=== PATIENT | female | born 1975 | race Caucasian/White ===

== ENCOUNTER 2018-08-15 10:17 | Emergency (ER) | payer SELFPAY ==
--- NOTE | 2018-08-15 11:32 | ER ---
Nurse's Notes [facility] Name: Meghan Edwards Age: 42 yrs Sex: Female : 1975 Arrival Date: 08/15/2018 Time: 10:20 Bed 25 Private MD: Amanda ANGELA Diagnosis: Cutaneous abscess of perineum-left labia Presentation: 08/15 10:52 Presenting complaint: Patient states: Left Bartholin's cyst DX yesterday at [facility] with attempted I\T\D. Patient reports fluid draining from cyst. Transition of care: patient was not received from another setting of care. Onset of symptoms was August 05, 2018. Risk Assessment: Do you want to hurt yourself or someone else? Patient reports no desire to harm self or others. Initial Sepsis Screen: Does the patient meet any 2 criteria? No. Patient's initial sepsis screen is negative. Does the patient have a suspected source of infection? No. Patient's initial sepsis screen is negative. Care prior to arrival: None. 10:52 Method Of Arrival: Ambulatory 10:52 Acuity: LALI 3 Triage Assessment: 10:55 General: Appears in no apparent distress. uncomfortable, Behavior is calm, cooperative, aj appropriate for age. Pain: Complains of pain in left labia minora. Neuro: Level of Consciousness is awake, alert, obeys commands, Oriented to person, place, time, situation, Appropriate for age. Respiratory: Airway is patent Respiratory effort is even, unlabored, Respiratory pattern is regular, symmetrical. : Reports pain in left in suprapubic area. Derm: Skin is intact, is healthy with good turgor, Skin is pink, warm \T\ dry. normal. 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 - Social history:: Smoking status: Patient/guardian denies using tobacco. - Ebola Screening: : Patient negative for fever greater than or equal to 101.5 degrees Fahrenheit, and additional compatible Ebola Virus Disease symptoms Patient denies exposure to infectious person Patient denies travel to an Ebola-affected area in the 21 days before illness onset No symptoms or risks identified at this time. - Family history:: not pertinent. Screenin:23 Abuse screen: Denies threats or abuse. Denies injuries from another. Nutritional ss screening: No deficits noted. Tuberculosis screening: No symptoms or risk factors identified. Never had TB. Fall Risk None identified. Assessment: 11:23 General: Appears uncomfortable, Behavior is calm, cooperative, Denies fever, feeling ss ill, fatigue, chills. Pain: Complains of pain in left labia minora Pain currently is 8 out of 10 on a pain scale. Quality of pain is described as tender, Is continuous. Neuro: Level of Consciousness is awake, alert, obeys commands, Oriented to person, place, time, situation. Cardiovascular: Capillary refill < 3 seconds is brisk in bilateral fingers. Respiratory: Airway is patent Respiratory effort is even, unlabored, Respiratory pattern is regular, symmetrical. GI: No signs and/or symptoms were reported involving the gastrointestinal system. : No signs and/or symptoms were reported regarding the genitourinary system. EENT: Nares are clear. Derm: Skin is intact, is healthy with good turgor, Skin is dry, Skin is pink, warm \T\ dry. normal. Derm: Reports purulent drainage from abscess. Musculoskeletal: Circulation, motion, and sensation intact. Range of motion: intact in all extremities, Swelling present in left labia minora. Vital Signs: 10:55 BP 129 / 79; Pulse 78; Resp 20; Temp 97.5; Pulse Ox 98% on R/A; Weight 99.79 kg; Height aj 5 ft. 7 in. (170.18 cm); 10:55 Body Mass Index 34.46 (99.79 kg, 170.18 cm) aj ED Course: 10:20 Patient arrived in ED. sb2 10:21 Amanda ANGELA is Private Physician. sb2 10:54 Triage completed. aj 10:55 Arm band placed on left wrist. Patient placed in waiting room. aj 11:14 Howard Modi MD is Attending Physician. imelda 11:23 Lynnette Kennedy, RN is Primary Nurse. ss 11:23 Patient has correct armband on for positive identification. Bed in low position. Call ss light in reach. 11:30 Laci Lynn MD is Referral Physician. imelda 11:42 No provider procedures requiring assistance completed. Patient did not have IV access ss during this emergency room visit. Administered Medications: 11:41 Drug: [place] 10 mg-325 mg 1 tabs Route: PO; ss 11:53 Follow up: Response: No adverse reaction; Medication administered at discharge. ss 11:42 Drug: Doxycycline 200 mg Route: PO; ss 11:53 Follow up: Response: No adverse reaction; Medication administered at discharge. ss 11:42 Drug: Bactrim (160 mg-800 mg (DS) 1 tablet Route: PO; ss 11:53 Follow up: Response: No adverse reaction; Medication administered at discharge. ss Outcome: 11:31 Discharge ordered by MD. [facility] 11:42 Condition: good 11:42 Discharge instructions given to patient, significant other, Instructed on discharge instructions, follow up and referral plans. medication usage, wound care, Demonstrated understanding of instructions, follow-up care, medications, Prescriptions given X 4. 11:53 Discharged to home ambulatory, with significant other. ss 11:53 Patient left the ED. Signatures: Laura Paz, RN RN Howard Camara MD MD cha Smirch, Shelby, RN RN Sue Pierre sb2 Corrections: (The following items were deleted from the chart) 10:57 10:55 Arm band placed on left wrist. Patient placed in an exam room, jeffrey murphy
--- NOTE | 2018-08-15 11:32 | EDPHYS ---
Physician Documentation [facility] Name: Meghan Edwards Age: 42 yrs Sex: Female : 1975 Arrival Date: 08/15/2018 Time: 10:20 Bed 25 Private MD: Amanda ANGELA ED Physician Howard Modi HPI: 08/15 11:26 This 42 yrs old Female presents to ER via Ambulatory with complaints of imelda Abscess. 11:26 The patient presents with an abscess of the left labia majora. Description: localized, imelda draining, erythematous, fluctuant, raised, swollen. Onset: The symptoms/episode began/occurred 1 week(s) ago. Possible cause(s): unknown. Associated signs and symptoms: The patient has no apparent associated signs or symptoms. Modifying factors: the symptoms are alleviated by remaining still, the symptoms are aggravated by squeezing the lesion and expressing the contents. Severity of symptoms: At their worst the symptoms were mild, in the emergency department the symptoms have improved. The patient has experienced similar episodes in the past, several times. 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 - Social history:: Smoking status: Patient/guardian denies using tobacco. - Ebola Screening: : Patient negative for fever greater than or equal to 101.5 degrees Fahrenheit, and additional compatible Ebola Virus Disease symptoms Patient denies exposure to infectious person Patient denies travel to an Ebola-affected area in the 21 days before illness onset No symptoms or risks identified at this time. - Family history:: not pertinent. ROS: 11:26 Constitutional: Negative for fever, chills, and weight loss, Eyes: Negative for injury, imelda pain, redness, and discharge, ENT: Negative for injury, pain, and discharge, Neck: Negative for injury, pain, and swelling, Cardiovascular: Negative for chest pain, palpitations, and edema, Respiratory: Negative for shortness of breath, cough, wheezing, and pleuritic chest pain, Abdomen/GI: Negative for abdominal pain, nausea, vomiting, diarrhea, and constipation, Back: Negative for injury and pain, MS/Extremity: Negative for injury and deformity, Skin: Negative for injury, rash, and discoloration, Neuro: Negative for headache, weakness, numbness, tingling, and seizure, Psych: Negative for depression, anxiety, suicide ideation, homicidal ideation, and hallucinations, Allergy/Immunology: Negative for hives, rash, and allergies, Endocrine: Negative for neck swelling, polydipsia, polyuria, polyphagia, and marked weight changes, Hematologic/Lymphatic: Negative for swollen nodes, abnormal bleeding, and unusual bruising. 11:26 : Positive for of the left labia majora, abscess. Exam: 11:26 Constitutional: This is a well developed, well nourished patient who is awake, alert, imelda and in no acute distress. Head/Face: Normocephalic, atraumatic. Eyes: Pupils equal round and reactive to light, extra-ocular motions intact. Lids and lashes normal. Conjunctiva and sclera are non-icteric and not injected. Cornea within normal limits. Periorbital areas with no swelling, redness, or edema. ENT: Nares patent. No nasal discharge, no septal abnormalities noted. Tympanic membranes are normal and external auditory canals are clear. Oropharynx with no redness, swelling, or masses, exudates, or evidence of obstruction, uvula midline. Mucous membranes moist. Neck: Trachea midline, no thyromegaly or masses palpated, and no cervical lymphadenopathy. Supple, full range of motion without nuchal rigidity, or vertebral point tenderness. No Meningismus. Chest/axilla: Normal chest wall appearance and motion. Nontender with no deformity. No lesions are appreciated. Cardiovascular: Regular rate and rhythm with a normal S1 and S2. No gallops, murmurs, or rubs. Normal PMI, no JVD. No pulse deficits. Respiratory: Lungs have equal breath sounds bilaterally, clear to auscultation and percussion. No rales, rhonchi or wheezes noted. No increased work of breathing, no retractions or nasal flaring. Abdomen/GI: Soft, non-tender, with normal bowel sounds. No distension or tympany. No guarding or rebound. No evidence of tenderness throughout. Back: No spinal tenderness. No costovertebral tenderness. Full range of motion. Female : Normal external genitalia. MS/ Extremity: Pulses equal, no cyanosis. Neurovascular intact. Full, normal range of motion. Neuro: Awake and alert, GCS 15, oriented to person, place, time, and situation. Cranial nerves II-XII grossly intact. Motor strength 5/5 in all extremities. Sensory grossly intact. Cerebellar exam normal. Normal gait. Psych: Awake, alert, with orientation to person, place and time. Behavior, mood, and affect are within normal limits. 11:26 Skin: abscess, that is small, cellulitis, that is mild, confluent, induration, that is mild is noted, that is moderate is noted, injury, is not appreciated. Vital Signs: 10:55 BP 129 / 79; Pulse 78; Resp 20; Temp 97.5; Pulse Ox 98% on R/A; Weight 99.79 kg; Height aj 5 ft. 7 in. (170.18 cm); 10:55 Body Mass Index 34.46 (99.79 kg, 170.18 cm) MDM: 11:14 Patient medically screened. [facility] 11:29 Data reviewed: vital signs, nurses notes. [facility] Administered Medications: 11:41 Drug: [place] 10 mg-325 mg 1 tabs Route: PO; 11:53 Follow up: Response: No adverse reaction; Medication administered at discharge. 11:42 Drug: Doxycycline 200 mg Route: PO; 11:53 Follow up: Response: No adverse reaction; Medication administered at discharge. 11:42 Drug: Bactrim (160 mg-800 mg (DS) 1 tablet Route: PO; 11:53 Follow up: Response: No adverse reaction; Medication administered at discharge. Disposition: 08/15/18 11:31 Discharged to Home. Impression: Cutaneous abscess of perineum - left labia. - Condition is Stable. - Discharge Instructions: Skin Abscess, Skin Abscess, [id number]. - Prescriptions for Tylenol- Codeine #3 300-30 mg Oral Tablet - take 2 tablets by ORAL route every 6 hours As needed; 24 tablet. Zofran 4 mg Oral Tablet - take 1 tablet by ORAL route every 12 hours As needed; 14 tablet. Doxycycline Hyclate 100 mg Oral Tablet - take 1 tablet by ORAL route every 12 hours; 20 tablet. Bactrim DS 800- 160 mg Oral Tablet - take 1 tablet by ORAL route every 12 hours for 10 days; 20 tablet. - Medication Reconciliation Form, Thank You Letter, Antibiotic Education, Prescription Opioid Use form. - Follow up: Private Physician; When: 2 - 3 days; Reason: Recheck today's complaints, Continuance of care, Re-evaluation by your physician. Follow up: Laci Lynn MD; When: 2 - 3 days; Reason: Recheck today's complaints, Continuance of care, Re-evaluation by your physician. - Problem is new. - Symptoms have improved. Signatures: Laura Paz RN RN Howard Camara MD MD cha Smirch, Shelby, RN RN ss Corrections: (The following items were deleted from the chart) 11:53 11:31 08/15/2018 11:31 Discharged to Home. Impression: Cutaneous abscess of perineum - ss left labia. Condition is Stable. Forms are Medication Reconciliation Form, Thank You Letter, Antibiotic Education, Prescription Opioid Use. Follow up: Private Physician; When: 2 - 3 days; Reason: Recheck today's complaints, Continuance of care, Re-evaluation by your physician. Follow up: Laci Lynn; When: 2 - 3 days; Reason: Recheck today's complaints, Continuance of care, Re-evaluation by your physician. Problem is new. Symptoms have improved. imelda
[2018-08-15] MEDS ORDERED: HYDROCODONE/APAP 10/325 TAB ONE (11:46)
[2018-08-15] MEDS ORDERED: SMZ./TMP. 800/160 MG TABLET ONE (11:46)
[2018-08-15] MEDS ORDERED: DOXYCYCLINE 100 MG CAP PO ONE (11:46)
== END 2018-08-15 11:53 | disposition home or self-care (01) ==
LOC: ER 10:17
DX: L02.215 Cutaneous abscess of perineum (principal); E11.9 Type 2 diabetes mellitus without complications; I10 Essential (primary) hypertension; F41.9 Anxiety disorder, unspecified; Z79.4 Long term (current) use of insulin; Z79.899 Other long term (current) drug therapy
CPT/HCPCS: 99283

== ENCOUNTER 2018-10-07 14:11 | Emergency (ER) | payer SELFPAY ==
[2018-10-07] MEDS ORDERED: ONDANSETRON 4 MG/2 ML VIAL ONE (15:39)
[2018-10-07] MEDS ORDERED: NA CHLORIDE 0.9% 1,000 ML ONE (15:39)
[2018-10-07 15:46] LABS: Absolute Lymphocytes (CBC) 2.5 K/uL (0.7-4.9); Absolute Monocytes 0.8 K/uL (0.1-1.3); Absolute Neutrophil 4.7 K/uL (1.8-8.0); Basophils % 1.1 % (0-1.3); Eosinophils % 2.8 % (0-4.4); Hematocrit 41.9 % (36.0-45.0); MPV 8.3 fL (7.6-11.3); Monocytes % 9.3 % (3.3-12.3); RBC Red Blood Cell Count 4.82 M/uL (3.86-4.86)
[2018-10-07 15:58] LABS: ALT/SGPT 25 U/L (12-78); AST/SGOT 10 U/L (15-37); Albumin 3.8 g/dL (3.4-5.0); Alkaline Phosphatase 58 U/L (45-117); BUN Blood Urea Nitrogen 14 mg/dL (7-18); Bicarbonate 27 mmol/L (21-32); Bilirubin Direct < 0.1 mg/dL (0-0.2); Bilirubin Total 0.3 mg/dL (0.2-1.0); Glucose Level 66 mg/dL (74-106); Lipase 121 U/L (73-393); Potassium 3.7 mmol/L (3.5-5.1); Protein, Total 7.6 g/dL (6.4-8.2); Sodium Level 142 mmol/L (136-145)
[2018-10-07 18:43] LABS: Urine Bacteria NONE SEEN /HPF (<20)
[2018-10-07 18:44] LABS: Urine Culture Reflex Order NOT NEEDED
[2018-10-07 18:44] LABS: Urine Blood 1+ (NEG); Urine Glucose NEGATIVE (NEG); Urine Protein NEGATIVE (NEG)
--- NOTE | 2018-10-07 19:41 | ER ---
Nurse's Notes [facility] Name: Meghan Edwards Age: 42 yrs Sex: Female : 1975 Arrival Date: 10/07/2018 Time: 14:15 Bed 6 Private MD: Diagnosis: Vomiting;Diarrhea, unspecified Presentation: 10/07 14:15 Presenting complaint: EMS states: abd discomfort, nausea and diarrhea x 2 days. ss Transition of care: patient was not received from another setting of care. Onset of symptoms was October 05, 2018. Risk Assessment: Do you want to hurt yourself or someone else? Patient reports no desire to harm self or others. Initial Sepsis Screen: Does the patient meet any 2 criteria? No. Patient's initial sepsis screen is negative. Does the patient have a suspected source of infection? No. Patient's initial sepsis screen is negative. 14:15 Method Of Arrival: EMS: [facility] ss 14:15 Acuity: LALI 3 ss 14:17 Care prior to arrival: Medication(s) given: Phenergan, 12.5 mg, zofran 4 mg, IV ss initiated. 20 GA, in the left forearm, Glucose check: 102. Historical: - Allergies: 14:17 Codeine; ss - PMHx: 14:17 Anxiety; Diabetes - NIDDM; Hypertension; ss - PSHx: 14:17 ; Hysterectomy; Cholecystectomy; ss - Immunization history:: Adult Immunizations up to date, Flu vaccine is not up to date. - Social history:: Smoking status: Patient/guardian denies using tobacco. - Ebola Screening: : Patient denies exposure to infectious person Patient denies travel to an Ebola-affected area in the 21 days before illness onset. Screenin:30 Abuse screen: Denies threats or abuse. Denies injuries from another. Nutritional sg screening: No deficits noted. Tuberculosis screening: No symptoms or risk factors identified. Never had TB. Fall Risk None identified. Assessment: 15:10 General: Appears in no apparent distress. comfortable, well groomed, well developed, sg well nourished, Behavior is calm, cooperative, appropriate for age. Pain: Complains of pain in body aches. Neuro: No deficits noted. Cardiovascular: Patient's skin is warm and dry. Respiratory: Airway is patent Respiratory effort is even, unlabored, Respiratory pattern is regular, symmetrical, Denies cough. GI: Abdomen is round Reports diarrhea, nausea. : No signs and/or symptoms were reported regarding the genitourinary system. EENT: No signs and/or symptoms were reported regarding the EENT system. Derm: Skin is pink, warm \T\ dry. Musculoskeletal: Circulation, motion, and sensation intact. Range of motion: intact in all extremities, Swelling absent. 16:20 Reassessment: Patient appears in no apparent distress at this time. Patient and/or sg family updated on plan of care and expected duration. Pain level reassessed. Patient is alert, oriented x 3, equal unlabored respirations, skin warm/dry/pink. 17:20 Reassessment: Patient appears in no apparent distress at this time. Patient and/or sg family updated on plan of care and expected duration. Pain level reassessed. Patient is alert, oriented x 3, equal unlabored respirations, skin warm/dry/pink. 18:22 Reassessment: Patient appears in no apparent distress at this time. Patient and/or sg family updated on plan of care and expected duration. Pain level reassessed. Patient states feeling better. Vital Signs: 14:17 BP 116 / 61; Pulse 66; Resp 15; Pulse Ox 97% on R/A; Weight 90.72 kg; Height 5 ft. 7 ss in. (170.18 cm); Pain 5/10; 14:19 Temp 97.9(O); ss 15:20 BP 112 / 62; Pulse 68; Resp 17; Pulse Ox 98% on R/A; sg 16:20 BP 114 / 66; Pulse 66; Resp 16; Pulse Ox 97% on R/A; sg 17:45 BP 121 / 70; Pulse 62; Resp 17; Pulse Ox 98% on R/A; sg 14:17 Body Mass Index 31.32 (90.72 kg, 170.18 cm) ED Course: 14:15 Patient arrived in ED. ss 14:16 Triage completed. ss 14:17 Arm band placed on right wrist. ss 14:30 Patient has correct armband on for positive identification. Bed in low position. Call sg light in reach. Side rails up X2. Pulse ox on. NIBP on. Warm blanket given. Head of bed elevated. 14:49 Tyrone Tapia MD is Attending Physician. gs 15:15 No provider procedures requiring assistance completed. Initial lab(s) drawn, by ED sg staff, sent to lab. Maintain EMS IV. Dressing intact. Site clean \T\ dry. Gauge \T\ site: 20 G LFA. 15:35 James Schuster, RN is Primary Nurse. sg 18:40 Diet: Patient given water. Tolerated well. sg Administered Medications: 15:38 Drug: NS 0.9% 1000 ml Route: IV; Rate: 1 bolus; Site: left forearm; sg 17:00 Follow up: Response: No adverse reaction; IV Status: Completed infusion; IV Intake: sg 990ml 15:38 Drug: Zofran 4 mg Route: IVP; Site: left forearm; sg 16:20 Follow up: Response: No adverse reaction sg Point of Care Testing: Blood Glucose: 14:19 Blood Glucose: 82 mg/dL; ss Ranges: Intake: 17:00 IV: 990ml; Total: 990ml. sg Outcome: 19:40 Discharge ordered by . 20:44 Eloped from patient exam room, Time discovered patient gone: October 07, 2018 at 20:15 ak1 pt room empty, pt left prior to discharge papers and instruction. 20:45 Patient left the ED. ak1 Signatures: James Schuster RN RN Lynnette Kennedy RN RN Saray Gavin RN RN [facility] Tyrone Tapia MD MD Corrections: (The following items were deleted from the chart) 14:18 14:15 Care prior to arrival: None. [facility]
--- NOTE | 2018-10-07 19:41 | EDPHYS ---
Physician Documentation [facility] Name: Meghan Edwards Age: 42 yrs Sex: Female : 1975 Arrival Date: 10/07/2018 Time: 14:15 Bed 6 Private MD: ED Physician Tyrone Tapia HPI: 10/07 19:36 This 42 yrs old Female presents to ER via EMS with complaints of Nausea, gs Diarrhea. 19:36 The patient presents to the emergency department with nausea, vomiting, diarrhea. gs Onset: The symptoms/episode began/occurred 3 day(s) ago. Possible causes: unknown. Associated signs and symptoms: Pertinent positives: diarrhea, Pertinent negatives: fever. Severity of symptoms: At their worst the symptoms were moderate in the emergency department the symptoms are unchanged. The patient has experienced similar episodes in the past, a few times. The patient has not recently seen a physician. Historical: - Allergies: 14:17 Codeine; ss - PMHx: 14:17 Anxiety; Diabetes - NIDDM; Hypertension; ss - PSHx: 14:17 ; Hysterectomy; Cholecystectomy; ss - Immunization history:: Adult Immunizations up to date, Flu vaccine is not up to date. - Social history:: Smoking status: Patient/guardian denies using tobacco. - Ebola Screening: : Patient denies exposure to infectious person Patient denies travel to an Ebola-affected area in the 21 days before illness onset. ROS: 19:36 All other systems are negative. gs Exam: 19:36 Head/Face: Normocephalic, atraumatic. Eyes: Pupils equal round and reactive to light, gs extra-ocular motions intact. Lids and lashes normal. Conjunctiva and sclera are non-icteric and not injected. Cornea within normal limits. Periorbital areas with no swelling, redness, or edema. ENT: Nares patent. No nasal discharge, no septal abnormalities noted. Tympanic membranes are normal and external auditory canals are clear. Oropharynx with no redness, swelling, or masses, exudates, or evidence of obstruction, uvula midline. Mucous membranes moist. Neck: Trachea midline, no thyromegaly or masses palpated, and no cervical lymphadenopathy. Supple, full range of motion without nuchal rigidity, or vertebral point tenderness. No Meningismus. Chest/axilla: Normal chest wall appearance and motion. Nontender with no deformity. No lesions are appreciated. Cardiovascular: Regular rate and rhythm with a normal S1 and S2. No gallops, murmurs, or rubs. Normal PMI, no JVD. No pulse deficits. Respiratory: Lungs have equal breath sounds bilaterally, clear to auscultation and percussion. No rales, rhonchi or wheezes noted. No increased work of breathing, no retractions or nasal flaring. Abdomen/GI: Soft, non-tender, with normal bowel sounds. No distension or tympany. No guarding or rebound. No evidence of tenderness throughout. Back: No spinal tenderness. No costovertebral tenderness. Full range of motion. Skin: Warm, dry with normal turgor. Normal color with no rashes, no lesions, and no evidence of cellulitis. MS/ Extremity: Pulses equal, no cyanosis. Neurovascular intact. Full, normal range of motion. Neuro: Awake and alert, GCS 15, oriented to person, place, time, and situation. Cranial nerves II-XII grossly intact. Motor strength 5/5 in all extremities. Sensory grossly intact. Cerebellar exam normal. Normal gait. 19:36 Constitutional: The patient appears alert, awake. Vital Signs: 14:17 BP 116 / 61; Pulse 66; Resp 15; Pulse Ox 97% on R/A; Weight 90.72 kg; Height 5 ft. 7 ss in. (170.18 cm); Pain 5/10; 14:19 Temp 97.9(O); ss 15:20 BP 112 / 62; Pulse 68; Resp 17; Pulse Ox 98% on R/A; sg 16:20 BP 114 / 66; Pulse 66; Resp 16; Pulse Ox 97% on R/A; sg 17:45 BP 121 / 70; Pulse 62; Resp 17; Pulse Ox 98% on R/A; sg 14:17 Body Mass Index 31.32 (90.72 kg, 170.18 cm) MDM: 15:19 Patient medically screened. 19:36 Differential diagnosis: Nonspecific abd pain, gastritis, viral gastroenteritis, gs gastroenteritis. Data reviewed: vital signs, nurses notes. Response to treatment: the patient's symptoms have markedly improved after treatment, and as a result, I will discharge patient. ED course: pt states didn't eat much today and nothing this am. took dm meds anyway. hypoglycemic at ed gave 250, took orally juice. bs stable symptoms improved will discharge. 10/07 14:22 Order name: Glucose, Ancillary Testing; Complete Time: 17:25 EDMS 10/07 15:23 Order name: Basic Metabolic Panel; Complete Time: 17:25 10/07 15:23 Order name: CBC with Diff; Complete Time: 17:25 10/07 15:23 Order name: Hepatic Function; Complete Time: 17:25 10/07 15:23 Order name: Lipase; Complete Time: 17:25 10/07 15:23 Order name: Flu; Complete Time: 17:25 gs 10/07 15:23 Order name: IV Saline Lock; Complete Time: 15:36 gs 10/07 15:23 Order name: Labs collected and sent; Complete Time: 15:36 10/07 15:24 Order name: Urine Test (obtain specimen); Complete Time: 19:13 10/07 15:24 Order name: Urine Microscopic Only; Complete Time: 19:36 10/07 18:08 Order name: Urine Dipstick--Ancillary (enter results); Complete Time: 19:36 10/07 18:11 Order name: Urine --Ancillary (enter results); Complete Time: 19:36 bd 10/07 15:24 Order name: Urine Dipstick-Ancillary (obtain specimen); Complete Time: 19:14 10/07 17:25 Order name: PO challenge; Complete Time: 19:13 gs Administered Medications: 15:38 Drug: NS 0.9% 1000 ml Route: IV; Rate: 1 bolus; Site: left forearm; sg 17:00 Follow up: Response: No adverse reaction; IV Status: Completed infusion; IV Intake: sg 990ml 15:38 Drug: Zofran 4 mg Route: IVP; Site: left forearm; sg 16:20 Follow up: Response: No adverse reaction sg Point of Care Testing: Blood Glucose: 14:19 Blood Glucose: 82 mg/dL; ss Ranges: Critical Glucose Levels:Adult <50 mg/dl or >400 mg/dl <40 mg/dl or >180 mg/dl Disposition: 10/07/18 19:40 Discharged to Home. Impression: Vomiting, Diarrhea, unspecified. - Condition is Stable. - Discharge Instructions: Diarrhea, Adult, Nausea and Vomiting, Adult. - Prescriptions for Zofran 4 mg Oral Tablet - take 1 tablet by ORAL route every 12 hours As needed; 6 tablet. - Medication Reconciliation Form, Thank You Letter, Antibiotic Education, Prescription Opioid Use form. - Follow up: Private Physician; When: 2 - 3 days; Reason: Re-evaluation by your physician. Signatures: Dispatcher [employer] EDMS James Schuster RN RN Lynnette [place] RN RN Saray Gavin RN RN ak1 Tyrone Tapia MD MD gs Corrections: (The following items were deleted from the chart) 20:45 19:40 10/07/2018 19:40 Discharged to Home. Impression: Vomiting; Diarrhea, unspecified. ak1 Condition is Stable. Forms are Medication Reconciliation Form, Thank You Letter, Antibiotic Education, Prescription Opioid Use. Follow up: Private Physician; When: 2 - 3 days; Reason: Re-evaluation by your physician. gs
== END 2018-10-07 20:45 | disposition home or self-care (01) ==
LOC: ER 14:11
DX: R11.2 Nausea with vomiting, unspecified (principal); R19.7 Diarrhea, unspecified; E11.9 Type 2 diabetes mellitus without complications; F41.9 Anxiety disorder, unspecified; Z88.5 Allergy status to narcotic agent; I10 Essential (primary) hypertension
CPT/HCPCS: 36415; 80048; 80076; 81003; 81015; 81025; 82962; 83690; 85025; 87804; 96361; 96374; 99284; J2405; J7030

== ENCOUNTER 2020-01-24 13:27 | Emergency (ER) | payer SELFPAY ==
--- OUTSIDE RECORDS SUMMARY | 2020-01-24 13:29 | XMS REPORT | Continuity of Care Document ---
:[address] [facility] t Address [address] [place] [address] [address]. [address]. [address] [place] [address] Care Team Providers Name Role Phone Virgen MARTINEZ, M Attending Clinician Unavailable Problems This patient has no known problems. Allergies, Adverse Reactions, Alerts This patient has no known allergies or adverse reactions. Medications This patient has no known medications. Procedures This patient has no known procedures. Encounters Start End Encounter Admission Attending Care Care Encounter Source Date/Time Date/Time Type Type Clinicians Facility Department ID 2020-01-24 2020-01-24 Nurse HYUN New [id number] 00:00:00 00:00:00 Triage Nataliya WELLS [id number] [facility] [id number] Results This patient has no known results.
--- OUTSIDE RECORDS SUMMARY | 2020-01-24 13:29 | XMS REPORT | Summary of Care ---
:[address] [facility] Address [address] [place] [id number] Care Team Providers Name Role Phone Pcp, Does Not Have A Primary Care Provider Reason for Visit Reason Comments Sinus Problem Information Encounter Details Date Type Department Care Team Description 01/24/2020 Nurse Triage [facility] Nataliya New, Sinus Problem; [address] [place] [address] RN Information Stopover [address] [place] [address] [address] [id number] [place], [place] [id number] Allergies Active Allergy Reactions Severity Noted Date Comments Hydrocodone Nausea and/or Vomiting 12/15/2018 documented as of this encounter (statuses as of 01/24/2020) Medications Medication Sig Dispensed Refills Start Date End Date Status acetaminophen (TYLENOL) Take 2 tablets 180 tablet 0 07/19/2016 Active 325 mg tablet by mouth every 6 (six) hours. hydroCHLOROthiazide Take 1 capsule 90 capsule 1 07/19/2016 Active (ESIDRIX) 12.5 mg capsule by mouth daily. glipiZIDE 10 mg tablet Take 1 tablet 60 tablet 1 12/28/2017 Active by mouth 2 (two) times daily before breakfast and dinner. aspirin 81 mg chewable Take 1 tablet 30 tablet 0 12/29/2017 Active tablet by mouth daily. butalbital-acetaminophen- Take 1 tablet 20 tablet 0 03/15/2018 Active caff 50-325-40 mg tablet by mouth every 6 (six) hours as needed for Headache (Headache). ibuprofen 600 mg Take 1 tablet 30 tablet 0 12/15/2018 Active tabletIndications: by mouth every Ureteral stone 6 (six) hours as needed for Pain (scale 4-6). tamsulosin 0.4 mg 24 hr Take 1 capsule 14 capsule 0 12/15/2018 Active capsuleIndications: by mouth at Ureteral stone bedtime. traMADol (ULTRAM) 50 mg Take 1 tablet 20 tablet 0 08/01/2019 Active tabletIndications: Foot by mouth every pain, right, Contusion of 6 (six) hours right foot, initial as needed for encounter Pain (scale 7-10). documented as of this encounter (statuses as of 01/24/2020) Active Problems Problem Noted Date Uncontrollable nausea and vomiting 12/28/2017 Kidney stone 10/29/2016 Nephrolithiasis 07/18/2016 Obesity 05/13/2016 documented as of this encounter (statuses as of 01/24/2020) Immunizations Name Administration Dates Next Due Influenza Virus Vaccine Quad IM 3+ YRS 07/19/2016 Pneumococcal Polysaccharide, PPSV23 (PNEUMOVAX) 07/19/2016 documented as of this encounter Social History Tobacco Use Types Packs/Day Years Used Date Former Smoker Smokeless Tobacco: Never Used Alcohol Use Drinks/Week oz/Week Comments No Sex Assigned at Date Recorded Not on file Job Start Date Occupation Industry Not on file Not on file Not on file Travel History Travel Start Travel End No recent travel history available. documented as of this encounter Last Filed Vital Signs Not on filedocumented in this encounter Plan of Treatment Health Maintenance Due Date Last Done Comments DTaP,Tdap,and Td Vaccines (1 - 1984 Tdap) Depression Screening 1985 PAP SMEAR 1994 Breast Cancer Screening 2013 (MAMMOGRAM) INFLUENZA VACCINE (Season Ended) 2020 07/19/2016 PNEUMOCOCCAL 0-64 YEARS COMBINED Aged Out 07/19/2016 No longer eligible based on SERIES patient's age to complete this topic documented as of this encounter Results Not on filedocumented in this encounter
--- NOTE | 2020-01-24 14:20 | RAD REPORT ---
EXAM DESCRIPTION: CT - Head Brain Wo Cont - 01/24/2020 2:10 pm CLINICAL HISTORY: HEADACHE Headache, drowsiness COMPARISON: No comparisons TECHNIQUE: All CT scans are performed using dose optimization technique as appropriate and may inclu de automated exposure control or mA/KV adjustment according to patient size. FINDINGS: No intracranial hemorrhage, hydrocephalus or extra-axial fluid collection.No areas of brai n edema or evidence of midline shift. The paranasal sinuses and mastoids are clear. The calvarium is intact. IMPRESSION: No acute intracranial abnormality.
[2020-01-24] MEDS ORDERED: NA CHLORIDE 0.9% 1,000 ML ONE (14:25)
[2020-01-24] MEDS ORDERED: METOCLOPRAMIDE 10 MG/2mL INJ ONE (14:25)
[2020-01-24] MEDS ORDERED: dexAMETHasone 10 MG/ML VIAL ONE (14:25)
--- NOTE | 2020-01-24 15:15 | ER ---
Nurse's Notes [facility] Name: Meghan Edwards Age: 44 yrs Sex: Female : 1975 Arrival Date: 01/24/2020 Time: 13:30 Bed 18 Private MD: Diagnosis: Headache Presentation: 01/23 13:46 Chief complaint: Patient states: Sinus pressure, WALLER's for 9 days. + N/V at times. covid ll1 test pending. Onset of symptoms was January 16, 2020. 13:46 Method Of Arrival: Ambulatory ll1 13:46 Acuity: LALI 3 ll1 14:49 Coronavirus screen: Proceed with normal triage. Patient denies a cough. Patient denies ll1 shortness of breath or difficulty breathing. Patient denies measured and/or subjective temperature greater than 100.4F prior to today's visit. Patient denies travel on a cruise ship or to a country the [facility] currently lists as an affected area. Patient denies contact with known and/or suspected case of COVID-19. Ebola Screen: Patient denies travel to an Ebola-affected area in the 21 days before illness onset. Initial Sepsis Screen: Does the patient meet any 2 criteria? No. Patient's initial sepsis screen is negative. Risk Assessment: Do you want to hurt yourself or someone else? Patient reports no desire to harm self or others. Historical: - Allergies: 13:47 Codeine; ll1 - PMHx: 13:47 Anxiety; Diabetes - NIDDM; Hypertension; ll1 - PSHx: 13:47 ; Hysterectomy; Cholecystectomy; gastric sleeve; ll1 - Family history:: not pertinent. - Hospitalizations: : No recent hospitalization is reported. Screenin:00 Abuse screen: Denies threats or abuse. Nutritional screening: No deficits noted. Tuberculosis screening: No symptoms or risk factors identified. Assessment: 14:00 General: Appears uncomfortable, Behavior is cooperative, crying. Pain: Complains of pain in headache. Neuro: Level of Consciousness is awake, alert, Oriented to person, place, time, situation. Cardiovascular: Capillary refill < 3 seconds Patient's skin is warm and dry. Respiratory: Airway is patent Respiratory effort is even, unlabored, Respiratory pattern is regular, symmetrical. GI: Abdomen is non-distended, Reports nausea. EENT: Nares with drainage noted. Derm: Skin is intact, is healthy with good turgor. 15:00 Reassessment: Pt states that she feels like the pressure has released and is feeling ah some better. No needs voiced. Vital Signs: 13:46 BP 197 / 90; Pulse 66; Resp 18; Temp 98.6; Pulse Ox 100% ; Pain 10/10; ll1 14:00 BP 162 / 99; Pulse 57; Resp 18; Pulse Ox 98% ; ah Apurva Coma Score: 15:10 Eye Response: spontaneous(4). Verbal Response: oriented(5). Motor Response: obeys rn commands(6). Total: 15. ED Course: 13:30 Patient arrived in ED. as 13:40 Christian Carpio MD is Attending Physician. rn 13:47 Triage completed. ll1 13:47 Arm band placed on Patient placed in an exam room, on a stretcher. ll1 14:10 CT Head Brain wo Cont In Process Unspecified. [facility] 14:15 Brea Doan, RN is Primary Nurse. 14:32 Inserted saline lock: 22 gauge in right antecubital area, using aseptic technique. ah 15:00 Patient has correct armband on for positive identification. Bed in low position. Call light in reach. 15:30 No provider procedures requiring assistance completed. IV discontinued. Administered Medications: 14:25 Drug: NS 0.9% 1000 ml Route: IV; Rate: 1000 ml; Site: right antecubital; 15:54 Follow up: Response: No adverse reaction; IV Status: Completed infusion 14:31 Drug: Decadron - Dexamethasone 10 mg Route: IVP; Site: right antecubital; 15:54 Follow up: Response: No adverse reaction 14:32 Drug: Reglan 10 mg Route: IVP; Site: right antecubital; 15:54 Follow up: Response: No adverse reaction Outcome: 15:14 Discharge ordered by . rn 15:30 Discharged to home ambulatory. 15:30 Condition: good 15:30 Discharge instructions given to patient, Instructed on discharge instructions, follow up and referral plans. medication usage, Demonstrated understanding of instructions, follow-up care, medications, Prescriptions given X 1. 15:51 Patient left the ED. hb Signatures: Dispatcher [employer] EDMS Allison Nice as Christian Carpio, MD MD rn Dobson, Deloris, RN RN Brea Phillips RN RN Yin Bergman RN RN ll1
--- NOTE | 2020-01-24 15:15 | EDPHYS ---
Physician Documentation [facility] Name: Meghan Edwards Age: 44 yrs Sex: Female : 1975 Arrival Date: 01/24/2020 Time: 13:30 Bed 18 Private MD: ED Physician Christian Carpio HPI: 01/23 15:09 This 44 yrs old Female presents to ER via Ambulatory with complaints of rn Nausea, Sinus Pain, Headache. 15:10 The patient complains of pain to the forehead, right cheek and left cheek. The patient rn describes the headache as aching. Onset: The symptoms/episode began/occurred 1 week(s) ago. Associated signs and symptoms: Pertinent positives: sinus congestion, sinus tenderness, Pertinent negatives: altered mental status, fever, neck stiffness, Photophobia rash, vision changes, vision loss, vertigo. Severity of symptoms: At its worst the pain was moderate, in the emergency department the pain is unchanged. The symptoms are alleviated by nothing. the symptoms are aggravated by touching sinuses. The patient has experienced similar episodes in the past. The patient has been recently seen by a physician:. On day 3 on azithromycin, not improving, + sinus pressure and headache. No sob or cough, no chest tightness. . Historical: - Allergies: 13:47 Codeine; ll1 - PMHx: 13:47 Anxiety; Diabetes - NIDDM; Hypertension; ll1 - PSHx: 13:47 ; Hysterectomy; Cholecystectomy; gastric sleeve; ll1 - Family history:: not pertinent. - Hospitalizations: : No recent hospitalization is reported. ROS: 15:10 Constitutional: Negative for fever, chills, and weight loss, Eyes: Negative for injury, rn pain, redness, and discharge, ENT: + sinus pressure Neck: Negative for injury, pain, and swelling, Cardiovascular: Negative for chest pain, palpitations, and edema, Respiratory: Negative for shortness of breath, cough, wheezing, and pleuritic chest pain, Abdomen/GI: Negative for abdominal pain, nausea, vomiting, diarrhea, and constipation, MS/Extremity: Negative for injury and deformity, Skin: Negative for injury, rash, and discoloration, Neuro: Negative for weakness, numbness, tingling, and seizure. Exam: 15:10 Constitutional: This is a well developed, well nourished patient who is awake, alert, rn and in no acute distress. Ambulatory to room without difficulty. Head/Face: Normocephalic, atraumatic. Eyes: Pupils equal round and reactive to light, extra-ocular motions intact. Lids and lashes normal. Conjunctiva and sclera are non-icteric and not injected. Cornea within normal limits. Periorbital areas with no swelling, redness, or edema. ENT: Nares patent. No nasal discharge, no septal abnormalities noted. Oropharynx with no redness, swelling, or masses, exudates, or evidence of obstruction, uvula midline. Mucous membranes moist. + mild tenderness over frontal and paranasal sinuses. Neck: Trachea midline, no thyromegaly or masses palpated, and no cervical lymphadenopathy. Supple, full range of motion without nuchal rigidity, or vertebral point tenderness. No Meningismus. Skin: Warm, dry MS/ Extremity: Pulses equal, no cyanosis Neuro: Awake and alert, GCS 15, oriented to person, place, time, and situation. Cranial nerves II-XII grossly intact. Motor strength 5/5 in all extremities. Sensory grossly intact. Cerebellar exam normal. Normal gait. Vital Signs: 13:46 BP 197 / 90; Pulse 66; Resp 18; Temp 98.6; Pulse Ox 100% ; Pain 10/10; ll1 14:00 BP 162 / 99; Pulse 57; Resp 18; Pulse Ox 98% ; ah Apurva Coma Score: 15:10 Eye Response: spontaneous(4). Verbal Response: oriented(5). Motor Response: obeys rn commands(6). Total: 15. MDM: 13:40 Patient medically screened. rn 15:10 Differential diagnosis: hypertensive headache, migraine, sinusitis, tension headache, rn vasomotor headache. Data reviewed: vital signs, nurses notes, radiologic studies, CT scan, and as a result, I will discharge patient. Counseling: I had a detailed discussion with the patient and/or guardian regarding: the historical points, exam findings, and any diagnostic results supporting the discharge/admit diagnosis, radiology results, the need for outpatient follow up, to return to the emergency department if symptoms worsen or persist or if there are any questions or concerns that arise at home. Response to treatment: the patient's symptoms have markedly improved after treatment, and as a result, I will discharge patient. Special discussion: I discussed with the patient/guardian in detail that at this point there is no indication for admission to the hospital. It is understood, however, that if the symptoms persist or worsen the patient needs to return immediately for re-evaluation. 01/23 13:49 Order name: CT Head Brain wo Cont; Complete Time: 14:23 rn 01/23 13:49 Order name: IV Start; Complete Time: 14:32 rn Administered Medications: 14:25 Drug: NS 0.9% 1000 ml Route: IV; Rate: 1000 ml; Site: right antecubital; 15:54 Follow up: Response: No adverse reaction; IV Status: Completed infusion 14:31 Drug: Decadron - Dexamethasone 10 mg Route: IVP; Site: right antecubital; 15:54 Follow up: Response: No adverse reaction 14:32 Drug: Reglan 10 mg Route: IVP; Site: right antecubital; 15:54 Follow up: Response: No adverse reaction Disposition: 01/24/20 15:14 Discharged to Home. Impression: Headache. - Condition is Stable. - Discharge Instructions: Hypertension, Sinus Headache. - Prescriptions for Medrol (Errol) 4 mg Oral Tablets, Dose Pack - take 1 tablet by ORAL route as directed - follow package instructions; 1 packet. - Medication Reconciliation Form, Thank You Letter, Antibiotic Education, Prescription Opioid Use form. - Follow up: Private Physician; When: As needed; Reason: Recheck today's complaints, Re-evaluation by your physician. - Problem is an ongoing problem. - Symptoms have improved. Signatures: Dispatcher [employer] EDChristian Ly MD MD rn Baxter, Heather, RN RN hb Harris, Amy RN Yin French RN RN ll1 Corrections: (The following items were deleted from the chart) 15:51 15:14 01/24/2020 15:14 Discharged to Home. Impression: Headache. Condition is Stable. hb Forms are Medication Reconciliation Form, Thank You Letter, Antibiotic Education, Prescription Opioid Use. Follow up: Private Physician; When: As needed; Reason: Recheck today's complaints, Re-evaluation by your physician. Problem is an ongoing problem. Symptoms have improved. rn
[2020-01-24 15:56] VITALS: BP 197/90; TEMP 98.6; O2SAT 100
== END 2020-01-24 15:51 | disposition home or self-care (01) ==
LOC: ER 13:27
DX: R51 Headache (principal); I10 Essential (primary) hypertension; Z88.5 Allergy status to narcotic agent
CPT/HCPCS: 70450; 96361; 96374; 96375; 99284; J1100; J2765; J7030

== ENCOUNTER 2020-11-17 16:06 | Observation (INO) | payer OTHER, SELFPAY ==
--- OUTSIDE RECORDS SUMMARY | 2020-11-17 16:08 | XMS REPORT | Continuity of Care Document ---
:1975 Author Organization [facility] t Address [address] [place] [address] Dr. Nava. [address] [place] [address] Care Team Providers Name Role Phone Esposito DO Attending Clinician Lab, Fam Pob I Attending Clinician Unavailable Virgen MARTINEZ, M Attending Clinician Unavailable Problems This patient has no known problems. Allergies, Adverse Reactions, Alerts This patient has no known allergies or adverse reactions. Medications This patient has no known medications. Procedures This patient has no known procedures. Encounters Start End Encounter Admission Attending Care Care Encounter Source Date/Time Date/Time Type Type Clinicians Facility Department ID 2020-10-12 2020-10-12 Emergency [facility] [id number] 09:18:00 11:40:00 Gelacio Rodriguez [id number] [place] [id number] [place] [id number] 2020-03-04 2020-03-04 Laboratory Lab, [facility] [id number] 08:52:32 09:12:32 Only Fam Pob I [facility] [id number] [place] [id number] [facility] [id number] [address] 2020-01-24 2020-01-24 Nurse HYUN New [id number] 00:00:00 00:00:00 Triage Nataliya Funk PRISCLILA [id number] [facility] [id number] Results This patient has no known results.
[2020-11-17] MEDS ORDERED: HYDROCOD 2.5mg-ACETAMIN 108mg/5mL Soln ONE (16:32)
[2020-11-17] MEDS ORDERED: IBUPROFEN 100 MG/5 ML UCUP ONE (16:32)
[2020-11-17 19:00] LABS: Basophils % 0.4 % (0-1.3); Hematocrit 44.5 % (36.0-45.0); Lymphocytes % 24.5 % (15.3-44.8); MPV 8.8 fL (7.6-11.3); RBC Red Blood Cell Count 5.01 M/uL (3.86-4.86)
[2020-11-17] MEDS ORDERED: ONDANSETRON 4 MG/2 ML VIAL ONE ×2 (19:01→22:48)
[2020-11-17] MEDS ORDERED: NA CHLORIDE 0.9% 1,000 ML ONE (19:01)
[2020-11-17] MEDS ORDERED: FAMOTIDINE 20 MG/2 ML VIAL IV ONE (19:01)
[2020-11-17] MEDS ORDERED: MORPHINE 4 MG/ML SYR ONE ×2 (19:07→20:12)
[2020-11-17 19:11] LABS: Albumin 4.4 g/dL (3.4-5.0); Bilirubin Direct 0.1 mg/dL (0-0.2); Bilirubin Total 0.5 mg/dL (0.2-1.0); Potassium 3.8 mmol/L (3.5-5.1); Protein, Total 8.5 g/dL (6.4-8.2)
--- NOTE | 2020-11-17 20:00 | RAD REPORT ---
EXAM DESCRIPTION: CT - Abdomen Pelvis W Contrast - 11/17/2020 7:40 pm CLINICAL HISTORY: ABD PAIN COMPARISON: Abdomen Pelvis W Contrast dated 11/24/2015 TECHNIQUE: Biphasic, helical CT imaging of the abdomen and pelvis was performed following 100 ml non -ionic IV contrast. No oral contrast administered. All CT scans are performed using dose optimization technique as appropriate and may include automated exposure control or mA/KV adjustment according to patient size. FINDINGS: No suspicious findings in the lung bases. The liver, spleen, and pancreas show no suspicious findings. Gallbladder is absent. Intrahepatic and extrahepatic biliary tree dilatation are present not substantially different from comparison. Dilatat ion is likely the reservoir effect that can occur after a cholecystectomy. No duodenal or pancreatic mass seen. Duct stones can be occult. Symmetric renal function is seen with no hydronephrosis or suspicious renal mass. No pyelonephritis o r acute parenchymal process. Bilateral renal cysts are present. No perinephric stranding. No adrenal abnormalities. No urinary bladder abnormality. Uterus absent. Gastric sleeve surgical changes are noted. No gastric dilatation. Yung of the antrum are mildly prom inent. This is not substantially different. A mild antritis is not excluded but needs correlation wit h clinical pain presentation. No acute small bowel finding. The appendix is normal. Large amount of stool is present filling but not dilating the entirety of the colon. Sigmoid colon is redundant. No free air, free fluid or inflammatory stranding. No hernia, mass or bulky lymphadenop athy. No suspicious bony findings. IMPRESSION: Constipation pattern with a large amount of stool filling but not dilating the entirety of the colon. Biliary tree dilatation is believed to be the reservoir effect that can occur after a cholecystectomy rather than biliary obstruction. Duct stones can be occult. No pancreatic or duodenal mass.
[2020-11-17] MEDS ORDERED: FLEET ENEMA ADULT PR ONE (20:31)
[2020-11-17] MEDS ORDERED: MAGNESIUM CITRATE 300 ML BOT ONE (20:31)
[2020-11-17] MEDS ORDERED: PANTOPRAZOLE 40 MG INJ ONE (23:04)
[2020-11-17] MEDS ORDERED: PROMETHAZINE INJ 25 MG/ML AMP ONE (23:04)
[2020-11-17] MEDS ORDERED: BISACODYL 10 MG RECTAL SUPP ONE (23:50)
[2020-11-17] MEDS ORDERED: POLYETHYL GLY 3350 17 GM/DOSE ONE (23:50)
--- NOTE | 2020-11-18 00:31 | EDPHYS ---
Physician Documentation [facility] Name: Meghan Edwards Age: 44 yrs Sex: Female : 1975 Arrival Date: 11/17/2020 Time: 16:09 Bed 8 Private MD: ED Physician Hebrert Perez HPI: 11/17 20:13 This 44 yrs old Female presents to ER via Ambulatory with complaints of jr8 Nausea/Vomiting, Constipation. 20:13 Patient presents with c/o abd pain and inability to have BM for 10 days. She reports jr8 she had an upper GI and was DX with gastroenteritis and ulcers. She was supposed to have a colonoscopy today but was not given the prep. Has had continued constipation symptoms and n/v for over 6 weeks. Became much worse today . 11/18 00:22 Severity of symptoms: At their worst the symptoms were moderate in the emergency jr8 department the symptoms are unchanged. The patient has not experienced similar symptoms in the past. The patient has been recently seen by a physician:. 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 - Social history:: Smoking status: Reported history of juuling and/or vaping. ROS: 20:15 Cardiovascular: Negative for chest pain, palpitations, and edema, Respiratory: Negative jr8 for shortness of breath, cough, wheezing, and pleuritic chest pain, MS/Extremity: Negative for injury and deformity, Skin: Negative for injury, rash, and discoloration, Neuro: Negative for headache, weakness, numbness, tingling, and seizure. 20:15 Abdomen/GI: Positive for abdominal pain, vomiting, constipation, abdominal cramps. 20:15 All other systems are negative. Exam: 20:15 Head/Face: Normocephalic, atraumatic. Chest/axilla: Normal chest wall appearance and jr8 motion. Nontender with no deformity. No lesions are appreciated. Cardiovascular: Regular rate and rhythm with a normal S1 and S2. No gallops, murmurs, or rubs. Normal PMI, no JVD. No pulse deficits. Respiratory: Lungs have equal breath sounds bilaterally, clear to auscultation and percussion. No rales, rhonchi or wheezes noted. No increased work of breathing, no retractions or nasal flaring. Back: No spinal tenderness. No costovertebral tenderness. Full range of motion. MS/ Extremity: Pulses equal, no cyanosis. Neurovascular intact. Full, normal range of motion. Neuro: Awake and alert, GCS 15, oriented to person, place, time, and situation. Cranial nerves II-XII grossly intact. Motor strength 5/5 in all extremities. Sensory grossly intact. Cerebellar exam normal. Normal gait. 20:15 Abdomen/GI: Inspection: abdomen appears normal, distension, is not seen, Bowel sounds: normal, in all quadrants, Palpation: severe abdominal tenderness, in all quadrants. 20:15 Back: CVA tenderness, is noted on the right. 20:15 Back: pain, of the left low back, CVA tenderness. Vital Signs: 16:53 BP 169 / 100; Pulse 72; Resp 18 S; Temp 97.9(TE); Pulse Ox 97% on R/A; Weight 79.38 kg ca1 (R); Height 5 ft. 7 in. (170.18 cm) (R); Pain 9/10; 19:16 BP 163 / 102; Pulse 62; Resp 20; Pulse Ox 96% on R/A; ss 21:00 BP 150 / 90; Pulse 60; Resp 18; Pulse Ox 99% ; ea 11/18 00:00 BP 160 / 78; Pulse 60; Resp 19; Pulse Ox 99% ; ea 01:50 BP 140 / 70; Pulse 70; Resp 18; Pulse Ox 99% ; ea 11/17 16:53 Body Mass Index 27.41 (79.38 kg, 170.18 cm) ca1 MDM: 11/17 18:53 Patient medically screened. jr8 22:35 ED course: Called Dr. Bingham/Marva's office. Spoke with Dr. Durham. Stated that he jr8 doesn't cover for kelly's patients and could not help. Suggested transferring if need be. . 11/18 00:22 Data reviewed: vital signs, nurses notes, lab test result(s), radiologic studies, CT jr8 scan. Data interpreted: Pulse oximetry: on room air is 96 %. Interpretation: normal. Counseling: I had a detailed discussion with the patient and/or guardian regarding: the historical points, exam findings, and any diagnostic results supporting the discharge/admit diagnosis, lab results, radiology results, the need for further work-up and treatment in the hospital. ED course: We have tried three enemas while patient has been here along with PO meds. Patient continues to not be able to hold any meds or fluids down. Starting to have small bowel movements but still with 7 out of [address] Tovar at that time who accepted patient for further evaluation. Patient will be admitted to medicine . 11/17 18:32 Order name: Basic Metabolic Panel [facility] 11/17 18:32 Order name: CBC with Diff [facility] 11/17 18:32 Order name: Hepatic Function [facility] 11/17 18:32 Order name: Lipase [facility] 11/17 18:39 Order name: Urine Microscopic Only [facility] 11/17 19:07 Order name: CBC with Automated Diff; Complete Time: 19:13 EDWA 11/17 18:32 Order name: CT Abd/Pelvis - IV Contrast Only [facility] 11/17 19:12 Order name: Basic Metabolic Panel; Complete Time: 19:13 EDMS 11/17 19:12 Order name: Liver (Hepatic) Function; Complete Time: 19:13 EDMS 11/17 19:12 Order name: Lipase; Complete Time: 19:13 EDMS 11/17 20:01 Order name: CT; Complete Time: 20:02 EDMS 11/18 03:03 Order name: SARS-COV-2 RT PCR; Complete Time: 13:24 EDWA 11/17 18:32 Order name: IV Saline Lock; Complete Time: 18:49 [facility] 11/17 18:32 Order name: Labs collected and sent; Complete Time: 18:50 [facility] 11/17 21:33 Order name: Misc. Order: soapsuds enema; Complete Time: 22:04 jr8 Administered Medications: 11/17 19:00 Drug: NS 0.9% 1000 ml Route: IV; Rate: 1 bolus; Site: right antecubital; ss 22:33 Follow up: Response: No adverse reaction; IV Status: Completed infusion; IV Intake: ea 1000ml 19:02 Drug: Zofran (Ondansetron) 4 mg Route: IVP; Site: right antecubital; ss 23:06 Follow up: Response: No adverse reaction ea 19:05 Drug: morphine 4 mg Route: IVP; Site: right antecubital; ss 19:07 Drug: Pepcid (famotidine) 20 mg Route: IVP; Site: right antecubital; ss 19:59 Drug: morphine 4 mg Route: IVP; Site: right antecubital; ea 22:33 Follow up: Response: No adverse reaction ea 20:15 Drug: Magnesium Citrate Liquid 300 ml Route: PO; ea 22:34 Follow up: Response: Vomiting increased ea 22:03 Drug: Fleet Enema 133 ml Route: SC; ea 23:07 Follow up: Response: No adverse reaction ea 22:30 Drug: Zofran (Ondansetron) 4 mg Route: IVP; Site: right antecubital; ea 11/18 00:00 Follow up: Response: No adverse reaction ea 11/17 23:00 Drug: Phenergan 12.5 mg Route: IVP; Site: right antecubital; ea 11/18 00:00 Follow up: Response: No adverse reaction ea 11/17 23:00 Drug: ProTONIX 40 mg Route: IVP; Site: right antecubital; ea 11/18 00:00 Follow up: Response: No adverse reaction ea 11/17 23:50 Drug: Miralax 17 grams Route: PO; ea 11/18 00:00 Follow up: Response: No adverse reaction ea Disposition: 08:18 Co-signature as Attending Physician, Herbert Perez MD I agree with the assessment and kdr plan of care. Disposition: 11/18/20 00:30 Hospitalization ordered by Jai Ortiz for Observation. Preliminary diagnosis are Intractable Vomiting, Constipation, Intractable Abdominal pain, Gastritis, unspecified, without bleeding. - Bed requested for Telemetry/MedSurg (observation). - Status is Observation. ea - Condition is Fair. - Problem is new. - Symptoms are unchanged. Signatures: Dispatcher [employer] EDHerbert Markham MD MD kdr Smirch, Shelby, RN RN ss Roszak, Josh, PA PA jr8 Eula Jasso RN RN cg Antunez, Elena, RN RN ea Acob, Cheryl RN RN ca1 Corrections: (The following items were deleted from the chart) 11/17 19:00 18:39 Urine Test ordered. jr8 ss 11/18 00:24 04 20:13 Patient presents with c/o abd pain and inability to have BM for 10 days. jr8 She reports she had an upper GI and was DX with gastroenteritis and ulcers. She was supposed to have a colonoscopy today but was not given the prep. . jr8 11/18 00:30 00:30 Hospitalization Ordered by Jai Ortiz DO for Observation. Preliminary jr8 diagnosis is Intractable Vomiting; Constipation; Intractable Abdominal pain. Bed requested for Telemetry/MedSurg (observation). Status is Observation. Condition is Fair. Problem is new. Symptoms are unchanged. jr8 03:05 00:30 11/18/2020 00:30 Hospitalization Ordered by Jai Ortiz DO for Observation. cg Preliminary diagnosis is Intractable Vomiting; Constipation; Intractable Abdominal pain; Gastritis, unspecified, without bleeding. Bed requested for Telemetry/MedSurg (observation). Status is Observation. Condition is Fair. Problem is new. Symptoms are unchanged. jr8 03:53 03:05 11/18/2020 00:30 Hospitalization Ordered by Jai Ortiz DO for Observation. ea Preliminary diagnosis is Intractable Vomiting; Constipation; Intractable Abdominal pain; Gastritis, unspecified, without bleeding. Bed requested for Telemetry/MedSurg (observation). Status is Observation. Condition is Fair. Problem is new. Symptoms are unchanged. cg
--- NOTE | 2020-11-18 00:31 | ER ---
Nurse's Notes [facility] Name: Meghan Edwards Age: 44 yrs Sex: Female : 1975 Arrival Date: 11/17/2020 Time: 16:09 Bed 8 Private MD: Diagnosis: Intractable Vomiting;Constipation;Intractable Abdominal pain;Gastritis, unspecified, without bleeding Presentation: 11/17 16:53 Chief complaint: Patient states: No BM x 8 days. I have a blockage somewhere. I've been ca1 sick for 7 weeks. My GI said I have gastritis and ulcers. I am scheduled for a colonoscopy today but they did not prep me, I am just in so much pain right now, it's getting worse and I am out of my pain meds. Reports N/V x 6 weeks. Coronavirus screen: Client denies travel out of the [place] in the last 14 days. nausea, vomiting. Client presents with at least one sign or symptom that may indicate coronavirus-19. Standard/surgical mask placed on the client. Provider contacted for isolation considerations. Ebola Screen: Patient negative for fever greater than or equal to 101.5 degrees Fahrenheit, and additional compatible Ebola Virus Disease symptoms Patient denies exposure to infectious person. Patient denies travel to an Ebola-affected area in the 21 days before illness onset. No symptoms or risks identified at this time. Initial Sepsis Screen: Does the patient meet any 2 criteria? No. Patient's initial sepsis screen is negative. Does the patient have a suspected source of infection? No. Patient's initial sepsis screen is negative. Risk Assessment: Do you want to hurt yourself or someone else? Patient reports no desire to harm self or others. Onset of symptoms was November 17, 2020. 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 - Social history:: Smoking status: Reported history of juuling and/or vaping. Screenin:07 Abuse screen: Denies threats or abuse. Denies injuries from another. Nutritional ss screening: No deficits noted. Tuberculosis screening: Never had TB. Fall Risk None identified. Assessment: 19:13 General: Appears distressed, uncomfortable, Behavior is cooperative, anxious, restless, ss Reports feeling ill for x 7 weeks. Denies fever, fatigue, chills. Pain: Complains of pain in abdomen, L mid/ lower back Pain currently is 10 out of 10 on a pain scale. Is continuous. Neuro: Level of Consciousness is awake, alert, obeys commands, Oriented to person, place, time, situation. Cardiovascular: Capillary refill < 3 seconds is brisk in bilateral fingers Patient's skin is warm and dry. Respiratory: Airway is patent Trachea midline Respiratory effort is even, unlabored, Respiratory pattern is regular, symmetrical. GI: Abdomen is non-distended. GI: Stools are reported to be constipated. Abdomen is tender to palpation X 4 quads. Reports constipation, nausea, vomiting, since LAST BM 8 days ago. : Denies burning with urination, urinary frequency. EENT: Nares are clear Oral mucosa is moist. Throat is clear. Derm: Skin is intact, is healthy with good turgor, Skin is dry, Skin is pink, warm \T\ dry. normal. Musculoskeletal: Circulation, motion, and sensation intact. Range of motion: intact in all extremities. 22:05 Reassessment: Pt attempting to have bowel movement. ea 11/18 00:31 Reassessment: Pt complaining of nausea had liquid bowel movement. ea 01:38 Reassessment: Pt resting with eyes closed, respirations even and unlabored. Chest ea expansions even and symmetrical. 02:54 Reassessment: Patient and/or family updated on plan of care and expected duration. Pain ea level reassessed. Pt resting with eyes closed respirations even and unlabored, Chest expansions even and symmetrical. No s/s of pain or discomfort noted at this time. 03:40 Reassessment: Patient and/or family updated on plan of care and expected duration. Pain ea level reassessed. Patient is alert, oriented x 3, equal unlabored respirations, skin warm/dry/pink. Pt admitted to second floor, report given to receiving nurse. Pt left ED via stretcher per tech, pt tolerating well. Vital Signs: 11/17 16:53 BP 169 / 100; Pulse 72; Resp 18 S; Temp 97.9(TE); Pulse Ox 97% on R/A; Weight 79.38 kg ca1 (R); Height 5 ft. 7 in. (170.18 cm) (R); Pain 9/10; 19:16 BP 163 / 102; Pulse 62; Resp 20; Pulse Ox 96% on R/A; ss 21:00 BP 150 / 90; Pulse 60; Resp 18; Pulse Ox 99% ; ea 11/18 00:00 BP 160 / 78; Pulse 60; Resp 19; Pulse Ox 99% ; ea 01:50 BP 140 / 70; Pulse 70; Resp 18; Pulse Ox 99% ; ea 11/17 16:53 Body Mass Index 27.41 (79.38 kg, 170.18 cm) ca1 ED Course: 11/17 16:09 Patient arrived in ED. ds1 16:58 Triage completed. ca1 16:59 Arm band placed on right wrist. ca1 18:30 Herbert Perez MD is Attending Physician. kdr 18:49 Inserted saline lock: 20 gauge in right antecubital area, using aseptic technique. mt Blood collected. 18:53 Kg Finch PA is PHCP. jr8 19:07 Patient has correct armband on for positive identification. Bed in low position. Call ss light in reach. Side rails up X 1. Pulse ox on. NIBP on. 19:24 Nidia Hayes, JUAN is Primary Nurse. ea 11/18 00:22 No provider procedures requiring assistance completed. ea 00:26 Jai Ortiz DO is Hospitalizing Provider. jr8 02:54 Patient admitted, IV remains in place. ea Administered Medications: 11/17 19:00 Drug: NS 0.9% 1000 ml Route: IV; Rate: 1 bolus; Site: right antecubital; ss 22:33 Follow up: Response: No adverse reaction; IV Status: Completed infusion; IV Intake: ea 1000ml 19:02 Drug: Zofran (Ondansetron) 4 mg Route: IVP; Site: right antecubital; ss 23:06 Follow up: Response: No adverse reaction ea 19:05 Drug: morphine 4 mg Route: IVP; Site: right antecubital; ss 19:07 Drug: Pepcid (famotidine) 20 mg Route: IVP; Site: right antecubital; ss 19:59 Drug: morphine 4 mg Route: IVP; Site: right antecubital; ea 22:33 Follow up: Response: No adverse reaction ea 20:15 Drug: Magnesium Citrate Liquid 300 ml Route: PO; ea 22:34 Follow up: Response: Vomiting increased ea 22:03 Drug: Fleet Enema 133 ml Route: DC; ea 23:07 Follow up: Response: No adverse reaction ea 22:30 Drug: Zofran (Ondansetron) 4 mg Route: IVP; Site: right antecubital; ea 11/18 00:00 Follow up: Response: No adverse reaction ea 11/17 23:00 Drug: Phenergan 12.5 mg Route: IVP; Site: right antecubital; ea 11/18 00:00 Follow up: Response: No adverse reaction ea 11/17 23:00 Drug: ProTONIX 40 mg Route: IVP; Site: right antecubital; ea 11/18 00:00 Follow up: Response: No adverse reaction ea 11/17 23:50 Drug: Miralax 17 grams Route: PO; ea 11/18 00:00 Follow up: Response: No adverse reaction ea Intake: 11/17 22:33 IV: 1000ml; Total: 1000ml. ea Outcome: 11/18 00:30 Decision to Hospitalize by Provider. jr8 00:45 Instructed on the need for admit. ea 03:40 Admitted to Med/surg accompanied by tech, via stretcher, room 208, Report called to ea Receiving nurse on second floor 03:40 Condition: stable 03:53 Patient left the ED. ea Signatures: Herbert Perez MD MD [facility] [place] ds1 Lynnette Kennedy RN RN Kg Finch PA PA jr8 Milvia [place] Nidia Hayes RN RN ea Acob, Cheryl, RN RN ca1 Corrections: (The following items were deleted from the chart) 11/17 19:17 19:13 Pain: Complains of pain in abdomen Pain currently is 10 out of 10 on a pain ss scale. 19:17 19:13 Neuro: Level of Consciousness is awake, alert, obeys commands, Oriented to ss person, place, time, situation, ss
--- NOTE | 2020-11-18 02:28 | P.HP ---
Certification for Inpatient Patient admitted to: Observation With expected LOS: <2 Midnights Patient will require the following post-hospital care: None Practitioner: I am a practitioner with admitting privileges, knowledge of patient current condition, hospital course, and medical plan of care. Services: Services provided to patient in accordance with Admission requirements found in Title 42 Section 412.3 of the Code of Federal Regulations Patient History Date of Service: 11/18/20 Primary Care Provider: none Reason for admission: Intractable vomiting History of Present Illness: 44-year-old female with history of hypertension, diabetes mellitus type 2, gastritis presents emergency department for abdominal pain, vomiting, constipation. Patient reports last time that she had a bowel movement was 10 days ago. Patient with intractable vomiting, received multiple rounds of acid suppression, anti emetics, pain medication, enemas and magnesium citrate, still not tolerating p.o. and has not had bowel movement. Lab significant for white blood cell count 8.[address] demonstrates constipation pattern with a large amount of stool filling but not dilating the entirety of the colon. Biliary tree dilatation is believed to be reservoir effect they can occur after cholecystectomy rather than biliary obstruction. Patient status post gastric sleeve, no gastric dilatation noted no acute small-bowel finding noted. As patient has refractory intractable vomiting, pain, constipation ED provider wishes to admit under observation for further evaluation and management. When I saw the patient in the ER she is awake, alert, orient x3, appeared uncomfortable, has recently vomited, unable to have bowel movement. Patient does admit to smoking marijuana between 2 and 3 times a week, this could possibly contribute with cannabis hyperemesis. This was discussed the patient, recommended cessation. 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 moist/pink Neck: Supple, 2+ carotid pulse no bruit Respiratory: Clear to auscultation bilaterally, Normal air movement Cardiovascular: Regular rate/rhythm, Normal S1 S2 Capillary refill: <2 Seconds Gastrointestinal: Normal bowel sounds, No masses, No rebound, No guarding, Tenderness (Mild generalized abdominal tenderness) Musculoskeletal: No tenderness Integumentary: No rashes Neurological: Normal speech, Normal strength at 5/5 x4 extr, Normal tone, Normal affect - Studies Laboratory Data (last 24 hrs) 11/17/20 18:47: WBC 8.20, Hgb 15.3 H, Hct 44.5, Plt Count 245 11/17/20 18:47: Sodium 141, Potassium 3.8, BUN 9, Creatinine 0.79, Glucose 116 H, Total Bilirubin 0.5, AST 13 L, ALT 25, Alkaline Phosphatase 73, Lipase 68 L Assessment and Plan - Plan Assessment Intractable vomiting, abdominal pain likely secondary to gastritis/possible cannabis hyperemesis Constipation Diabetes mellitus type 2 Hypertension Plan Intractable vomiting, abdominal pain likely secondary to gastritis/possible cannabis hyperemesis: Continue with Protonix, sucralfate, anti emetics. NPO aside from small amounts of clear liquids, ice chips, meds. DVT prophylaxis Lovenox 40 mg subcutaneous once daily. General surgery was consulted while patient was in the emergency department due to severity of pain and constipation. Will obtain KUB in the morning to further evaluate. Constipation: Continue with PEG, Fleet enema, soapsuds enema x1 pending. General surgery consult in place, KUB ordered for the morning. Patient will need dietary instructions at discharge to increase fiber. Diabetes mellitus type 2: Q.6h Accu-Chek until patient is tolerating p.o.. Sliding scale insulin therapy Hypertension: Obtain and continue home meds, stable Discharge Plan: Home Plan to discharge in: 24 Hours - Advance Directives Does patient have a Living Will: No Does patient have a Durable POA for Healthcare: No - Code Status/Comfort Care Code Status Assessed: Yes (Full code) Critical Care: No Time Spent Managing Pts Care (In Minutes): 55
[2020-11-18] MEDS ORDERED: FLEET ENEMA ADULT PR PRN (03:34)
[2020-11-18] MEDS ORDERED: POLYETHYL GLY 3350 17 GM/DOSE PO PRN (03:34)
[2020-11-18] MEDS ORDERED: ONDANSETRON 4 MG/2 ML VIAL IV PRN (03:34)
[2020-11-18] MEDS ORDERED: NA CHLORIDE 0.9% 1,000 ML IV SCH (03:34)
[2020-11-18] MEDS ORDERED: SODIUM CHLORIDE 0.9% 10ML INJ IV PRN (03:34)
[2020-11-18] MEDS ORDERED: PROMETHAZINE INJ 25 MG/ML AMP IV PRN (03:34)
[2020-11-18] MEDS ORDERED: NA CHLORIDE 0.9% 1,000 ML ONE (03:54)
[2020-11-18] MEDS ORDERED: MORPHINE 2 MG/ML SYR IV PRN (04:15)
[2020-11-18 04:47] LABS: Absolute Lymphocytes (CBC) 1.4 K/uL (0.7-4.9); Basophils % 0.3 % (0-1.3); Hematocrit 43.5 % (36.0-45.0); MPV 9.3 fL (7.6-11.3); RBC Red Blood Cell Count 4.82 M/uL (3.86-4.86)
[2020-11-18 04:53] VITALS: O2SAT 100; BMI 27.6
[2020-11-18 05:03] LABS: Albumin 3.9 g/dL (3.4-5.0); Bilirubin Total 0.5 mg/dL (0.2-1.0); Magnesium 2.1 mg/dL (1.8-2.4); Protein, Total 7.6 g/dL (6.4-8.2); Thyroid Stimulating Hormone 2.46 uIU/mL (0.360-3.740)
[2020-11-18 05:18] LABS: Urine Appearance CLEAR (Clear); Urine Bilirubin NEGATIVE (Negataive); Urine Blood NEGATIVE (Negative); Urine Color YELLOW (Yellow); Urine Glucose NEGATIVE (Negative); Urine Protein NEGATIVE (Negative); Urine Specific Gravity 1.025 (1.005-1.030); Urine pH 6.5 (5.0-7.0)
[2020-11-18 05:26] LABS: Urine Microscopic Reflex NO UMIC
[2020-11-18] MEDS ORDERED: INSULIN -REGULAR HUMAN 50 UNIT/0.5 ML ML SQ SCH ×2 (06:00→07:30)
--- NOTE | 2020-11-18 07:42 | P.DS ---
Admission Date: 11/18/20 Discharge Date: 11/18/20 Primary Care Provider: none Disposition: ROUTINE DISCHARGE Discharge Condition: GOOD Reason for Admission: Intractable vomiting Consultations: Surgery-Dr. Tovar Procedures: COVID: Negative CT scan: FINDINGS: No suspicious findings in the lung bases. The liver, spleen, and pancreas show no suspicious findings. Gallbladder is absent. Intrahepatic and extrahepatic biliary tree dilatation are present not substantially different from comparison. Dilatation is likely the reservoir effect that can occur after a cholecystectomy. No duodenal or pancreatic mass seen. Duct stones can be occult. Symmetric renal function is seen with no hydronephrosis or suspicious renal mass. No pyelonephritis or acute parenchymal process. Bilateral renal cysts are present. No perinephric stranding. No adrenal abnormalities. No urinary bladder abnormality. Uterus absent. Gastric sleeve surgical changes are noted. No gastric dilatation. Yung of the antrum are mildly prominent. This is not substantially different. A mild antritis is not excluded but needs correlation with clinical pain presentation. No acute small bowel finding. The appendix is normal. Large amount of stool is present filling but not dilating the entirety of the colon. Sigmoid colon is redundant. No free air, free fluid or inflammatory stranding. No hernia, mass or bulky lymphadenopathy. No suspicious bony findings. IMPRESSION: Constipation pattern with a large amount of stool filling but not dilating the entirety of the colon. Biliary tree dilatation is believed to be the reservoir effect that can occur after a cholecystectomy rather than biliary obstruction. Duct stones can be occult. No pancreatic or duodenal mass. KUB: COMPARISON: Abdomen Pelvis W Contrast dated 11/17/2020 FINDINGS: Surgical staple line in left upper quadrant is present related to gastric sleeve procedure. No distention of the stomach is identifiable. There are no dilated large or small bowel loops present. No obstruction, free air or pneumatosis. No suspicious calcifications. Cholecystectomy clips are present in the right upper quadrant. There are numerous phleboliths along the pelvic floor. No significant bony findings IMPRESSION: No bowel obstruction, free air or acute finding. Medical Problem list: Intractable vomiting, abdominal pain likely secondary to gastritis with possible possible cannabis hyperemesis complicated with history of gastric sleeve Constipation Diabetes mellitus type 2 Hypertension Brief History of Present Illness: 44-year-old female with history of hypertension, diabetes mellitus type 2, gastritis presents emergency department for abdominal pain, vomiting, constipation. Patient reports last time that she had a bowel movement was 10 days ago. Patient with intractable vomiting, received multiple rounds of acid suppression, anti emetics, pain medication, enemas and magnesium citrate, still not tolerating p.o. and has not had bowel movement. Lab significant for white blood cell count 8.[address] demonstrates constipation pattern with a large amount of stool filling but not dilating the entirety of the colon. Biliary tree dilatation is believed to be reservoir effect they can occur after cholecystectomy rather than biliary obstruction. Patient with history of gastric sleeve. Patient was in process to see GI for colonoscopy. She reports that she was not given bowel prep. Patient also reports smoking marijuana she was to have a gotten the evaluation yesterday. Patient was admitted for further evaluation and treatment. Hospital Course: Patient presented with nausea, vomiting and abdominal pain. Patient also reported recent bout of constipation. Patient with history of gastric sleeve. Patient also smokes THC. Patient was in process to see GI for colonoscopy. She had not done bowel prep. Patient was seen in the ER. CT scan showed moderate amount of stool. Patient was admitted due to intractable nausea and vomiting. Patient given medication for constipation. Several bowel movements were noted. Patient without significant nausea or abdominal pain. Follow-up KUB shows no obstruction. Otherwise unremarkable. Patient was seen by surgery. No surgical intervention was required. Suspect gastritis with possible cannabis hyperemesis. Medications have been adjusted. At discharge she will continue with Protonix 40 mg daily. Patient may continue with Bentyl as needed for GI agitation. Patient also takes Carafate with meals. She may continue with this medication. Education on GERD diet especially with her history of gastric sleeve. Recommend to decrease her THC use. Cessation education provided. Patient will follow up with GI soon to further monitor and address. For her constipation, patient was given multiple medications with improvement. No surgical intervention was required. At discharge patient will be given docusate as a stool softener. Lactulose also given to be used as needed for constipation. Patient plans to continue to follow-up with GI in the next several days for colonoscopy. Patient was given bowel prep. Recommend follow- up with GI to further address. Patient with diabetes. Patient may continue with her current medication. Recommend to maintain blood sugar less than 140 fasting less than 200 mils. Further adjustment can be done by her PCP. Patient with hypertension. At discharge patient may continue with her current medication. Recommend to maintain blood pressure less than 130/80. Further adjustment can be done by her PCP. Vital Signs/Physical Exam: Temp Pulse Resp BP Pulse Ox 97.3 F 78 18 181/78 H 100 11/18/20 03:45 11/18/20 03:45 11/18/20 03:45 11/18/20 03:45 11/18/20 03:45 General: Alert, In no apparent distress, Oriented x3, Cooperative HEENT: Atraumatic Neck: Supple Respiratory: Clear to auscultation bilaterally, Normal air movement Cardiovascular: Normal pulses, Regular rate/rhythm Gastrointestinal: Normal bowel sounds, Soft and benign, Non-distended, No tenderness, No masses, No rebound, No guarding Integumentary: No tenderness/swelling, No erythema, No warmth, No cyanosis Neurological: Normal speech, Normal strength at 5/5 x4 extr, Normal tone, Normal affect Laboratory Data at Discharge: WBC 9.80 K/uL (4.3-10.9) D 11/18/20 04:13 Hgb 14.4 g/dL (12.0-15.0) 11/18/20 04:13 Hct 43.5 % (36.0-45.0) 11/18/20 04:13 Plt Count 239 K/uL (152-406) 11/18/20 04:13 Sodium 142 mmol/L (136-145) 11/18/20 04:13 Potassium 4.0 mmol/L (3.5-5.1) 11/18/20 04:13 BUN 8 mg/dL (7-18) 11/18/20 04:13 Creatinine 0.82 mg/dL (0.55-1.3) 11/18/20 04:13 Glucose 101 mg/dL (74-106) 11/18/20 04:13 Magnesium 2.1 mg/dL (1.8-2.4) 11/18/20 04:13 Total Bilirubin 0.5 mg/dL (0.2-1.0) 11/18/20 04:13 AST 60 U/L (15-37) H 11/18/20 04:13 ALT 55 U/L (12-78) 11/18/20 04:13 Alkaline Phosphatase 67 U/L (45-117) 11/18/20 04:13 Triglycerides 120 mg/dL (<150) 11/18/20 04:13 Cholesterol 178 mg/dL (<200) 11/18/20 04:13 HDL Cholesterol 41 mg/dL (40-60) 11/18/20 04:13 Cholesterol/HDL Ratio 4.34 11/18/20 04:13 Lipase 68 U/L (73-393) L 11/17/20 18:47 Home Medications: Dicyclomine [Bentyl*] 1 cap PO Q8HP PRN 11/18/20 Docusate [Colace Cap*] 100 mg PO DAILY #15 cap 11/18/20 Melatonin 20 mg PO BEDTIME 11/18/20 Ondansetron [Ondansetron Odt] 1 tab PO Q8HP PRN 11/18/20 Pantoprazole [Protonix Tab] 40 mg PO DAILY #30 tab 11/18/20 Promethazine Tab [Phenergan*] 1 tab PO Q4HP PRN 11/18/20 Sucralfate [Carafate*] 1 tab PO ACHS 11/18/20 New Medications: Docusate [Colace Cap*] 100 mg PO DAILY #15 cap Pantoprazole [Protonix Tab] 40 mg PO DAILY #30 tab Physician Discharge Instructions: Patient presented with nausea, vomiting and abdominal pain. Patient also reported recent bout of constipation. Patient with history of gastric sleeve. Patient also smokes THC. Patient was in process to see GI for colonoscopy. She had not done bowel prep. Patient was seen in the ER. CT scan showed moderate amount of stool. Patient was admitted due to intractable nausea and vomiting. Patient given medication for constipation. Several bowel movements were noted. Patient without significant nausea or abdominal pain. Follow-up KUB shows no obstruction. Otherwise unremarkable. Patient was seen by surgery. No surgical intervention was required. Suspect gastritis with possible cannabis hyperemesis. Medications have been adjusted. At discharge she will continue with Protonix 40 mg daily. Patient may continue with Bentyl as needed for GI agitation. Patient also takes Carafate with meals. She may continue with this medication. Education on GERD diet especially with her history of gastric sleeve. Recommend to decrease her THC use. Cessation education provided. Patient will follow up with GI soon to further monitor and address. For her constipation, patient was given multiple medications with improvement. No surgical intervention was required. At discharge patient will be given docusate as a stool softener. Lactulose also given to be used as needed for constipation. Patient plans to continue to follow-up with GI in the next several days for colonoscopy. Patient was given bowel prep. Recommend follow- up with GI to further address. Patient with diabetes. Patient may continue with her current medication. Recommend to maintain blood sugar less than 140 fasting less than 200 mils. Further adjustment can be done by her PCP. Patient with hypertension. At discharge patient may continue with her current medication. Recommend to maintain blood pressure less than 130/80. Further adjustment can be done by her PCP. Diet: full/soft Activity: Ad phyllis Followup: OOTLeobardoOT [Primary Care Provider] - Time spent managing pt's care (in minutes): 55
[2020-11-18 08:19] VITALS: BP 113/73; TEMP 98.3
--- NOTE | 2020-11-18 08:39 | RAD REPORT ---
EXAM DESCRIPTION: RAD - Abdomen 1 View (KUB) - 11/18/2020 7:11 am CLINICAL HISTORY: Intractable vomiting , abdominal pain COMPARISON: Abdomen Pelvis W Contrast dated 11/17/2020 FINDINGS: Surgical staple line in left upper quadrant is present related to gastric sleeve procedure . No distention of the stomach is identifiable. There are no dilated large or small bowel loops prese nt. No obstruction, free air or pneumatosis. No suspicious calcifications. Cholecystectomy clips are present in the right upper quadrant. There are numerous phleboliths along the pelvic floor. No significant bony findings IMPRESSION: No bowel obstruction, free air or acute finding.
[2020-11-18] MEDS ORDERED: SUCRALFATE 1 GM TABLET PO SCH (09:00)
[2020-11-18] MEDS ORDERED: ENOXAPARIN 40 MG/0.4 ML SQ SCH (09:00)
[2020-11-18] MEDS ORDERED: PANTOPRAZOLE 40 MG INJ IVP SCH (09:00)
--- NOTE | 2020-11-18 10:00 | CON ---
Date of Consultation: 11/18/2020 Brief History Of Present Illness: The patient is a 44-year-old female with a history hyper tension, diabetes, gastritis, presents to emergency department with abdominal pain. She states begin camille several months ago, but getting progressively worse. She states the pain had gotten progressive ly worse, associated with nausea, vomiting, constipation, inability to tolerate p.o. She had a bowel movement she states approximately 10 days ago, however, during this admission, she was given cathart ics and ultimately did have a bowel movement while prior to my arrival. The patient stated that she had inability to tolerate p.o. She had a history of a sleeve gastrectomy in the past, had H pylori p ositivity, had been treated with acid suppression, antiemetics, pain medication, and still states vi t she has difficulty tolerating p.o. at this point. Past Medical History: Significant for hypertension, diabetes, gastritis, constipation. Past Surgical History: Includes a sleeve gastrectomy, cholecystectomy, total hysterectomy for bleedi ng. She denies smoking, alcohol, recreational drug use. Review of Systems: Ten-point review of systems other than in HPI, denies. Allergies: NO KNOWN DRUG ALLERGIES. Home Medications: Included Bentyl, Colace, melatonin, Zofran, Protonix, Phenergan, and sucralfate. The patient had an EGD, colonoscopy in the past. She was due to get a colonoscopy during this week. However, she states she did not begin her bowel prep. She is attended by Dr. Bingham. Physical Examination: Vital Signs: At time of my examination were a blood pressure 113/73, pulse 74, respiratory rate 17, temperature 98.3%. She is saturating 100% on room air. General: She is awake, alert, oriented. Psychiatric: Appropriate, conversive. HEENT: Normocephalic. Sclerae anicteric. Mucous membranes are moist. Oropharynx clear. Neck: Supple without JVD. Chest: Normal expansion and excursion. Cardiovascular: Regular rate and rhythm. Pulmonary: Clear to auscultation bilaterally. Abdomen: Soft with mild global tenderness to palpation. No rebound. No guarding. No focal periton itis. She has no tympanic abdomen. Well-healed surgical scars were evident. Extremities: No clubbing, cyanosis, edema. Skin: Warm and dry. Laboratory Data: Reveals a white blood count of 9.8, hemoglobin is 14.4, hematocrit of 43.5, platele t count is 239. Her neutrophils are 80%. Her sodium 142, potassium 4.0, chloride 108, carbon dioxid e 27, BUN 8, creatinine 0.8, glucose is 101. Her magnesium 2.1, total bilirubin 0.5, direct componen t was 0.1, AST 60, ALT 55, alkaline phosphatase of 67. Her UA was negative. Her COVID was negative. She had imaging performed, which included a CT of the abdomen and pelvis performed on 11/17/2020, w hich is officially read as constipation pattern with large amount of stool filling the colon but not dilating the entirety of the colon. Biliary tree is believed to be reservoir effect and can occur af ter cholecystectomy rather than biliary obstruction. Duct stones could be occult. No pancreatic or duodenal mass. Assessment And Plan: This is a 44-year-old female who comes in with signs and symptoms of acute on c hronic constipation. 1.IV fluid hydration. 2.Clear liquid diet/low residue diet. 3.Await Dr. Durham's input regarding the need for endoscopy. 4.Continue gentle laxatives and catharsis. 5.Serial exams. 6.I recommend a low-residue diet when patient is transferred as an outpatient and to follow up with Dr. Bingham as soon as possible. I have explained the risks, benefits, and alternatives the above stated plan. The patient to proceed a s indicated. LYUDMILA/CARMEN Voice ID: [id number] Report ID: [id number]
== END 2020-11-18 11:11 | disposition home or self-care (01) ==
LOC: ER 16:06 → ERHOLD 11-18 00:59 → 2ND 11-18 03:22
PROVIDERS: ADMIT Family Medicine; ATTEND Family Medicine
DX: R11.2 Nausea with vomiting, unspecified (principal); K59.09 Other constipation; R10.9 Unspecified abdominal pain; I10 Essential (primary) hypertension; E11.9 Type 2 diabetes mellitus without complications; F12.90 Cannabis use, unspecified, uncomplicated; Z71.51 Drug abuse counseling and surveillance of drug abuser; Z98.84 Bariatric surgery status; Z20.822 Contact with and (suspected) exposure to COVID-19; Z90.49 Acquired absence of other specified parts of digestive tract; Z90.710 Acquired absence of both cervix and uterus; Z82.49 Family history of ischemic heart disease and other diseases of the circulatory system; Z83.3 Family history of diabetes mellitus; Z84.1 Family history of disorders of kidney and ureter
CPT/HCPCS: 96361; 85025 ×2; 80048; 36415; 83735; 80061; 82947 ×2; 80076; 84443; 81003; 83036; 84439; 83690; 80053; 74177; 74018; 96375; 96374; 99285; U0003; Q9967; J2550 ×2; C9113 ×2; J1650; J2270; J7030 ×2; J2405 ×3; G0378 ×2

== ENCOUNTER 2021-01-02 08:47 | Day surgery (SDC) | payer OTHER ==
--- NOTE | 2020-12-30 09:10 | RAD REPORT ---
EXAM DESCRIPTION: RAD - Chest Pa And Lat (2 Views) - 12/30/2020 9:04 am CLINICAL HISTORY: preop Chest pain. COMPARISON: Abdomen 1 View (KUB) dated 11/18/2020; CHEST SINGLE VIEW dated 09/22/2015; CHEST SINGLE VIEW dated 01/28/2015; CHEST SINGLE VIEW dated 08/27/2010 FINDINGS: The lungs are clear. The heart is upper limit of normal in size. No displaced fractures.
[2020-12-30 09:35] LABS: Absolute Lymphocytes (CBC) 1.7 K/uL (0.7-4.9); Hematocrit 46.1 % (36.0-45.0); Lymphocytes % 25.6 % (15.3-44.8); MPV 8.5 fL (7.6-11.3); RBC Red Blood Cell Count 5.07 M/uL (3.86-4.86)
[2020-12-30 09:51] LABS: ALT/SGPT 25 U/L (12-78); AST/SGOT 13 U/L (15-37); Albumin 4.1 g/dL (3.4-5.0); Alkaline Phosphatase 79 U/L (45-117); Amylase 76 U/L (25-115); BUN Blood Urea Nitrogen 12 mg/dL (7-18); Bicarbonate 29 mmol/L (21-32); Bilirubin Direct < 0.1 mg/dL (0-0.2); Bilirubin Total 0.4 mg/dL (0.2-1.0); Glucose Level 88 mg/dL (74-106); Potassium 4.2 mmol/L (3.5-5.1); Protein, Total 8.1 g/dL (6.4-8.2); Sodium Level 141 mmol/L (136-145)
[2021-01-02] MEDS ORDERED: Ringers Lactate 1,000 ML IV ONE (10:06)
[2021-01-02] MEDS ORDERED: FENTANYL CITR 100 MCG/2 ML ONE ×2 (11:27→12:08)
[2021-01-02] MEDS ORDERED: propofoL 200 MG/20 ML VIAL IV ONE (11:27)
[2021-01-02] MEDS ORDERED: MIDAZOLAM HCL 2 MG/2 ML INJ ONE (11:28)
[2021-01-02] MEDS ORDERED: ROCURONIUM 50 MG/5 ML VIAL IV ONE (11:28)
[2021-01-02] MEDS ORDERED: LIDOCAINE 1% MPF 5 ML VIAL ONE (11:28)
[2021-01-02] MEDS ORDERED: CEFOXITIN/SWI 1gm 1 GM/10 ML SYR ONE (12:05)
[2021-01-02] MEDS ORDERED: dexAMETHasone 10 MG/ML VIAL ONE (12:11)
[2021-01-02] MEDS ORDERED: KETOROLAC 30 MG/ML INJ ONE (12:12)
--- NOTE | 2021-01-02 12:17 | P.BOP ---
Preoperative diagnosis: abd pain Postoperative diagnosis: same Primary procedure: Diagnostic laparoscopy, Laparoscopic appendectomy Secondary procedure: Laparoscopic extensive lysis of adhesions Control Chemist: Saira Lopez) Estimated blood loss: <10c Specimen: rianna Findings: see dicta Anesthesia: General Complications: None Transferred to: Recovery Room Condition: Good
[2021-01-02] MEDS ORDERED: ONDANSETRON 4 MG/2 ML VIAL ONE (12:29)
[2021-01-02] MEDS ORDERED: GLYCOPYRROLATE 0.2 MG/ML SYR ONE ×2 (12:30→12:33)
[2021-01-02] MEDS ORDERED: NEOSTIGMINE 1 MG/ML -5 ML ONE (12:30)
[2021-01-02] MEDS ORDERED: PROMETHAZINE INJ 25 MG/ML AMP ONE (13:10)
[2021-01-02 15:35] VITALS: BP 113/55; TEMP 97.5; O2SAT 99
--- NOTE | 2021-01-10 15:47 | DS ---
Date of Discharge: 01/02/2021 Diagnoses: Abdominal pain, appendicitis, extensive intraabdominal adhesions. Procedures: Diagnostic laparoscopy, laparoscopic appendectomy, laparoscopic extensive lysis of adhes ions. Disposition: Home. Activity: As tolerated. No heavy lifting. Plan: Follow up in my office in 1 week. Call for appointment at [phone]. Keep area dry for 48 raymond rs, then may shower. Keep Steri-Strips intact. Medications: See orders. ALON/CARMEN Voice ID: [id number] Report ID: [id number]
--- NOTE | 2021-01-10 18:32 | OP ---
Date of Procedure: 01/02/2021 Surgeon: Dajuan Nice MD Machine Inspector: RENA [place]. Preoperative Diagnosis: Abdominal pain, intractable. Postoperative Diagnoses: Abdominal pain intractable plus appendicitis plus intraabdominal adhesions. Procedures: Diagnostic laparoscopic appendectomy and laparoscopic extensive lysis of adhesions. Estimated Blood Loss: Less than 10 mL. Specimen: The patient has asymmetrical in shape and color appendix consistent with appendicitis. Al so, the patient had extensive intraabdominal adhesions in the lower abdomen. Anesthesia: General plus local. Indication: This is the case of a female, who comes to us with lower abdominal pain. She has been s een by multiple physicians and also multiple imaging. The etiology of that pain is not completely un derstood, so she was sent to my office for diagnostic laparoscopy and any other indicated procedure. The patient fully explained the benefits, alternatives, and risks of diagnostic laparoscopy, possibl e lysis of adhesions, and any other indicated procedure, which benefits, alternatives, and risks incl ude, but not limited to infection, bleeding, damage to adjacent structures, anesthesia complication, negative exploration, [place], and even . She also understands this may not relieve any symptoms. S he might need more than one surgical intervention. She understood, signed a consent. Procedure In Detail: The patient was brought to the operating room, placed in supine position. Anes thesia was done without complication. Abdominal area was prepped and draped in usual sterile fashion . Local anesthesia was applied followed by sharp incision of the skin in the infraumbilical region. Incision was carried down to fascia, which was opened under direct vision. Peritoneum was encounter ed, opened under direct vision. Vicryl #1 placed inside the fascia. Gen trocar was carefully int roduced. Pneumoperitoneum was obtained. Immediately, we encountered extensive adhesions to the lowe r abdomen, so we were able to localized an area that we could put a 5 mm trocar and using the LigaSur e, we proceeded to remove the adhesions making sure there were no enterotomies and there was no bleed ing. We also got to the area where the appendix was visualized and we noticed the appendix looked ab normal, asymmetrical in shape and color. Another 5 mm trocar was placed after the adhesions were rem grace to once again inspect the pelvis and the appendix. Appendix seems to be abnormal, shape and col or, erythematous, asymmetrical. At that moment, I went outside and talked to the patient's a family member and then they also got in communication with the patient's mother about the possibility of rianna endectomy and they all 3 expressed desire and they previously talked to the patient that she will agr ee with the appendectomy. We have a brisk conversation before surgery, but at this time I just want to make sure they were aware of the procedure. They gave me the consent, especially the mother which is the bloodline that I at this moment can get and since the patient is under anesthesia and on the OR, I proceeded to go back to the surgery and then complete the appendectomy. In the way we did that is creating a window on the appendix, transected the mesentery with the help of LigaSure and then th e base of the appendix with the Endo-YUMIKO 45 mm 3.5. No bile leak, no bleeding. At that moment, I pr oceeded to remove the appendix from abdominal cavity through the umbilical incision using EndoCatch. The area was inspected once again. The area of the lysis of adhesions was done. No enterotomies we re caused. The area of the appendix looks clean too. The upper abdomen looks unremarkable. At that moment, I proceeded to remove the trocars under direct vision. Deflated the pneumoperitoneum. Clos ed the fascia with #1 Vicryl. Irrigated subcutaneous tissue, closed with 3-0 chromic. The patient t olerated the procedure well. The patient was sent to recovery in stable condition. ALON/CARMEN Voice ID: [id number] Report ID: [id number]
== END 2021-01-02 14:30 | disposition home or self-care (01) ==
LOC: OR 08:47
PROVIDERS: ATTEND Surgery
PROC: 0DNW4ZZ Release Peritoneum, Percutaneous Endoscopic Approach (ICD-10-PCS; 2021-01-02)
PROC: 0DTJ4ZZ Resection of Appendix, Percutaneous Endoscopic Approach (ICD-10-PCS; principal; 2021-01-02 10:15)
DX: K37 Unspecified appendicitis (principal); E11.9 Type 2 diabetes mellitus without complications; R10.2 Pelvic and perineal pain; K66.0 Peritoneal adhesions (postprocedural) (postinfection); Z20.822 Contact with and (suspected) exposure to COVID-19
CPT/HCPCS: 44970; 93005; 85025; 80048; 36415; 82150; 80076; 88304; 71046; 49329; U0003; J2704; J2550; J2250; J3010 ×2; J1100; J2710; J7120; J2405

== ENCOUNTER 2021-08-16 11:59 | Emergency (ER) | payer OTHER ==
--- OUTSIDE RECORDS SUMMARY | 2021-08-16 12:03 | XMS REPORT | Continuity of Care Document ---
:1975 Author Organization [facility] t Address [address] [place] [address] Care Team Providers Name Role Phone PCP, DOES NOT HAVE A Primary Care Physician Unavailable Singer DAVENPORT Attending Clinician Lab, Fam Pob I Attending Clinician Unavailable Amanda Nassar Attending Clinician Amanda MENG Attending Clinician Unavailable Virgen MARTINEZ, M Attending Clinician Unavailable Les KING Attending Clinician Unavailable Les KING Admitting Clinician Unavailable Payers Payer Name Policy Type Policy Number Effective Date Expiration Date S ource Problems Condition Condition Condition Status Onset Resolution Last Treating Co mments Source Name Details Category Date Date Treatment Clinician Date Uncontroll Uncontroll Disease Active U nivers able able 5-12 ity of [place] 00 Medica l Branch Kidney Kidney Disease Active Univers stone stone 3-13 ity of 00:00: [address] Nephrolith Nephrolith Disease Active 2015-08 U nivers iasis iasis 1-30 ity of 00:00: [address] Obesity Obesity Disease Active Univers 9-25 ity of 00:00: [address] Allergies, Adverse Reactions, Alerts Allergy Allergy Status Severity Reaction(s) Onset Inactive Treating Comm ents Source Name Type Date Date Clinician Hydrocod Propensi Active Nausea Univer s one ty to and/or 4-29 ity of adverse Vomiting 00:00: [place] reaction [address] [place] [address] Branch HYDROCOD DRUG Active N/V Univers ONE INGREDI 4-29 ity of 00:00: [place] 00 Medical Branch NO KNOWN Drug Active Univers ALLERGIE Class ity of S [facility] Social History Social Habit Start Date Stop Date Quantity Comments Source Sex Assigned At [facility] y of [facility] Exposure to Not sure [facility] SARS-CoV-2 [facility] (event) Branch Alcohol intake 2019-08-01 2019-08-01 Current [facility] 00:00:00 00:00:00 non-drinker of [facility] alcohol [place] (finding) Tobacco use and 2019-08-01 2019-08-01 Never used [facility] y of exposure 00:00:00 00:00:00 [facility] Smoking Status Start Date Stop Date Source Unknown if ever smoked [facility] Former smoker 2019-08-01 00:00:00 2019-08-01 00:00:00 [facility] Medications Ordered Filled Start Stop Current Ordering Indication Dosage Frequency Signature Comments Components Source Medication Medication Date Date Medication? Clinician (SIG) Name Name fluconazole Yes 150mg 150 mg, Un fernando (DIFLUCAN) 2-25 Oral, ity of tablet 150 15:00: DAILY, [place] mg 00 First dose Medical on [place] 10/13/20 at 0900, Until Discontinu ed, LAKISHA
Re ason for Anti-Infec tive: Empiric Therapy for Suspected Infection< br>Empiric Therapy Site: Urine<br&g t;Duration of therapy: 72 hours dicyclomine Yes 10mg 10 mg, Univ ers (BENTYL) 2-24 Oral, QID, ity o f capsule 10 18:00: First dose [place] mg 00 on Sat Medical 10/12/20 at Branch 1200, Until Discontinu ed, Routine ondansetron 2020- No 4mg 4 mg, Slow Univers (ZOFRAN 2-24 02-24 IV Push, ity of (PF)) 16:30: 16:01 ONCE, 1 [place] injection 4 00 :00 dose, Sat Med ical mg 10/12/20 at Branch 1030, Routine maalox:diph 2020-0 2021- No 15mL 15 mL, Uni vers enhydrAMINE 2-24 02-24 Oral, ity of :lidocaine 16:30: 16:07 ONCE, 1 [place] as 2 % viscous 00 :00 dose, Sat Med ical 1:1:1 10/12/20 at [place] (FIRST-MOUT 1030, HWASH BLM) Routine oral suspension 15 mL pantoprazol 2020- No 80mg 80 mg, IV Univers e 2-24 02-24 Push, ity of (PROTONIX) 16:30: 16:02 ONCE, 1 [place] as 80 mg in 00 :00 dose, Sat Medica l NaCl 0.9% 10/12/20 at [facility] ch (NS) 20 mL 1030, 20 syringe mL NaCl 0.9% 2020- No 1000mL at 999 Uni vers (NS) bolus 2 02-24 mL/hr, ity of infusion 15:30: 17:33 1,000 mL, Rohit as 1,000 mL 00 :00 IV Medical Infusion, [place] ONCE, 1 dose, 10/12/20 at 0930, STAT sucralfate Yes [id number] 1g Take 1 U nivers 1 gram 2-24 tablet by ity of tablet 00:00: mouth [place] 00 before Medical meals and Branch at bedtime. dicyclomine Yes [id number] 10mg Take 1 Univers (BENTYL) 10 2-24 capsule by it y of mg capsule 00:00: mouth [place] 00 every 8 Medical (eight) Branch hours as needed for Abdominal pain. ondansetron Yes [id number] 4mg Take 1 Univers 4 mg 2-24 tablet by ity of disintegrat 00:00: mouth [place] ing tablet 00 every 8 Medica l (eight) Branch hours as needed for Nausea and Vomiting (N/V). omeprazole 2020- No [id number] 20mg Take 1 Univers 20 mg 2-24 03-27 capsule by ity of capsule 00:00: 04:59 mouth [place] 00 :00 daily for Medical 30 days. [place] traMADol 2018-08 Yes [id number] 50mg Take 1 Univers (ULTRAM) 50 2-14 [id number] tablet by i ty of mg tablet 00:00: mouth [place] 00 every 6 Medical (six) Branch hours as needed for Pain (scale 7-10). traMADol 2018-08 Yes [id number] 50mg Take 1 Univers (ULTRAM) 50 2-14 [id number] tablet by i ty of mg tablet 00:00: mouth [place] 00 every 6 Medical (six) Branch hours as needed for Pain (scale 7-10). ibuprofen Yes [id number] 600mg Take 1 U nivers 600 mg 4-29 tablet by ity of tablet 00:00: mouth [place] 00 every 6 Medical (six) Branch hours as needed for Pain (scale 4-6). tamsulosin Yes [id number] .4mg Take 1 U nivers 0.4 mg 24 4-29 capsule by ity of hr capsule 00:00: mouth at Rohit as 00 bedtime. Medical Branch ibuprofen 0 Yes [id number] 600mg Take 1 U nivers 600 mg 4-29 tablet by ity of tablet 00:00: mouth [place] 00 every 6 Medical (six) Branch hours as needed for Pain (scale 4-6). tamsulosin Yes [id number] .4mg Take 1 U nivers 0.4 mg 24 4-29 capsule by ity of hr capsule 00:00: mouth at Rohit as 00 bedtime. Medical Branch butalbital- 2017-0 Yes 1{tbl} Take 1 Un fernando acetaminoph 7-28 tablet by ity of en-caff 00:00: mouth [place] 50-325-40 00 every 6 Medical mg tablet (six) Branch hours as needed for Headache (Headache) . butalbital- 0 Yes 1{tbl} Take 1 Un [place] acetaminoph 7-28 tablet by ity of en-caff 00:00: mouth [place] 50-325-40 00 every 6 Medical mg tablet (six) Branch hours as needed for Headache (Headache) . aspirin 81 2018-0 Yes 81mg Take 1 Unive rs mg chewable 5-13 tablet by ity of tablet 00:00: mouth [place] 00 daily. Medical Branch aspirin 81 2018-0 Yes 81mg Take 1 Unive rs mg chewable 5-13 tablet by ity of tablet 00:00: mouth [place] 00 daily. Medical Branch glipiZIDE 2017-0 Yes 10mg Take 1 Univer s 10 mg 5-12 tablet by ity of tablet 00:00: mouth 2 [place] 00 (two) Medical times Branch daily before breakfast and dinner. glipiZIDE 2017-0 Yes 10mg Take 1 Univer s 10 mg 5-12 tablet by ity of tablet 00:00: mouth 2 [place] 00 (two) Medical times Branch daily before breakfast and dinner. acetaminoph 2015-08 Yes 650mg Take 2 Uni vers en 2-01 tablets by ity of (TYLENOL) 00:00: mouth [place] 325 mg 00 every 6 Medical tablet (six) Branch hours. hydroCHLORO 2015-08 Yes 12.5mg Take 1 Un [place] thiazide 2-01 capsule by ity o f (ESIDRIX) 00:00: mouth [place] 12.5 mg 00 daily. Medical capsule Branch acetaminoph 2015-08 Yes 650mg Take 2 Uni vers en 2-01 tablets by ity of (TYLENOL) 00:00: mouth [place] 325 mg 00 every 6 Medical tablet (six) Branch hours. hydroCHLORO 2015-08 Yes 12.5mg Take 1 Un [place]ando thiazide 2-01 capsule by ity o f (ESIDRIX) 00:00: mouth [place] 12.5 mg 00 daily. Medical capsule Branch Immunizations Ordered Filled Immunization Date Status Comments [facility] e Immunization Name Name Pneumococcal 2016-07-19 Completed University o f Polysaccharide, 00:00:00 [place] Med ical PPSV23 (PNEUMOVAX) Branch Influenza Virus 2016-07-19 Completed Universit y of Vaccine Quad IM 3+ 00:00:00 [facility] Branch Pneumococcal 2016-07-19 Completed University o f Polysaccharide, 00:00:00 [place] Med ical PPSV23 (PNEUMOVAX) Branch Influenza Virus 2016-07-19 Completed Universit y of Vaccine Quad IM 3+ 00:00:00 [facility] Vital Signs Vital Name Observation Time Observation Value Comments Source Systolic blood 2020-10-12 17:33:05 135 mm[Hg] Univer sity of pressure [facility] Diastolic blood 2020-10-12 17:33:05 90 mm[Hg] [facility] Heart rate 2020-10-12 17:33:05 51 /min [facility] Respiratory rate 2020-10-12 17:33:05 16 /min [facility] Oxygen saturation in 2020-10-12 17:33:05 99 /min [facility] Arterial blood by [facility] Pulse oximetry Branch Body temperature 2020-10-12 15:22:00 37.44 Yadira [facility] Body height 2020-10-12 15:22:00 170.2 cm Universi [facility] Medical [place] Body weight 2020-10-12 15:22:[address] [facility] BMI 2020-10-12 15:22:00 27.41 kg/m2 [facility] Systolic blood 2020-10-12 17:33:05 135 mm[Hg] Univer sity of pressure [facility] Diastolic blood 2020-10-12 17:33:05 90 mm[Hg[facility] 2020-10-12 17:33:05 51 /min [facility] Respiratory rate 2020-10-12 17:33:05 16 /min [facility] Oxygen saturation in 2020-10-12 17:33:05 99 /min [facility] Arterial blood by [facility] Pulse oximetry Branch Body temperature 2020-10-12 15:22:00 37.44 Yadira [facility] height 2020-10-12 15:22:[address] [facility] Medical [place] Body weight 2020-10-12 15:22:00 79.379 kg [facility] BMI 2020-10-12 15:22:00 27.41 kg/m2 [facility] Procedures Procedure Date / Time Performed Performing Clinician Sourc e XR ABDOMEN ACUTE 2020-10-12 17:03:23 Gelacio Esposito [facility] POCT TEST 2020-10-12 16:05:00 Gelacio Esposito [facility] URINALYSIS 2020-10-12 15:54:00 Singer [facility] LIPASE 2020-10-12 15:34:00 Singer [facility] COMP. METABOLIC PANEL 2020-10-12 15:34:00 Gelacio Esposito [facility] ([id number]) Medical [place] LIPID PANEL 2020-10-12 15:34:00 Singer [facility] ([id number])(TOTAL Medical Branch CHOLESTEROL, TRIGLYCERIDES, HDL) CBC WITH DIFF 2020-10-12 15:34:00 Singer [facility] NOTICE OF PRIVACY 2020-10-12 15:16:21 Doctor Unassigned, No Univ [facility] [place] PRACTICES Name Medical Branch CONSENT/REFUSAL FOR 2020-10-12 15:16:05 [facility], [facility] Encounters Start End Encounter Admission Attending Care Care Encounter Source Date/Time Date/Time Type Type Clinicians Facility Department ID 2021-06-18 Emergency [facility] [id number] Univers 01:00:[address] [facility] 2020-10-12 2020-10-12 Emergency [facility] [id number] 09:18:00 11:40:00 Gelacio [place] [id number] [place] 4.2.7.2.686 [place] [id number] 2020-10-12 2020-10-12 [id number] [facility] 09:18:00 11:40:00 Gelacio Rodriguez [id number] i ty of [place] 4.2.7.2.686 [facility] [id number] [place] [id number] [place] 2020-03-04 2020-03-04 Laboratory Lab, [facility] [id number] 08:52:32 09:12:32 Only Fam Pob I Health [id number] [place] 4.2.7.2.686 Professio [id number] nal [facility] Office Building One 2020-03-04 2020-03-04 Laboratory Lab, [facility] Fam Pob I [facility] [id number]. [id number] Univers 08:52:32 09:12:32 Only Lizzy Meng Health [id number] ity of [place] 4.2.7.2.686 Rohit as Professio [id number] Pa dical [address] Office Building One 2020-03-04 2020-03-04 Outpatient R [facility] [id number] Univers 09:00:00 09:00:00 LIZZY farias [facility] 2020-01-24 2020-01-24 Nurse HYUN New [id number] 00:00:00 00:00:00 Triage Nataliya WELLS [id number] [facility] 4.2.7.2.686 [id number] 2020-01-24 2020-01-24 Nurse HYUN New [id number] [facility] 00:00:00 00:00:00 Triage Nataliya WELLS [id number] ity of [facility] 4.2.7.2.686 Rohit as [id number] [address] 2019-08-01 2019-08-02 Emergency X FERNANDO [facility] ERT [id number] Univers 23:43:20 00:27:[address] [facility] Results Test Description Test Time Test Comments Results Result Sourc e Comments XR ABDOMEN ACUTE 2020-09-20 HISTORY: Gastric Un iversity of SERIES 4 ulcer. Rule out [place] Med ical 17:05:48 perforation. Branch FINDINGS: Abdomen, 2 views-4 films: Comparison has been made with 10/06/2015 studies. AP supine and upright views of the abdomen showed unremarkable intestinalgas pattern. Upright view shows no free air. Cholecystectomy clips as wellas gastric surgical sutures are visualized in the upper abdomen. Nocalcified kidney stones detected. Numerous calcified phleboliths arepresent in the pelvis. No aggressive bone lesions. Chest, one view: Lungs are clear. Cardiomediastinal contour appears normal.No pneumothorax or pleural effusion. CONCLUSIONS: No acute findings. [facility], Radiant Results Inft User - 10/12/2020 11:06 AM CSTHISTORY: Gastric ulcer. Rule out perforation.FINDINGS: Abdomen, 2 views-4 films: Comparison has been made with 10/06/2015 studies.AP supine and upright views of the abdomen showed unremarkable intestinalgas pattern. Upright view shows no free air. Cholecystectomy clips as wellas gastric surgical sutures are visualized in the upper abdomen. Nocalcified kidney stones detected. Numerous calcified phleboliths arepresent in the pelvis. No aggressive bone lesions.Chest, one view: Lungs are clear. Cardiomediastinal contour appears normal.No pneumothorax or pleural effusion.CONCLUSIONS: No acute findings. URINALYSIS 2020-10-12 16:27:00 Test Item Value Reference Range Interpretation Comme nts APPEARANCE (test code = Hazy Clear A 4854031191) COLOR (test code = 5635415922) Yellow Yellow PH (test code = 6193591626) 4.8-8.0 SP GRAVITY (test code = 1.003-1.030 8724907560) GLU U QUAL (test code = Normal Normal 6500810136) BLOOD (test code = 1972226331) Negative Negative KETONES (test code = 2871261827) Negative Negative PROTEIN (test code = 2887-8) Negative Negative UROBILIN (test code = 2.0 mg/dL Normal A 2803110989) BILIRUBIN (test code = Negative Negative 1318306370) NITRITE (test code = 1997785071) Negative Negative LEUK ALEXUS (test code = 75/uL Negative A 4458403748) RBC/HPF (test code = 6047597819) See_Comment [Automated message] The system which ge nerated this result transmit mile reference range: 0 - 3 HP F. The reference range was not used to interpret th is result as normal/abnormal . WBC/HPF (test code = 3532158051) See_Comment [Automated message] The system which ge nerated this result transmit mile reference range: 0 - 5 HP F. The reference range was not used to interpret th is result as normal/abnormal . BACTERIA (test code = Negative Negative 7451870336) MUCOUS (test code = 5029541238) Slight Negative LPF A SQ EPITH (test code = HPF 7412808877) CA OXALATE (test code = See_Comment H [Au tomated message] The 3124265336) system which Etherpad nerated this result transmit mile reference range: <=1 HPF. The reference range was not used to interpret th is result as normal/abnormal . Lab Interpretation (test code = Abnormal 72289-2) [facility] (89702)2020-10-12 16:10:00 Test Item Value Reference Range Interpretation Comments NA (test code = 141 mmol/L 135-145 9966557028) K (test code = 3.4 mmol/L 3.5-5 L 5462541091) CL (test code = 103 mmol/L 98-108 9341867437) CO2 TOTAL (test code = 29 mmol/L 23-31 7912058894) AGAP (test code = 2-16 0450126500) BUN (test code = 12 mg/dL 7-23 2557770301) GLUCOSE (test code = 106 mg/dL 70-110 7717925263) CREATININE (test code = 0.85 mg/dL 0.5-1.04 3586204707) TOTAL BILI (test code = 0.7 mg/dL 0.1-1.2 7014882578) CALCIUM (test code = 9.1 mg/dL 8.6-10.6 0817116280) T PROTEIN (test code = 7.4 g/dL 6.3-8.2 0887344224) ALBUMIN (test code = 4.4 g/dL 3.5-5 5973914644) ALK PHOS (test code = 57 U/L 34-122 0994118160) ALTv (test code = 33 U/L 5-35 1742-6) AST(SGOT) (test code = 46 U/L 13-40 H 6993413998) eGFR Calculation mL/min/1.73m2 (Non-) (test code = 0841255915) eGFR Calculation mL/min/1.73m2 () (test code = 3099149296) MUNA (test code = MUNA) Association of Glomerular Filtration Rate (GFR) and Staging of Kidney Disease* + --+ --+ ------+| GFR (mL/min/1.73 m2) ?| With Kidney Damage ?| ?Without Kidney Damage+ --------+ --------+ +| ?>90 ?| ?Stage one ?| ? Normal ?+ ---+ ---+ -------+| ?60-89 ?| ?Stage two ?| ? Decreased GFR ? + --+ --+ ------+| ?30-59 ?| ?Stage three ?| ? Stage three ? + --+ --+ ------+| ?15-29 ?| ?Stage four ? | ? Stage four ?+ ---+ ---+ -------+| ?<15 (or dialysis) ? ?| ?Stage five ? | ? Stage five ?+ ---+ ---+ -------+ *Each stage assumes the associated GFR level has been in effect for at least three months. ?Stages 1 to 5, with or without kidney disease, indicate chronic kidney disease. Notes: Determination of stages one and two (with eGFR >59mL/min/1.73 m2) requires estimation of kidney damage for at least three months as defined by structural or functional abnormalities of the kidney, manifested by either:Pathological abnormalities or Markers of kidney damage (including abnormalities in the composition of the blood or urine or abnormalities in imaging tests). Lab Interpretation Abnormal (test code = 81866-8) [facility] 16:10:00 Test Item Value Reference Range Interpretation Comments LIPASE (test code = 8865863800) 65 U/L 0-220 Lab Interpretation (test code = Normal 35837-5) [facility] (30755)(TOTAL CHOLESTEROL, TRIGLYCERIDES, HDL)2020-10-12 16:10:00 Test Item Value Reference Range Interpretation Comments CHOL (test code = 139 mg/dL 120-200 2634657696) HDL (test code = 34 mg/dL >50 L 8385242693) HDLC RATIO (test code = See_Comment [Au tomated message] 0310177889) The system [employer] generated this result transmit mile reference range : <=4.5. The refe rence range was not u sed to interpret th is result as normal/abnormal . TRIG (test code = 78 mg/dL 30-170 0517678924) LDL CHOL (test code = 89 mg/dL See_Comment [Auto mated message] 86349-3) The system [employer] generated this result transmit mile reference range : <=160. The refe rence range was not u sed to interpret th is result as normal/abnormal . VLDL (test code = 16 mg/dL 5-60 0600505499) Lab Interpretation (test Abnormal code = 47510-4) [facility] [id number] 16:05:00 Test Item Value Reference Range Interpretation Comments POCT PREG (test code = 1605) negative On board controls acceptable with present C Line (test code = 3574) POCT PREG LOT # (test code = 3575) [id number] POCT PREG TEST DATE (test 04/18/2022 code = 3576) Lab Interpretation (test code = Normal 57674-4) [facility] WITH [id number] 15:53:00 Test Item Value Reference Range Interpretation Comments WBC (test code = See_Comment [Automated 6690-2) message] The sy stem which generated this result transmitted reference range : 4.30 - 11.10 10*3/?L. The reference range was not used to interpret this result as normal/abnormal . RBC (test code = See_Comment [Automated 789-8) message] The sy stem which generated this result transmitted reference range : 3.93 - 5.25 10*6/?L. The reference range was not used to interpret this result as normal/abnormal . HGB (test code = 14.4 g/dL 11.6-15 718-7) HCT (test code = 42.6 % 35.7-45.2 4544-3) MCV (test code = 89.7 fL 80.6-95.5 787-2) MCH (test code = 30.3 pg 25.9-32.8 785-6) MCHC (test code = 33.8 g/dL 31.6-35.1 786-4) RDW-SD (test code = 38.8 fL 39-49.9 L 60001-5) RDW-CV (test code = 11.9 % 12-15.5 L 788-0) PLT (test code = See_Comment [Automated 777-3) message] The sy stem which generated this result transmitted reference range : 166 - 358 10*3/ ?L. The reference r roxy was not used to interpret this result as normal/abnormal . MPV (test code = 10.1 fL 9.5-12.9 20524-7) NRBC/100 WBC (test See_Comment [Automat ed code = 7531100045) message] The system which generated this result transmitted reference range : 0.0 - 10.0 /100 WBCs. The refer ence range was not u sed to interpret th is result as normal/abnormal . NRBC x10^3 (test code <0.01 See_Comment [Auto mated = 9217438818) message] The s ystem which generated this result transmitted reference range : 10*3/?L. The reference range was not used to interpret this result as normal/abnormal . GRAN MAT (NEUT) % 57.3 % (test code = 770-8) IMM GRAN % (test code 0.20 % = 6252169481) LYMPH % (test code = 28.7 % 736-9) MONO % (test code = 10.9 % 5905-5) EOS % (test code = 2.3 % 713-8) BASO % (test code = 0.6 % 706-2) GRAN MAT x10^3(ANC) 3.06 10*3/uL 1.88-7.09 (test code = 3974348730) IMM GRAN x10^3 (test <0.03 0-0.06 code = 9903778879) LYMPH x10^3 (test code 1.53 10*3/uL 1.32-3.29 = 731-0) MONO x10^3 (test code 0.58 10*3/uL 0.33-0.92 = 742-7) EOS x10^3 (test code = 0.12 10*3/uL 0.03-0.39 711-2) BASO x10^3 (test code 0.03 10*3/uL 0.01-0.07 = 704-7) Lab Interpretation Abnormal (test code = 72753-3) [facility]"
--- NOTE | 2021-08-16 19:27 | ER ---
Nurse's Notes [facility] Name: Meghan Edwards Age: 45 yrs Sex: Female : 1975 Arrival Date: 08/16/2021 Time: 12:01 Bed Waiting Private MD: Jabari Leyva Diagnosis: Presentation: 08/16 14:02 Chief complaint: Patient states: headache x 3 days; nausea and chest pain began today; vg1 states was at work when had a sudden onset of dizziness, diaphoresis and states fell down to knees and JIL hands were tingling/numb. Coronavirus screen: Vaccine status: Patient reports receiving the 2nd dose of the covid vaccine. Client denies travel out of the [place] in the last 14 days. Ebola Screen: Patient negative for fever greater than or equal to 101.5 degrees Fahrenheit, and additional compatible Ebola Virus Disease symptoms. Initial Sepsis Screen: Does the patient meet any 2 criteria? No. Patient's initial sepsis screen is negative. Does the patient have a suspected source of infection? No. Patient's initial sepsis screen is negative. Risk Assessment: Do you want to hurt yourself or someone else? Patient reports no desire to harm self or others. Onset of symptoms was August 16, 2021. 14:02 Method Of Arrival: EMS: [facility] vg1 14:02 Acuity: LALI 3 vg1 Triage Assessment: 14:05 General: Appears in no apparent distress. uncomfortable, Behavior is calm, cooperative. vg1 Pain: Complains of pain in anterior aspect of left upper chest Pain radiates to left arm Pain began 2 hours ago. Neuro: Level of Consciousness is awake, alert, obeys commands, Oriented to person, place, time, situation, Reports headache. 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 - Social history:: Smoking status: Reported history of juuling and/or vaping. Vital Signs: 14:02 BP 140 / 87; Pulse 54; Resp 16; Temp 97.5; Pulse Ox 100% ; Weight 77.11 kg; Height 5 vg1 ft. 7 in. (170.18 cm); Pain 5/10; 14:02 Body Mass Index 26.63 (77.11 kg, 170.18 cm) vg1 ED Course: 12:01 Patient arrived in ED. as 12:07 Jabari Leyva MD is Private Physician. am2 14:05 Triage completed. vg1 14:05 Arm band placed on. vg1 14:17 EKG completed in triage. Results shown to MD. vg1 19:26 Patient's name was called from ER lobby. No response. Unable to locate patient. Will sm5 disposition as left without being seen by a provider. Administered Medications: No medications were administered Point of Care Testing: Blood Glucose: 14:05 Blood Glucose: 92 mg/dL; vg1 Ranges: Outcome: 19:26 Patient left the ED. 5 Signatures: Allison Nice Amanda am2 Tangela Jasso, RN RN vg1 Melisa Bob RN RN sm5
[2021-08-16 19:36] VITALS: BP 140/87; TEMP 97.5; O2SAT 100
== END 2021-08-16 19:26 | disposition left against medical advice (07) ==
LOC: ER 11:59
DX: R51.9 Headache, unspecified (principal); Z53.21 Procedure and treatment not carried out due to patient leaving prior to being seen by health care provider
CPT/HCPCS: 82947; 93005; 99283

== ENCOUNTER 2022-05-01 09:27 | Emergency (ER) | payer OTHER ==
--- OUTSIDE RECORDS SUMMARY | 2022-05-01 09:32 | XMS REPORT | Continuity of Care Document ---
:1975 Author Organization [facility] t Address [address] [place] [address] Dr. Alonso [address] [place] [address] Care Team Providers Name Role Phone RAMONE Cohen [facility] Primary Care P hysician Unavailable Jabari Leyva Attending Clinician Unavailable Ai Attending Clinician Unavailable YUE COHN Attending Clinician Unavailable Yue Rivers Attending Clinician Gelacio Esposito DO Attending Clinician Lab, Adc Fam Pob I Attending Clinician Unavailable Lizzy Nassar Attending Clinician LIZZY WEBSTER Attending Clinician Unavailable Nataliya New RN Attending Clinician Unavailable CASI KING Attending Clinician Unavailable Ai Admitting Clinician Unavailable YUE COHN Admitting Clinician Unavailable CASI KING Admitting Clinician Unavailable Payers Payer Name Policy Type Policy Number Effective Date Expiration Date Les MICHELE [place] - [id number] [place] [address] ([facility] HIM LENY FROM [id number] 2021 [facility] 00:00:00 Problems Condition Condition Condition Status Onset Resolution Last Treating Co mments Source Name Details Category Date Date Treatment Clinician Date Uncontroll Uncontroll Disease Active U nivers able able 5-12 ity of [place] vomiting 00 Medica l Branch Kidney Kidney Disease Active 2017- Univers [place] 3-13 ity of 00:00: [place] 00 [facility] Branch Nephrolith Nephrolith Disease Active 2015-08 U nivers iasis iasis 1-30 ity of 00:00: [place] [address] [facility] Obesity Obesity Disease Active Univers 9-25 ity of 00:00: [address] Allergies, Adverse Reactions, Alerts Allergy Allergy Status Severity Reaction(s) Onset Inactive Treating Comm ents Source Name Type Date Date Clinician Hydrocod Propensi Active Nausea Univer s one ty to and/or 12-15 ity of adverse Vomiting 00:00: [place] reaction 00 [facility] Branch HYDROCOD DRUG Active N/V [facility] ONE INGREDI 4- ity of 00:00: [address] NO KNOWN Drug Active [facility] ALLERGIE Class ity of [facility] Social History Social Habit Start Date Stop Date Quantity Comments Source Sex [facility] Exposure to 2022-01-24 2022-02-03 Unable to assess Univers ity of SARS-CoV-2 00:00:00 14:05:00 [facility] [place] (event) Branch Alcohol intake 2022-02-03 2022-02-03 Current University of 00:00:00 00:00:00 non-drinker of [facility] alcohol [place] (finding) Tobacco use and 2017-12-28 2017-12-28 Never used [facility] y of exposure 00:00:00 00:00:00 [facility] Smoking Status Start Date Stop Date Source Unknown if ever smoked [facility] Former smoker 2017-12-28 00:00:00 2017-12-28 00:00:[address] [facility] Medications Ordered Filled Start Stop Current Ordering Indication Dosage Frequency Signature Comments Components Source Medication Medication Date Date Medication? Clinician (SIG) Name Name acetaminoph 2021- No 1{tbl} 1 tablet, Univers en-codeine 02-03 Oral, ity of (TYLENOL 20:45: 20:09 ONCE, 1 [place] #3) 300-30 00 :00 dose, On Medic al mg tablet 1 [facility] tablet 02/03/22 at 1545, [place] methocarbam No 1000mg 1,000 mg, Univers oL 02-03 Oral, ity of (ROBAXIN) 20:45: 20:09 ONCE, 1 [place] tablet 00 :00 dose, On Medical 1,000 mg Sat Branch 02/03/22 at 1545, [place] dexamethaso 2021- No 10mg 10 mg, Uni vers ne sod phos 02-03 Intramuscu i ty of PF 20:45: 20:07 lar, ONCE, [place] injection 00 :00 1 dose, On Medi hamzah 10 mg Sat Branch 02/03/22 at 1545, 1 mL ketorolac 2021- No 60mg 60 mg, Unive rs (TORADOL) 02-03 Intramuscu ity of injection 20:45: 20:07 lar, ONCE, [place] 60 mg 00 :00 1 dose, On Medical Sat Branch 02/03/22 at 1545, [place] ibuprofen Yes [id number] 800mg Take 1 Univers 800 mg 02-03 [id number] tablet by ity of tablet 00:00: mouth [place] 00 every 8 Medical (eight) Branch hours as needed for Pain (scale 4-6). ondansetron Yes [id number] 4mg Take 1 Univers 4 mg 02-03 [id number] tablet by ity of disintegrat 00:00: mouth [place] ing tablet 00 every 8 Medica l (eight) Branch hours as needed for Nausea and Vomiting (N/V). methocarbam Yes [id number] 750mg Take 1 Univers oL 750 mg 18 [id number] tablet by ity of tablet 00:00: mouth 4 [place] 00 (four) Medical times Branch daily as needed for Other (muscle spasm). predniSONE 2021- Yes [id number] 40mg Take 2 Univers 20 mg 02-03-24 [id number] tablets by ity o f tablet 00:00: 04:59 mouth [place] 00 :00 daily for Medical 5 days. Branch fluconazole Yes 150mg 150 mg, Un fernando (DIFLUCAN) 2-25 Oral, ity of tablet 150 15:00: DAILY, [place] mg 00 First dose Medical on [place] Branch 10/13/20 at 0900, Until Discontinu ed, [place]IS[place]
Re ason for Anti-Infec tive: Empiric Therapy for Suspected Infection< br>Empiric Therapy Site: Urine<br&g t;Duration of therapy: 72 hours dicyclomine Yes 10mg 10 mg, Univ ers (BENTYL) 2-24 Oral, QID, ity o f capsule 10 18:00: First dose [place] mg 00 on Wed Medical 10/12/20 at [place] 1200, Until Discontinu ed, Routine maalox:diph 2020- No 15mL 15 mL, Uni vers enhydrAMINE 10-12 Oral, ity of :lidocaine 16:30: 16:07 ONCE, 1 [place] as 2 % viscous 00 :00 dose, Wed Med ical 1:1:1 10/12/20 at [place] (FIRST-MOUT 1030, HWASH BLM) Routine oral suspension 15 mL pantoprazol 2020- No 80mg 80 mg, IV Univers e 10-12 Push, ity of (PROTONIX) 16:30: 16:02 ONCE, 1 [place] as 80 mg in 00 :00 dose, Wed Medica l NaCl 0.9% 10/12/20 at [facility] ch (NS) 20 mL 1030, 20 syringe mL ondansetron 2020- No 4mg 4 mg, Slow Univers (ZOFRAN 10-12 IV Push, ity of (PF)) 16:30: 16:01 ONCE, 1 [place] injection 4 00 :00 dose, Wed Med ical mg 10/12/20 at [place] 1030, Routine NaCl 0.9% 2020- No 1000mL at 999 Uni vers (NS) bolus 10-1224 mL/hr, ity of infusion 15:30: 17:33 1,000 mL, Rohit as 1,000 mL 00 :00 IV Medical Infusion, [place] ONCE, 1 dose, 10/12/20 at 0930, STAT sucralfate Yes [id number] 1g Take 1 U nivers 1 gram 2-24 tablet by ity of tablet 00:00: mouth [place] 00 before Medical meals and Branch at bedtime. dicyclomine Yes [id number] 10mg Take 1 Univers (BENTYL) 10 2-24 capsule by it y of mg capsule 00:00: mouth [place] 00 every 8 Medical (eight) Branch hours as needed for Abdominal pain. ondansetron Yes [id number] 4mg Take 1 Univers 4 mg 2-24 tablet by ity of disintegrat 00:00: mouth [place] ing tablet 00 every 8 Medica l (eight) Branch hours as needed for Nausea and Vomiting (N/V). sucralfate Yes [id number] 1g Take 1 U nivers 1 gram 2-24 tablet by ity of tablet 00:00: mouth [place] 00 before Medical meals and Branch at bedtime. dicyclomine Yes [id number] 10mg Take 1 Univers (BENTYL) 10 2-24 capsule by it y of mg capsule 00:00: mouth [place] 00 every 8 Medical (eight) Branch hours as needed for Abdominal pain. ondansetron Yes [id number] 4mg Take 1 Univers 4 mg 2-24 tablet by ity of disintegrat 00:00: mouth [place] ing tablet 00 every 8 Medica l (eight) Branch hours as needed for Nausea and Vomiting (N/V). omeprazole 2020- No [id number] 20mg Take 1 Univers 20 mg 2-24 03-27 capsule by ity of capsule 00:00: 04:59 mouth [place] 00 :00 daily for Medical 30 days. Branch traMADol 2018-08 Yes [id number] 50mg Take 1 Univers (ULTRAM) 50 2-14 [id number] tablet by i ty of mg tablet 00:00: mouth [place] 00 every 6 Medical (six) Branch hours as needed for Pain (scale 7-10). traMADol 2018-08 Yes [id number] 50mg Take 1 Univers (ULTRAM) 50 2-14 [id number] tablet by i ty of mg tablet 00:00: mouth [place] 00 every 6 Medical (six) Branch hours as needed for Pain (scale 7-10). traMADol 2018-08 Yes [id number] 50mg Take 1 Univers (ULTRAM) 50 2-14 [id number] tablet by i ty of mg tablet 00:00: mouth [place] 00 every 6 Medical (six) Branch hours as needed for Pain (scale 7-10). ibuprofen Yes [id number] 600mg Take 1 U nivers 600 mg 4-29 tablet by ity of tablet 00:00: mouth [place] 00 every 6 Medical (six) Branch hours as needed for Pain (scale 4-6). tamsulosin 2019-0 Yes [id number] .4mg Take 1 U nivers 0.4 mg 24 4-29 capsule by ity of hr capsule 00:00: mouth at Rohit as 00 bedtime. Medical Branch ibuprofen 2018-0 Yes [id number] 600mg Take 1 U nivers 600 mg 4-29 tablet by ity of tablet 00:00: mouth [place] 00 every 6 Medical (six) Branch hours as needed for Pain (scale 4-6). tamsulosin Yes [id number] .4mg Take 1 U nivers 0.4 mg 24 4-29 capsule by ity of hr capsule 00:00: mouth at Rohit as 00 bedtime. Medical Branch ibuprofen 0 Yes [id number] 600mg Take 1 U nivers 600 mg 4-29 tablet by ity of tablet 00:00: mouth [place] 00 every 6 Medical (six) Branch hours as needed for Pain (scale 4-6). tamsulosin Yes [id number] .4mg Take 1 U nivers 0.4 mg 24 4-29 capsule by ity of hr capsule 00:00: mouth at Rohit as 00 bedtime. Medical Branch butalbital- Yes 1{tbl} Take 1 Un fernando acetaminoph 7-28 tablet by ity of en-caff 00:00: mouth [place] 50-325-40 00 every 6 Medical mg tablet (six) Branch hours as needed for Headache (Headache) . butalbital- Yes 1{tbl} Take 1 Un [place] acetaminoph 7-28 tablet by ity of en-caff 00:00: mouth [place] 50-325-40 00 every 6 Medical mg tablet (six) Branch hours as needed for Headache (Headache) . butalbital- 2017- Yes 1{tbl} Take 1 Un [place] acetaminoph 7-28 tablet by ity of en-caff 00:00: mouth [place] 50-325-40 00 every 6 Medical mg tablet (six) Branch hours as needed for Headache (Headache) . aspirin 81 2017-0 Yes 81mg Take 1 Unive rs mg chewable 5-13 tablet by ity of tablet 00:00: mouth [place] 00 daily. Medical Branch aspirin 81 2017-0 Yes 81mg Take 1 Unive rs mg chewable 5-13 tablet by ity of tablet 00:00: mouth [place] 00 daily. Medical Branch aspirin 81 0 Yes 81mg Take 1 Unive rs mg chewable 5-13 tablet by ity of tablet 00:00: mouth [place] 00 daily. Medical Branch glipiZIDE Yes 10mg Take 1 Univer s 10 mg 5-12 tablet by ity of tablet 00:00: mouth 2 (two) Medical times Branch daily before breakfast and dinner. glipiZIDE Yes 10mg Take 1 Univer s 10 mg 5-12 tablet by ity of tablet 00:00: mouth 2 (two) Medical times Branch daily before breakfast and dinner. glipiZIDE 0 Yes 10mg Take 1 Univer s 10 mg 5-12 tablet by ity of tablet 00:00: mouth 2 (two) Medical times Branch daily before breakfast [...] Immunizations Ordered Filled Immunization Date Status Comments [facility] e Immunization Name Name Pneumococcal 2016-07-19 [facility] o f Polysaccharide, 00:00:00 [place] Med ical PPSV23 (PNEUMOVAX) Branch Influenza Virus 2016-07-19 Completed Universit y of Vaccine Quad IM 3+ 00:00:00 [facility] [place] YRS Branch Pneumococcal 2016-07-19 Completed University o f Polysaccharide, 00:00:00 [place] Med ical PPSV23 (PNEUMOVAX) Branch Influenza Virus 2016-07-19 Completed Universit y of Vaccine Quad IM 3+ 00:00:00 [facility] Branch Pneumococcal 2016-07-19 Completed University o f Polysaccharide, 00:00:00 [place] Med ical PPSV23 (PNEUMOVAX) Branch Influenza Virus 2016-07-19 Completed Universit y of Vaccine Quad IM 3+ 00:00:00 [facility] Vital Signs Vital Name Observation Time Observation Value Comments Source Systolic blood 2022-02-03 19:11:00 163 mm[Hg] Univer sity of pressure [facility] Diastolic blood 2022-02-03 19:11:00 115 mm[Hg] Unive rsity of [facility] Heart rate 2022-02-03 19:11:00 63 /min [facility] Body temperature 2022-02-03 19:11:00 37.17 [facility] Respiratory rate 2022-02-03 19:11:00 22 /min [facility] [place] [facility] Body height 2022-02-03 19:11:00 170.2 cm [facility] Body weight 2022-02-03 19:11:00 81.647 kg [facility] BMI 2022-02-03 19:11:00 28.19 kg/m2 [facility] Oxygen saturation in 2022-02-03 19:11:00 98 /min [facility] Arterial blood by [facility] Pulse oximetry Branch Systolic blood 2020-10-12 17:33:05 135 mm[Hg] Univer sity of pressure [facility] Diastolic blood 2020-10-12 17:33:05 90 mm[Hg] Unive rsity of pressure [facility] Heart rate 2020-10-12 17:33:05 51 /min Universi [facility] Respiratory rate 2020-10-12 17:33:05 16 /min [facility] [place] [facility] Oxygen saturation in 2020-10-12 17:33:05 99 /min University of Arterial blood by [facility] Pulse oximetry Branch Body temperature 2020-10-12 15:22:00 37.44 [facility] ersity of [place] [facility] [place] Body height 2020-10-12 15:22:00 170.2 cm Universi ty of [place] [facility] [place] Body weight 2020-10-12 15:22:00 79.379 kg Universi ty of [place] [facility] [place] BMI 2020-10-12 15:22:00 27.41 kg/m2 Universi ty of [facility] [place] Branch Systolic blood 2020-10-12 17:33:05 135 mm[Hg] Univer sity of pressure [place] [facility] [place] Diastolic blood 2020-10-12 17:33:05 90 mm[Hg] Unive rsity of pressure [facility] Heart rate 2020-10-12 17:33:05 51 /min [facility] Respiratory rate 2020-10-12 17:33:05 16 /min [facility] Oxygen saturation in 2020-10-12 17:33:05 99 /min [place] of Arterial blood by [facility] Pulse oximetry Branch Body temperature 2020-10-12 15:22:00 37.44 [facility] ersity of [place] [facility] [place] Body height 2020-10-12 15:22:00 170.2 cm Universi ty [facility] Medical [place] Body weight 2020-10-12 15:22:00 79.379 kg Universi [facility] Medical [place] BMI 2020-10-12 15:22:00 27.41 kg/m2 [facility] Procedures Procedure Date / Time Performed Performing Clinician Sour e XR SHOULDER 2+ VW 2022-02-03 19:57:00 Yue Cohn [facility] RIGHT Medical Branch NOTICE OF PRIVACY 2022-02-03 19:06:28 [facility]assigned, No [facility] Branch CONSENT/REFUSAL FOR 2022-02-03 19:05:34 Doctor Unassigned, No [facility] DI[facility] AND Name Medical Branch TREATMENT XR ABDOMEN ACUTE 2020-10-12 17:03:23 Gelacio Esposito [facility] POCT TEST 2020-10-12 16:05:00 Gelacio Esposito [facility] URINALYSIS 2020-10-12 15:54:00 Gelacio Esposito [facility] LIPASE 2020-10-12 15:34:00 [facility] COMP. METABOLIC PANEL 2020-10-12 15:34:00 [facility] [place] ([id number]) Medical Branch LIPID PANEL 2020-10-12 15:34:00 [facility] ([id number])(TOTAL Medical Branch CHOLESTEROL, TRIGLYCERIDES, HDL) CBC WITH DIFF 2020-10-12 15:34:00 Esposiot, [facility] NOTICE OF PRIVACY 2020-10-12 15:16:21 Doctor Unassigned, No Univ [facility] PRACTICES Name Medical Branch CONSENT/REFUSAL FOR 2020-10-12 15:16:05 Doctor Unassigned, No [facility] DIAGNOSIS AND Name Medical Branch TREATMENT Encounters Start End Encounter Admission Attending Care Care Encounter Source Date/Time Date/Time Type Type Clinicians Facility Department ID 2022-03-01 Outpatient Gordon [facility] [id number] Common 09:20:03 Jabari [id number] [facility] 2021-06-18 Emergency [facility] [id number] Univers [facility] 2022-03-05 2022-03-05 Outpatient FOG_Cusick_ AOSM AOSM [id number] Beth 11:58:00 11:58:00 Markus [id number] [facility] 2022-03-05 2022-03-05 Outpatient FOG_Cusick_ AOSM AOSM [id number] Beth 00:00:00 00:00:00 Markus [id number] Orth ope [facility]in [facility] 2022-02-03 2022-02-03 Emergency X COHN, [facility] ERT [id number] Univers 14:13:00 16:22:00 YUE farias [facility] 2022-02-03 2022-02-03 Emergency Cohn, [facility] [id number] Univers 14:13:00 16:22:00 Yue CASTRO 350.1.13.10 i [place] 4.2.7.2.686 [facility] [id number] [address] 2020-10-12 2020-10-12 [facility] [id number] 09:18:00 11:40:00 Gelacio Castro 350.1.13.10 [place] 4.2.7.2.686 [place] [id number] 08 2020-10-12 2020-10-12 [facility] [id number] [facility] 09:18:00 11:40:00 Gelacio Castro 350.1.13.10 i ty of [place] 4.2.7.2.686 [facility] [id number] [address] 2020-03-04 2020-03-04 Laboratory Lab, [facility] [id number] 08:52:32 09:12:32 Only Fam Pob I Health 350.1.13.10 [place] 4.2.7.2.686 Professio [id number] [place] [address] [address] 2020-03-04 2020-03-04 Laboratory Lab, [facility] Fam Pob I [facility] [id number] [facility] 08:52:32 09:12:32 Only Lizzy [facility] 350.1.13.10 ity of [place] 4.2.7.2.686 Rohit as Professio [id number] Co dical [address] Office Building [facility] 2020-03-04 2020-03-04 Outpatient R [facility] [id number] Univers 09:00:00 09:00:00 LIZZY farias of [facility] 2020-01-24 2020-01-24 HYUN Larson [id number] 00:00:00 00:00:00 Triage Nataliya WELLS 350.1.13.10 [facility] 4.2.7.2.686 [id number] 2020-01-24 2020-01-24 HYUN Larson [id number] Univers 00:00:00 00:00:00 Triage Nataliya WELLS 350.1.13.10 ity of [facility] 4.2.7.2.686 Rohit as [id number] [place] [address] Branch 2019-08-01 2019-08-02 Emergency X FERNANDO [facility] ERT [id number] Univers 23:43:20 00:27:00 TARSHAKATHYROSLYN ity [facility] Results Test Description Test Time Test Comments Results Result Sourc e Comments XR ABDOMEN ACUTE 2020-09-20 HISTORY: Gastric Un iversity of SERIES 4 ulcer. Rule out [place] Med ical 17:05:48 perforation. Branch FINDINGS: Abdomen, [...] or pleural effusion. CONCLUSIONS: No acute findings. [facility], Radiant Results Inft User - 10/12/2020 [...] APPEARANCE (test code = Hazy Clear A 5339199135) COLOR (test code = 3947362422) Yellow Yellow PH (test code = 3335729275) 4.8-8.0 SP GRAVITY (test code = 1.003-1.030 1835694033) GLU U QUAL (test code = Normal Normal 1192245161) BLOOD (test code = 3506290961) Negative Negative KETONES (test code = 2449538279) Negative Negative PROTEIN (test code = 2887-8) Negative Negative UROBILIN (test code = 2.0 mg/dL Normal A 7477284403) BILIRUBIN (test code = Negative Negative 0738263125) NITRITE (test code = 4397363145) Negative Negative LEUK ALEXUS (test code = 75/uL Negative A 1082784178) RBC/HPF (test code = 2952379716) See_Comment [Automated message] The system which ge nerated this result transmit mile reference range: 0 - 3 HP F. The reference range was not used to interpret th is result as normal/abnormal . WBC/HPF (test code = 5752753936) See_Comment [Automated message] The system which ge nerated this result transmit mile reference range: 0 - 5 HP F. The reference range was not used to interpret th is result as normal/abnormal . BACTERIA (test code = Negative Negative 5357233523) MUCOUS (test code = 2150511049) Slight Negative LPF A SQ EPITH (test code = HPF 7287492607) CA OXALATE (test code = See_Comment H [Au tomated message] The 9559846926) system which ge nerated this result transmit mile reference range: <=1 HPF. The reference range was not used to interpret th is result as normal/abnormal . Lab Interpretation (test code = Abnormal 78936-1) [facility]. METABOLIC PANEL ([id number])2020-10-12 16:10:00 Test Item Value Reference Range Interpretation Comments NA (test code = 141 mmol/L 135-145 0797177568) K (test code = 3.4 mmol/L 3.5-5 L 5956151884) CL (test code = 103 mmol/L 98-108 8452716813) CO2 TOTAL (test code = 29 mmol/L 23-31 5515541510) AGAP (test code = 2-16 8178959083) BUN (test code = 12 mg/dL 7-23 8613663076) GLUCOSE (test code = 106 mg/dL 70-110 7734560011) CREATININE (test code = 0.85 mg/dL 0.5-1.04 4365762410) TOTAL BILI (test code = 0.7 mg/dL 0.1-1.6 1695513343) CALCIUM (test code = 9.1 mg/dL 8.6-10.6 0569169174) T PROTEIN (test code = 7.4 g/dL 6.3-8.2 6534257937) ALBUMIN (test code = 4.4 g/dL 3.5-5 5375534040) ALK PHOS (test code = 57 U/L 34-122 0819272012) ALTv (test code = 33 U/L 5-35 1742-6) AST(SGOT) (test code = 46 U/L 13-40 H 3635069330) eGFR Calculation mL/min/1.73m2 (Non-) (test code = 8005768130) eGFR Calculation mL/min/1.73m2 () (test code = 9456851578) MUNA (test code = MUNA) Association of [...] tests). Lab Interpretation Abnormal (test code = 23781-8) [facility] 16:10:00 Test Item Value Reference Range Interpretation Comments LIPASE (test code = 2848908262) 65 U/L 0-220 Lab Interpretation (test code = Normal 58560-0) [facility] ([id number])(TOTAL CHOLESTEROL, TRIGLYCERIDES, HDL)2020-10-12 16:10:00 Test Item Value Reference Range Interpretation Comments CHOL (test code = 139 mg/dL 120-200 4233641762) HDL (test code = 34 mg/dL >50 L 6596620836) HDLC RATIO (test code = See_Comment [Au tomated message] 6437202181) The system [employer] generated this result transmit mile reference range : <=4.5. The refe rence range was not u sed to interpret th is result as normal/abnormal . TRIG (test code = 78 mg/dL 30-170 7039820432) LDL CHOL (test code = 89 mg/dL See_Comment [Auto mated message] 58441-4) The system [employer] generated this result transmit mile reference range : <=160. The refe rence range was not u sed to interpret th is result as normal/abnormal . VLDL (test code = 16 mg/dL 5-60 9741701424) Lab Interpretation (test Abnormal code = 02140-2) [facility] [id number] 16:05:00 Test Item Value Reference Range Interpretation Comments POCT PREG (test code = 1605) negative On board controls acceptable with present C Line (test code = 3574) POCT PREG LOT # (test code = 3575) [id number] POCT PREG TEST DATE (test 04/18/2022 code = 3576) Lab Interpretation (test code = Normal 25261-8) [facility] [id number] 15:53:00 Test Item Value Reference Range Interpretation Comments WBC (test code = See_Comment [Automated 6590-2) message] The sy stem which generated this [...] (test code = 38.8 fL 39-49.9 L 13595-7) RDW-CV (test code = 11.9 % 12-15.5 L 788-0) PLT (test code = See_Comment [Automated 777-3) message] The sy stem which generated this result transmitted reference range : 166 - 358 10*3/ ?L. The reference r roxy was not used to interpret this result as normal/abnormal . MPV (test code = 10.1 fL 9.5-12.9 66003-6) NRBC/100 WBC (test See_Comment [Automat ed code = 7394735105) message] The system which generated this result transmitted reference range : 0.0 - 10.0 /100 WBCs. The refer ence range was not u sed to interpret th is result as normal/abnormal . NRBC x10^3 (test code <0.01 See_Comment [Auto mated = 0173585490) message] The s ystem which generated this result transmitted reference range : 10*3/?L. The reference range was not used to interpret this result as normal/abnormal . GRAN MAT (NEUT) % 57.3 % (test code = 770-8) IMM GRAN % (test code 0.20 % = 0223421336) LYMPH % (test code = 28.7 % 736-9) MONO % (test code = 10.9 % 5905-5) EOS % (test code = 2.3 % 713-8) BASO % (test code = 0.6 % 706-2) GRAN MAT x10^3(ANC) 3.06 10*3/uL 1.88-7.09 (test code = 6046982285) IMM GRAN x10^3 (test <0.03 0-0.06 code = 8119160188) LYMPH x10^3 (test code 1.53 10*3/uL 1.32-3.29 = 731-0) MONO x10^3 (test code 0.58 10*3/uL 0.33-0.92 = 742-7) EOS x10^3 (test code = 0.12 10*3/uL 0.03-0.39 711-2) BASO x10^3 (test code 0.03 10*3/uL 0.01-0.07 = 704-7) Lab Interpretation Abnormal (test code = 03314-6) [facility]"
[2022-05-01] MEDS ORDERED: NA CHLORIDE 0.9% 2,000 ML ONE (09:47)
[2022-05-01 09:59] LABS: Absolute Lymphocytes (CBC) 2.7 K/uL (0.7-4.9); Hematocrit 43.1 % (36.0-45.0); Lymphocytes % 31.6 % (15.3-44.8); MCV 90.6 fL (80-100); MPV 8.3 fL (7.6-11.3); RBC Red Blood Cell Count 4.76 M/uL (3.86-4.86)
[2022-05-01 10:28] LABS: ALT/SGPT 26 U/L (12-78); AST/SGOT 13 U/L (15-37); Albumin 3.9 g/dL (3.4-5.0); Alkaline Phosphatase 70 U/L (45-117); BUN Blood Urea Nitrogen 13 mg/dL (7-18); Bicarbonate 27 mmol/L (21-32); Bilirubin Total 0.4 mg/dL (0.2-1.0); Glomerular Filtration Rate 73 ml/min (=/>90); Glucose Level 111 mg/dL (74-106); Potassium 3.6 mmol/L (3.5-5.1); Protein, Total 7.7 g/dL (6.4-8.2); Sodium Level 141 mmol/L (136-145)
[2022-05-01 10:32] LABS: Bilirubin Direct < 0.1 mg/dL (0-0.2)
[2022-05-01 10:50] LABS: Urine Blood 1+ (Negative); Urine Glucose Negative (Negative); Urine Protein Negative (Negative)
[2022-05-01 11:21] LABS: Barbiturates NEGATIVE (NEGATIVE); Benzodiazepines NEGATIVE (NEGATIVE); Cocaine NEGATIVE (NEGATIVE); METHAMPHETAM NEGATIVE (NEGATIVE); Methadone NEGATIVE (NEGATIVE); Opiates NEGATIVE (NEGATIVE); Phencyclidine NEGATIVE (NEGATIVE); THC Cannibis POSITIVE (NEGATIVE)
[2022-05-01 11:35] LABS: SARS-CoV-2 Antigen Rapid Res Negative (Negative)
[2022-05-01 12:42] LABS: Protime INR 0.97
--- NOTE | 2022-05-01 13:51 | EDPHYS ---
Physician Documentation [facility] Name: Meghan Edwards Age: 46 yrs Sex: Female : 1975 Arrival Date: 05/01/2022 Time: 09:29 Bed External Waiting Private MD: MITCH Physician Howard Modi HPI: 05/01 13:40 This 46 yrs old Female presents to ER via EMS with complaints of Overdose. imelda 13:40 The patient presents to the emergency department after a known overdose, that was imelda intentional. Context: Method: the patient has a confirmed or suspected ingestion, gabapentin and klonipin. Associated signs and symptoms: Pertinent positives: dizziness. Severity of symptoms: At their worst the symptoms were mild in the emergency department the symptoms are unchanged. The patient has not experienced similar symptoms in the past. 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 - Social history:: Smoking status: Patient reports the use of cigarette tobacco products, denies chronic smoking, but will smoke occasionally, Patient uses street drugs, marijuana. ROS: 13:45 Constitutional: Negative for fever, chills, and weight loss, Eyes: Negative for injury, imelda pain, redness, and discharge, ENT: Negative for injury, pain, and discharge, Neck: Negative for injury, pain, and swelling, Cardiovascular: Negative for chest pain, palpitations, and edema, Respiratory: Negative for shortness of breath, cough, wheezing, and pleuritic chest pain, Abdomen/GI: Negative for abdominal pain, nausea, vomiting, diarrhea, and constipation, Back: Negative for injury and pain, : Negative for injury, bleeding, discharge, and swelling, MS/Extremity: Negative for injury and deformity, Skin: Negative for injury, rash, and discoloration, Neuro: Negative for headache, weakness, numbness, tingling, and seizure, Allergy/Immunology: Negative for hives, rash, and allergies, Endocrine: Negative for neck swelling, polydipsia, polyuria, polyphagia, and marked weight changes, Hematologic/Lymphatic: Negative for swollen nodes, abnormal bleeding, and unusual bruising. 13:45 Psych: Positive for anxiety, depression, suicidal ideation. Exam: 13:45 Constitutional: This is a well developed, well nourished patient who is awake, alert, imelda and in no acute distress. Head/Face: Normocephalic, atraumatic. Eyes: Pupils equal round and reactive to light, extra-ocular motions intact. Lids and lashes normal. Conjunctiva and sclera are non-icteric and not injected. Cornea within normal limits. Periorbital areas with no swelling, redness, or edema. ENT: Nares patent. No nasal discharge, no septal abnormalities noted. Tympanic membranes are normal and external auditory canals are clear. Oropharynx with no redness, swelling, or masses, exudates, or evidence of obstruction, uvula midline. Mucous membranes moist. Neck: Trachea midline, no thyromegaly or masses palpated, and no cervical lymphadenopathy. Supple, full range of motion without nuchal rigidity, or vertebral point tenderness. No Meningismus. Chest/axilla: Normal chest wall appearance and motion. Nontender with no deformity. No lesions are appreciated. Cardiovascular: Regular rate and rhythm with a normal S1 and S2. No gallops, murmurs, or rubs. Normal PMI, no JVD. No pulse deficits. Respiratory: Lungs have equal breath sounds bilaterally, clear to auscultation and percussion. No rales, rhonchi or wheezes noted. No increased work of breathing, no retractions or nasal flaring. Abdomen/GI: Soft, non-tender, with normal bowel sounds. No distension or tympany. No guarding or rebound. No evidence of tenderness throughout. Back: No spinal tenderness. No costovertebral tenderness. Full range of motion. Female : Normal external genitalia. Skin: Warm, dry with normal turgor. Normal color with no rashes, no lesions, and no evidence of cellulitis. MS/ Extremity: Pulses equal, no cyanosis. Neurovascular intact. Full, normal range of motion. Neuro: Awake and alert, GCS 15, oriented to person, place, time, and situation. Cranial nerves II-XII grossly intact. Motor strength 5/5 in all extremities. Sensory grossly intact. Cerebellar exam normal. Normal gait. 13:45 Psych: Behavior/mood is pleasant, cooperative, suicidal, depressed, Affect is flat, Oriented to person, place, time, Patient having thoughts of suicide. Plan for suicide is od Judgement / Insight is normal. Memory is normal. Delusions/hallucinations are not present. 17:53 ECG was reviewed by the Attending Physician. imelda Vital Signs: 09:53 BP 172 / 113; Pulse 58; Resp 12; Pulse Ox 100% on 2 lpm NC; ap3 10:12 BP 158 / 106; Pulse 47; Resp 14; Pulse Ox 100% 2 lpm ; Weight 81.65 kg; Height 5 ft. 7 ap3 in. (170.18 cm); 10:59 BP 173 / 98; Pulse 46; Pulse Ox 100% on 2 lpm NC; ap3 11:31 BP 198 / 85; Pulse 57; Pulse Ox 100% on 2 lpm NC; ap3 12:00 BP 151 / 135; Pulse 56; Resp 14; Pulse Ox 100% on 2 lpm NC; eh3 12:30 BP 158 / 93; Pulse 52; Resp 13; Pulse Ox 100% on 2 lpm NC; eh3 13:00 BP 157 / 84; Pulse 58; Resp 18; Pulse Ox 100% on R/A; eh3 13:30 BP 167 / 100; Pulse 51; Resp 17; Pulse Ox 100% on R/A; eh3 14:00 BP 184 / 87; Pulse 48; Resp 13; Pulse Ox 100% on R/A; eh3 14:30 BP 151 / 89; Pulse 49; Resp 13; Pulse Ox 100% on R/A; eh3 15:00 BP 182 / 105; Pulse 60; Resp 14; Pulse Ox 100% on R/A; eh3 15:30 BP 141 / 114; Pulse 55; Resp 16; Pulse Ox 100% ; eh3 16:00 BP 139 / 69; Pulse 58; Resp 19; Pulse Ox 98% on R/A; eh3 16:30 BP 153 / 77; Pulse 54; Resp 18; Pulse Ox 98% ; eh3 17:00 BP 148 / 82; Pulse 51; Resp 18; Pulse Ox 97% on R/A; eh3 10:12 Body Mass Index 28.19 (81.65 kg, 170.18 cm) ap3 MDM: 09:35 Patient medically screened. [facility] 13:48 Differential diagnosis: Ingestion/exposure to klonipin/gabapentin polypharmacy, over imelda medication. Data reviewed: vital signs, nurses notes, EMS record, lab test result(s), EKG. Data interpreted: equipment monitor phototypesetting: rate is 52 beats/min, rhythm is regular, Pulse oximetry: on room air is 100 %. Test interpretation: by ED physician or midlevel provider: ECG, plain radiologic studies. Counseling: I had a detailed discussion with the patient and/or guardian regarding: the historical points, exam findings, and any diagnostic results supporting the discharge/admit diagnosis, lab results, radiology results, the need to transfer to another facility, for higher level of care, [facility] does not immediately have the required specialist. 05/01 09:36 Order name: Acetaminophen; Complete Time: 11:46 [facility] 05/01 09:36 Order name: Basic Metabolic Panel; Complete Time: 11:46 [facility] 05/01 09:36 Order name: CBC with Diff; Complete Time: 11:46 [facility] 05/01 09:36 Order name: ETOH Level; Complete Time: 11:46 [facility] 05/01 09:36 Order name: Hepatic Function; Complete Time: 11:46 [facility] 05/01 09:36 Order name: PT-INR; Complete Time: 12:45 [facility] 05/01 09:36 Order name: Ptt, Activated; Complete Time: 12:45 [facility] 05/01 09:36 Order name: Salicylate; Complete Time: 11:46 [facility] 05/01 09:36 Order name: Urine Drug Screen; Complete Time: 11:46 [facility] 05/01 10:35 Order name: SARS RAPID; Complete Time: 11:46 ap3 05/01 10:50 Order name: Urine Dipstick-Ancillary; Complete Time: 11:46 EDMS 05/01 10:52 Order name: Urine --Ancillary (enter results); Complete Time: 11:46 05/01 09:36 Order name: EKG; Complete Time: 09:36 [facility] 05/01 09:36 Order name: EKG - Nurse/Tech; Complete Time: 10:11 imelda 05/01 09:36 Order name: IV Saline Lock; Complete Time: 10:11 [facility] 05/01 09:36 Order name: Labs collected and sent; Complete Time: 10: [facility] 05/01 09:36 Order name: Suicide Precautions; Complete Time: 10: [facility] 05/01 09:36 Order name: Suicide Screening ([place]); Complete Time: 10:52 [facility] 05/01 09:36 Order name: Urine Dipstick-Ancillary (obtain specimen); Complete Time: 10:52 [facility] 05/01 09:36 Order name: Urine Test (obtain specimen); Complete Time: 10:52 [facility] EC:53 Rate is 42 beats/min. Rhythm is regular. QRS [place] is Normal. [place] interval is normal. QRS imelda interval is normal. QT interval is normal. No Q waves. T waves are Normal. No ST changes noted. Clinical impression: Sinus bradycardia and No evidence of ischemia. Interpreted by me. Reviewed by me. Administered Medications: 09:40 Drug: NS 0.9% 1000 ml Route: IV; Rate: 1 bolus; Site: left antecubital; ap3 15:55 Follow up: Response: No adverse reaction; IV Status: Completed infusion; IV Intake: eh3 1000ml 14:44 Not Given (Other Intervention Used): Ativan (LORazepam) 1 mg IVP once ld1 14:55 Drug: Tylenol 1000 mg Route: PO; eh3 15:39 Follow up: Response: Pain is decreased eh3 15:55 Follow up: Response: Pain is decreased eh3 Disposition Summary: 05/01/22 13:51 Transfer Ordered Transfer Location: Psych Facility imelda Reason: Higher level of care imelda Condition: Stable imelda Problem: new imelda Symptoms: have improved imelda Accepting Physician: to psych(05/01/22 18:23) jl7 Diagnosis - Adjustment disorder with depressed mood imelda - Suicidal ideations imelda - Suicide attempt - overdose, klonopin/gabapentin imelda - Bradycardia, unspecified imelda Forms: - Medication Reconciliation Form imelda - SBAR form imelda Signatures: Dispatcher [employer] EDHoward Crabtree MD MD cha Leal, Jahala RN RN jl7 Laura Whiting RN RN ap3 Meera Lindsay RN RN eh3 Carolina Mccann RN ld1 Corrections: (The following items were deleted from the chart) 15:01 10:21 Allergies: Codeine; ap3 eh3 17:37 13:51 to psych imelda eh3 17:55 17:37 to psych 3 imelda 18:23 17:55 to psych imelda jl7
--- NOTE | 2022-05-01 13:51 | ER ---
Nurse's Notes [facility] Name: Meghan Edwards Age: 46 yrs Sex: Female : 1975 Arrival Date: 05/01/2022 Time: 09:29 Bed External Waiting Private MD: Diagnosis: Adjustment disorder with depressed mood;Suicidal ideations;Suicide attempt-overdose, klonopin/gabapentin;Bradycardia, unspecified Presentation: 05/01 09:24 Chief complaint: Patient states: she took 5 Gabapentin 600mg, and 5 0.5 Clonazepam at ap3 approx 0815 this morning. Patient called her friends and told them she was "tired and was ready to go [facility]." then her friends called EMS. Patient is verbally upset, stating "I'm tired, I just don't want to do this anymore". Coronavirus screen: At this time, the client does not indicate any symptoms associated with coronavirus-19. Ebola Screen: No symptoms or risks identified at this time. Initial Sepsis Screen: Does the patient meet any 2 criteria? No. Patient's initial sepsis screen is negative. Does the patient have a suspected source of infection? No. Patient's initial sepsis screen is negative. Risk Assessment: Do you want to hurt yourself or someone else? Patient reports desire/thoughts of hurting themselves or someone else. Provider notified. 10:12 Onset of symptoms was May 01, 2022 at 08:15. ap3 10:12 Method Of Arrival: EMS: [facility] ap3 10:12 Acuity: LALI 2 ap3 10:28 Care prior to arrival: IV initiated. 20 GA, in the left antecubital area. ap3 Triage Assessment: 10:23 General: Appears distressed, Behavior is crying. Pain: Denies pain. Neuro: Level of ap3 Consciousness is lethargic, patient A/O X's 4 when verbally stimulated, when patient no longer verbally stimulated patient becomes lethargic . Oriented to person, place, time. Cardiovascular: Patient's skin is warm and dry. Rhythm is sinus bradycardia. Respiratory: Airway is patent Respiratory effort is even. 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 - Social history:: Smoking status: Patient reports the use of cigarette tobacco products, denies chronic smoking, but will smoke occasionally, Patient uses street drugs, marijuana. Screenin:26 Abuse screen: Denies threats or abuse. Nutritional screening: No deficits noted. ap3 Tuberculosis screening: No symptoms or risk factors identified. 10:30 Fall Risk No fall in past 12 months (0 pts). Secondary diagnosis (15 points) impaired ap3 mobility, IV access (20 points). Ambulatory Aid- None/Bed Rest/Nurse Assist (0 pts). Gait- Impaired (20 pts.). Mental Status- Oriented to own ability (0 pts). Total Escamilla Fall Scale indicates High Risk Score (45 or more points). Fall prevention measures have been instituted. Side Rails Up X 2 Placed Close to Nursing Station 1:1 Attendant Assigned Frequent Obs/Assessments Occuring Family Present and informed to notify staff if the need to leave the bedside As available patient and family educated on Fall Prevention Program and Strategies. Assessment: 09:55 Reassessment: provider updated on patients condition. awaiting provider to assess. ap3 10:07 Reassessment: Guillermo with Poison control reports watch for hypotension, seizures, ap3 respiratory depression; draw toxic workup and watch pt for 6 hours post ingestion. 10:40 Reassessment: awaiting provider assessment. ap3 10:53 Reassessment: Patient and/or family updated on plan of care and expected duration. Pain ap3 level reassessed. Patient is alert, oriented x 3, equal unlabored respirations, skin warm/dry/pink. General: Appears distressed, Behavior is crying. 11:30 Reassessment: Patient and/or family updated on plan of care and expected duration. Pain ap3 level reassessed. Patient is alert, oriented x 3, equal unlabored respirations, skin warm/dry/pink. General: Behavior is cooperative, crying. 11:43 Reassessment: patient states "I was going to stab myself in the stomach with a knife ap3 but i don't want to hurt so i took the pills. i just don't want to live anymore. why didn't the pills work, why didn't i just ?!". 12:53 General: Appears distressed, Behavior is cooperative, quiet. Pain: Denies pain. Neuro: eh3 Guerra Agitation-Sedation Scale (RASS): -1 Drowsy Level of Consciousness is awake, obeys commands, Oriented to person, place, time, situation. Cardiovascular: Capillary refill < 3 seconds Patient's skin is warm and dry. Respiratory: Airway is patent Respiratory effort is even, unlabored. GI: No signs and/or symptoms were reported involving the gastrointestinal system. : No signs and/or symptoms were reported regarding the genitourinary system. EENT: No signs and/or symptoms were reported regarding the EENT system. Derm: No signs and/or symptoms reported regarding the dermatologic system. Musculoskeletal: No signs and/or symptoms reported regarding the musculoskeletal system. 14:00 Reassessment: Patient and/or family updated on plan of care and expected duration. Pain eh3 level reassessed. Patient is alert, oriented x 3, equal unlabored respirations, skin warm/dry/pink. Talking to sitter. 14:45 Reassessment: Patient and/or family updated on plan of care and expected duration. Pain eh3 level reassessed. Patient is alert, oriented x 3, equal unlabored respirations, skin warm/dry/pink. Complains of headache in front of head, provider notified. 15:45 Reassessment: Patient and/or family updated on plan of care and expected duration. Pain eh3 level reassessed. Patient is alert, oriented x 3, equal unlabored respirations, skin warm/dry/pink. Pt states headache is much better. Updated on plan to transfer to [facility]. Pt verbalized understanding and agrees to be transferred. 16:45 Reassessment: Patient and/or family updated on plan of care and expected duration. Pain eh3 level reassessed. Patient is alert, oriented x 3, equal unlabored respirations, skin warm/dry/pink. Overdose: 10:25 [place] Suicide Severity Screening: "In the past month, have you wished you were ap3 or wished you could go to sleep and not wake up?" Patient responds "yes." Based off client's responses, additional C-SSRS screening questions required. "In the past month, have you actually had any thoughts of killing yourself?" Patient responds "yes." Based off client's responses, additional C-SSRS screening questions required. "In your lifetime, have you ever done anything, started to do anything, or prepared to do anything to end your life?" this is patients first attempt. Patient took 5 gabapentin 600mg. Patient took 0.5mg clonazepam. Overdose occurred 1-2 hours ago. Vital Signs: 09:53 BP 172 / 113; Pulse 58; Resp 12; Pulse Ox 100% on 2 lpm NC; ap3 10:12 BP 158 / 106; Pulse 47; Resp 14; Pulse Ox 100% 2 lpm ; Weight 81.65 kg; Height 5 ft. 7 ap3 in. (170.18 cm); 10:59 BP 173 / 98; Pulse 46; Pulse Ox 100% on 2 lpm NC; ap3 11:31 BP 198 / 85; Pulse 57; Pulse Ox 100% on 2 lpm NC; ap3 12:00 BP 151 / 135; Pulse 56; Resp 14; Pulse Ox 100% on 2 lpm NC; eh3 12:30 BP 158 / 93; Pulse 52; Resp 13; Pulse Ox 100% on 2 lpm NC; eh3 13:00 BP 157 / 84; Pulse 58; Resp 18; Pulse Ox 100% on R/A; eh3 13:30 BP 167 / 100; Pulse 51; Resp 17; Pulse Ox 100% on R/A; eh3 14:00 BP 184 / 87; Pulse 48; Resp 13; Pulse Ox 100% on R/A; eh3 14:30 BP 151 / 89; Pulse 49; Resp 13; Pulse Ox 100% on R/A; eh3 15:00 BP 182 / 105; Pulse 60; Resp 14; Pulse Ox 100% on R/A; eh3 15:30 BP 141 / 114; Pulse 55; Resp 16; Pulse Ox 100% ; eh3 16:00 BP 139 / 69; Pulse 58; Resp 19; Pulse Ox 98% on R/A; eh3 16:30 BP 153 / 77; Pulse 54; Resp 18; Pulse Ox 98% ; eh3 17:00 BP 148 / 82; Pulse 51; Resp 18; Pulse Ox 97% on R/A; eh3 10:12 Body Mass Index 28.19 (81.65 kg, 170.18 cm) ap3 ED Course: 09:29 Patient arrived in ED. bd 09:35 Howard Modi MD is Attending Physician. imelda 09:59 Laura Whiting, RN is Primary Nurse. ap3 10:20 Triage completed. ap3 10:26 Arm band placed on right wrist. ap3 10:26 Patient has correct armband on for positive identification. Bed in low position. Call ap3 light in reach. Side rails up X2. Adult w/ patient. panel monitor on. Pulse ox on. NIBP on. 12:53 Warm blanket given. eh3 12:53 No provider procedures requiring assistance completed. eh3 14:05 [facility]. 14:30 Diet: Patient given snack. Patient given water. Tolerated well. eh3 14:40 faxed chart to [facility]. bd 17:36 IV discontinued, intact, bleeding controlled, No redness/swelling at site. Pressure eh3 dressing applied. 17:52 Primary Nurse role handed off by Laura Whiting, JUAN bd Administered Medications: 09:40 Drug: NS 0.9% 1000 ml Route: IV; Rate: 1 bolus; Site: left antecubital; ap3 15:55 Follow up: Response: No adverse reaction; IV Status: Completed infusion; IV Intake: eh3 1000ml 14:44 Not Given (Other Intervention Used): Ativan (LORazepam) 1 mg IVP once ld1 14:55 Drug: Tylenol 1000 mg Route: PO; eh3 15:39 Follow up: Response: Pain is decreased eh3 15:55 Follow up: Response: Pain is decreased eh3 Medication: 12:53 VIS not applicable for this client. eh3 Intake: 15:55 IV: 1000ml; Total: 1000ml. eh3 Outcome: 13:51 ER care complete, transfer ordered by . imelda 15:01 Transferred Note: to [facility]. Report received by Jorge. eh3 15:01 Transferred by ground EMS 15:01 Condition: stable 15:01 Instructed on the need for transfer. 17:37 Patient left the ED. eh3 Signatures: Dirrim, Cookie bd Rian, Howard, MD MD imelda Ziegler, Jahala, RN RN jl7 Laura Whiting RN RN ap3 Meera Lindsay RN RN 3 Carolina Mccann RN ld1 Corrections: (The following items were deleted from the chart) 10:12 Chief complaint: Patient states: she took 5 Gabapentin 600mg, and 5 0.5 ap3 Clonazepam at approx 0815 this morning. Patient called her friends and told them she was "tired and was ready to go [facility]." then her friends called EMS. Patient is verbally upset, stating "I'm tired, I just don't want to do this anymore". ap3 10: 10:12 Coronavirus screen: At this time, the client does not indicate any symptoms ap3 associated with coronavirus-19. ap3 10: 10:12 Ebola Screen: No symptoms or risks identified at this time. ap3 ap3 10: 10:12 Initial Sepsis Screen: Does the patient meet any 2 criteria? No. Patient's ap3 initial sepsis screen is negative. Does the patient have a suspected source of infection? No. Patient's initial sepsis screen is negative. ap3 10: 10:12 Risk Assessment: Do you want to hurt yourself or someone else? Patient reports ap3 desire/thoughts of hurting themselves or someone else. Provider notified. ap3 14:47 14:42 Reassessment: Patient and/or family updated on plan of care and expected eh3 duration. Pain level reassessed. Patient is alert, oriented x 3, equal unlabored respirations, skin warm/dry/pink. eh3 15:01 10:21 Allergies: Codeine; ap3 eh3 18:24 18:23 Patient left the ED. jl7 jl7
[2022-05-01] MEDS ORDERED: ACETAMINOPHEN 500 MG TAB ONE (15:03)
[2022-05-02 04:35] VITALS: BP 148/82; O2SAT 97
--- NOTE | 2022-05-02 17:13 | EKG ---
Test Date: 2022-05-01 Test Time: 09:47:41 [employer] Access Developer: ALP MEASUREMENT RESULTS: Intervals: Rate: 42 [place]: 146 QRSD: 88 QT: 478 QTc: 399 [place]: P: 12 [place]: 146 QRS: 22 T: 19 INTERPRETIVE STATEMENTS: Marked sinus bradycardia Nonspecific ST abnormality Abnormal ECG Compared to ECG 08/16/2021 14:17:24 No significant changes Electronically Signed On 05-02-22 17:07:05 CDT by Gene Amato
== END 2022-05-01 18:23 ==
LOC: ER 09:27
DX: T42.4X2A Poisoning by benzodiazepines, intentional self-harm, initial encounter (principal); T42.6X2A Poisoning by other antiepileptic and sedative-hypnotic drugs, intentional self-harm, initial encounter; F43.21 Adjustment disorder with depressed mood; R00.1 Bradycardia, unspecified; F17.210 Nicotine dependence, cigarettes, uncomplicated; Z88.5 Allergy status to narcotic agent; I10 Essential (primary) hypertension; E11.9 Type 2 diabetes mellitus without complications; Z79.4 Long term (current) use of insulin; Z20.822 Contact with and (suspected) exposure to COVID-19
CPT/HCPCS: 96361; 93005; 85025; 80048; 36415; 80320; 80329 ×2; 81025; 85610; 80076; 85730; 81003; 80307; 96360; 99285; 87811; J7030

== ENCOUNTER 2023-07-22 20:49 | Emergency (ER) | payer OTHER ==
--- OUTSIDE RECORDS SUMMARY | 2023-07-22 20:54 | XMS REPORT | Continuity of Care Document ---
:1975 Author Organization [facility] t Address [address] [facility]. [address] [place] [address] Care Team Providers Name Role Phone Pcp, Patient Does Not Have A Primary Care Physician [id number] Jabari Leyva Attending Clinician Unavailable Macarena Pretty Attending Clinician Unavailable Chris Olivas Attending Clinician Unavailable DELBERT KEITH Attending Clinician Unavailable Fabrizio Manzano MD Attending Clinician Delbert Keith MD Attending Clinician ANAT NICKERSON Attending Clinician Unavailable Anat Nickerson DO Attending Clinician Matthew Ford Attending Clinician Unavailable MONTEZ_Bhavin_Markus Attending Clinician Unavailable YUE PHELPS Attending Clinician Unavailable Yue Rivers Attending Clinician Gelacio Esposito DO Attending Clinician GELACIO ESPOSITO Attending Clinician Unavailable Doctor Unassigned, [place] Attending Clinician Unavailable Lab, Adc Fam Pob I Attending Clinician Unavailable Lizzy Nassar Attending Clinician LIZZY WEBSTER Attending Clinician Unavailable Virgen MARTINEZ, Nataliya Funk Attending Clinician Unavailable CASI KING Attending Clinician Unavailable Jabari Leyva Admitting Clinician Unavailable Physician, No Primary or Family Admitting Clinician UnavailDELBERT Jerez Admitting Clinician Unavailable Delbert Keith MD Admitting Clinician MONTEZ_Bhavin_Rafael_ Admitting Clinician Unavailable YUE PHELPS Admitting Clinician Unavailable GELACIO ESPOSITO Admitting Clinician Unavailable CASI KING Admitting Clinician Unavailable Payers Payer Name Policy Type Policy Number Effective Date Expiration Date S carlos SHAWR FROM [id number] 2021 [facility] 00:00:00 ABBIEARMINDARhona [facility] [id number] [facility] 3 ([facility]) Problems Condition Condition Condition Status Onset Resolution Last Treating Co mments Source Name Details Category Date Date Treatment Clinician Date Epigastric Epigastric Disease Active U nivers pain pain 6-13 ity of 00:00: [address] Uncontroll Uncontroll Disease Active U nivers able able 5-12 ity of nausea [place] 00 [facility] Disease Active Univers stone stone 3-13 ity of 00:00: [address] Nephrolith Nephrolith Disease Active 2015-08 U nivers iasis iasis 1-30 ity of 00:00: [address] Obesity Obesity Disease Active Univers 9-25 ity of 00:00: [address] Allergies, Adverse Reactions, Alerts Allergy Allergy Status Severity Reaction(s) Onset Inactive Treating Comm ents Source Name Type Date Date Clinician codeine DA Active DE NAUSEA [facility] 7-25 Clear 00:00: [place] 00 [facility] No Known DA Active U [facility] Allergie 5-13 Clear s 00:00: [place] 00 [facility] Hydrocod Propensi Active Nausea Univer s one ty to and/or 4-29 ity of adverse Vomiting 00:00: [place] reaction 00 Medical s Branch HYDROCOD DRUG Active N/V 2019-0 Univers ONE INGREDI 29 ity of 00:00: [place] 00 Medical Branch NO KNOWN Drug Active Univers ALLERGIE Class ity of S [place] [facility] Social History Social Habit Start Date Stop Date Quantity Comments Source Sex Assigned At Universit y of [place] [facility] History of tobacco Passive smoker Un iversity of use [place] [facility] History SDOH University o f Alcohol Std Drinks [place] [facility] History SDOH University o f Alcohol Binge [place] [facility] History SDOH Social Unive rsity of Connections Get [place] [facility] Together Branch History SDOH Social Unive rsity of Connections [facility] Medical Branch History SDOH Social Unive rsity of Connections [place] [facility] Membership Branch History SDOH Social Unive rsity of Connections [place] [facility] Meetings Branch Sexual orientation Univer sity of [place] [facility] Alcohol intake 2023-01-31 2023-01-31 Current University of 00:00:00 00:00:00 non-drinker of [facility] [place] [facility] alcohol Branch (finding) Tobacco use and 2023-01-31 2023-01-31 Smokeless Universit y of exposure 00:00:00 00:00:00 tobacco non-user [facility] dical Branch History SDOH 2023-01-30 2023-01-30 1 University o f Alcohol Frequency 00:00:00 00:00:00 [place] M edical Branch History SDOH Social 2023-01-30 2023-01-30 5 Unive rsity of Connections Phone 00:00:00 00:00:00 [place] M edical Branch History SDOH Social 2023-01-30 2023-01-30 5 Unive rsity of Connections Living 00:00:00 00:00:00 [place] [facility] History SDOH 2023-01-30 2023-01-30 3 University o f Physical Activity 00:00:00 00:00:00 [place] M edical DPW Branch History SDOH 2023-01-30 2023-01-30 2 University o f Physical Activity 00:00:00 00:00:00 [place] M [facility]ical MPS Branch History SDOH 2023-01-30 2023-01-30 5 University o f Financial 00:00:00 00:00:00 [place] [facility] History SDOH Food 2023-01-30 2023-01-30 1 Univers ity of Worry 00:00:00 00:00:00 [place] [facility] History SDOH Food 2023-01-30 2023-01-30 1 Univers ity of Scarcity 00:00:00 00:00:00 [place] [facility] History SDOH 2023-01-30 2023-01-30 2 University o f Transport Med 00:00:00 00:00:00 [place] [facility] al [facility] History SDOH 2023-01-30 2023-01-30 2 University o f Transport Non-Med 00:00:00 00:00:00 [place] [facility] History SDOH 2023-01-30 2023-01-30 2 University o f Housing Unable to 00:00:00 00:00:00 [place] [facility] Pay Branch History SDWA 2023-01-30 2023-01-30 1 University o f Housing Places 00:00:00 00:00:00 [place] [facility] hamzah Lived Branch History SDWA 2023-01-30 2023-01-30 2 University o f Housing Homeless 00:00:00 00:00:00 [place] [facility] Last Year Branch History of Social 2023-01-30 2023-01-30 Univers ity of function 00:00:00 00:00:00 [facility] Exposure to 2022-12-30 2023-01-09 Not sure [facility] SARS-CoV-2 (event) 00:00:00 06:20:00 [facility] Smoking Status Start Date Stop Date Source Tobacco smoking University Kirk ballard consumption unknown Medical Bran ch Ex-smoker 2023-01-31 00:00:00 2023-01-31 University o f [place] 00:00:00 [facility] Branch Medications Ordered Filled Start Stop Current Ordering Indication Dosage Frequency Signature Comments Components Source Medication Medication Date Date Medication? Clinician (SIG) Name Name hydrOXYzine Yes 10mg 10 mg, Univ ers (ATARAX) 6-15 Oral, ity of tablet 10 14:00: DAILY, [place] mg 00 First dose Medical on [facility] 01/31/23 at 0900, Until Discontinu ed, Routine buPROPion Yes 100mg 100 mg, Univ ers (WELLBUTRIN 6-15 Oral, ity of ) tablet 14:00: DAILY, [place] 100 mg 00 First dose Medical on [facility] 01/31/23 at 0900, Until Discontinu ed, Routine buPROPion 2022-0 Yes 100mg Take 1 Unive rs 100 mg 6-15 tablet by ity of tablet 11:24: mouth in [place] [id number] the Medical morning. Branch zolpidem 2022-0 Yes 10mg Take 1 Univers (AMBIEN) 10 6-15 tablet by ity of mg tablet 11:24: mouth at [place] [facility] 28 bedtime. Medical Branch HYDROXYZINE 2022-0 Yes 10mg Take 10 mg Univers HCL ORAL 6-15 by mouth. ity of 11:24: [address] Branch zolpidem 2022-0 Yes 10mg 10 mg, Univers (AMBIEN) 6-15 Oral, QHS, ity o f tablet 10 02:00: [place] mg 00 on [facility] 01/30/23 at Branch 2100, Until Discontinu ed, Routine hydroCHLORO 3-0 Yes 12.5mg 12.5 mg, Univers thiazide 6-15 Oral, ity of (ESIDRIX) 01:00: DAILY, [place] tablet 12.5 00 First dose Me dical mg on [facility] 01/30/23 at 2000, Until Discontinu ed, Routine pantoprazol 2022-0 Yes 40mg 40 mg, Univ ers e 6-14 Oral, ity of (PROTONIX) 14:00: DAILY, [place] EC tablet 00 First dose Medi hamzah 40 mg on [facility] 01/30/23 at 0900, Until Discontinu ed, Routine aspirin 3-0 Yes 81mg 81 mg, Univers chewable 6-14 Oral, ity of tablet 81 14:00: DAILY, [place] mg 00 First dose Medical on [facility] 01/30/23 at 0900, Until Discontinu ed, Routine Sliding 3-0 Yes Subcutaneo Univ ers Scale 6-14 us, TID ity of Insulin - 13:00: MEALS+HS, [place] as Lispro 00 First dose Medical (HumaLOG) on [facility] 01/30/23 at 0800, Until Discontinu ed, Routine glipiZIDE 3-0 Yes 10mg 10 mg, Univer s (GLUCOTROL) 6-14 Oral, ity of tablet 10 12:30: BIDAC, [place] mg 00 First dose Medical on [facility] 01/30/23 at 0730, Until Discontinu ed, Routine dicyclomine 2022-0 Yes 20mg 20 mg, Univ ers (BENTYL) 614 Oral, QID, ity o f capsule 20 02:45: First dose [place] mg 00 on Sat [facility] 01/29/23 at Branch 2145, Until Discontinu ed, Routine glucagon 2022-0 Yes 1mg 1 mg, Univers (GLUCAGEN 01-30 Intramuscu ity of DIAGNOSTIC 02:35: lar, PRN, [place] KIT) 17 Starting Medical injection 1 on Sat [place] mg 01/29/23 at 2135, Until Discontinu ed, LAKISHA, Blood Glucose < or = 70 mg/dL and patient is NPO, unable to swallow or has mental changes. dextrose 50 2022-0 Yes 25mL 25 mL, Univ ers % in water 01-30 Slow IV ity of (D50W) 02:35: Push, PRN, [place] injection 17 Starting Medica l 25 mL on [facility] 01/29/23 at 2135, Until Discontinu ed, LAKISHA, Blood Glucose < or = 70 mg/dL and patient is NPO, unable to swallow or has mental status changes. pantoprazol 0 202- No 40mg 40 mg, Uni vers e 01-30 06-14 Slow IV ity of (PROTONIX) 01:15: 12:49 Push, [place] injection 00 :49 Q12H, Medical 40 mg First dose Branch on Sat01/29/23 at 2015, Until Discontinu ed ketorolac 2022-0 Yes 15mg 15 mg, Univer s (TORADOL) 01-30 Slow IV ity of injection 01:07: Push, [place] 15 mg 34 Q8HPRN, Medical Starting Branch on Sat01/29/23 at 2007, Until Discontinu ed, Routine, no improvemen t with tramadol enoxaparin 2022-0 Yes 30mg 30 mg, Unive rs (LOVENOX) 01-29 Subcutaneo ity of injection 22:00: us, DAILY, [place] 30 mg 00 First dose Medical on [facility] Branch 01/29/23 at 1700, Until Discontinu ed, Routine D5W 0.45% 2022-0 Yes 1000mL at 115 Univ ers NaCl 6-13 mL/hr, ity of (1/2NS) IV 20:45: 1,000 mL, [place] infusion 00 IV Medical 1,000 mL Infusion, Branch CONTINUOUS , Starting on Sat01/29/23 at 1545, Until Discontinu ed, Routine haloperidol 2022- No 2.5mg 2.5 mg, U nivers lactate 01-29 Intravenou ity o f (HALDOL) 20:00: 19:49 s, ONCE, 1 [place] injection 00 :00 dose, On Medica l 2.5 mg Sat01/29/23 at 1500, STAT ondansetron Yes 4mg 4 mg, Slow Univers (ZOFRAN 01-29 IV Push, ity of (PF)) 19:13: Q6HPRN, [place] injection 4 08 Starting Medi hamzah mg on Sat01/29/23 at 1413, Until Discontinu ed, Routine, Nausea and Vomiting (N/V) traMADoL 2022- No 50mg 50 mg, Univer s (ULTRAM) 01-29 Oral, ity of tablet 50 19:13: 19:12 Q8HPRN, [place] mg 04 :04 Starting Medical on Sat01/29/23 at 1413, Until Hoa 01/31/23 at 1412, Routine, Pain (scale 4-6) acetaminoph Yes 650mg 650 mg, Un fernando en 01-29 Oral, ity of (TYLENOL) 19:13: Q6HPRN, [place] tablet 650 01 Starting Medic al mg on Sat01/29/23 at 1413, Until Discontinu ed, Routine, Pain (scale 1-3) pantoprazol 2022- No 40mg 40 mg, Uni vers e 01-29 Slow IV ity of (PROTONIX) 18:30: 17:51 Push, [place] injection 00 :00 ONCE, 1 Medical 40 mg dose, On Branch Sat01/29/23 at 1330 maalox:diph 2022- No 15mL 15 mL, Uni vers enhydrAMINE 01-29 Oral, ity of :lidocaine 17:45: 17:42 ONCE, 1 [place] 2 % viscous 00 :00 dose, On Medi hamzah 1:1:1 Tue Branch (FIRST-MOUT 01/29/23 at [facility]) 1245, [place] oral suspension 15 mL FENTanyl PF 2022- No 75ug 75 mcg, Un fernando (SUBLIMAZE 01-29 Slow IV ity o f (PF)) 17:15: 18:14 Push, [place] injection 00 :00 ONCE, 1 Medical 75 mcg dose, On Branch e 01/29/23 at 1215, STAT iopamidol 2022-2022- No [id number] 65mL 65 mL, U nivers (ISOVUE 01-29 Intravenou ity o f 370-500 mL) 16:45: 16:35 s, ONCE, 1 [place] injection 00 :00 dose, On Medica l 65 mL [facility] Branch 01/29/23 at 1145, Routine ondansetron 2022- No 4mg 4 mg, Slow Univers (ZOFRAN 01-29 IV Push, ity of (PF)) 16:15: 15:19 ONCE, 1 [place] injection 4 00 :00 dose, On Medi hamzah mg [facility] Branch 01/29/23 at 1115, [place] FENTanyl PF 2022- No 75ug 75 mcg, Un fernando (SUBLIMAZE 01-29 Slow IV ity o f (PF)) 16:15: 15:20 Push, [place] injection 00 :00 ONCE, 1 Medical 75 mcg dose, On Branch [facility] 01/29/23 at 1115, STAT diazePAM 2022-2022- No 5mg 5 mg, Univers (VALIUM) 5-24 05-24 Oral, ity of tablet 5 mg 11:30: 11:28 ONCE, 1 [place] 00 :00 dose, On Medical Wed Branch 01/09/23 at 0630, [place] cyclobenzap 2023-0 Yes [id number] 10mg Take 1 Univers rine 10 mg 5-24 tablet by ity of tablet 00:00: mouth 3 00 (three) Medical times Branch daily as needed for Muscle Spasms. cyclobenzap 2023-0 Yes [id number] 10mg Take 1 Univers rine 10 mg 5-24 tablet by ity of tablet 00:00: mouth 3 00 (three) Medical times Branch daily as needed for Muscle Spasms. acetaminoph 2021- No 1{tbl} 1 tablet, Univers en-codeine 02-03 Oral, ity of (TYLENOL 20:45: 20:09 ONCE, 1 [place] #3) 300-30 00 :00 dose, On Medic al mg tablet 1 Sat Branch tablet 02/03/22 at 1545, [place] methocarbam 2021- No 1000mg 1,000 mg, Univers oL 02-03 [...] Sat Branch 02/03/22 at 1545, [place] ibuprofen 0 Yes [id number] 800mg Take 1 Univers 800 mg 6-18 [id number] tablet by ity of tablet 00:00: mouth [place] 00 every 8 Medical (eight) Branch hours as needed for Pain (scale 4-6). ondansetron 0 Yes [id number] 4mg Take 1 Univers 4 mg 6-18 [id number] tablet by ity of disintegrat 00:00: mouth [place] ing tablet 00 every 8 Medica l (eight) Branch hours as needed for Nausea and Vomiting (N/V). methocarbam 2021-0 Yes [id number] 750mg Take 1 Univers oL 750 mg 6-18 [id number] tablet by ity of tablet 00:00: mouth 4 [place] 00 (four) Medical times Branch daily as needed for Other (muscle spasm). ibuprofen 2021-0 Yes [id number] 800mg Take 1 Univers 800 mg 6-18 [id number] tablet by ity of tablet 00:00: mouth [place] 00 every 8 Medical (eight) Branch hours as needed for Pain (scale 4-6). ondansetron 0 Yes [id number] 4mg Take 1 Univers 4 mg 6-18 [id number] tablet by ity of disintegrat 00:00: mouth [place] ing tablet 00 every 8 Medica l (eight) Branch hours as needed for Nausea and Vomiting (N/V). methocarbam Yes [id number] 750mg Take 1 Univers oL 750 mg 6-18 [id number] tablet by ity of tablet 00:00: mouth 4 [place] 00 (four) Medical times Branch daily as needed for Other (muscle spasm). ibuprofen 0 Yes [id number] 800mg Take 1 Univers 800 mg 6-18 [id number] tablet by ity of tablet 00:00: mouth [place] 00 every 8 Medical (eight) Branch hours as needed for Pain (scale 4-6). ondansetron Yes [id number] 4mg Take 1 Univers 4 mg 6-18 [id number] tablet by ity of disintegrat 00:00: mouth [place] ing tablet 00 every 8 Medica l (eight) Branch hours as needed for Nausea and Vomiting (N/V). methocarbam 0 Yes [id number] 750mg Take 1 Univers oL 750 mg 6-18 [id number] tablet by ity of tablet 00:00: mouth 4 [place] 00 (four) Medical times Branch daily as needed for Other (muscle spasm). predniSONE 2021- No [id number] 40mg Take 2 Univers 20 mg 6-18 06-24 [id number] tablets by ity o f tablet 00:00: [...] mg 00 on Wed Medical 10/12/20 at [place] 1200, Until Discontinu ed, Routine maalox:diph 2020- No 15mL 15 mL, Uni vers enhydrAMINE 10-12 Oral, ity of :lidocaine 16:30: 16:07 ONCE, 1 [place] as 2 % viscous 00 :00 dose, Wed Med ical 1:1:1 10/12/20 at [place] (FIRST-MOUT 1030, HWASH BLM) Routine oral suspension 15 mL pantoprazol 2020- No 80mg 80 mg, IV Univers e 10-12 Push, ity of (PROTONIX) 16:30: 16:02 ONCE, 1 [place] as 80 mg in 00 :00 dose, [facility] Medica l NaCl 0.9% 10/12/20 at [facility] ch (NS) 20 mL 1030, 20 syringe mL ondansetron 2020- No 4mg 4 mg, Slow Univers (ZOFRAN 10-12 IV Push, ity of (PF)) 16:30: 16:01 ONCE, 1 [place] injection 4 00 :00 dose, Wed Med ical mg 10/12/20 at [place] 1030, Routine NaCl 0.9% 2020- No 1000mL at 999 Uni vers (NS) bolus 10-12 mL/hr, ity of infusion 15:30: 17:33 1,000 mL, [place] as 1,000 mL 00 :00 IV Medical Infusion, [place] ONCE, 1 dose, [facility] 10/12/20 at 0930, STAT sucralfate Yes [id number] 1g Take 1 U nivers 1 gram 2-24 tablet by ity of tablet 00:00: mouth [place] 00 before Medical meals and [place] at bedtime. dicyclomine Yes [id number] 10mg Take 1 Univers (BENTYL) 10 2-24 capsule by it y of mg capsule 00:00: mouth [place] 00 every 8 Medical (eight) Branch hours as needed for Abdominal pain. ondansetron Yes [id number] 4mg Take 1 Univers 4 mg 2-24 tablet by ity of disintegrat 00:00: mouth [place] ing tablet 00 every 8 Medica l (eight) Branch hours as needed for Nausea and Vomiting (N/V). sucralfate 2021-0 Yes [id number] 1g Take 1 U nivers 1 gram 2-24 tablet by ity of tablet 00:00: mouth [place] 00 before Medical meals and Branch at bedtime. dicyclomine 2021-0 Yes [id number] 10mg Take 1 Univers (BENTYL) 10 2-24 capsule by it y of mg capsule 00:00: mouth [place] 00 every 8 Medical (eight) Branch hours as needed for Abdominal pain. ondansetron 2020-0 Yes [id number] 4mg Take 1 Univers 4 mg 2-24 tablet by ity of disintegrat 00:00: mouth [place] ing tablet 00 every 8 Medica l (eight) Branch hours as needed for Nausea and Vomiting (N/V). sucralfate 1-0 Yes [id number] 1g Take 1 U nivers 1 gram 2-24 tablet by ity of tablet 00:00: mouth [place] 00 before Medical meals and Branch at bedtime. dicyclomine 2020-0 Yes [id number] 10mg Take 1 Univers (BENTYL) 10 2-24 capsule by it y of mg capsule 00:00: mouth [place] 00 every 8 Medical (eight) Branch hours as needed for Abdominal pain. ondansetron 2020-0 Yes [id number] 4mg Take 1 Univers 4 mg 2-24 tablet by ity of disintegrat 00:00: mouth [place] ing tablet 00 every 8 Medica l (eight) Branch hours as needed for Nausea and Vomiting (N/V). sucralfate 1-0 Yes [id number] 1g Take 1 U nivers 1 gram 2-24 tablet by ity of tablet 00:00: mouth [place] 00 before Medical meals and Branch at bedtime. dicyclomine 2021-0 Yes [id number] 10mg Take 1 Univers (BENTYL) 10 2-24 capsule by it y of mg capsule 00:00: mouth [place] 00 every 8 Medical (eight) Branch hours as needed for Abdominal pain. ondansetron 2021-0 Yes [id number] 4mg Take 1 Univers 4 mg 2-24 tablet by ity of disintegrat 00:00: mouth [place] ing tablet 00 every 8 Medica l (eight) Branch hours as needed for Nausea and Vomiting (N/V). omeprazole 0 2020- No [id number] 20mg Take 1 Univers 20 mg 2-24 03-27 capsule by ity of capsule 00:00: 04:59 mouth [place] 00 :00 daily for Medical 30 days. Branch traMADol 2018-08 Yes [id number] 50mg Take 1 Univers (ULTRAM) 50 2-14 [id number] tablet by i ty of mg tablet 00:00: mouth [place] 00 every 6 Medical (six) Branch hours as needed for Pain (scale 7-10). traMADol 2018-08 Yes [id number] 50mg Take 1 Univers (ULTRAM) 50 2-14 [id number] tablet by i ty of mg tablet 00:00: mouth [place] 00 every 6 Medical (six) Branch hours as needed for Pain (scale 7-10). traMADol 2018-08 Yes [id number] 50mg Take 1 Univers (ULTRAM) 50 2-14 [id number] tablet by i ty of mg tablet 00:00: mouth [place] 00 every 6 Medical (six) Branch hours as needed for Pain (scale 7-10). traMADol 2018-08 Yes [id number] 50mg Take 1 Univers (ULTRAM) 50 2-14 [id number] tablet by i ty of mg tablet 00:00: mouth [place] 00 every 6 Medical (six) Branch hours as needed for Pain (scale 7-10). traMADol 2018-08 Yes [id number] 50mg Take 1 Univers (ULTRAM) 50 2-14 [id number] tablet by i ty of mg tablet 00:00: mouth [place] 00 every 6 Medical (six) Branch hours as needed for Pain (scale 7-10). traMADol 2018-08 Yes [id number] 50mg Take 1 Univers (ULTRAM) 50 2-14 [id number] tablet by i ty of mg tablet 00:00: mouth [place] 00 every 6 Medical (six) Branch hours as needed for Pain (scale 7-10). ibuprofen 2018- Yes [id number] 600mg Take 1 U nivers 600 mg 4-29 tablet by ity of tablet 00:00: mouth [place] 00 every 6 Medical (six) Branch hours as needed for Pain (scale 4-6). tamsulosin Yes [id number] .4mg Take 1 U nivers 0.4 mg 24 4-29 capsule by ity of hr capsule 00:00: mouth at [place] as 00 bedtime. Medical Branch ibuprofen 2019-0 Yes [id number] 600mg Take 1 U nivers 600 mg 4-29 tablet by ity of tablet 00:00: mouth [place] 00 every 6 Medical (six) Branch hours as needed for Pain (scale 4-6). tamsulosin 2019-0 Yes [id number] .4mg Take 1 U nivers 0.4 mg 24 4-29 capsule by ity of hr capsule 00:00: mouth at Roh[place] as 00 bedtime. Medical Branch ibuprofen 2019-0 Yes [id number] 600mg Take 1 U nivers 600 mg 4-29 tablet by ity of tablet 00:00: mouth [place] 00 every 6 Medical (six) Branch hours as needed for Pain (scale 4-6). tamsulosin 2019-0 Yes [id number] .4mg Take 1 U nivers 0.4 mg 24 4-29 capsule by ity of hr capsule 00:00: mouth at [place] as 00 bedtime. Medical Branch ibuprofen 2019-0 Yes [id number] 600mg Take 1 U nivers 600 mg 4-29 tablet by ity of tablet 00:00: mouth [place] 00 every 6 Medical (six) Branch hours as needed for Pain (scale 4-6). tamsulosin 2019-0 Yes [id number] .4mg Take 1 U nivers 0.4 mg 24 4-29 capsule by ity of hr capsule 00:00: mouth at [place] as 00 bedtime. Medical Branch ibuprofen 2019-0 Yes [id number] 600mg Take 1 U nivers 600 mg 4-29 tablet by ity of tablet 00:00: mouth [place] 00 every 6 Medical (six) Branch hours as needed for Pain (scale 4-6). tamsulosin 2019-0 Yes [id number] .4mg Take 1 U nivers 0.4 mg 24 4-29 capsule by ity of hr capsule 00:00: mouth at Rohit as 00 bedtime. Medical Branch ibuprofen 2019-0 Yes [id number] 600mg Take 1 U nivers 600 mg 4-29 tablet by ity of tablet 00:00: mouth [place] 00 every 6 Medical (six) Branch hours as needed for Pain (scale 4-6). tamsulosin 2019-0 Yes [id number] .4mg Take 1 U nivers 0.4 mg [...] by ity of tablet 00:00: mouth 2 00 (two) Medical times Branch daily before breakfast and dinner. glipiZIDE 2018-0 Yes 10mg Take 1 Univer s 10 mg 5-12 tablet by ity of tablet 00:00: mouth 2 (two) Medical times Branch daily before breakfast and dinner. glipiZIDE 2017-0 Yes 10mg Take 1 Univer s 10 mg 5-12 tablet by ity of tablet 00:00: mouth (two) Medical times Branch daily before breakfast [...] by ity of tablet 00:00: mouth 2 00 (two) Medical times Branch daily before [...] every 6 Medical tablet (six) Branch hours. acetaminoph 2015-08 Yes 650mg Take 2 Uni vers en 2-01 tablets by ity of (TYLENOL) 00:00: mouth [place] 325 mg 00 every 6 Medical tablet (six) Branch hours. hydroCHLORO 2015-08 Yes 12.5mg Take 1 Un fernando thiazide 2-01 capsule by ity o f (ESIDRIX) 00:00: mouth [place] 12.5 mg 00 daily. Medical capsule Branch hydroCHLORO 2015-08 Yes 12.5mg Take 1 Un [...] daily. Medical capsule Branch Immunizations Ordered Filled Date Status Comments Source Immunization Name Immunization Name Pneumococcal 2016-07-19 Completed [place] o f Polysaccharide, 00:00:00 [place] Med ical PPSV23 (PNEUMOVAX) Branch Influenza Virus 2016-07-19 Completed Universit y of Vaccine Quad IM 3+ 00:00:00 [facility] Pneumococcal 2016-07-19 Completed University o f Polysaccharide, 00:00:00 [place] Med ical PPSV23 (PNEUMOVAX) Branch Influenza Virus 2016-07-19 Completed Universit y of Vaccine Quad IM 3+ 00:00:00 [facility] Pneumococcal 2016-07-19 Completed University o f Polysaccharide, 00:00:00 [place] Med ical PPSV23 (PNEUMOVAX) Branch Influenza Virus 2016-07-19 Completed Universit y of Vaccine Quad IM 3+ 00:00:00 [facility] Pneumococcal 2016-07-19 Completed University o f Polysaccharide, 00:00:00 [place] Med ical PPSV23 (PNEUMOVAX) Branch Influenza Virus 2016-07-19 Completed Universit y of Vaccine Quad IM 3+ 00:00:00 [facility] Pneumococcal 2016-07-19 Completed University o f Polysaccharide, 00:00:00 [place] Med ical PPSV23 (PNEUMOVAX) Branch Influenza Virus 2016-07-19 Completed Universit y of Vaccine Quad IM 3+ 00:00:00 [facility] Pneumococcal Unknown Completed University o f Polysaccharide, [facility] ical PPSV23 (PNEUMOVAX) Branch Influenza Virus Unknown Completed Universit y of Vaccine Quad IM 3+ [facility] Vital Signs Vital Name Observation Time Observation Value Comments Source Systolic blood 2023-01-31 12:41:00 135 mm[Hg] Univer sity of [email or web address] Diastolic blood 2023-01-31 12:41:00 87 mm[Hg] [email or web address] Heart rate 2023-01-31 12:41:00 64 /min [facility] Body temperature 2023-01-31 12:41:00 36.67 [facility]adira [facility] Res[facility] rate 2023-01-31 12:41:00 18 /min [facility] Oxygen saturation in 2023-01-31 12:41:00 98 /min [facility] Arterial blood by [facility] Pulse oximetry [place] Body weight 2023-01-31 08:11:00 81.466 kg [facility] BMI 2023-01-31 08:11:00 28.13 kg/m2 [facility] Body height 2023-01-29 21:04:00 170.2 cm [facility] Systolic blood 2023-01-09 11:51:28 142 mm[Hg] Univer sity of [facility] Diastolic blood 2023-01-09 11:51:28 99 mm[Hg] Unive rsity of pressure [facility] Heart rate 2023-01-09 11:51:28 61 /min [facility] Respiratory rate 2023-01-09 11:51:28 15 /min [facility] Oxygen saturation in 2023-01-09 11:51:28 100 /min [facility] Arterial blood by [place] [facility] Pulse oximetry Branch Body temperature 2023-01-09 11:15:00 36.5 Ydaira [facility] Body height 2023-01-09 11:15:00 170.2 cm [facility] Body weight 2023-01-09 11:15:00 79.833 kg [facility] BMI 2023-01-09 11:15:00 27.57 kg/m2 [facility] Systolic blood 2022-02-03 19:11:00 163 mm[Hg] Univer sity of pressure [facility] Diastolic blood 2022-02-03 19:11:00 115 mm[Hg] Unive rsity of pressure [facility] Heart rate 2022-02-03 19:11:00 63 /min [facility] Body temperature 2022-02-03 19:11:00 37.17 Yadira [facility] Respiratory rate 2022-02-03 19:11:00 22 /min [facility] Body height 2022-02-03 19:11:00 170.2 cm [facility] [place] [facility] Body weight 2022-02-03 19:11:00 81.647 kg [facility] BMI 2022-02-03 19:11:00 28.19 kg/m2 [facility] Oxygen saturation in 2022-02-03 19:11:00 98 /min [facility] of Arterial blood by [facility] hamzah Pulse oximetry Branch Systolic blood 2020-10-12 17:33:05 135 mm[Hg] Univer sity of pressure [facility] Diastolic blood 2020-10-12 17:33:05 90 mm[Hg] Unive rsity of pressure [facility] Heart rate 2020-10-12 17:33:05 51 /min [facility] Respiratory rate 2020-10-12 17:33:05 16 /min [facility] Oxygen saturation in 2020-10-12 17:33:05 99 /min [facility] of Arterial blood by [facility] Pulse oximetry Branch Body temperature 2020-10-12 15:22:00 37.44 Yadira [facility] Body height 2020-10-12 15:22:00 170.2 cm [facility] Body weight 2020-10-12 15:22:00 79.379 kg [facility] BMI 2020-10-12 15:22:00 27.41 kg/m2 [facility] Systolic blood 2020-10-12 17:33:05 135 mm[Hg] Univer sity of pressure [facility] Diastolic blood 2020-10-12 17:33:05 90 mm[Hg] Unive rsity of pressure [facility] Heart rate 2020-10-12 17:33:05 51 /min [facility] Respiratory rate 2020-10-12 17:33:05 16 /min [facility] Oxygen saturation in 2020-10-12 17:33:05 99 /min [facility] of Arterial blood by [facility] Pulse oximetry Branch Body temperature 2020-10-12 15:22:00 37.44 Yadira [facility] Body height 2020-10-12 15:22:00 170.2 cm [facility] Body weight 2020-10-12 15:22:00 79.379 kg [facility] BMI 2020-10-12 15:22:00 27.41 kg/m2 [facility] Procedures Procedure Date / Time Performing Clinician Source Performed POCT GLUCOSE (AUTOMATED) 2023-01-31 12:41:[address] [facility] POCT GLUCOSE (AUTOMATED) 2023-01-31 01:16:00 Delbert [facility] PO[facility] GLUCOSE (AUTOMATED) 2023-01-30 21:30:00 Abdullah, Delbert Uni [facility] POCT GLUCOSE (AUTOMATED) 2023-01-30 16:27:00 Delbert Keith [facility] OCCULT (GUAIAC) BLOOD 2023-01-30 14:01:00 Maryjane Méndez [facility] CLOSTRIDIUM DIFFICILE 2023-01-30 14:01:00 Bayron [facility] TOXIN [facility] FECAL PATHOGENS BY PCR 2023-01-30 14:01:00 Maryjane Méndez [facility] POCT GLUCOSE (AUTOMATED) 2023-01-30 13:06:00 Delbert Keith [facility] MAGNESIUM 2023-01-30 09:41[facility]OL[facility]EL 2023-01-30 09:41:00 [facility] (NA, K, CL, CO2, [facility] [place] GLUCOSE, BUN, CREATININE, CA) CBC WITH DIFF 2023-01-30 09:41[facility]00 [facility] GLYCOS[facility]EMOGLOBIN 2023-01-30 09:41:00 [facility] (A1C) [facility] CT ABDOMEN PELVIS W 2023-01-29 16:40:00 Fabrizio Manzano [facility] CONTRAST [facility] URINALYSIS 2023-01-29 15:23:00 Fabrizio Manzano [facility] URINE DRUG (IMMUNOASSAY) 2023-01-29 15:23:00 Fabrizio Manzano [facility] DRUG [facility] SCREEN W/O REFLEX LIPASE 2023-01-29 15:11:00 Fabrizio Manzano [facility] TROPONIN I 2023-01-29 15:11:00 Fabrizio Manzano [facility] COMP. METABOLIC PANEL 2023-01-29 15:11:00 Fabrizio Manzano [facility] ([id number]) [facility] CBC WITH DIFF 2023-01-29 15:11:00 Fabrizio Manzano [facility] PROTHROMBIN TIME / INR 2023-01-29 15:11:00 Fabrizio Manzano [facility] ACTIVATED PARTIAL 2023-01-29 15:11:00 Fabrizio Manzano [facility] THRMPLAS JOLANTA [facility] N-TERMINAL PRO-BNP 2023-01-29 15:11:00 Fabrizio Manzano [facility] CONSENT/REFUSAL FOR 2023-01-29 14:56:06 Doctor Unassigned, No [facility] [place] [facility] Name Medical Branch CONSENT/REFUSAL FOR 2023-01-09 11:16:47 Doctor Unassigned, No Un iversity [facility] DIAGNOSIS AND TREATMENT Name Medical Branch XR SHOULDER 2+ VW RIGHT 2022-02-03 19:57:00 Yue Phelps [facility] NOTICE OF PRIVACY 2022-02-03 19:06:28 Doctor Unassigned, No [facility] Medical Branch CONSENT/REFUSAL FOR 2022-02-03 19:05:34 Doctor Unassigned, No Un iversity [facility] DIAGNOSIS AND TREATMENT Name [facility] [place] XR ABDOMEN ACUTE SERIES 2020-10-12 17:03:23 Singer Gelacio [facility] POCT TEST 2020-10-12 16:05:00 Gelacio Esposito [facility] URINALYSIS 2020-10-12 15:54:00 Singer [facility] LIPASE 2020-10-12 15:34:00 [facility] COMP. METABOLIC PANEL 2020-10-12 15:34:00 [id number] [place] LIPID PANEL 2020-10-12 15:34:00 [facility] ([id number])(TOTAL Medical Branch CHOLESTEROL, TRIGLYCERIDES, HDL) CBC WITH DIFF 2020-10-12 15:34:00 Singer [facility] NOTICE OF PRIVACY 2020-10-12 15:16:21 Doctor Unassigned, No [facility] Medical Branch CONSENT/REFUSAL FOR 2020-10-12 15:16:05 Doctor Unassigned, No [facility] [place] DI[facility]NOSIS [facility] TREATMENT Name Medical Branch Encounters Start End Encounter Admission Attending Care Care Encounter Source Date/Time Date/Time Type Type Clinicians Facility Department ID 2022-03-01 Outpatient Gordon STLMLC STLMLC [id number] Common 09:20:03 Jabari [id number] [facility] 2023-03-13 2023-03-13 Outpatient JU DhaliwalCL ENDO [id number] [facility] 05:34:00 05:34:00 Zeid 44 [facility] 2023-02-09 2023-02-09 Emergency EM Chris Olivas [facility] LA00 [id number] [facility] 13:05:00 16:30:00 54 [facility] 2023-01-29 2023-01-31 Outpatient X SAGAR [facility] MAYELIN [id number] Univers 09:59:00 11:19:00 DELBERT farias [facility] 2023-01-29 2023-01-31 Emergency Fabrizio Manzano [facility] 1.2.840. 114 [id number] Univers 09:59:00 11:19:00 Delbert Keith 350.1.13.10 [facility] 4.2.7.2.686 [facility] [id number] [address] 2023-01-09 2023-01-09 Emergency X LIYA [facility] ERT [id number] Univers 06:23:00 06:56:00 ANAT farias [facility] 2023-01-09 2023-01-09 Emergency LiyaRUST [id number] Univers 06:23:00 06:56:00 Anat CASTRO 350.1.13.10 [facility] 4.2.7.2.686 [facility] [id number] [address] 2022-12-29 2022-12-29 Emergency EM Logan [facility] ART [id number] [facility] 13:35:00 15:02:00 Matthew Ojeda [facility] 2022-03-05 2022-03-05 Outpatient FOG_Cusick_ AOSM AOSM [id number] Beth 11:58:00 11:58:00 Markus [id number] [facility] 2022-03-05 2022-03-05 Outpatient FOG_Cusick_ AOSM AOSM [id number] Beth 00:00:00 00:00:00 Markus [id number] [facility] 2022-02-03 2022-02-03 Emergency X PHELPS, [facility] ERT [id number] Univers 14:13:00 16:22:00 YUE farias [facility] 2022-02-03 2022-02-03 Emergency Phelps, [facility] 1.2.840.114 [id number] Univers 14:13:00 16:22:00 Yue [place] 350.1.13.10 i ty of [place] 4.2.7.2.686 [facility] [id number] [address] 2020-10-12 2020-10-12 Emergency Esposito, [facility] [id number] Univers 09:18:00 11:40:00 Gelacio [place] 350.1.13.10 i ty of [place] 4.2.7.2.686 [facility] [id number] [address] 2020-10-12 2020-10-12 Emergency X ESPOSITO, [facility] ERT [id number] Univers 09:18:00 11:40:00 GELACIO farias [facility] 2020-10-12 2020-10-12 Emergency Esposito, [facility] [id number] 09:18:00 11:40:00 Gelacio [place] 350.1.13.10 [place] 4.2.7.2.686 [facility] [id number] [facility] 2020-03-07 2020-03-07 Patient Doctor [facility] 1.2.840.114 [id number] Univers 00:00:00 00:00:00 Secure Msg Unassigned, VP STRATEGY 350.1.13.10 ity of [place] [facility] 4.2.7.2.686 Rohit as MATERNAL [id number] Med ical & CHILD 107 [facility] 2020-03-04 2020-03-04 Laboratory Lab, Adc Fam Pob I [facility] 1.2. 840.114 [id number] Univers 08:52:32 09:12:32 Only Yusra, Lizzy [facility] 350.1.13.10 ity of [place] 4.2.7.2.686 Rohit as Professio [phone] Me dical [address] Office Building [facility] 2020-03-04 2020-03-04 Laboratory Lab, [facility] 1.2.840.114 [id number] 08:52:32 09:12:32 Only Fam Pob I Health 350.1.13.10 [place] 4.2.7.2.686 Professio [phone] nal [facility] Office Building [facility] 2020-03-04 2020-03-04 Outpatient R YUSRA, [facility] [id number] Univers 09:00:00 09:00:00 LIZZY farias [facility] 2020-01-24 2020-01-24 HYUN Larson 1.2.840.114 [id number] Univers 00:00:00 00:00:00 Triage Nataliyaceferino [facility]13.10 [facility] 4.2.7.2.686 Rohit as [id number] [address] 2020-01-24 2020-01-24 HYUN Larson 1.2.840.114 [id number] 00:00:00 00:00:00 Triage Nataliya WELLS 350.1.13.10 [facility] 4.2.7.2.686 [id number] 2019-08-01 2019-08-02 Emergency X FERNANDORUST ERT [id number] 23:43:20 00:27:00 CASI [facility] Results Test Description Test Time Test Comments Results Result Comments Source SURGICAL 2023-03-14 14:37:00 Test Item Value Reference Range Interpretation Comme nts SURGICAL RUN DATE: (test 03/14/23 [place] - MARIVEL GARDNER 1 RUN TIME: 1437 Specimen Inquiry RUN USER: INTERFACE code = PATIENT: MEGHAN RUSSO [facility] #: [id number] LOC: DEV #: [id number] AGE/SX: 47/F ROOM: RE03/13/23REG DR: Macarena Pretty MD : 71 BED: DIS: STATUS: Sergio [facility] TLOC: SPEC #: [id number] RECD: 03/13/231315 STATUS: DIYA SHERIF #: [id number] TERRY: 03/13/23- [facility] DR: Macarena Pretty MD ENTERED: 03/13/23 SP TYPE: SURGICAL OTHR DR: Jabari Leyva MD ORDERED: 75930, 83682, ANATOMIC SPEC COPIES TO: Guevara Pretty MD [address] [facility], [address] [place] [address] Jabari Leyva MD [address] [id number] PROCEDURES: [id number] (03/13/23-1317) 46105 (03/13) TISSUES: A. STOMACH BIOPSY/POLYP - RULE OUT H. PYLORI CLINICAL HISTORY HEMORRHOIDS, GASTRIT IS, HIATAL HERNIA DUODENITIS, ESOPHAGITIS FINAL DIAGNOSIS Stomach, biopsy: Mild chronic gastritis, rojelio ctive; no Helicobacter pylori organismsidentified (immunostain). GROSS DESCRIPTION Received in form stephen labeled "stomach biopsy" are 3 fragments of irregular shaped sal softtissue, measuring up to 0.4 cm in maximum dimension, entirely submitted (A). Technical component performed at [facility],[address] [place] [address], [place] [address] Unless gross only, the diagn osis is based upon microscopic examination.Immunohistochemistry: This test was developed and its perfor carrie characteristicsdetermined by this laboratory. It has not been approved nor does it need approvalby the [place] FDA. Appropriate positive and negative controls are reviewed and judgedto be acceptable for p erformedimmunohistochemistry and/or special stains. This laboratoryis certified under the Clinical Laboratory Improvement Amendments (CLIA-88) as qualified toperform high complexity clinical laboratory testing. CONTINUED O N NEXT PAGE RUN DATE: 03/14/23 [place] - [facility] JULIETTE GE 2 RUN TIME: 1437 Specimen Inquiry RUN USER: INTERFACE SPEC #: [id number] PATIENT: FELICITASBREANAMEGHAN #[id number] (Continued) CLINICAL INFORMATION ABDOMINAL PAIN, NAUSEA, CONSTIPAT ION, BLOATING Signed SIGNATURE ON FILE Rosa Harry 03/14/23 1437 END OF REPORT BASIC METABOLIC [id number] 06:40:00 Test Item Value Reference Range Interpretation Comments SODIUM (test code = 140 mEq/L 134-147 N NA) POTASSIUM (test code 3.6 mEq/L 3.4-5.0 N = K) CHLORIDE (test code 106 mEq/L 100-108 N = CL) CARBON DIOXIDE (test 28 mEq/l 21-33 N code = CO2) ANION GAP (test code 10 0-20 N = GAP) GLUCOSE (test code = 87 mg/dL 70-110 N GLU) BLOOD UREA NITROGEN 7 mg/dL 7-18 N (test code = BUN) GLOMERULAR 78.4 95-105 L The Glomerular FILTRATION RATE Filtration R ate is a (test code = GFR) calculated parameterbased on serum Creatinine, pat ient age and sex. GFR va luesless than 60 mL/min/ 1.73 square meters a re indicative ofCh ronic Kidney Disease. Values less than 15 mL/min/1.73squa re meters indicate Kidney failure. The calculation forGFR is based on the CKD-EPI (2020) calculat ion. This formulais race indifferent and is the recommended for mari for GFRby the Natio nal Kidney Foundati on for Adults.The GFR will not calculate if th e sex is unknown or if thepatient's ag e is <18 years. CREATININE (test 0.9 mg/dL 0.6-1.3 N code = CREAT) CALCIUM (test code = 8.6 mg/dL 8.0-10.5 N CA) CBC W/AUTO [id number] 11:02:00 Test Item Value Reference Range Interpretation Comments WHITE BLOOD CELL (test code = 5.7 x10 3/uL 4.5-11.0 N WBC) RED BLOOD CELL (test code = 4.27 x10 6/uL 3.54-5.02 N RBC) HEMOGLOBIN (test code = HGB) 12.8 g/dL 11.0-15.0 N HEMATOCRIT (test code = HCT) 38.5 % 33.0-45.0 N MEAN CELL VOLUME (test code = 90.2 fL 81.0-99.0 N MCV) MEAN CELL HGB (test code = MCH) 30.0 pg 27.0-33.0 N MEAN CELL HGB CONCETRATION 33.2 g/dL 33.0-37.0 N (test code = MCHC) RED CELL DISTRIBUTION WIDTH CV 11.9 % 11.5-14.5 N (test code = RDW) PLATELET COUNT (test code = 277 x10 3/uL 150-400 N PLT) NEUTROPHIL % (test code = NT%) 52.4 % 56.0-77.0 L LYMPHOCYTE % (test code = LY%) 33.3 % 14.0-32.0 H NEUTROPHIL # (test code = NT#) 3.00 x10 3/uL 2.0-7.6 N LYMPHOCYTE # (test code = LY#) 1.91 x10 3/uL 1.0-3.8 N MANUAL DIFF REQUIRED (test code NO = MDIFF) RED CELL DISTRIBUTION WIDTH SD 38.9 fL 37.0-54.0 N (test code = RDW-SD) MEAN PLATELET VOLUME (test code 10.0 fL 7.0-9.0 H = MPV) IMMATURE GRANULOCYTE % (test 0.3 % 0.0-2.0 N code = IG%) MONOCYTE % (test code = MO%) 10.6 % 4.8-9.0 H EOSINOPHIL % (test code = EO%) 2.4 % 0.3-3.7 N BASOPHIL % (test code = BA%) 1.0 % 0.0-2.0 N NUCLEATED RBC % (test code = 0.0 % 0-0 N NRBC%) IMMATURE GRANULOCYTE # (test 0.02 x10 3/uL 0.00-0.03 N code = IG#) MONOCYTE # (test code = MO#) 0.61 x10 3/uL 0.1-0.8 N EOSINOPHIL # (test code = EO#) 0.14 x10 3/uL 0.0-0.2 N BASOPHIL # (test code = BA#) 0.06 x10 3/uL 0.0-0.2 N NUCLEATED RBC # (test code = 0.00 x10 3/uL 0.0-0.1 N NRBC#) UA RFLX MICR CULT IF [id number] 16:06:00 Test Item Value Reference Range Interpretation Comments UA COLOR (test code = COLU) STRAW discript YEL/STRAW UA APPEARANCE (test code = CLEAR discript CLEAR APPU) UA GLUCOSE DIPSTICK (test NEGATIVE mg/dL NEG code = DGLUU) UA BILIRUBIN DIPSTICK (test NEGATIVE mg/dL NEG code = BILU) UA KETONE DIPSTICK (test NEGATIVE mg/dL NEG code = KETU) UA SPECIFIC GRAVITY (test 1.010 SG 1.005-1.030 code = SGU) UA BLOOD DIPSTICK (test NEGATIVE mg/DL NEG code = JAROCHO) UA PH DIPSTICK (test code = 7.5 pH UNITS 5.0-7.0 A RYAN) UA PROTEIN DIPSTICK (test NEGATIVE mg/dL NEG code = PROU) UA UROBILINIOGEN DIPSTICK 0.2 mg/dL <2.0 (test code = URO) UA NITRITE DIPSTICK (test NEGATIVE SCREEN NEG code = ALVAREZ) UA LEUKOCYTE ESTERASE NEGATIVE Leuk/mcL NEGATIVE DIPSTICK (test code = LEUU) Indication for culture: RiskForSepsis-no oth srcSOURCE OF URINE: CLEAN CATCHHCG SERUM [id number] 15:52:00 Test Item Value Reference Range Interpretation Comments HCG SERUM QUAL (test SERUM NEGATIVE SCREEN NEGATIVE code = HCGQL) CBC W/AUTO [id number] 15:32:00 Test Item Value Reference Range Interpretation Comments WHITE BLOOD CELL (test code = 6.0 K/mm3 3.5-11.0 N WBC) RED BLOOD CELL (test code = 3.92 M/mm3 4.70-6.10 L RBC) HEMOGLOBIN (test code = HGB) 11.5 G/DL 10.4-14.9 N HEMATOCRIT (test code = HCT) 35.9 % 31.5-44.1 N MEAN CELL VOLUME (test code = 91.6 Fl 84.5-98.6 N MCV) MEAN CELL HGB (test code = MCH) 29.3 pg 27.0-34.2 N MEAN CELL HGB CONCETRATION 32.0 G/DL 31.5-34.0 N (test code = MCHC) RED CELL DISTRIBUTION WIDTH 12.2 SD 11.5-14.5 N (test code = RDW) PLATELET COUNT (test code = 271 K/mm3 150-450 N PLT) MEAN PLATELET VOLUME (test code 9.60 fL 7.0-10.5 N = MPV) NEUTROPHIL % (test code = NT%) 54.9 % 40-76 N IMMATURE GRANULOCYTE % (test 0.2 % 0.0-5.0 N code = IG%) LYMPHOCYTE % (test code = LY%) 32.3 % 20.5-51.1 N MONOCYTE % (test code = MO%) 9.7 % 1.7-9.3 H EOSINOPHIL % (test code = EO%) 2.2 % 0.0-6.0 N BASOPHIL % (test code = BA%) 0.7 % 0.0-2.0 N NUCLEATED RBC % (test code = 0.0 /100WBC% 0.0-1.0 N NRBC%) NEUTROPHIL # (test code = NT#) 3.3 K/mm3 1.8-7.6 N IMMATURE GRANULOCYTE # (test 0.01 x10 3/uL 0.00-0.03 N code = IG#) LYMPHOCYTE # (test code = LY#) 1.9 K/mm3 0.6-3.2 N MONOCYTE # (test code = MO#) 0.6 K/mm3 0.3-1.1 N EOSINOPHIL # (test code = EO#) 0.1 K/mm3 0.0-0.4 N BASOPHIL # (test code = BA#) 0.0 K/mm3 0.0-0.1 N NUCLEATED RBC # (test code = 0.0 K/mm3 0.0-0.1 N NRBC#) MANUAL DIFF REQUIRED (test code NO DIFF/SCN CRITERIA = MDIFF) - CT ABD PELVIS [id number] 15:22:00 [facility] 1975 Sex: F Name: MEGHAN EDWARDS [facility] : 1975 Age/S: 47 / F [id number] Unit #: [id number] Loc: [place] [address] Phys: FlashEileen [employer] REAMER Acct: [id number] Dis Date: Status: REG ER PHONE #: [phone] Exam Date: 02/09/2023 9729 FAX #: Reason: PAIN EXAMS: CPT: [id number] CT ABD PELVIS W/CONT [address] ABDOMEN AND PELVIS ( with intravenous contrast ) Location Code: B2 CLINICAL INDICATIONS: Abdominal pain. TECHNIQUE: Volumetric acquisition of abdomen from the level of the domes of the diaphragm through the symphysis pubis using 5 mm collimation after the administration of intravenous and oral contrast. Axial and coronal images were interpreted. Unless otherwise specified, incidental findingsdo not require dedicated imaging follow-up. Dose lowering technique with automatic exposure control utilized. COMPARISON: None. FINDINGS: Visualized lung bases demonstrate no consolidations or effusions. Liver demonstrates mild decreased attenuation. Surgical clips gallbladder fossa. Spleen, pancreas,adrenals and both kidneys are unremarkable. There is no evidence of intrahepatic biliary duct dilatation. No hydronephrosis seen. 1.9 cm right renal simple cyst for which no follow-up needed. Prior sleeve gastrectomy noted. Visualized loops of bowel are within normal limits. Large bowel loops are unremarkable. Mild scattered fluid within large bowel loops seen. Aorta tapers normally without aneurysmal dilatation. No lymphadenopathy CT Pelvis: The urinary bladder is unremarkable. Surgically absent uterus. Visualized osseous structures demonstrate no significant abnormality IMPRESSION: 1. Suggestion of a mild enterocolitis. 2. Mild hepatic steatosis. PAGE 1 Signed Report (CONTINUED) Name: MEGHAN EDWARDS : 1975 Age/S: 47 / F [id number] Unit #: [id number] Loc: [place] [address] Phys: Eileen Vidales [employer] Acct: [id number] Dis Date: Status: REG ER PHONE #: [phone] Exam Date: 02/09/2023 1457 FAX #: Reason: PAIN EXAMS: CPT: [id number] CT ABD PELVIS W/CONT [id number] (Continued) at 1522 Reported and signed by: Mahesh Gabriel M.D. CC: Eileen Vidales NP Technologist:Huseyin Chin CTDI: DLP: Trnscb Date/Time: 02/09/2023 (1522) [email or web address] Orig Print D/T: S: 02/09/2023 (1525) PAGE 2 Signed ReportBASIC METABOLIC [id number] 14:31:00 Test Item Value Reference Range Interpretation Comments SODIUM (test code 138 mmol/L 134-147 N = NA) POTASSIUM (test 4.6 mmol/L 3.4-5.0 N code = K) CHLORIDE (test 108 mmol/L 100-108 N code = CL) CARBON DIOXIDE 27 mmol/L 21-32 N (test code = CO2) ANION GAP (test 3.0 GAP calc 4.0-15.0 L code = GAP) GLUCOSE (test code 84 MG/DL 70-110 N = GLU) BLOOD UREA 13 MG/DL 7-18 N NITROGEN (test code = BUN) GLOMERULAR >=60 max >60 The Glomerular FILTRATION RATE estimate estGFR Filtratio n Rate is a (test code = GFR) calculated parameterbased on serum Creatinin e, patient age and sex. GFR valuesless than 60 mL/min/1.73 square meters are pina cative ofChronic Kidne y Disease. Values less than 15 mL/min/1.73squa re meters indicate Kidney failure. The calculation for GFR is based on the CK D-EPI (2020) calculat ion. This formulais race indifferent and is the recommended formula for GFR by the National Kidney [employer] for Adults.The GFR will not calculate i f the sex is unknown or if thepatient's ag e is <18 years. CREATININE (test 0.9 MG/DL 0.6-1.0 N code = CREAT) CALCIUM (test code 9.7 MG/DL 8.5-10.1 N = CA) HEPATIC FUNCTION [id number] 14:31:00 Test Item Value Reference Range Interpretation Comments TOTAL PROTEIN (test code = PROT) 8.1 G/DL 6.4-8.2 N ALBUMIN (test code = ALB) 4.2 G/DL 3.4-5.0 N BILIRUBIN TOTAL (test code = 0.60 MG/DL 0.2-1.2 N BILT) BILIRUBIN DIRECT (test code = < 0.10 MG/DL 0.00-0.30 N BILD) BILIRUBIN INDIRECT (test code = 0.50 MG/DL 0.2-1.2 N BILIND) SGOT/AST (test code = AST) 27 Unit/L 15-37 N SGPT/ALT (test code = ALT) 24 Unit/L 12-78 N ALKALINE PHOSPHATASE TOTAL (test 73 Unit/L 45-117 N code = ALKP) [id number] 14:31:00 Test Item Value Reference Range Interpretation Comments LIPASE (test code = LIP) 113 Unit/L 114-286 L POCT GLUCOSE (AUTOMATED)2023-01-31 12:42:23 Test Item Value Reference Range Interpretation Comments POCT GLU (test code = 9409248122) 98 mg/dL 70-110 Lab Interpretation (test code = Normal 45319-7) [facility] GLUCOSE (AUTOMATED)2023-01-31 01:18:04 Test Item Value Reference Range Interpretation Comments POCT GLU (test code = 7096498510) 70 mg/dL 70-110 Lab Interpretation (test code = Normal 72660-3) [facility] GLUCOSE (AUTOMATED)2023-01-30 21:31:56 Test Item Value Reference Range Interpretation Comments POCT GLU (test code = 8797993007) 71 mg/dL 70-110 Lab Interpretation (test code = Normal 63154-8) [facility] GLUCOSE (AUTOMATED)2023-01-30 16:28:46 Test Item Value Reference Range Interpretation Comments POCT GLU (test code = 5196514272) 118 mg/dL 70-110 H Lab Interpretation (test code = Abnormal 41063-8) [facility] GLUCOSE (AUTOMATED)2023-01-30 13:07:43 Test Item Value Reference Range Interpretation Comments POCT GLU (test code = 3142787585) 118 mg/dL 70-110 H Lab Interpretation (test code = Abnormal 93647-4) [facility] [id number] 16:18:32 Test Item Value Reference Range Interpretation Comments APTT Patient (test 26 See_Comment [Automat ed code = 3173-2) message] The system which generated this result transmitted reference range : 23 - 38 Seconds . The reference range was not used to interpr et this result as normal/abnormal . MUNA (test code = MUNA) The [facility] patient population mean normal value for aPTT is 30 seconds. Lab Interpretation Normal (test code = 95924-7) [facility] / [id number] 16:16:30 Test Item Value Reference Range Interpretation Comments PROTIME PATIENT (test 12.0 See_Comment [Auto mated message] code = 5964-2) The system wh ich generated this result transmitted ref erence range: 12.0 - 1 4.7 Seconds. The re ference range was not u sed to interpret this result as normal/abnor mal. INR (test code = 6301-6) 0.9 Nor mal INR <1.1; Warfarin Therap eutic range 2.0 to 3. 0 or 2.5 to 3.5, dep ending upon the indica tions. Lab Interpretation (test Normal code = 89186-6) [facility] Brook[facility]OP[facility] [id number] 16:12:10 Test Item Value Reference Range Interpretation Comments TROPONIN I (test code = 0.000 ng/mL <=0.034 5736921713) MUNA (test code = MUNA) Reference (Normal) Range (defined by the 99th percentile reference limit): <= 0.034 ng/mL Note: Cardiac troponin begins to rise 3-4 hours after the onset of ischemia. Repeat in 4-6 hours if the sample was drawn within 3-4 hours of the onset of the symptom and found normal. Diagnosis of myocardial injury is made with acute changes in cTn concentrations with at least one serial sample above the 99th percentile upper reference limit (URL), taken together with the patient's clinical presentation. Biotin has been reported to cause a negative bias, interpret results relative to patient's use of biotin. Lab Interpretation Normal (test code = 78897-0) [facility]-TERMINAL [id number] 16:09:08 Test Item Value Reference Range Interpretation Comments NT-proBNP (test code = 57 pg/mL <=125 6908100833) MUNA (test code = MUNA) Biotin has been reported to cause a negative bias, interpret results relative to patient's use of biotin. Lab Interpretation (test Normal code = 53818-4) [facility] METABOLIC PANEL (15232)2023-01-29 16:00:25 Test Item Value Reference Range Interpretation Comments NA (test code = 140 mmol/L 135-145 6960207449) K (test code = 4.4 mmol/L 3.5-5.0 3288408452) CL (test code = 107 mmol/L 98-108 5669841558) CO2 TOTAL (test code = 22 mmol/L 23-31 L 8820484568) AGAP (test code = 11 2-16 7300481016) BUN (test code = 12 mg/dL 7-23 6331806385) GLUCOSE (test code = 108 mg/dL 70-110 6756365701) CREATININE (test code = 0.67 mg/dL 0.50-1.04 6968669935) TOTAL BILI (test code = 0.7 mg/dL 0.1-1.1 5769290670) CALCIUM (test code = 10.0 mg/dL 8.6-10.6 4781147749) T PROTEIN (test code = 7.7 g/dL 6.3-8.2 7517563899) ALBUMIN (test code = 4.7 g/dL 3.5-5.0 9555742651) ALK PHOS (test code = 70 U/L 34-122 2842569730) ALTv (test code = 25 U/L 5-35 1742-6) AST(SGOT) (test code = 26 U/L 13-40 3684856093) eGFR (test code = 93.5 mL/min/1.73m2 3492542981) MUNA (test code = MUNA) Association of [...] tests). Lab Interpretation Abnormal (test code = 73458-6) [facility] 15:59:49 Test Item Value Reference Range Interpretation Comments LIPASE (test code = 0058158404) 111 U/L 0-220 Lab Interpretation (test code = Normal 03974-2) [facility] WITH [id number] 15:52:23 Test Item Value Reference Range Interpretation Comments WBC (test code = 10.59 See_Comment [Automated 8775-2) message] The sy stem which generated this result transmitted reference range : 4.30 - 11.10 10*3/?L. The reference range was not used to interpret this result as normal/abnormal . RBC (test code = 4.95 See_Comment [Automated 789-8) message] The sy stem which generated this result transmitted reference range : 3.93 - 5.25 10*6/?L. The reference range was not used to interpret this result as normal/abnormal . HGB (test code = 14.8 g/dL 11.6-15.0 718-7) HCT (test code = 43.8 % 35.7-45.2 4544-3) MCV (test code = 88.5 fL 80.6-95.5 787-2) MCH (test code = 29.9 pg 25.9-32.8 785-6) MCHC (test code = 33.8 g/dL 31.6-35.1 786-4) RDW-SD (test code = 39.2 fL 39.0-49.9 89323-0) RDW-CV (test code = 12.2 % 12.0-15.5 788-0) PLT (test code = 328 See_Comment [Automated 777-3) message] The sy stem which generated this result transmitted reference range : 166 - 358 10*3/ ?L. The reference r roxy was not used to interpret this result as normal/abnormal . MPV (test code = 10.8 fL 9.5-12.9 56789-3) NRBC/100 WBC (test 0.0 See_Comment [Automat ed code = 6657387900) message] The system which generated this result transmitted reference range : 0.0 - 10.0 /100 WBCs. The refer ence range was not u sed to interpret th is result as normal/abnormal . NRBC x10^3 (test code See_Comment [Auto mated = 8444750190) message] The s ystem which generated this result transmitted reference range : 10*3/?L. The reference range was not used to interpret this result as normal/abnormal . GRAN MAT (NEUT) % 68.9 % (test code = 770-8) IMM GRAN % (test code 0.30 % = 0417675001) LYMPH % (test code = 21.2 % 736-9) MONO % (test code = 8.3 % 5905-5) EOS % (test code = 0.8 % 713-8) BASO % (test code = 0.5 % 706-2) GRAN MAT x10^3(ANC) 7.29 10*3/uL 1.88-7.09 H (test code = 3621986702) IMM GRAN x10^3 (test 0.03 10*3/uL 0.00-0.06 code = 8012971789) LYMPH x10^3 (test code 2.25 10*3/uL 1.32-3.29 = 731-0) MONO x10^3 (test code 0.88 10*3/uL 0.33-0.92 = 742-7) EOS x10^3 (test code = 0.09 10*3/uL 0.03-0.39 711-2) BASO x10^3 (test code 0.05 10*3/uL 0.01-0.07 = 704-7) Lab Interpretation Abnormal (test code = 67349-0) [facility]- XR [facility]OT 3 + V [id number] 14:18:00 [facility] : 1975 Sex: F FAX:Matthew Ford MD Howes: [address]SC[address] St: REG Name: MEGHAN EDWARDS [facility] : 1975 Age[facility]S: 47/F [address] [facility] Unit [facility]: [id number] Loc: E.ERS[address] [place], [place]: [place] [address] Acct: [id number] Dis Date: Status: REG ER PHONE #: [phone] Exam Date: 12/29/2022 1354 FAX #: [phone]: foot injury EXAMS: CPT CODE: [id number] XR FOOT 3 + [place] [address] EXAM: - XR FOOT 3 + V LT INDICATION: foot injury Technique: 3 views Location: T18 FINDINGS: No acute fracture or dislocation seen.Soft tissues appear grossly unremarkable. IMPRESSION: No acute fracture seen. at 1418 Reported and signed by: Derek Robert M.D. CC: Matthew Ford MD Technologist: Mary Lou Marinwyliliana Date/Time/By: 12/29/2022 (1418) : By: [email or web address] PAGE1 Signed Report FAX: Matthew Ford MD Howes: St: REG Name: MEGHAN EDWARDS [facility] : 1975 Age/S: 47/F [address] [facility] Unit #: [id number] Loc: E.ERS[address] [place], [place] Phys: Matthew Ford D [address] Acct: [id number] Dis Date: Status: REG ER PHONE #: [phone] Exam Date: 12/29/2022 1354 FAX #: [phone] Reason: foot injury EXAMS: CPT CODE: [id number] XR FOOT 3 + [place] [address] (Continued) Orig Print D/T: S: 12/29/2022 (1421) PAGE 2 Signed ReportXR ABDOMEN ACUTE [id number] 17:05:48HISTORY: Gastric ulcer. Rule out perforation. FINDINGS: Abdomen, 2 views-4 films: Comparison has been made with 10/06/2015 studies. AP supine and upright views of the abdomen showed unremarkable intestinalgas pattern. Upright view shows no free air. Cholecystectomy clips as wellas gastric surgical sutures are visualized in the upper abdomen. Nocalcified kidney stones detected. Numerous calcified phlebo liths arepresent in the pelvis. No aggressive bone lesions. Chest, one view: Lungs are clear. Cardiomediastinal contour appears normal.No pneumothorax or pleural effusion. CONCLUSIONS: No acute findings. [facility], Radiant Results Inft User - 10/12/2020 11:06 AM CSTHISTORY: Gastric ulcer. Rule out perforati on.FINDINGS:Abdomen, 2 views-4 films: Comparison has been made [...] normal.No pneumothorax or pleural effusion.CONCLUSIONS: No acute findings.[facility] [id number] 16:27:00 Test Item Value Reference Range Interpretation Comments APPEARANCE (test code = Hazy Clear A 9125282577) COLOR (test code = Yellow Yellow 6205101582) PH (test code = 4.8-8.0 3164010789) SP GRAVITY (test code = 1.003-1.030 6484890974) GLU U QUAL (test code = Normal Normal 3125206810) BLOOD (test code = Negative Negative 6516026172) KETONES (test code = Negative Negative 2732744579) PROTEIN (test code = Negative Negative 2887-8) UROBILIN (test code = 2.0 mg/dL Normal A 3961060775) BILIRUBIN (test code = Negative Negative 9545333930) NITRITE (test code = Negative Negative 5746377690) LEUK ALXEUS (test code = 75/uL Negative A 2695122040) RBC/HPF (test code = See_Comment [Autom ated message] 5581975674) The system [employer] generated this result transmit mile reference range : 0 - 3 HPF. The refe rence range was not u sed to interpret th is result as normal/abnormal . WBC/HPF (test code = See_Comment [Autom ated message] 5475942917) The system [employer] generated this result transmit mile reference range : 0 - 5 HPF. The refe rence range was not u sed to interpret th is result as normal/abnormal . BACTERIA (test code = Negative Negative 4138075467) MUCOUS (test code = Slight Negative LPF A 2001401495) SQ EPITH (test code = HPF 1186306127) CA OXALATE (test code = See_Comment H [Au tomated message] 2405507693) The system [employer] generated this result transmit mile reference range : <=1 HPF. The refere nce range was not u sed to interpret th is result as normal/abnormal . Lab Interpretation (test Abnormal code = 64915-5) [facility]. METABOLIC PANEL (88045)2020-10-12 16:10:00 Test Item Value Reference Range Interpretation Comments NA (test code = 141 mmol/L 135-145 6973368219) K (test code = 3.4 mmol/L 3.5-5 L 5298304983) CL (test code = 103 mmol/L 98-108 2964427154) CO2 TOTAL (test code = 29 mmol/L 23-31 0485215133) AGAP (test code = 2-16 9377263496) BUN (test code = 12 mg/dL 7-23 8373451216) GLUCOSE (test code = 106 mg/dL 70-110 5733754658) CREATININE (test code = 0.85 mg/dL 0.5-1.04 5268287876) TOTAL BILI (test code = 0.7 mg/dL 0.1-1.1 6240746876) CALCIUM (test code = 9.1 mg/dL 8.6-10.6 6237689806) T PROTEIN (test code = 7.4 g/dL 6.3-8.2 9619346344) ALBUMIN (test code = 4.4 g/dL 3.5-5 5183587465) ALK PHOS (test code = 57 U/L 34-122 1653985653) ALTv (test code = 33 U/L 5-35 1742-6) AST(SGOT) (test code = 46 U/L 13-40 H 5550674231) eGFR Calculation mL/min/1.73m2 (Non-) (test code = 5820954201) eGFR Calculation mL/min/1.73m2 () (test code = 5847095338) MUNA (test code = MUNA) Association of [...] tests). Lab Interpretation Abnormal (test code = 15656-4) [facility] 16:10:00 Test Item Value Reference Range Interpretation Comments LIPASE (test code = 0122413597) 65 U/L 0-220 Lab Interpretation (test code = Normal 80456-1) [facility] BrookLIPID PANEL (05352)(TOTAL CHOLESTEROL, TRIGLYCERIDES, HDL)2020-10-12 16:10:00 Test Item Value Reference Range Interpretation Comments CHOL (test code = 139 mg/dL 120-200 3632154435) HDL (test code = 34 mg/dL >50 L 6600440228) HDLC RATIO (test code = See_Comment [Au tomated message] 9331995254) The system [employer] generated this result transmit mile reference range : <=4.5. The refe rence range was not u sed to interpret th is result as normal/abnormal . TRIG (test code = 78 mg/dL 30-170 0278355226) LDL CHOL (test code = 89 mg/dL See_Comment [Auto mated message] 49500-2) The system [employer] generated this result transmit mile reference range : <=160. The refe rence range was not u sed to interpret th is result as normal/abnormal . VLDL (test code = 16 mg/dL 5-60 5275875991) Lab Interpretation (test Abnormal code = 15904-3) [facility] [id number] 16:05:00 Test Item Value Reference Range Interpretation Comments POCT PREG (test code = 1605) negative On board controls acceptable with present C Line (test code = 3574) POCT PREG LOT # (test code = 3575) [id number] POCT PREG TEST DATE (test 04/18/2022 code = 3576) Lab Interpretation (test code = Normal 75381-9) [facility] WITH [id number] 15:53:00 Test Item Value Reference Range Interpretation Comments WBC (test code = See_Comment [Automated 8790-2) message] The sy stem which generated this result transmitted reference range : 4.30 - 11.10 10*3/?L. The reference range was not used to interpret this result as normal/abnormal . RBC (test code = See_Comment [Automated 659-8) message] The sy stem which generated this [...] (test code = 38.8 fL 39-49.9 L 30376-8) RDW-CV (test code = 11.9 % 12-15.5 L 788-0) PLT (test code = See_Comment [Automated 777-3) message] The sy stem which generated this result transmitted reference range : 166 - 358 10*3/ ?L. The reference r roxy was not used to interpret this result as normal/abnormal . MPV (test code = 10.1 fL 9.5-12.9 74281-3) NRBC/100 WBC (test See_Comment [Automat ed code = 4832851625) message] The system which generated this result transmitted reference range : 0.0 - 10.0 /100 WBCs. The refer ence range was not u sed to interpret th is result as normal/abnormal . NRBC x10^3 (test code <0.01 See_Comment [Auto mated = 0493045029) message] The s ystem which generated this result transmitted reference range : 10*3/?L. The reference range was not used to interpret this result as normal/abnormal . GRAN MAT (NEUT) % 57.3 % (test code = 770-8) IMM GRAN % (test code 0.20 % = 3123031428) LYMPH % (test code = 28.7 % 736-9) MONO % (test code = 10.9 % 5905-5) EOS % (test code = 2.3 % 713-8) BASO % (test code = 0.6 % 706-2) GRAN MAT x10^3(ANC) 3.06 10*3/uL 1.88-7.09 (test code = 9906867490) IMM GRAN x10^3 (test <0.03 0-0.06 code = 9771721150) LYMPH x10^3 (test code 1.53 10*3/uL 1.32-3.29 = 731-0) MONO x10^3 (test code 0.58 10*3/uL 0.33-0.92 = 742-7) EOS x10^3 (test code = 0.12 10*3/uL 0.03-0.39 711-2) BASO x10^3 (test code 0.03 10*3/uL 0.01-0.07 = 704-7) Lab Interpretation Abnormal (test code = 99278-1) [facility] Notes Date/Time Note Provider Source 2023-03-13 07:55:00 [id number] [facility] [place] [address] PATIENT NAME: MEGHAN EDWARDS ADMIT DATE: 03/13/23ACCOUNT NO: [id number] ROOM NO: AGE: 47 REPORT TYPE: ENDOSCOPY REPORT SEX: F ADMITTING PHYSICIAN: ATTENDING PHYSICIAN:Macarena Pretty MD Gastroenterology _ Pa scott ient Name: Meghan Edwards Procedure Date: 03/13/2023 7:55 AMMRN: [id number] of : 1975 _ Procedure: Upper GI endoscopyIndications: Epigastric abdominal painProviders: Cristopher Martinezing MD : YOSVANY Martinezequesting Provider: Medicines: Monitored Anesthesia CareProcedure: Pre-Anesthesia Assessment: - See the other procedure note for documentation of the pre-procedure assessment. After obtaining informed consent, the endoscope was passed unde r direct vision. Throughout the procedure, the patient's blood pressure, pulse, and oxygen saturations were monitored continuously. The Endoscope was introduced through the mouth, and advanced to the second part of duodenum. The upper GI endoscopy was accomplished without difficulty. The patient tolerated the procedure well. Findings: LA Grade A (one or more mucosal breaks less than 5 mm, not extending between top s of 2 mucosal folds) esophagitis with no bleeding was found at the gastroesophageal junction. A small hiatal hernia was present. Localized mildl y erythematous mucosa without bleeding was found i n the gastric antrum. This was biopsied with a col d forceps for histology. Evidence of a sleeve gastrectomy was found in the gastric body. Patch y mildly erythematous mucosa without active bleeding and with no stigmata of bleeding was found in the duodenal bulb. The second portion o f the duodenum was normal. Complications: No immediate complications. _ Esti m ated Blood Loss: Estimated blood loss: none.Impression: - LA Grade A reflux esophagitis with no bleeding. - Small hiatal hernia. PATIENT NAME: MEGHAN EDWARDS - Erythematous mucosa in the antrum. Biopsied. - A sleeve gastrectomy was found. - Erythematous duodenopathy. - Normal second portion of the duodenum.Recommendation: - Discharge patient to home (ambulatory). - Resume previous diet. - Continue present medications. - Await pathology results. Procedure Code(s): --- Professional -- - 09719, Esophagogastroduodenoscopy, flexible, transoral; with biopsy, single or multipleDiagnosis Code(s): --- Professional --- K21.00, Gastro-esophageal reflux disease with esophagitis, without bleeding K44.9, Diaphragmatic hernia without obstruction or gangrene K31.89, Other diseases of stomach and duodenum Z98.84, Bariatric surgery status R10.13 , Epigastric pain CPT copyright 2020 [employer]. All rights reserved. The codes documented in this report are preliminary and upon die try out worker stamping review may be revised to meet current compliance requirements. Macarena Pretty MD 8:20:34 AMNumber of Addenda: 0 Note Initiated On : 03/13/2023 7:55 AMProvation {[id number]}.pdf ProVation FT PDF at 0820 PATIENT NAME: MEGHAN EDWARDS gfvfnby1914-19-95R74:20:00G.[id number] a ilable for patient mobxNWOVBIOXGYLXSK8520-67-03V84:21:11 2023-03-13 07:54:00 [id number] [place] [address] PATIENT NAME: MEGHAN EDWARDS ADMIT DATE: 03/13/23ACCOUNT NO: [id number] ROOM NO: AGE: 47 REPORT TYPE: ENDOSCOPY REPOR T SEX: F ADMITTING PHYSICIAN: ATTENDING PHYSICIAN:Macarena Pretty MD Gastroenterology _ Pa t ient Name: Meghan Edwards Procedure Date: 03/13/2023 7:54 AMMRN: [id number] of : 1975 _ Procedure: ColonoscopyIndications: Chronic idiopathic constipationProviders: Hetal Martinez MD: Nic Martinez Provider: Medicines: Monitored Anesthesia CareProcedure: Pre-Anesthesia Assessment: - Prior to the procedure, a History and Physical was performed, and patient medications, allergie s and sensitivities were reviewed. The patient's tolerance of previous anesthesia was reviewed. - The risks and benefits of the procedure and the sedation options and risks were discussed with the patient. All questions were answered and informed consent was obtained. - Patient identification and proposed procedure were verified prior to the procedure by the physician , the nurse, the child monitor and the refresh technician. The procedure was verified in the procedure room . - Pre-procedure physical examination revealed no contraindications to sedation. - ASA Grade Assessment: III - A patient with severe systemic disease. - After reviewing the risks and benefits, the patient was deemed in satisfactory condition to undergo the procedure. - Monitored anesthesia care under the supervision of a POT TENDER was determined to be medically necessary for thi s procedure based on review of the patient's medical history, medications, and prior anesthesia history. After I obtained informed consent, the scope was passed under direct vision. Throughout the procedure, the patient's blood pressure, pulse, and oxygen saturations were monitored continuously. The Colonoscope was introduced through the anus and advanced to the cecum, identified by appendiceal PATIENT NAME: MEGHAN EDWARDS orifice and ileocecal valve. The colonoscopy was performed without difficulty. The patient tolerated the procedure well. The quality of the bowel preparation was good. Findings: The perianal and digital rectal examinations were normal. The colon (entire examined portion) appeared normal. There was mild spasm in the sigmoid colon. Non-bleeding internal hemorrhoids were found. The hemorrhoids were medium-sized. Complications: No immediate complications. _ Esti m ated Blood Loss: Estimated blood loss: none.Impression: - The entire examined colon is normal. - Mild colonic spasm consistent with irritable bowel syndrome. - Non-bleeding internal hemorrhoids. - No specimens collected.Recommendation: - Repeat colonoscopy i n 5-10 years for surveillance. - Return to GI office in 2 weeks. Procedure Code(s): --- Professional --- 38282, Colonoscopy, flexible; diagnostic, including collection of specimen(s) by brushing or washing, when performed (separate procedure)Diagnosis Code(s): --- Professional -- - K64.8, Other hemorrhoids K58.9, Irritable bowel syndrome without diarrhea K59.04, Chronic idiopathic constipation CPT copyright 2020 [employer]. All rights reserved. The codes documented in this report ar e preliminary and upon die try out worker stamping review may be revised to meet current compliance requirements. Macarena Pretty MD 8:18:01 AMNumber of Addenda: 0 Note Initiated On : 03/13/2023 7:54 AMProvation {[id number]}.pdf ProVation FT PDF at 0818 PATIENT NAME: MEGHAN EDWARDS qfamwqb0284-42-28H23:18:00G.[id number] a ilable for patient abdtTEOFIMFRXUYYGO8171-10-61N42:18:20 2023-03-12 10:35:00 [id number] [address] PATIENT NAME: MEGHAN EDWARDS ADMIT DATE: ACCOUNT NO: [id number] ROOM NO: AGE: 47 REPORT TYPE: eELECTROCARDIOGRAM REPORT SEX: F ADMITTING PHYSICIAN: ATTENDING PHYSICIAN:Macarena Pretty MD Order:[id number] Reason : PREOP Test Date/Time Stamp:SatMar 12 2023 10:35:14Blood Pressure : / mmHGVent. Rate : 052 BPM Atrial Rate : 052 BPM P-R Int : 128 ms QRS Dur : 088 ms QT Int : 464 ms P-R-T Axes : 009 041 032 degrees QTc Int : 431 ms Sinus bradycardia with premature atrial complexesCannot rule out Anterior infarct , age undeterminedAbnormal ECGWhen compared with ECG of 09-FEB-2023 15:21,Significant changes have occurredConfirmed by BORIS MARCANO MD ([id number]) on 03/12/2023 3:09:38 PM Referred By: Macarena Pretty Confirmed by:BORIS MARCANO MD at 1509 PATIENT NAME: MEGHAN EDWARDS .[id number] AVAvailable for patient [id number]:10:04 2023-02-09 15:21:00 [id number]:[id number] [address] PATIENT NAME: MEGHAN EDWARDS ADMIT DATE: 02/09/23ACCOUNT NO: [id number] ROOM NO: AGE: 47 REPORT TYPE: eELECTROCARDIOGRAM SEX: F ADMITTING PHYSICIAN: ATTENDING PHYSICIAN: Order:[id number] Reason : GI Test Date/Time Stamp:SatFeb 09 2023 15:21:52Blood Pressure : / mmHGVent. Rate : 048 BPM Atrial Rate : 048 BPM P-R Int : 154 ms QRS Dur : 088 ms QT Int : 502 ms P-R-T Axes : 04 6 006 016 degrees QTc Int : [address] abnormalityAbnormal ECGNo previous ECGs availableConfirmed by CLYDE COPELAND ([id number]) on 02/25/2023 6:11:36 AM Referred By : Self Referred Confirmed by:CLYDE COPELAND at 0611 PATIENT NAME: MEGHAN EDWARDS .[id number] AVAvailable for patient biruKWMEMCQZIQAGRM1475-58-46L44:12:02 2023-02-09 13:55:00 [id number]:55:00 [facility] PROVIDER REPORTREPORT#:[id number] REPORT STATUS: SignedDATE:02/09/23 TIME:1355 PATIENT: MEGHAN EDWARDS UNIT #: [id number]#: [id number] ROOM/BED:: 73 AGE: 47 SEX: F PCP PHYS: Jabari Leyva DT: 3 AUTHOR: Eielen Vidales DRILLER AND REAMER * ALL edits or amendments must be made on the electronic/computer document * Eileen Vidales 02/09/23 1355:HPI-Abd Pain F 40 and Over Free Text HPI NotesFree Text HPI [id number] female presents to the emergency department with complaints of abdominal pain. Patient states vi t she was admitted at [facility] January 29 to . Patient states she has been unable to have a bowel movement since that admissiontoday. States she i s using multiple laxatives and stool softeners and is only able to have small amounts of liquid bowel movement. GeneralConfirmed Patient YesInitial Greet Date/Time 02/09/23 1309 PresentationChief Complaint Abdominal pain, Constipation, NauseaSudden in Onset? NoOnset Occurred Weeks agoLocation LUQ, LLQAssociated withReports: Anorexia, Constipation, Nausea. Denies: Back pain, Chills, Urinary tract symptoms. Exacerbated by NothingRelieved by Nothing Risk-Abd Pain F 40 and Over)( Abdominal Aortic Aneurysm Risk factors reviewed Review of Systems ROS StatementsAll systems rev neg except as marked. Basic Review of SystemsBasic ROS EYES : No redness, HEM: No bleeding/bruising, NEURO: No change MS, NEURO: No focal deficit, PSYCH: NL thought content Past Medical History - AdultStated Complaint ABDOMINAL PAIN, UNABLE TO EATAllergiesCoded Allergies:No Known Allergies (12/29/22) Calculated Suicide Risk (nurs) No riskSmoking status for patients 13 years old or older: Current every day smokerDate last smoked: 02/09/23 Physical Exam Vital SignsVital SignsFirst Documented: Result Date Time Pulse Ox 99 02/09 1308 B/P 153/89 02/09 1308 B/P Mean 110 02/09 1308 O2 Delivery Room air 02/09 1308 Temp 36.2 02/09 1308 Pulse 57 02/09 1308 Resp 17 06/ 4 1308 Last Documented: Result Date Time Pulse Ox 99 02/09 1308 B/P 153/89 02/09 1308 B/P Mean 11 0 02/09 1308 O2 Delivery Room air 02/09 1308 Temp 36.2 02/09 1308 Pulse 57 02/09 1308 Resp 17 02/09 1308 Review of Vital Signs Reviewed Focuse d PEAbdomen/GI Abdomen/GI Atraumatic, Soft, No distention Tenderness/Guarding/Rebound Tender LUQ, Tender LLQ. Free Text PE NotesFree Text PE Notes General/Const: Awake, Alert, No acute distress, Well appearing, Well hydrated,MS Head: Atraumatic, NormocephalicEyes Atraumatic: EOMI, No nystagmus, No periorbital swelling, No sclera l icterusEars/Nose/Throat: Atraumatic, Airway patent, Mucous membranes moist, Pharynx NL, No trismusMS Neck: Atraumatic, Supple, No meningismus, Full range of motionRespiratory/Chest: Atraumatic, Breath sounds NL, Breath sounds = bilat, No respiratory distressCardiovascular: Heart rate NL, Regular rhythm, Cap refill not delayed, Peripheral circulation NL Back: Atraumatic, Full range of motion, Non-tenderSkin: Skin Atraumatic, Color NL, No rash, Warm, Dry, Intact, Turgor NL, No swellingNeurologic: Oriented X3, Speech NL, No motor deficits, Cerebellar NL, Memory NL, Gait N L Psychiatric: Affect NL, Mood NL, Cognitive function NL, Judgment/insight NL, Thought conten t NL Interpretation Diagnostics Lab Results InterpretationConsiderations Independ review imagingResultsLaboratory Tests 02/09/23 1505:[Embedded Image Not Available] 02/09/23 1340:[Embedded Image Not Available]Laboratory Tests: 02/09 1505 Chemistry Serum , Qual (NEGATIVE SCREEN) SERUM NEGATIVE Hematology WBC (3.5 - 11.0 K/mm3) 6.0 RBC (4.70 - 6.10 M/mm3) 3.92 L Hgb (10.4 - 14.9 G/DL) 11.5 Hct (31.5 - 44.1 %) 35.9 MCV (84.5 - 98.6 Fl) 91.6 MCH (27.0 - 34.2 pg) 29.3 MCHC (31.5 - 34.0 G/DL ) 32.0 RDW (11.5 - 14.5 SD) 12.2 Plt Count (150 - 450 K/mm3) 271 MPV (7.0 - 10.5 fL) 9.60 Neut % (Auto) (40 - 76 %) 54.9 Lymph % (Auto) (20.5 - 51.1 %) 32.3 Randall % (Auto) (1.7 - 9.3 %) 9.7 H Eos % (Auto) (0.0 - 6.0 %) 2.2 Baso % (Auto) (0. 0 - 2.0 %) 0.7 Neut # (Auto) (1.8 - 7.6 K/mm3) 3.3 Lymph # (Auto) (0.6 - 3.2 K/mm3) 1.9 Randall # (Auto) (0.3 - 1.1 K/mm3) 0.6 Eos # (Auto) (0.0 - 0.4 K/mm3) 0.1 Baso # (Auto) (0.0 - 0.1 K/mm3) 0.0 Abs Immat Gran (auto) (0.00 - 0.03 x10 3/uL) 0.01 Add Manual Diff (CRITERIA DIFF/SCN) NO Immature Gran % (0.0 - 5.0 %) 0.2 Nucleated RBC % (0.0 - 1.0 /100WBC%) 0.0 02/09 1340 Chemistry Sodium (134 - 147 mmol/L) 138 Potassium (3.4 - 5.0 mmol/L) 4.6 Chloride (100 - 108 mmol/L) 108 Carbon Dioxide (21 - 32 mmol/L) 27 Anion Gap (4. 0 - 15.0 GAP calc) 3.0 L BUN (7 - 18 MG/DL) 13 Creatinine (0.6 - 1.0 MG/DL) 0.9 Glomerular Filt r Rate (>60 estGFR) >=60 max estimate Glucose (70 - 110 MG/DL) 84 Calcium (8.5 - 10.1 MG/DL) 9.7 Total Bilirubin (0.2 - 1.2 MG/DL) 0.60 Direct Bilirubin (0.00 - 0.30 MG/DL) < 0.10 Indirect Bilirubin (0.2 - 1.2 MG/DL) 0.50 AST (15 - 37 Unit/L) 27 ALT (12 - 78 Unit/L) 24 Total Alk Phosphatase (45 - 117 Unit/L) 73 Total Protein (6.4 - 8.2 G/DL) 8.1 Albumin (3.4 - 5.0 G/DL) 4.2 Lipase (114 - 286 Unit/L) 113 L Urines Urine Color (YEL/STRAW discript) STRAW Urine Appearanc e (CLEAR discript) CLEAR Urine pH (5.0 - 7.0 pH UNITS) 7.5 H Ur Specific [place] (1.005 - 1.030 SG) 1.010 Urine Protein (NEG mg/dL) NEGATIVE Urine Glucose (UA) (NEG mg/dL) NEGATIVE Urine Ketones (NEG mg/dL) NEGATIVE Urine Blood (NEG mg/DL) NEGATIVE Urine Nitrite (NEG SCREEN) NEGATIVE Urine Bilirubin (NEG mg/dL) NEGATIVE Urine Urobilinogen (<2.0 mg/dL) 0.2 Ur Leukocyte Esterase (NEGATIVE Leuk/mcL) NEGATIVE Recent Impressions:CAT SCAN - CT ABD PELVIS W/CONT 01/18 4 6625 Report Impression - Status: SIGNED Entered: 02/09/2023 1525 IMPRESSION: 1. Suggestion of a mild enterocolitis.2. Mild hepatic steatosis.Impression By: Clif - Mahesh Gabriel M.D. Lab Imaging StatementLaboratory radiographic studies reviewed and considered in the medical decision-making. ECG #1 InterpretationDate 02/09/23Time 1521Interpreted by ED physicianNL ECG Interpretation Normal sinu s rhythm, No STEMIRate 48Rhythm Bradycardia Re-Evaluation MDM )( Re-Evaluation/Progress #1)( Re-Eval Status ImprovedEval Following Treatment Pt. feels better Abd Pain MDM Note F > 40The patient is resting comfortably and feels better, is alert and in no distress. The repeat examination is unremarkable and benign; in particular, there is no discomfort at McBurney's point and there is no pulsatile mass. The history, exam, diagnostic testing, and current condition do not suggest acute appendicitis, bowel obstruction, acute cholecystitis, bowel perforation, major gastrointestinal bleeding, severe diverticulitis, abdominal aortic aneurysm , mesenteric ischemia, volvulus, sepsis, or other significant pathology to warrantfurther testing, continued ED treatment, admission, or surgical evaluation at this point. The vital signs have been stable. The patient does not have uncontrollable pain, intractable vomiting, or other significant symptoms. The patient's condition is stable and appropriate for discharg e from the emergency department. The patient will pursue further outpatient evaluation with the primary care physician or other designated or consulting physician as indicated in the discharge instructions. ED CoursePatient Course StableMedication(s) OrderedMedication(s) Ordered:Central Nervous System Agents Sig/Mery Start time Last Medication Dose Route Stop Time Status Admin Morphine Sulfate 4 MG X1ED STA 01/18 4 1329 DC 02/09 IV 02/09 1330 1329 Diagnostic Agents Sig/Mery Start time Last Medication Dose Route Stop Time Status Admin Iopamidol 0 .STK-ME D ONE 02/09 1355 DC 02/09 IV 1510 Electrolytic, Caloric, And Erika Sig/Mery Start time Last Medication Dose Route Stop Time Status Admin Sodium Chloride 50 ML .STK-MED ONE 02/09 1515 DC 02/09 IV 02/09 1516 1515 Sodium Chloride 1,000 M L X1ED STA 02/09 1329 DC 02/09 IV 02/09 1429 1329 Gastrointestinal Drugs Sig/Mery Start time Last Medication Dose Route Stop Time Status Admin Ondansetron HCl 4 MG X1ED PRN PRN 02/09 1330 DC 02/09 IV 02/10 1329 1430 Rx Drug Regimen New Rx givenSafety Concerns Patient is safe Differentia l Diagnosis)( Differential Diagnosis Acute coronar y symndrome, Bowel obstruction, Diarrhea,Diverticular disease, Urinary tract infection Findings/Social DeterminantsPresentation SubacuteSeverity Evaluation Serious conditionDiagnosis Appears Evident Patient Discharge Departure Vital Signs/ConditionVital SignsFirst Documented: Result Date Time Pulse Ox 99 02/09 1308 B/P 153/89 02/09 1308 B/P Mean 110 02/09 1308 O2 Delivery Room air 02/09 1308 Temp 36.2 02/09 130 8 Pulse 57 02/09 1308 Resp 17 02/09 1308 Last Documented: Result Date Time Pulse Ox 99 02/09 1308 B/P 153/89 02/09 1308 B/P Mean 110 02/09 1308 O2 Delivery Room air 02/09 1308 Temp 36.2 02/09 1308 Pulse 57 02/09 1308 Resp 17 02/09 130 8 All vital signs available at the time of this entry have been reviewed. Clinical ImpressionClinical ImpressionPrimary Impression: Colitis Disposition DecisionDischarge )( Discharged to Home Yes )( Time 1612 )( Date 02/09/23 Discharge/Care PlanCounseled Regarding Diagnosis, Lab results, Imaging studies, Prescriptions, Needfor follow-up, When to return to ED(Auto) PrescriptionsCurrent Visit ScriptsCIPROFLOXACIN (CIPRO) 500 MG PO BID 5 Day s #10 TABS metroNIDAZOLE (FLAGYL) 500 MG PO Q12H 5 Days #10 TABS DICYCLOMINE (BENTYL) 10 MG PO Q6H PRN PRN ABDOMINAL PAIN/CRAMPING DICYCLOMINE (BENTYL) 10 MG PO Q6H PRN PRN ABDOMINAL PAIN/CRAMPING #30 CAPS Patient Instructions Understanding ColitisAdditional InstructionsFollow-up with Dr. Bingham at your previously scheduled appointment Discharge NoteI have spoken with the patient and/or caregivers. I have explained the patient'scondition, diagnoses and treatment plan based on the information available to meat this time. I have answered the patient's and/or caregiver's questions and addressed any concerns. The patient and/or caregivers have as good an understanding of the patient's diagnosis, condition and treatment nathan n as can beexpected at this point. The vital signs have been stable. The patient's condition is stable and appropriate for discharge from the emergency department. The patient will pursue further outpatient evaluation with the primary care physician or other designated or consulting physician as outlined in the discharge instructions. The patient and/or caregivers are agreeable to this planof care and follow-up instructions have been explained in detail. The patient and/or caregivers have received these instructions in written format and have expresse d an understanding of the discharge instructions. The patient and/or caregivers are aware that any significant change in condition or worsening of symptoms should prompt an immediate return to this or the closest emergency department or a call to 911. Chris Olivas 02/10/23 2017:Patient Discharge Departure Discharge/Care PlanReferralsProvider Referral: River Puri Address: [address] [place] [address] [address] [place] [address] Supervising Physician Note MidLv Saw Pt AloneI have reviewed the PA/DRILLER AND REAMER's note and plan of care. I was available for consultation as needed at al l times during the patient's visit in the emergenc y department. I agree with the clinical impression , plan and disposition. at 1 at 2017 RPT #: [id number] OF REPORTEDEmergency department [id number] a ilable for patient [id number]:[id number] 2022-12-29 14:53:00 [id number] 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 Patient states she took 2 Tylenol Excedrin and even those did not help her pain today. Denies any paresthesias, paralysis, able to bear weight Review of Systems ROS StatementsAll systems rev neg except as marked. Free Text ROS NotesFree Text ROS NotesMusculoskeletal/skin: Fourth digit left toe pain post dropping her clippers on it Past Medical History - AdultStated Complaint L LEG TO E INJAllergiesCoded Allergies:No Known Allergies (12/29/22) Review of Nursing Notes Triage notes reviewedSmoking status for patients 13 years old or older: Never SmokerAmbulatory Status Independent Physical Exam Vital SignsVital SignsFirst Documented: Result Date Time Pulse Ox 99 12/29 1337 B/P 171/97 12/29 1337 B/P Mean 121 12/29 1337 O2 Delivery Room air 12/29 1337 Temp 36.8 12/29 1337 Pulse 71 12/29 1337 Resp 19 12/29 1337 Last Documented: Result Date Time Pulse Ox 99 12/29 1502 B/P 160/74 12/29 1502 B/P Mean 102 12/29 1502 Temp 36.8 12/29 1502 Pulse 7 2 12/29 1502 Resp 19 12/29 1502 O2 Delivery Room air 12/29 1337 Review of Vital Signs Reviewed Free Text PE NotesFree Text PE NotesGeneral: Awake, alert, no acute distress, nontoxic appearingENT: Airway patentRespiratory: No signs of respiratory distress, BBS CTACardiovascular: Heart sounds NL,GI: soft, non-tender, no rebound , guarding, or distentionMusculoskeletal: unremarkableSkin: 1 cm superficial scratch nonbleeding no need for closureNeurologic: Spontaneously awake and alert, speech NL, no motor deficits noted Interpretation Diagnostics Lab Results InterpretationConsiderations Indepen d review imagingResultsRecent Impressions:RADIOLOG Y - XR FOOT 3 + V LT 12/29 1354 Report Impression - Status: SIGNED Entered: 12/29/2022 1421 IMPRESSION: No acute fracture seen.Impression By: [email or web address] Silas Carmen Imaging StatementRadiographic studies reviewed and considered in the medical decision-making. Re-Evaluation MDM Free Text MDM NotesAdditional TextChief complaint of: Toe pain and scratch fro m dropping clippers Differential diagnosis including, but not limited to: Laceration, open fracture,fracture, contusion Imaging personally reviewed: No obvious evidence of fracture or dislocation Patient wound is nonbleeding and griffin s not give clinical evidence for need for closure. Imaging shows no obvious evidence of fracture. Patient will receive discharge instructions as well as pain control. discussed with patient on needfor follow-up due to episode of hypotension while in our care. Patient also advised on need for follow-up for todays complaint -The patient has been informed of today's diagnosis, along with any treatments provided, the reasoning and results of any testing that had been done, and any medications that have been administered or prescribed. They have been provided with instructions on any follow-up that is required, a list of free, or low cost, clinics, and providers, in the area, as well as referrals to the appropriate specialists, and when it is necessary to seek emergent medical interventions . Re-Evaluation/ProgressRe-Evaluation/Progress Time of Re-Eval 1457 Plan Post Re-Eval Plan discharge Tissue Perfusion ReassessmentPatient tissue perfusion reassessment completed. ED CourseMedication(s) OrderedMedication(s) Ordered:Central Nervous System Agents Sig/Mery Start time Last Medication Dose Route Stop Time Status Admin Tramadol HCl 50 MG X1ED STA 12/29 1446 DC 12/29 PO 12/29 1447 1454 Patient Discharge Departure Vital Signs/ConditionVital SignsFirst Documented: Result Date Time Pulse O x 99 12/29 1337 B/P 171/97 12/29 1337 B/P Mean 12 1 12/29 1337 O2 Delivery Room air 12/29 1337 Temp 36.8 12/29 1337 Pulse 71 12/29 1337 Resp 19 12/29 1337 Last Documented: Result Date Time Pulse Ox 99 12/29 1502 B/P 160/74 12/29 1502 B/ P Mean 102 12/29 1502 Temp 36.8 12/29 1502 Pulse 7 2 12/29 1502 Resp 19 12/29 1502 O2 Delivery Room air 12/29 1337 All vital signs available at the time of this entry have been reviewed. Condition Stable Clinical ImpressionClinical ImpressionPrimary Impression: Toe injury Disposition DecisionDischarge )( Discharged to Home Yes )( Time 1457 )( Date 12/29/22 Discharge/Care PlanCounseled Regarding Diagnosis , Imaging studies, Need for follow-up, When to return to ED, Wound carePatient Instructions ED Finger or Toe Contusion, ED RICE, ED Wound CareAdditional InstructionsToday: Imaging is no obvious evidence for fracture (break) or dislocations. However there is a small percentag e of fractures when x-ray the same day that do not show up on imaging. Follow-up with primary care for need of further assessments. Read the instructions provided on wound care. Utilize [id number] medications and RICE technique to assist with pain. 1. The examination and treatment that you have received has been on an emergencybasis only and is not intended as an effort to provide complete medical care. Itis impossible to recognize and treat all elements o f an illness or injury in a single ER visit.2. Thank you for allowing us to provide emergent medical care to you or your family member. We consider it a privilege to have served you durin g your illness or injury.3. If you have received a prescription, please fill it TODAY and follow e instructions carefully.4. Return to the ER for worsening symptoms.5. Follow up with your family doctor -You may follow-up on [email or web address] for complete copy of today's testing. Departure FormsFREE OR [facility] P[facility] L[facility] Discharge NoteI have spoken with the patient and/or caregivers. I hav e explained the patient'scondition, diagnoses and treatment plan based on the information availabl e to meat this time. I have answered the patient's and/or caregiver's questions and addressed any concerns. The patient and/or caregivers have as good an understanding of the patient's diagnosis , condition and treatment plan as can beexpected a t this point. The vital signs have been stable. Th e patient's condition is stable and appropriate fo r discharge from the emergency department. The patient will pursue further outpatient evaluatio n with the primary care physician or other designated or consulting physician as outlined i n the discharge instructions. The patient and/or caregivers are agreeable to this planof care and follow-up instructions have been explained in detail. The patient and/or caregivers have received these instructions in written format an d have expressed an understanding of the discharge instructions. The patient and/or caregivers are aware that any significant change in condition o r worsening of symptoms should prompt an immediate return to this or the closest emergency department or a call to 911. Extremity Inj Discharge NoteThe patient is discharged home wit h supportive care, a plan for pain control, and follow-up instructions that detail what to expec t over the next 48 hours andwhat symptoms should prompt immediate return to the ED, including the symptoms of compartment syndrome. Follow-up instructions have been explained in detail tothe patient, and the instructions have been provided in written format. The patient is comfortable with the plan of care and has expressed an understanding of the discharge instructions. The patient is aware that any significant change in condition or worsening of symptoms should prompt an immediate call to the primary or designated physician. If that is not successful the patient should call or return to this or the closest emergency department or call 911. Matthew Ford 12/31/22 1909:Patient Discharge Departure Discharge/Care PlanReferralsProvider Referral: Nakul Conner DPM Follow-Up: As Needed Address: [address] [place] [place] [address] Provide r Referral: Jo Weller Follow-Up: 2-3 Day s Address: [address] [place] [address] [address] [place] [address] Supervising Physician Note MidLv Saw Pt AloneI have reviewed the PA/DRILLER AND REAMER's note and plan of care. I was available for consultation a s needed at all times during the patient's visit i n the emergency department. I agree with the clinical impression, plan and disposition. at 2009 at 1910RPT #:[id number] OF REPORTEDEmerjohnson regional medical center department [id number].[id number] a ilable for patient [id number]
[2023-07-22] MEDS ORDERED: HYDROCODONE/CHLORPHEN 5 ML/OSYR ONE (21:46)
[2023-07-22] MEDS ORDERED: IBUPROFEN 400 MG TAB ONE (21:46)
[2023-07-22] MEDS ORDERED: OSELTAMIVIR 75 MG CAP PO ONE (21:46)
--- NOTE | 2023-07-22 21:48 | RAD REPORT ---
EXAM DESCRIPTION: RAD - Chest Pa And Lat (2 Views) - 07/22/2023 9:42 pm CLINICAL HISTORY: Cough;SOB Chest pain. FINDINGS: The lungs are clear. The heart is normal in size. No displaced fractures. IMPRESSION: No acute or concerning finding suspected.
--- NOTE | 2023-07-22 22:44 | ER ---
Nurse's Notes [facility] Name: Meghan Edwards Age: 47 yrs Sex: Female : 1975 Arrival Date: 07/22/2023 Time: 20:49 Bed IW3 Private MD: Diagnosis: Influenza due to other identified influenza virus with other respiratory manifestations Presentation: 07/22 21:22 Chief complaint: Patient states: tested positive for flu B today. symptoms began lg3 yesterday. chills, body aches, cough, congestion. Coronavirus screen: Client presents with at least one sign or symptom that may indicate coronavirus-19. Standard/surgical mask placed on the client. Ebola Screen: No symptoms or risks identified at this time. Initial Sepsis Screen: Does the patient meet any 2 criteria? No. Patient's initial sepsis screen is negative. Does the patient have a suspected source of infection? No. Patient's initial sepsis screen is negative. Risk Assessment: Do you want to hurt yourself or someone else? Patient reports no desire to harm self or others. Onset of symptoms was July 21, 2023. 21:22 Method Of Arrival: Ambulatory lg3 21:22 Acuity: LALI 3 lg3 Triage Assessment: 21:25 General: Appears in no apparent distress. uncomfortable, Behavior is calm, cooperative. lg3 Pain: Complains of pain in throat, head, body aches. EENT: No deficits noted. Reports nasal congestion nasal discharge. Neuro: No deficits noted. Guerra Agitation-Sedation Scale (RASS): 0 - Alert and Calm Level of Consciousness is awake, alert, obeys commands, Oriented to person, place, time, situation. Cardiovascular: No deficits noted. Denies chest pain, Capillary refill < 3 seconds Clubbing of nail beds is absent JVD is absent Patient's skin is warm and dry. Respiratory: Reports shortness of breath cough that is pain with cough Onset: The symptoms/episode began/occurred yesterday, the patient has moderate shortness of breath. GI: No deficits noted. No signs and/or symptoms were reported involving the gastrointestinal system. : No deficits noted. No signs and/or symptoms were reported regarding the genitourinary system. Derm: No deficits noted. No signs and/or symptoms reported regarding the dermatologic system. Skin is intact, is healthy with good turgor, Skin is dry, Skin is normal, Skin temperature is warm. Musculoskeletal: No deficits noted. Circulation, motion, and sensation intact. Range of motion: intact in all extremities. 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 - Social history:: Smoking status: Reported history of juuling and/or vaping. Patient/guardian denies using alcohol, street drugs. Screenin:02 [facility] ED Fall Risk Assessment (Adult) History of falling in the last 3 months, lg3 including since admission No falls in past 3 months (0 pts). Abuse screen: Denies threats or abuse. Denies injuries from another. Nutritional screening: No deficits noted. Tuberculosis screening: No symptoms or risk factors identified. Assessment: 22:58 General: see triage assessment. lg3 23:03 Cardiovascular: No deficits noted. Rhythm is regular. Respiratory: Airway is patent lg3 Respiratory effort is even, unlabored, Breath sounds are clear bilaterally. Vital Signs: 21:22 BP 137 / 97; Pulse 64; Resp 17 S; Temp 98.4(TE); Pulse Ox 100% on R/A; Weight 79.38 kg; lg3 Height 5 ft. 7 in. (R); 23:03 BP 133 / 89; Pulse 68; Resp 17 S; Pulse Ox 100% on R/A; lg3 21:22 Body Mass Index 27.41 (79.38 kg, 170.18 cm) lg3 ED Course: 20:52 Patient arrived in ED. gm2 21:00 Howard Esqueda PA is PHCP. cp 21:00 Francois Cabrera MD is Attending Physician. cp 21:25 Triage completed. lg3 21:25 Arm band placed on left wrist. lg3 21:44 XRAY Chest Pa And Lat (2 Views) In Process Unspecified. EDMS 23:02 Patient has correct armband on for positive identification. lg3 23:02 No provider procedures requiring assistance completed. Patient did not have IV access lg3 during this emergency room visit. Administered Medications: 21:34 Drug: Ibuprofen PO 800 mg PO once Route: PO; lg3 23:02 Follow up: Response: No adverse reaction lg3 21:34 Drug: Tussionex Pennkinetic ER PO Suspension 5 ml PO once Route: PO; lg3 23:02 Follow up: Response: No adverse reaction; Marked relief of symptoms lg3 21:35 Drug: Oseltamivir PO 75 mg PO once Route: PO; lg3 23:02 Follow up: Response: No adverse reaction lg3 Medication: 23:03 VIS not applicable for this client. lg3 Outcome: 22:43 Discharge ordered by . minoo 23:02 Discharged to home ambulatory, with significant other, lg3 23:02 Condition: stable 23:02 Discharge instructions given to patient, Instructed on discharge instructions, follow up and referral plans. medication usage, Demonstrated understanding of instructions, follow-up care, medications, Prescriptions given X 2, 23:04 Patient left the ED. lg3 Signatures: Dispatcher [employer] EDMS Howard Esqueda PA PA cp Gibson, Lacie, RN RN lg3 Amanda Watt gm2
--- NOTE | 2023-07-22 22:44 | EDPHYS ---
Physician Documentation [facility] Name: Meghan Edwards Age: 47 yrs Sex: Female : 1975 Arrival Date: 07/22/2023 Time: 20:49 Bed IW3 Private MD: ED Physician Francois Cabrera HPI: 07/21 21:30 This 47 yrs old Female presents to ER via Ambulatory with complaints of Shortness Of cp Breath, Flu Symptoms, Headache. 21:30 The patient has shortness of breath with light activity. Onset: The symptoms/episode cp began/occurred today. Associated signs and symptoms: Pertinent positives: chest pain, non-productive cough, body aches, headache, congestion, Pertinent negatives: fever. Severity of symptoms: in the emergency department the symptoms are unchanged. Patient reports symptoms started yesterday. Seen at urgent care earlier today and tested positive for influenza B. COVID-19 test negative. 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 - Social history:: Smoking status: Reported history of juuling and/or vaping. Patient/guardian denies using alcohol, street drugs. ROS: 21:35 Constitutional: Positive for body aches, chills, Negative for poor PO intake, cp 21:35 Eyes: Negative for injury, pain, redness, and discharge, cp 21:35 ENT: Positive for sore throat, Negative for drainage from ear(s), difficulty swallowing, difficulty handling secretions, 21:35 Cardiovascular: Negative for chest pain, edema, 21:35 Respiratory: Positive for cough, with no reported sputum, shortness of breath, Negative for wheezing, 21:35 Abdomen/GI: Negative for abdominal pain, vomiting, diarrhea, constipation, 21:35 Back: Negative for injury or acute deformity, 21:35 Skin: Negative for rash, 21:35 Neuro: Positive for headache, Negative for altered mental status, weakness, 21:35 All other systems are negative, Exam: 21:40 Constitutional: The patient appears in no acute distress, alert, awake, non-toxic, well cp developed, well nourished, obviously ill, uncomfortable, 21:40 Head/Face: Normocephalic, atraumatic. cp 21:40 Eyes: Periorbital structures: appear normal, Conjunctiva: normal, no exudate, no injection, Sclera: no appreciated abnormality, Lids and lashes: appear normal, bilaterally, 21:40 ENT: External ear(s): are unremarkable, Ear canal(s): are normal, clear, TM's: bulging, is not appreciated, bilaterally, dullness, bilaterally, erythema, is not appreciated, bilaterally, Nose: is normal, Mouth: Lips: moist, Oral mucosa: pink and intact, moist, Posterior pharynx: Airway: no evidence of obstruction, patent, Tonsils: no enlargement, no exudate, erythema, that is mild, exudate, is not appreciated, 21:40 Neck: ROM/movement: is normal, is supple, no meningismus, no nuchal rigidity, 21:40 Chest/axilla: Inspection: normal, 21:40 Cardiovascular: Rate: normal, Rhythm: regular, 21:40 Respiratory: the patient does not display signs of respiratory distress, Respirations: normal, no use of accessory muscles, no retractions, labored breathing, is not present, Breath sounds: stridor, is not appreciated, + upper airway congestion. wheezing: is not appreciated, 21:40 Abdomen/GI: Exam negative for discomfort, distension, guarding, Inspection: abdomen appears normal, 21:40 Neuro: Orientation: to person, place \T\ time. Mentation: is normal, Motor: moves all fours, strength is normal, Vital Signs: 21:22 BP 137 / 97; Pulse 64; Resp 17 S; Temp 98.4(TE); Pulse Ox 100% on R/A; Weight 79.38 kg; lg3 Height 5 ft. 7 in. (R); 23:03 BP 133 / 89; Pulse 68; Resp 17 S; Pulse Ox 100% on R/A; lg3 21:22 Body Mass Index 27.41 (79.38 kg, 170.18 cm) lg3 MDM: 21:45 Patient medically screened. cp 22:43 Data reviewed: vital signs, nurses notes, lab test result(s), radiologic studies, plain cp films. 22:43 Differential diagnosis: pneumonia, Sepsis. I considered the following discharge cp prescriptions or medication management in the emergency department Medications were administered in the Emergency Department. See MAR. Independent interpretation of the following test(s) in the Emergency Department X-Ray: My interpretation is images of chest negative for focal pneumonia. Care significantly affected by the following chronic conditions: Diabetes, Hypertension. Counseling: I had a detailed discussion with the patient and/or guardian regarding the historical points, exam findings, and any diagnostic results supporting the discharge/admit diagnosis, lab results, radiology results, to return to the emergency department if symptoms worsen or persist or if there are any questions or concerns that arise at home. ED course: Patient tested positive for influenza B at urgent care today. Will prescribe Tamiflu. VSS. Will discharge to home for continued monitoring. 07/22 21:28 Order name: Strep; Complete Time: 22:42 lg3 07/22 22:42 Interpretation: Reviewed. cp 07/22 22:14 Order name: Throat Culture EDVT 07/22 21:27 Order name: XRAY Chest Pa And Lat (2 Views); Complete Time: 22:37 cp 07/22 22:38 Interpretation: Report reviewed. cp Administered Medications: 21:34 Drug: Ibuprofen PO 800 mg PO once Route: PO; lg3 23:02 Follow up: Response: No adverse reaction lg3 21:34 Drug: Tussionex Pennkinetic ER PO Suspension 5 ml PO once Route: PO; lg3 23:02 Follow up: Response: No adverse reaction; Marked relief of symptoms lg3 21:35 Drug: Oseltamivir PO 75 mg PO once Route: PO; lg3 23:02 Follow up: Response: No adverse reaction lg3 Disposition Summary: 07/22/23 22:43 Discharge Ordered Notes: Location: Home cp Problem: new cp Symptoms: are unchanged cp Condition: Stable cp Diagnosis - Influenza due to other identified influenza virus with other respiratory cp manifestations Followup: cp - With: Private Physician - When: 2 - 3 days - Reason: Worsening of condition Discharge Instructions: - Discharge Summary Sheet cp - Influenza, Adult cp Forms: - Medication Reconciliation Form cp - Thank You Letter cp - Antibiotic Education cp - Prescription Opioid Use cp - Patient Portal Instructions cp - Leadership Thank You Letter cp Prescriptions: - Ibuprofen 800 mg Oral Tablet - take 1 tablet ORAL route every 8 hours As needed take with food; 30 tablet; cp Refills: 0, Product Selection Permitted - Tamiflu 75 mg Oral capsule - take 1 tablet ORAL route every 12 hours for 5 days; 10 tablet; Refills: 0, cp Product Selection Permitted Addendum: 07/24/2023 03:09 Co-signature as Attending Physician, Francois Cabrera MD I agree with the assessment s p4 and plan of care. I reviewed the patient's care provided by the Advanced Practice Provider and agree with the diagnosis and treatment plan. Signatures: Dispatcher [employer] EDMS Howard Esqueda PA PA cp Lindsey Emerson RN RN lg3 Francois Cabrera MD MD sp4 Corrections: (The following items were deleted from the chart) 07/22 22:42 22:38 This 47 yrs old Female presents to ER via Ambulatory with complaints of Shortness cp Of Breath, Flu Symptoms, Headache. cp
[2023-07-22 23:44] VITALS: TEMP 98.4; O2SAT 100
[2023-07-22 23:45] VITALS: BP 133/89
== END 2023-07-22 23:04 | disposition home or self-care (01) ==
LOC: ER 20:49
DX: J10.1 Influenza due to other identified influenza virus with other respiratory manifestations (principal); Z88.5 Allergy status to narcotic agent
CPT/HCPCS: 71046; 87070; 87081; 99283

== ENCOUNTER 2023-11-15 23:54 | Emergency (ER) | payer OTHER ==
[2023-11-16] MEDS ORDERED: ACETAMINOPHEN 500 MG TAB ONE (00:58)
[2023-11-16] MEDS ORDERED: METOCLOPRAMIDE 10 MG/2mL INJ ONE (00:58)
[2023-11-16] MEDS ORDERED: DIPHENHYDRAMINE 50 MG/ML VIAL ONE (00:58)
[2023-11-16] MEDS ORDERED: Magnesium Sulfate 2gm IVPB 2 G/50 ML BAG IV ONE (00:59)
[2023-11-16] MEDS ORDERED: NA CHLORIDE 0.9% 1,000 ML ONE (00:59)
[2023-11-16 02:41] LABS: Absolute Basophils 0.1 K/uL (0-0.5); Absolute Eosinophils 0.2 K/uL (0-0.5); Absolute Lymphocytes (CBC) 2.3 K/uL (0.7-4.9); Absolute Monocytes 0.6 K/uL (0.1-1.3); Absolute Neutrophil 4.1 K/uL (1.8-8.0); Eosinophils % 2.5 % (0-4.4); Hematocrit 37.5 % (36.0-45.0); Hemoglobin 12.6 g/dL (12.0-15.0); Lymphocytes % 31.9 % (15.3-44.8); MCH 29.1 pg (27.0-35.0); MCHC 33.6 g/dL (32.0-36.0); MCV 86.8 fL (80-100); MPV 8.4 fL (7.6-11.3); Monocytes % 8.6 % (3.3-12.3); Platelets 313 thou/uL (152-406); RBC Red Blood Cell Count 4.32 M/uL (3.86-4.86); Red Cell Distribution Width 12.9 % (12.1-15.2)
[2023-11-16 03:03] LABS: Albumin 3.7 g/dL (3.4-5.0); Anion Gap 7.8 mEq/L (5.0-15.0); Bilirubin Total 0.2 mg/dL (0.2-1.0); Globulin 3.6 g/dL (2.3-3.5); Potassium 3.8 mEq/L (3.5-5.1); Protein, Total 7.3 g/dL (6.4-8.2)
--- NOTE | 2023-11-16 03:21 | EDPHYS ---
Physician Documentation [facility] Name: Meghan Zuluaga Age: 47 yrs Sex: Female : 1975 Arrival Date: 11/15/2023 Time: 23:54 Bed 12 Private MD: ED Physician Shaheed Langley HPI: 11/15 04:19 This 47 yrs old Female presents to ER via Ambulatory with complaints of Headache, Pain. rt 04:19 Patient presents to the ED with a right-sided headache. Reports photophobia without rt phonophobia. Reports nausea without vomiting. Denies stiff neck. This started this afternoon. This for prior history of migraines, states that this is worse. Denies other acute complaints, symptoms are moderate in severity, no other aggravating or alleviating factors.. Historical: - Allergies: 00:17 Codeine; ha1 - PMHx: 00:17 Anxiety; Diabetes - NIDDM; Hypertension; ha1 - PSHx: 00:17 Appendectomy; Gastric Sleeve-2019; ha1 - Immunization history:: Adult Immunizations up to date. - Social history:: Smoking status: Reported history of juuling and/or vaping. - Family history:: not pertinent. ROS: 04:19 Constitutional: Negative for fever, chills, and weight loss, Cardiovascular: Negative rt for chest pain, palpitations, and edema, Respiratory: Negative for shortness of breath, cough, wheezing, and pleuritic chest pain, MS/Extremity: Negative for injury and deformity, Skin: Negative for injury, rash, and discoloration, Psych: Negative for depression, anxiety, suicide ideation, homicidal ideation, and hallucinations, 04:19 Abdomen/GI: Positive for nausea, Negative for abdominal pain, 04:19 Neuro: Positive for headache, Negative for altered mental status, Exam: 04:19 Constitutional: This is a well developed, well nourished patient who is awake, alert, rt and in no acute distress. Chest/axilla: Normal chest wall appearance and motion. Nontender with no deformity. No lesions are appreciated. Cardiovascular: Regular rate and rhythm with a normal S1 and S2. No gallops, murmurs, or rubs. Normal PMI, no JVD. No pulse deficits. Respiratory: Lungs have equal breath sounds bilaterally, clear to auscultation and percussion. No rales, rhonchi or wheezes noted. No increased work of breathing, no retractions or nasal flaring. Abdomen/GI: Soft, non-tender, with normal bowel sounds. No distension or tympany. No guarding or rebound. No evidence of tenderness throughout. Skin: Warm, dry with normal turgor. Normal color with no rashes, no lesions, and no evidence of cellulitis. MS/ Extremity: Pulses equal, no cyanosis. Neurovascular intact. Full, normal range of motion. Neuro: Awake and alert, GCS 15, oriented to person, place, time, and situation. Cranial nerves II-XII grossly intact. Motor strength 5/5 in all extremities. Sensory grossly intact. Cerebellar exam normal. Normal gait. 04:19 Head/face: No tenderness over temporal arteries, normocephalic. 04:19 Neck: Supple, full range of motion, no meningismus, Vital Signs: 00:17 BP 171 / 102; Pulse 67; Resp 17 S; Temp 97.6(T); Pulse Ox 99% on R/A; ha1 01:00 BP 125 / 69; Pulse 67; Resp 17 S; Pulse Ox 100% on R/A; ha1 02:00 BP 116 / 76; Pulse 65; Resp 17 S; Pulse Ox 99% on R/A; ha1 03:00 BP 113 / 77; Pulse 65; Resp 16; Temp 98; Pulse Ox 98% ; cm10 MDM: 00:26 Patient medically screened. rt 04:19 Differential diagnosis: Migraine, tumor, intracranial hemorrhage. Data reviewed: vital rt signs, nurses notes, lab test result(s), radiologic studies. I considered the following discharge prescriptions or medication management in the emergency department Medications were administered in the Emergency Department. See MAR. Independent interpretation of the following test(s) in the Emergency Department CT Scan: My interpretation is No intracranial hemorrhage seen on my interpretation of CT scan images. Test considered but Not performed: Labs: Neck is supple, no meningismus, symptoms not consistent with subarachnoid hemorrhage, lumbar puncture is not indicated. Care significantly affected by the following chronic conditions: Hypertension. Counseling: I had a detailed discussion with the patient and/or guardian regarding the historical points, exam findings, and any diagnostic results supporting the discharge/admit diagnosis, lab results, radiology results, the need for outpatient follow up. Response to treatment: the patient's symptoms have resolved after treatment. 03 00:34 Order name: CBC with Diff; Complete Time: 02:57 rt 03 00:34 Order name: CMP; Complete Time: 03:10 rt 11/15 00:35 Order name: CT Head Brain wo Cont rt Administered Medications: 01:14 Drug: NS 0.9% IV 1000 ml IV at 1 bolus Per protocol; 1000 mL bolus Route: IV; Rate: 1 cg bolus; Site: right antecubital; 03:00 Follow up: IV Status: Completed infusion; IV Intake: 1000ml cm10 01:14 Drug: Acetaminophen PO 1000 mg PO once Route: PO; cg 03:00 Follow up: Response: No adverse reaction cm10 01:16 Drug: metoCLOPramide IVP 10 mg IVP once; over 1 to 2 minutes Route: IVP; Site: right cg antecubital; 03:00 Follow up: Response: No adverse reaction cm10 01:16 Drug: diphenhydrAMINE IVP 25 mg IVP once Route: IVP; Site: right antecubital; 03:00 Follow up: Response: No adverse reaction cm10 01:16 Drug: Magnesium Sulfate IVPB 2 grams IVPB once over 2 hrs Route: IVPB; Infused Over: 2 cg hrs; Site: right antecubital; 03:15 Follow up: Response: No adverse reaction; IV Status: Completed infusion; IV Intake: [id number] Disposition Summary: 11/16/23 03:20 Discharge Ordered Notes: Location: Home rt Problem: new rt Symptoms: are resolved rt Condition: Stable rt Diagnosis - Headache rt Followup: rt - With: Private Physician - When: 2 - 3 days - Reason: Discharge Instructions: - Discharge Summary Sheet rt - General Headache Without Cause rt Forms: - Medication Reconciliation Form rt - Thank You Letter rt - Antibiotic Education rt - Prescription Opioid Use rt - Patient Portal Instructions rt - Leadership Thank You Letter rt - Work release form pf1 Signatures: Dispatcher [employer] Eula Nguyen RN RN Latesha Farr RN RN ha1 Shaheed Langley MD MD rt Alecia Nice RN cm10
--- NOTE | 2023-11-16 03:21 | ER ---
Nurse's Notes [facility] Name: Meghan Zuluaga Age: 47 yrs Sex: Female : 1975 Arrival Date: 11/15/2023 Time: 23:54 Bed 12 Private MD: Diagnosis: Headache Presentation: 11/15 00:17 Chief complaint: Patient states: I have been having a really bad migraine since Saturday [facility] pain 8/10. previous similar episodes before. 00:17 Coronavirus screen: Vaccine status:. Ebola Screen: No symptoms or risks identified at [facility] this time. Initial Sepsis Screen: Does the patient meet any 2 criteria? No. Patient's initial sepsis screen is negative. Does the patient have a suspected source of infection? No. Patient's initial sepsis screen is negative. Risk Assessment: Do you want to hurt yourself or someone else? Patient reports no desire to harm self or others. Onset of symptoms was November 11, 2023. 00:17 Method Of Arrival: Ambulatory [facility] 00:17 Acuity: LALI 4 [facility] Triage Assessment: 00:17 Headache History: The patient has had previous headaches and this one is similar to [facility] previous episodes. General: Appears uncomfortable, Behavior is cooperative, appropriate for age. Pain: Complains of pain in head Pain does not radiate. Pain currently is 8 out of 10 on a pain scale. Pain began gradually, 2-3 days ago. Also complains of. Neuro: Level of Consciousness is awake, alert, obeys commands, Oriented to person, place, time, situation, Reports headache in entire. Cardiovascular: Patient's skin is warm and dry. Respiratory: Airway is patent Respiratory effort is even, unlabored, Respiratory pattern is regular, symmetrical. Historical: - Allergies: 00:17 Codeine; ha1 - PMHx: 00:17 Anxiety; Diabetes - NIDDM; Hypertension; ha1 - PSHx: 00:17 Appendectomy; Gastric Sleeve-2019; ha1 - Immunization history:: Adult Immunizations up to date. - Social history:: Smoking status: Reported history of juuling and/or vaping. - Family history:: not pertinent. Screenin:[address] [facility] ED Fall Risk Assessment (Adult) History of falling in the last 3 months, cm10 including since admission No falls in past 3 months (0 pts) Confusion or Disorientation No (0 pts) Intoxicated or Sedated No (0 pts) Impaired Gait No (0 pts) Mobility Assist Device Used No (0 pt) Altered Elimination No (0 pt) Score/Fall Risk Level 0 - 2 = Low Risk Oriented to surroundings, Maintained a safe environment, Hourly rounding (assess needs \T\ fall precautionary measures) done. Abuse screen: Denies threats or abuse. Denies injuries from another. Nutritional screening: No deficits noted. Tuberculosis screening: No symptoms or risk factors identified. Assessment: 00:17 General: see triage assessment . ha1 01:00 Reassessment: Patient and/or family updated on plan of care and expected duration. Pain ha1 level reassessed. Patient is alert, oriented x 3, equal unlabored respirations, skin warm/dry/pink. 02:00 Reassessment: Patient and/or family updated on plan of care and expected duration. Pain ha1 level reassessed. Patient is alert, oriented x 3, equal unlabored respirations, skin warm/dry/pink. Patient states feeling better. Patient states symptoms have improved. Vital Signs: 00:17 BP 171 / 102; Pulse 67; Resp 17 S; Temp 97.6(T); Pulse Ox 99% on R/A; ha1 01:00 BP 125 / 69; Pulse 67; Resp 17 S; Pulse Ox 100% on R/A; ha1 02:00 BP 116 / 76; Pulse 65; Resp 17 S; Pulse Ox 99% on R/A; ha1 03:00 BP 113 / 77; Pulse 65; Resp 16; Temp 98; Pulse Ox 98% ; cm10 ED Course: 00:06 Patient arrived in ED. gm2 00:12 Shaheed Langley MD is Attending Physician. rt 00:54 CMP Sent. cg 00:54 CBC with Diff Sent. cg 01:00 No provider procedures requiring assistance completed. IV discontinued, intact, cm10 bleeding controlled, No redness/swelling at site. Pressure dressing applied. 01:00 Patient has correct armband on for positive identification. Bed in low position. Call cm10 light in reach. Provided Education on: ER process and procedures.. Pulse ox on. NIBP on. 01:00 Arm band placed on Patient placed in an exam room, on a stretcher. cm10 01:02 CT Head Brain wo Cont In Process Unspecified. EDMS 02:25 Triage completed. ha1 Administered Medications: 01:14 Drug: NS 0.9% IV 1000 ml IV at 1 bolus Per protocol; 1000 mL bolus Route: IV; Rate: 1 cg bolus; Site: right antecubital; 03:00 Follow up: IV Status: Completed infusion; IV Intake: 1000ml cm10 01:14 Drug: Acetaminophen PO 1000 mg PO once Route: PO; cg 03:00 Follow up: Response: No adverse reaction cm10 01:16 Drug: metoCLOPramide IVP 10 mg IVP once; over 1 to 2 minutes Route: IVP; Site: right cg antecubital; 03:00 Follow up: Response: No adverse reaction cm10 01:16 Drug: diphenhydrAMINE IVP 25 mg IVP once Route: IVP; Site: right antecubital; cg 03:00 Follow up: Response: No adverse reaction cm10 01:16 Drug: Magnesium Sulfate IVPB 2 grams IVPB once over 2 hrs Route: IVPB; Infused Over: 2 cg hrs; Site: right antecubital; 03:15 Follow up: Response: No adverse reaction; IV Status: Completed infusion; IV Intake: [id number] Medication: 01:00 VIS not applicable for this client. cm10 Intake: 03:00 IV: 1000ml; Total: 1000ml. cm10 03:15 IV: 50ml; Total: 1050ml. cm10 Outcome: 03:20 Discharge ordered by MD. rt 03:32 Discharged to home ambulatory, with family, pf1 03:32 Condition: improved 03:32 Discharge instructions given to patient, Instructed on discharge instructions, follow up and referral plans. Demonstrated understanding of instructions, follow-up care, 03:33 Patient left the ED. pf1 Signatures: Dispatcher [employer] EDMS Eula Jasso RN RN Latesha Farr RN RN ha1 Shaheed Langley MD MD rt Marlen Ho RN RN pf1 Alecia Nice RN RN 10 Amanda Watt 2
[2023-11-16 03:51] VITALS: BP 116/76; TEMP 97.6; O2SAT 99
--- NOTE | 2023-11-17 15:21 | RAD REPORT ---
EXAM DESCRIPTION: CT - Head Brain Wo Cont - 11/16/2023 6:34 am CLINICAL HISTORY: HEADACHE COMPARISON: CT Head, 01-24-2020. TECHNIQUE: Contiguous axial images of the brain were obtained without the administration of intraven ous contrast. This exam was performed according to our departmental dose-optimization program, which includes automated exposure control, adjustment of the mA and/or kV according to patient size and/or use of iterative reconstruction technique. FINDINGS: There is no acute intracranial hemorrhage or mass effect. Ventricular system is within nor mal limits. There is adequate fernandez-white matter differentiation. There is no skull fracture. The visu alized paranasal sinuses and mastoid air cells are within normal limits. IMPRESSION: No acute intracranial abnormalities. Electronically signed by: Jaden Sullivan MD 11/16/2023 01:28 AM CDT Due to temporary technical issues with the PACS/Fluency reporting system, reports are being signed by the in house radiologists without review as a courtesy to insure prompt reporting. The interpreting radiologist is fully responsible for the content of the report
== END 2023-11-16 03:33 | disposition home or self-care (01) ==
LOC: ER 23:54
DX: R51.9 Headache, unspecified (principal); Z88.5 Allergy status to narcotic agent
CPT/HCPCS: 96365; 85025; 36415; 80053; 70450; 96375; 99284; 96366; J3475; J2765; J1200; J7030

== ENCOUNTER 2023-12-18 00:43 | Emergency (ER) | payer OTHER ==
--- OUTSIDE RECORDS SUMMARY | 2023-12-18 00:48 | XMS REPORT | Continuity of Care Document ---
Author Name Unknown Address [address] [place] [address] [facility] thconnect Address [address] [place] [address] Care Team Providers Care Forging Machine Hand Name Role Phone Pcp, Patient Does Not Have A Primary Care Physic imani Jabari Leyva Attending Clinician Unavailable Macarena Pretty Attending Clinician UnavailChris Trejo Attending Clinician Unavailable DELBERT KEITH Attending Clinician Unavailable Fabrizio Manzano MD Attending Clinician [phone] Delbert Keith MD Attending Clinician [phone] ANAT NICKERSON Attending Clinician Unavailab Anat Han DO Attending Clinician [phone] Matthew Ford Attending Clinician Unavailmicah HERRMANN_Bhavin_Markus Attending Clinician Unavail able YUE PHELPS Attending Clinician Unavailable Yue Rivers Attending Clinician [phone] Gelacio Esposito DO Attending Clinician [phone] GELACIO ESPOSITO Attending Clinician Unavailable Doctor Unassigned, [place] Attending Clinician [facility], Adc Fam Pob I Attending Clinician Unavailab Lizzy Khalil Attending Clinician [phone] LIZZY WEBSTER Attending Clinician Unavailable Virgen MARTINEZ, Nataliya Funk Attending Clinician Unavail able CASI KING Attending Clinician Unavailable Jabari Leyva Admitting Clinician Unavailable Physician, No Primary or Family Admitting Clinic imani Unavailable DELBERT KEITH Admitting Clinician Unavailable Delbert Keith MD Admitting Clinician [phone] MONTEZ_Bhavin_Rafael_ Admitting Clinician Unavail able YUE PHELPS Admitting Clinician Unavailable GELACIO ESPOSITO Admitting Clinician Unavailable CASI KING Admitting Clinician Unavailable Payers Payer Name Policy Type Policy Number Effective Date Expirati on Date Source HIM LENY FROM [facility] [id number] 2021 00:00:00 [place] [id number] ([facility]) [id number] Problems Condition Name Condition Details Condition Category Status Onset Date Resolution Date Last Treatment Date Treating Clinician Comments Source Epigastric pain Epigastric pain Disease Active 01-29 00:00: 00 [facility] Uncontroll able nausea and vomiting Uncontroll able nausea and vomiting Disease Active 12-28 00:00: 00 [facility] Kidney stone Kidney stone Disease Active 10-29 00:00: 00 [facility] Nephrolith iasis Nephrolith iasis Disease Active 2015-08 00:00: 00 [facility] Obesity Obesity Disease Active 05-13 00:00: 00 [facility] Allergies, Adverse Reactions, Alerts Allergy Name Allergy Type Status Severity Reaction(s) Onset Date Inactive Date Treating Clinician Comments Source codeine DA Active DC NAUSEA 03-12 00:00: 00 [facility] No Known Allergie s DA Active U 12-29 00:00: 00 [facility] Hydrocod one Propensi ty to adverse reaction s Active Nausea and/or Vomiting 12-15 00:00: 00 [facility] HYDROCOD ONE DRUG INGREDI Active N/V 12-15 00:00: 00 [facility] NO KNOWN ALLERGIE S Drug Class Active [facility] Social History Social Habit Start Date Stop Date Quantity Comments Source History of tobacco use Passive smoker [facility] History SDOH Alcohol Std Drinks [facility] History SDOH Alcohol Binge [facility] History SDOH Social Connections Get Together [facility] History SDOH Social Connections Scientology [facility] History SDOH Social Connections Membership [facility] History SDCA Social Connections Meetings [facility] At [facility] Alcohol intake 2023-01-31 00:00:00 2023-01-31 00:00:00 Current non-drinker of alcohol (finding) [facility] Tobacco use and exposure 2023-01-31 00:00:00 2023-01-31 00:00:00 Smokeless tobacco non-user [facility] History SDOH Alcohol Frequency 2023-01-30 00:00:00 2023-01-30 00:00:00 1 [facility] History SDOH Social Connections Phone 2023-01-30 00:00:00 2023-01-30 00:00:00 5 [facility] History SDOH Social Connections Living 2023-01-30 00:00:00 2023-01-30 00:00:00 5 [facility] History SDOH Physical Activity DPW 2023-01-30 00:00:00 2023-01-30 00:00:00 3 [facility] History SDOH Physical Activity MPS 2023-01-30 00:00:00 2023-01-30 00:00:00 2 [facility] History SDOH Financial 2023-01-30 00:00:00 2023-01-30 00:00:00 5 [facility] History SDOH Food Worry 2023-01-30 00:00:00 2023-01-30 00:00:00 1 [facility] History SDOH Food Scarcity 2023-01-30 00:00:00 2023-01-30 00:00:00 1 [facility] History SDOH Transport Med 2023-01-30 00:00:00 2023-01-30 00:00:00 2 [facility] History SDOH Transport Non-Med 2023-01-30 00:00:00 2023-01-30 00:00:00 2 [facility] History SDOH Housing Unable to Pay 2023-01-30 00:00:00 2023-01-30 00:00:00 2 [facility] History SDOH Housing Places Lived 2023-01-30 00:00:00 2023-01-30 00:00:00 1 [facility] History SDOH Housing Homeless Last Year 2023-01-30 00:00:00 2023-01-30 00:00:00 2 [facility] History of Social function 2023-01-30 00:00:00 2023-01-30 00:00:00 [facility] Exposure to SARS-CoV-2 (event) 2022-12-30 00:00:00 2023-01-09 06:20:00 Not sure [facility] Smoking Status Start Date Stop Date Source Tobacco smoking consumption unknown [facility] Ex-smoker 2023-01-31 00:00:00 2023-01-31 00:00:00 [facility] Medications Ordered Medication Name Filled Medication Name Start Date Stop Date Current Medication? Ordering Clinician Indication Dosage Frequency Signature (SIG) Comments Components Source hydrOXYzine (ATARAX) tablet 10 mg 01-31 14:00: 00 Yes 10mg 10 mg, Oral, DAILY, First dose on Hoa 01/31/23 at 0900, Until Discontinu ed, Routine Univers [facility] buPROPion (WELLBUTRIN ) tablet 100 mg 01-31 14:00: 00 Yes 100mg 100 mg, Oral, DAILY, First dose on Hoa 01/31/23 at 0900, Until Discontinu ed, Routine [facility] buPROPion 100 mg tablet 01-31 11:24: 28 Yes 100mg Take 1 tablet by mouth in the morning. [facility] zolpidem (AMBIEN) 10 mg tablet 01-31 11:24: 28 Yes 10mg Take 1 tablet by mouth at bedtime. [facility] HYDROXYZINE HCL ORAL 01-31 11:24: 28 Yes 10mg Take 10 mg by mouth. [facility] zolpidem (AMBIEN) tablet 10 mg 01-31 02:00: 00 Yes 10mg 10 mg, Oral, QHS, First dose on Sat01/30/23 at 2100, Until Discontinu ed, Routine Univers [facility] hydroCHLORO thiazide (ESIDRIX) tablet 12.5 mg 01-31 01:00: 00 Yes 12.5mg 12.5 mg, Oral, DAILY, First dose on Sat01/30/23 at 2000, Until Discontinu ed, Routine Univers [facility] pantoprazol e (PROTONIX) EC tablet 40 mg 01-30 14:00: 00 Yes 40mg 40 mg, Oral, DAILY, First dose on Sat01/30/23 at 0900, Until Discontinu ed, Routine Univers [facility] aspirin chewable tablet 81 mg 01-30 14:00: 00 Yes 81mg 81 mg, Oral, DAILY, First dose on Sat01/30/23 at 0900, Until Discontinu ed, Routine Univers [facility] Sliding Scale Insulin - Lispro (HumaLOG) 01-30 13:00: 00 Yes Subcutaneo us, TID MEALS+HS, First dose on Sat01/30/23 at 0800, Until Discontinu ed, Routine Univers [facility] glipiZIDE (GLUCOTROL) tablet 10 mg 01-30 12:30: 00 Yes 10mg 10 mg, Oral, BIDAC, First dose on Sat01/30/23 at 0730, Until Discontinu ed, Routine Univers [facility] dicyclomine (BENTYL) capsule 20 mg 01-30 02:45: 00 Yes 20mg 20 mg, Oral, QID, First dose on Sat01/29/23 at 2145, Until Discontinu ed, Routine Univers [facility] glucagon (GLUCAGEN DIAGNOSTIC KIT) injection 1 mg 01-30 02:35: 17 Yes 1mg 1 mg, Intramuscu lar, PRN, Starting on Sat01/29/23 at 2135, Until Discontinu ed, LAKISHA, Blood Glucose < or = 70 mg/dL and patient is NPO, unable to swallow or has mental changes. [facility] dextrose 50 % in water (D50W) injection 25 mL 01-30 02:35: 17 Yes 25mL 25 mL, Slow IV Push, PRN, Starting on Sat01/29/23 at 2135, Until Discontinu ed, LAKISHA, Blood Glucose < or = 70 mg/dL and patient is NPO, unable to swallow or has mental status changes. [facility] pantoprazol e (PROTONIX) injection 40 mg 01-30 01:15: 00 01-30 12:49 :49 No 40mg 40 mg, Slow IV Push, Q12H, First dose on Sat01/29/23 at 2015, Until Discontinu ed [facility] ketorolac (TORADOL) injection 15 mg 01-30 01:07: 34 Yes 15mg 15 mg, Slow IV Push, Q8HPRN, Starting on Sat01/29/23 at 2006, Until Discontinu ed, Routine, no improvemen t with tramadol [facility] enoxaparin (LOVENOX) injection 30 mg 01-29 22:00: 00 Yes 30mg 30 mg, Subcutaneo us, DAILY, First dose on Sat01/29/23 at 1700, Until Discontinu ed, Routine [facility] D5W 0.45% NaCl (1/2NS) IV infusion 1,000 mL 01-29 20:45: 00 Yes 1000mL at 115 mL/hr, 1,000 mL, IV Infusion, CONTINUOUS , Starting on Sat01/29/23 at 1545, Until Discontinu ed, Routine [facility] haloperidol lactate (HALDOL) injection 2.5 mg 01-29 20:00: 00 01-29 19:49 :00 No 2.5mg 2.5 mg, Intravenou s, ONCE, 1 dose, On Sat01/29/23 at 1500, STAT [facility] ondansetron (ZOFRAN (PF)) injection 4 mg 01-29 19:13: 08 Yes 4mg 4 mg, Slow IV Push, Q6HPRN, Starting on Sat01/29/23 at 1413, Until Discontinu ed, Routine, Nausea and Vomiting (N/V) [facility] traMADoL (ULTRAM) tablet 50 mg 01-29 19:13: 04 01-31 19:12 :04 No 50mg 50 mg, Oral, Q8HPRN, Starting on Sat01/29/23 at 1413, Until Hoa 01/31/23 at 1412, Routine, Pain (scale 4-6) [facility] acetaminoph en (TYLENOL) tablet 650 mg 01-29 19:13: 01 Yes 650mg 650 mg, Oral, Q6HPRN, Starting on Sat01/29/23 at 1413, Until Discontinu ed, Routine, Pain (scale 1-3) [facility] pantoprazol e (PROTONIX) injection 40 mg 01-29 18:30: 00 01-29 17:51 :00 No 40mg 40 mg, Slow IV Push, ONCE, 1 dose, On Sat01/29/23 at 1330 [facility] maalox:diph enhydrAMINE :lidocaine 2 % viscous 1:1:1 (FIRST-MOUT HWASH BLM) oral suspension 15 mL 01-29 17:45: 00 01-29 17:42 :00 No 15mL 15 mL, Oral, ONCE, 1 dose, On Sat01/29/23 at 1245, LAKISHA [facility] FENTanyl PF (SUBLIMAZE (PF)) injection 75 mcg 01-29 17:15: 00 01-29 18:14 :00 No 75ug 75 mcg, Slow IV Push, ONCE, 1 dose, On Sat01/29/23 at 1215, STAT [facility] iopamidol (ISOVUE 370-500 mL) injection 65 mL 01-29 16:45: 00 01-29 16:35 :00 No [id number] 65mL 65 mL, Intravenou s, ONCE, 1 dose, On Sat01/29/23 at 1145, Routine [facility] ondansetron (ZOFRAN (PF)) injection 4 mg 01-29 16:15: 00 01-29 15:19 :00 No 4mg 4 mg, Slow IV Push, ONCE, 1 dose, [facility]/29/23 at 1115[facility] (SUBLIMAZE (PF)) injection 75 mcg 01-29 16:15: 00 01-29 15:20 :00 No 75ug 75 mcg, Slow IV Push, ONCE, 1 dose, On Sat01/29/23 at 1115, STAT [facility] diazePAM (VALIUM) tablet 5 mg 01-09 11:30: 00 01-09 11:28 :00 No 5mg 5 mg, Oral, ONCE, 1 dose, On Sat01/09/23 at 0630, [facility] cyclobenzap rine 10 mg tablet 01-09 00:00: 00 Yes [id number] 10mg Take 1 tablet by mouth 3 (three) times daily as needed for Muscle Spasms. [facility] acetaminoph en-codeine (TYLENOL #3) 300-30 mg tablet 1 tablet 02-03 20:45: 00 02-03 20:09 :00 No 1{tbl} 1 tablet, Oral, ONCE, 1 dose, On 02/03/22 at 1545, [facility] methocarbam oL (ROBAXIN) tablet 1,000 mg 02-03 20:45: 00 02-03 20:09 :00 No 1000mg 1,000 mg, Oral, ONCE, 1 dose, On 02/03/22 at 1545, [facility] dexamethaso ne sod phos PF injection 10 mg 02-03:45: 00 02-03 20:07 :00 No 10mg 10 mg, Intramuscu lar, ONCE, 1 dose, On 02/03/22 at 1545, 1 mL [facility] ketorolac (TORADOL) injection 60 mg 02-03 20:45: 00 02-03 20:07 :00 No 60mg 60 mg, Intramuscu lar, ONCE, 1 dose, On 02/03/22 at 1545, LAKISHA [facility] ibuprofen 800 mg tablet 02-03 00:00: 00 Yes [id number] 800mg Take 1 tablet by mouth every 8 (eight) hours as needed for Pain (scale 4-6). [facility] ondansetron 4 mg disintegrat ing tablet 02-03 00:00: 00 Yes [id number] 4mg Take 1 tablet by mouth every 8 (eight) hours as needed for Nausea and Vomiting (N/V). [facility] methocarbam oL 750 mg tablet 02-03 00:00: 00 Yes [id number] 750mg Take 1 tablet by mouth 4 (four) times daily as needed for Other (muscle spasm). [facility] predniSONE 20 mg tablet 02-03 00:00: 00 02-09 04:59 :00 No [id number] 40mg Take 2 tablets by mouth daily for 5 days. [facility] fluconazole (DIFLUCAN) tablet 150 mg 10-13 15:00: 00 Yes 150mg 150 mg, Oral, DAILY, First dose on Hoa 10/13/20 at 0900, Until Discontinu ed, LAKISHA
Re ason for Anti-Infec tive: Empiric Therapy for Suspected Infection< br>Empiric Therapy Site: Urine
D uration of therapy: 72 hours [facility] dicyclomine (BENTYL) capsule 10 mg 10-12 18:00: 00 Yes 10mg 10 mg, Oral, QID, First dose on Sat10/12/20 at 1200, Until Discontinu ed, Routine [facility] maalox:diph enhydrAMINE :lidocaine 2 % viscous 1:1:1 (FIRST-MOUT HWASH [facility]) oral suspension 15 mL 10-12 16:30: 00 10-12 16:07 :00 No 15mL 15 mL, Oral, ONCE, 1 dose, 10/12/20 at 1030, Routine [facility] pantoprazol e (PROTONIX) 80 mg in NaCl 0.9% (NS) 20 mL syringe 10-12 16:30: 00 10-12 16:02 :00 No 80mg 80 mg, IV Push, ONCE, 1 dose, 10/12/20 at 1030, 20 mL [facility] ondansetron (ZOFRAN (PF)) injection 4 mg 10-12 16:30: 00 10-12 16:01 :00 No 4mg 4 mg, Slow IV Push, ONCE, 1 dose, 10/12/20 at 1030, Routine [facility] NaCl 0.9% (NS) bolus infusion 1,000 mL 10-12 15:30: 00 10-12 17:33 :00 No 1000mL at 999 mL/hr, 1,000 mL, IV Infusion, ONCE, 1 dose, 10/12/20 at 0930, STAT [facility] sucralfate 1 gram tablet 10-12 00:00: 00 Yes [id number] 1g Take 1 tablet by mouth before meals and at bedtime. [facility] dicyclomine (BENTYL) 10 mg capsule 10-12 00:00: 00 Yes [id number] 10mg Take 1 capsule by mouth every 8 (eight) hours as needed for Abdominal pain. [facility] ondansetron 4 mg disintegrat ing tablet 10-12 00:00: 00 Yes [id number] 4mg Take 1 tablet by mouth every 8 (eight) hours as needed for Nausea and Vomiting (N/V). [facility] omeprazole 20 mg capsule 10-12 00:00: 00 11-12 04:59 :00 No [id number] 20mg Take 1 capsule by mouth daily for 30 days. [facility] traMADol (ULTRAM) 50 mg tablet 2018-08 00:00: 00 Yes [id number] 50mg Take 1 tablet by mouth every 6 (six) hours as needed for Pain (scale 7-10). [facility] ibuprofen 600 mg tablet 12-15 00:00: 00 Yes [id number] 600mg Take 1 tablet by mouth every 6 (six) hours as needed for Pain (scale 4-6). [facility] tamsulosin 0.4 mg 24 hr capsule 12-15 00:00: 00 Yes [id number] .4mg Take 1 capsule by mouth at bedtime. [facility] butalbital- acetaminoph en-caff 50-325-40 mg tablet 03-15 00:00: 00 Yes 1{tbl} Take 1 tablet by mouth every 6 (six) hours as needed for Headache (Headache) . [facility] aspirin 81 mg chewable tablet 12-29 00:00: 00 Yes 81mg Take 1 tablet by mouth daily. [facility] glipiZIDE 10 mg tablet 12-28 00:00: 00 Yes 10mg Take 1 tablet by mouth 2 (two) times daily before breakfast and dinner. [facility] acetaminoph en (TYLENOL) 325 mg tablet 2015-08 00:00: 00 Yes 650mg Take 2 tablets by mouth every 6 (six) hours. [facility] hydroCHLORO thiazide (ESIDRIX) 12.5 mg capsule 2015-08 00:00: 00 Yes 12.5mg Take 1 capsule by mouth daily. [facility] Immunizations Ordered Immunization Name Filled Immunization Name Date Status Comments Source Pneumococcal Polysaccharide, PPSV23 (PNEUMOVAX) 2016-07-19 00:00:00 Completed [facility] Influenza Virus Vaccine Quad IM 3+ YRS 2016-07-19 00:00:00 Completed [facility] Pneumococcal Polysaccharide, PPSV23 (PNEUMOVAX) 2016-07-19 00:00:00 Completed [facility] Influenza Virus Vaccine Quad IM 3+ YRS 2016-07-19 00:00:00 Completed [facility] Pneumococcal Polysaccharide, PPSV23 (PNEUMOVAX) 2016-07-19 00:00:00 Completed [facility] Influenza Virus Vaccine Quad IM 3+ YRS 2016-07-19 00:00:00 Completed [facility] Pneumococcal Polysaccharide, PPSV23 (PNEUMOVAX) 2016-07-19 00:00:00 Completed [facility] Influenza Virus Vaccine Quad IM 3+ YRS 2016-07-19 00:00:00 Completed [facility] Pneumococcal Polysaccharide, PPSV23 (PNEUMOVAX) 2016-07-19 00:00:00 Completed [facility] Influenza Virus Vaccine Quad IM 3+ YRS 2016-07-19 00:00:00 Completed [facility] Pneumococcal Polysaccharide, PPSV23 (PNEUMOVAX) Unknown Completed [facility] Influenza Virus Vaccine Quad IM 3+ YRS Unknown Completed [facility] Vital Signs Vital Name Observation Time Observation Value Comments S ource Systolic blood pressure 2023-01-31 12:41:00 135 mm[Hg] [facility] Diastolic blood pressure 2023-01-31 12:41:00 87 mm[Hg] [facility] Heart rate 2023-01-31 12:41:00 64 /min [facility] Body temperature 2023-01-31 12:41:00 36.67 Yadira [facility] Respiratory rate 2023-01-31 12:41:00 18 /min [facility] Oxygen saturation in Arterial blood by Pulse oximetry 2023-01-31 12:41:00 98 /min [facility] Body weight 2023-01-31 08:11:00 81.466 kg [facility] BMI 2023-01-31 08:11:00 28.13 kg/m2 [facility] Body height 2023-01-29 21:04:00 170.2 cm [facility] Systolic blood pressure 2023-01-09 11:51:28 142 mm[Hg] [facility] Diastolic blood pressure 2023-01-09 11:51:28 99 mm[Hg] [facility] Heart rate 2023-01-09 11:51:28 61 /min [facility] Respiratory rate 2023-01-09 11:51:28 15 /min [facility] Oxygen saturation in Arterial blood by Pulse oximetry 2023-01-09 11:51:28 100 /min [facility] Body temperature 2023-01-09 11:15:00 36.5 Yadira [facility] Body height 2023-01-09 11:15:00 170.2 cm [facility] Body weight 2023-01-09 11:15:00 79.833 kg [facility] BMI 2023-01-09 11:15:00 27.57 kg/m2 [facility] Systolic blood pressure 2022-02-03 19:11:00 163 mm[Hg] [facility] Diastolic blood pressure 2022-02-03 19:11:00 115 mm[Hg] [facility] Heart rate 2022-02-03 19:11:00 63 /min [facility] Body temperature 2022-02-03 19:11:00 37.17 Yadira [facility] Respiratory rate 2022-02-03 19:11:00 22 /min [facility] Body height 2022-02-03 19:11:00 170.2 cm [facility] Body weight 2022-02-03 19:11:00 81.647 kg [facility] BMI 2022-02-03 19:11:00 28.19 kg/m2 [facility] Oxygen saturation in Arterial blood by Pulse oximetry 2022-02-03 19:11:00 98 /min [facility] Systolic blood pressure 2020-10-12 17:33:05 135 mm[Hg] [facility] Diastolic blood pressure 2020-10-12 17:33:05 90 mm[Hg] [facility] Heart rate 2020-10-12 17:33:05 51 /min [facility] Respiratory rate 2020-10-12 17:33:05 16 /min [facility] Oxygen saturation in Arterial blood by Pulse oximetry 2020-10-12 17:33:05 99 /min [facility] Body temperature 2020-10-12 15:22:00 37.44 Yadira [facility] Body height 2020-10-12 15:22:00 170.2 cm [facility] Body weight 2020-10-12 15:22:00 79.379 kg [facility] BMI 2020-10-12 15:22:00 27.41 kg/m2 [facility] Systolic blood pressure 2020-10-12 17:33:05 135 mm[Hg] [facility] Diastolic blood pressure 2020-10-12 17:33:05 90 mm[Hg] [facility] Heart rate 2020-10-12 17:33:05 51 /min [facility] Respiratory rate 2020-10-12 17:33:05 16 /min [facility] Oxygen saturation in Arterial blood by Pulse oximetry 2020-10-12 17:33:05 99 /min [facility] Body temperature 2020-10-12 15:22:00 37.44 [facility] Body height 2020-10-12 15:22:00 170.2 cm [facility] Body weight 2020-10-12 15:22:00 79.379 kg [facility] BMI 2020-10-12 15:22:00 27.41 kg/m2 [facility] Procedures Procedure Date / Time Performed Performing Clinician Source POCT GLUCOSE (AUTOMATED) 2023-01-31 12:41:00 Delbert Keith [facility] POCT GLUCOSE (AUTOMATED) 2023-01-31 01:16:00 Delbert Keith [facility] POCT GLUCOSE (AUTOMATED) 2023-01-30 21:30:00 Delbert Keith [facility] POCT GLUCOSE (AUTOMATED) 2023-01-30 16:27:00 Delbert Keith [facility] OCCULT (GUAIAC) BLOOD 2023-01-30 14:01:00 Maryjane Denise [facility] CLOSTRIDIUM DIFFICILE TOXIN 2023-01-30 14:01:00 Hari Verma [facility] FECAL PATHOGENS BY PCR 2023-01-30 14:01:00 Maryjane Abernathy [facility] POCT GLUCOSE (AUTOMATED) 2023-01-30 13:06:00 Delbert Keith [facility] MAGNESIUM 2023-01-30 09:41:00 Hari [facility] BASIC METABOLIC PANEL (NA, K, CL, CO2, GLUCOSE, BUN, CREATININE, CA) 2023-01-30 09:41[facility]00 [facility] 2023-01-30 09:41[facility] GLYCOSYLATED HEMOGLOBIN (A1C) 2023-01-30 09:41:00 Bayron [facility] CT ABDOMEN PELVIS W CONTRAST 2023-01-29 16:40:00 Fabrizio Manzano [facility] URINALYSIS 2023-01-29 15:23:[address] [facility] URINE DRUG (IMMUNOASSAY) - COMPREHENSIVE DRUG SCREEN W/O REFLEX 2023-01-29 15:23:00 Fabrizio Manzano [facility] LIPASE 2023-01-29 15:11:[address] [facility] TROPONIN I 2023-01-29 15:11:[address] [facility] COMP. METABOLIC PANEL ([id number]) 2023-01-29 15:11:00 Fabrizio Manzano [facility] CBC WITH DIFF 2023-01-29 15:11:00 Fabrizio Manzano [facility] PROTHROMBIN TIME / INR 2023-01-29 15:11:00 Chirag Manzano [facility] ACTIVATED PARTIAL THRMPLAS JOLANTA 2023-01-29 15:11:00 Farbizio Manzano [facility] N-TERMINAL PRO-BNP 2023-01-29 15:11:00 Fabrizio Manzano [facility] CONSENT/REFUSAL FOR DIAGNOSIS AND TREATMENT 2023-01-29 14:56:06 Doctor Unassigned, [place] [facility] CONSENT/REFUSAL FOR DIAGNOSIS AND TREATMENT 2023-01-09 11:16:47 Doctor Unassigned, [place] [facility] XR SHOULDER 2+ VW RIGHT 2022-02-03 19:57:00 Rhona Phelps [facility] NOTICE OF PRIVACY PRACTICES 2022-02-03 19:06:28 Doctor Unassigned, [place] [facility] CONSENT/REFUSAL FOR DIAGNOSIS AND TREATMENT 2022-02-03 19:05:34 Doctor Unassigned, [place] [facility] XR ABDOMEN ACUTE SERIES 2020-10-12 17:03:23 Shannon Esposito [facility] POCT TEST 2020-10-12 16:05:00 Clifton Esposito [facility] URINALYSIS 2020-10-12 15:54:00 Gelacio Esposito [facility] LIPASE 2020-10-12 15:34:[address] [facility] COMP. METABOLIC PANEL ([id number]) 2020-10-12 15:34:00 Gelacio Esposito [facility] LIPID PANEL (17415)(TOTAL CHOLESTEROL, TRIGLYCERIDES, HDL) 2020-10-12 15:34:00 Gelacio Esposito [facility] CBC WITH DIFF 2020-10-12 15:34:00 Gelacio Esposito [facility] NOTICE OF PRIVACY PRACTICES 2020-10-12 15:16:21 Doctor Unassigned, [place] [facility] CONSENT/REFUSAL FOR DIAGNOSIS AND TREATMENT 2020-10-12 15:16:05 Doctor Unassigned, [place] [facility] Encounters Start Date/Time End Date/Time Encounter Type Admission Type Attending [facility] Care Facility Care Department Encounter ID Source 2022-03-01 09:20:03 Outpatient [facility] [id number] [facility] 2023-03-13 05:34:00 2023-03-13 05:34:00 Outpatient Macarena Dhaliwla [facility] ENDO [id number] [facility] 2023-02-09 13:05:00 2023-02-09 16:30:00 Emergency EM Chris Olivas HCAPM JOSUE [id number] [facility] 2023-01-29 09:59:00 2023-01-31 11:19:00 Outpatient X DELBERT KEITH [facility] MAYELIN [id number] [facility] 2023-01-29 09:59:00 2023-01-31 11:19:00 Emergency Fabrizio Manzano Yaman [facility] 1.2.840.114 350.1.13.10 4.2.7.2.686 [id number] [facility] 2023-01-09 06:23:00 2023-01-09 06:56:00 Emergency X ANAT NICKERSON [facility] ERT [id number] [facility] 2023-01-09 06:23:00 2023-01-09 06:56:00 Emergency Anat Nickerson [facility] 1.2.840.114 350.1.13.10 4.2.7.2.686 [id number] [facility] 2022-12-29 13:35:00 2022-12-29 15:02:00 Emergency EM Matthew Ford [facility] ART [id number] [facility] 2022-03-05 11:58:00 2022-03-05 11:58:00 Outpatient MONTEZ_Branden Aparicio AO AO [id number] [facility] 2022-03-05 00:00:00 2022-03-05 00:00:00 Outpatient MONTEZ_Branden Aparicio AO AO [id number] [facility] 2022-02-03 14:13:00 2022-02-03 16:22:00 Emergency X YUE PHELPS [facility] ERT [id number] [facility] 2022-02-03 14:13:00 2022-02-03 16:22:00 Emergency Yue Phelps [facility] 1.2.840.114 350.1.13.10 4.2.7.2.686 [id number] [facility] 2020-10-12 09:18:00 2020-10-12 11:40:00 Emergency Gelacio Esposito [facility] 1.2840.114 350.1.13.10 4.2.7.2.686 [id number] [facility] 2020-10-12 09:18:00 2020-10-12 11:40:00 Emergency X GELACIO ESPOSITO [facility] ERT [id number] [facility] 2020-10-12 09:18:00 2020-10-12 11:40:00 Emergency Singer Gelacio [facility] 1.2840.114 350.1.13.10 4.2.7.2.686 [id number] 2020-03-07 00:00:00 2020-03-07 00:00:00 Patient Secure Msg Doctor Unassigned, [place] [facility] 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 [facility] 1.2840.114 350.1.13.10 4.2.7.2.686 [id number] [facility] 2020-03-04 08:52:32 2020-03-04 09:12:32 Laboratory Only Lab, [facility] Fam Pob I Lizzy Webster [facility] Office [address] 1.0.114 350.1.13.10 4.2.7.2.686 [id number] [facility] 2020-03-04 08:52:32 2020-03-04 09:12:32 Laboratory Only Lab, [facility] Fam b I [facility] [address] ..114 350.1.13.10 4.2.7.2.686 [id number] 2020-03-04 09:00:00 2020-03-04 09:00:00 Outpatient R LIZZY WEBSTER [facility] [id number] [facility] 2020-01-24 00:00:00 2020-01-24 00:00:00 Nurse Triage Nataliya New [facility] 1.2.840.114 350.1.13.10 4.2.7.2.686 [id number] [facility] 2020-01-24 00:00:00 2020-01-24 00:00:00 Nurse Triage Nataliya New [facility] 1.2.840.114 350.1.13.10 4.2.7.2.686 [id number] 2019-08-01 23:43:20 2019-08-02 00:27:00 Emergency X CASI KING [facility] ERT [id number] [facility] Results Test Description Test Time Test Comments Results Result Co mments Source BASIC METABOLIC [id number] 06:40:00* Test Item Value Reference Range Interpretation Comme nts SODIUM (test code = NA) 140 mEq/L 134-147 N POTASSIUM (test code = K) 3.6 mEq/L 3.4-5.0 N CHLORIDE (test code = CL) 106 mEq/L 100-108 N CARBON DIOXIDE (test code = CO2) 28 mEq/l 21-33 N ANION GAP (test code = GAP) 10 0-20 N GLUCOSE (test code = GLU) 87 mg/dL 70-110 N BLOOD UREA NITROGEN (test code = BUN) 7 mg/dL 7-18 N GLOMERULAR FILTRATION RATE (test code = GFR) 78.4 95-105 L The Glomerular Filtration Rate is a calculated parameterbased on serum Creatinine, patient age and sex. GFR valuesless than 60 mL/min/1.73 square meters are indicative ofChronic Kidney Disease. Values less than 15 mL/min/1.73square meters indicate Kidney failure. The calculation forGFR is based on the CKD-EPI (2020) calculation. This formulais race indifferent and is the recommended formula for GFRby the National Kidney Foundation for Adults.The GFR will not calculate if the sex is unknown or if thepatient's age is <18 years. CREATININE (test code = CREAT) 0.9 mg/dL 0.6-1.3 N CALCIUM (test code = CA) 8.6 mg/dL 8.0-10.5 N CBC W/AUTO [id number] 11:02:00* Test Item Value Reference Range Interpretation Comme nts WHITE BLOOD CELL (test code = WBC) 5.7 x10 3/uL 4.5-11.0 N RED BLOOD CELL (test code = RBC) 4.27 x10 6/uL 3.54-5.02 N HEMOGLOBIN (test code = HGB) 12.8 g/dL 11.0-15.0 N HEMATOCRIT (test code = HCT) 38.5 % 33.0-45.0 N MEAN CELL VOLUME (test code = MCV) 90.2 fL 81.0-99.0 N MEAN CELL HGB (test code = MCH) 30.0 pg 27.0-33.0 N MEAN CELL HGB CONCETRATION (test code = MCHC) 33.2 g/dL 33.0-37.0 N RED CELL DISTRIBUTION WIDTH CV (test code = RDW) 11.9 % 11.5-14.5 N PLATELET COUNT (test code = PLT) 277 x10 3/uL 150-400 N NEUTROPHIL % (test code = NT%) 52.4 % 56.0-77.0 L LYMPHOCYTE % (test code = LY%) 33.3 % 14.0-32.0 H NEUTROPHIL # (test code = NT#) 3.00 x10 3/uL 2.0-7.6 N LYMPHOCYTE # (test code = LY#) 1.91 x10 3/uL 1.0-3.8 N MANUAL DIFF REQUIRED (test c ode = MDIFF) NO RED CELL DISTRIBUTION WIDTH SD (test code = RDW-SD) 38.9 fL 37.0-54.0 N MEAN PLATELET VOLUME (test c ode = MPV) 10.0 fL 7.0-9.0 H IMMATURE GRANULOCYTE % (test code = IG%) 0.3 % 0.0-2.0 N MONOCYTE % (test code = MO%) 10.6 % 4.8-9.0 H EOSINOPHIL % (test code = EO%) 2.4 % 0.3-3.7 N BASOPHIL % (test code = BA%) 1.0 % 0.0-2.0 N NUCLEATED RBC % (test code = NRBC%) 0.0 % 0-0 N IMMATURE GRANULOCYTE # (test code = IG#) 0.02 x10 3/uL 0.00-0.03 N MONOCYTE # (test code = MO#) 0.61 x10 3/uL 0.1-0.8 N EOSINOPHIL # (test code = EO#) 0.14 x10 3/uL 0.0-0.2 N BASOPHIL # (test code = BA#) 0.06 x10 3/uL 0.0-0.2 N NUCLEATED RBC # (test code = NRBC#) 0.00 x10 3/uL 0.0-0.1 N UA RFLX MICR CULT IF [id number] 16:06:00* Test Item Value Reference Range Interpretation Comme nts UA COLOR (test code = COLU) STRAW discript YEL/STRAW UA APPEARANCE (test code = APPU) CLEAR discript CLEAR UA GLUCOSE DIPSTICK (test code = DGLUU) NEGATIVE mg/dL NEG UA BILIRUBIN DIPSTICK (test code = BILU) NEGATIVE mg/dL NEG UA KETONE DIPSTICK (test code = KETU) NEGATIVE mg/dL NEG UA SPECIFIC GRAVITY (test code = SGU) 1.010 SG 1.005-1.030 UA BLOOD DIPSTICK (test code = JAROCHO) NEGATIVE mg/DL NEG UA PH DIPSTICK (test code = RYAN) 7.5 pH UNITS 5.0-7.0 A UA PROTEIN DIPSTICK (test code = PROU) NEGATIVE mg/dL NEG UA UROBILINIOGEN DIPSTICK (test code = URO) 0.2 mg/dL <2.0 UA NITRITE DIPSTICK (test code = ALVAREZ) NEGATIVE SCREEN NEG UA LEUKOCYTE ESTERASE DIPSTICK (test code = LEUU) NEGATIVE Leuk/mcL NEGATIVE Indication for culture: RiskForSepsis-no oth srcSOURCE OF URINE: CLEAN CATCHHCG SERUM [id number] 15:52:00* Test Item Value Reference Range Interpretation Comme nts HCG SERUM QUAL (test code = HCGQL) SERUM NEGATIVE SCREEN NEGATIVE CBC W/AUTO [id number] 15:32:00* Test Item Value Reference Range Interpretation Comme nts WHITE BLOOD CELL (test code = WBC) 6.0 K/mm3 3.5-11.0 N RED BLOOD CELL (test code = RBC) 3.92 M/mm3 4.70-6.10 L HEMOGLOBIN (test code = HGB) 11.5 G/DL 10.4-14.9 N HEMATOCRIT (test code = HCT) 35.9 % 31.5-44.1 N MEAN CELL VOLUME (test code = MCV) 91.6 Fl 84.5-98.6 N MEAN CELL HGB (test code = MCH) 29.3 pg 27.0-34.2 N MEAN CELL HGB CONCETRATION (test code = MCHC) 32.0 G/DL 31.5-34.0 N RED CELL DISTRIBUTION WIDTH (test code = RDW) 12.2 SD 11.5-14.5 N PLATELET COUNT (test code = PLT) 271 K/mm3 150-450 N MEAN PLATELET VOLUME (test c ode = MPV) 9.60 fL 7.0-10.5 N NEUTROPHIL % (test code = NT%) 54.9 % 40-76 N IMMATURE GRANULOCYTE % (test code = IG%) 0.2 % 0.0-5.0 N LYMPHOCYTE % (test code = LY%) 32.3 % 20.5-51.1 N MONOCYTE % (test code = MO%) 9.7 % 1.7-9.3 H EOSINOPHIL % (test code = EO%) 2.2 % 0.0-6.0 N BASOPHIL % (test code = BA%) 0.7 % 0.0-2.0 N NUCLEATED RBC % (test code = NRBC%) 0.0 /100WBC% 0.0-1.0 N NEUTROPHIL # (test code = NT#) 3.3 K/mm3 1.8-7.6 N IMMATURE GRANULOCYTE # (test code = IG#) 0.01 x10 3/uL 0.00-0.03 N LYMPHOCYTE # (test code = LY#) 1.9 K/mm3 0.6-3.2 N MONOCYTE # (test code = MO#) 0.6 K/mm3 0.3-1.1 N EOSINOPHIL # (test code = EO#) 0.1 K/mm3 0.0-0.4 N BASOPHIL # (test code = BA#) 0.0 K/mm3 0.0-0.1 N NUCLEATED RBC # (test code = NRBC#) 0.0 K/mm3 0.0-0.1 N MANUAL DIFF REQUIRED (test c ode = MDIFF) NO DIFF/SCN CRITERIA - CT ABD PELVIS [id number] 15:22: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 TECHNIQUE: Volumetric acquisition of abdomen from the level of the domes of the diaphragm through the symphysis pubis using 5 mm collimation after the administration of intravenousand oral contrast. Axial and coronal images were interpreted. Unless otherwise specified, incidental findings do not require dedicated imaging follow-up. Dose lowering technique with automatic exposure control utilized. COMPARISON: None. FINDINGS: Visualized lung bases demonstrate no consolidationsor effusions. Liver demonstrates mild decreased attenuation. Surgical clips gallbladder fossa. Splee n, pancreas, adrenals and both kidneys are unremarkable. There is [...] Mild hepatic steatosis. PAGE 1 Signed Report (CONTIN UED) Name: MEGHAN EDWARDS : 1975 Age/S: 47 / F [address] [address] Unit #: [id number] Loc: [place] [address] Phys: Eileen Vidales DENTAL MECHANIC Acct: [id number] Dis Date: Status: REG ERPHONE #: [phone] Exam Date: 02/09/2023 1456 FAX #: Reason: PAIN EXAMS: CPT: [id number] CT ABD PELVIS W/CONT 41266 (Continued) at 1522 Reported and signed by: Mahesh Gabriel M.D. CC: Eileen Vidales NP Technologist:Huseyin Chin CTDI: DLP: Trnscb Date/Time: 02/09/2023 (1522) [email or web address] Orig Print D/T: S: 02/09/2023 (1525) PAGE 2 Signed ReportBASIC METABOLIC [id number] 14:31:00* Test Item Value Reference Range Interpretation Comme nts SODIUM (test code = NA) 138 mmol/L 134-147 N POTASSIUM (test code = K) 4.6 mmol/L 3.4-5.0 N CHLORIDE (test code = CL) 108 mmol/L 100-108 N CARBON DIOXIDE (test code = CO2) 27 mmol/L 21-32 N ANION GAP (test code = GAP) 3.0 GAP calc 4.0-15.0 L GLUCOSE (test code = GLU) 84 MG/DL 70-110 N BLOOD UREA NITROGEN (test code = BUN) 13 MG/DL 7-18 N GLOMERULAR FILTRATION RATE (test code = GFR) >=60 max estimate estGFR >60 The Glomerular Filtration Rate is a calculated parameterbased on serum Creatinine, patient age and sex. GFR valuesless than 60 mL/min/1.73 square meters are indicative ofChronic Kidney Disease. Values less than 15 mL/min/1.73square meters indicate Kidney failure. The calculation forGFR is based on the CKD-EPI (2020) calculation. This formulais race indifferent and is the recommended formula for GFRby the National Kidney Foundation for Adults.The GFR will not calculate if the sex is unknown or if thepatient's age is <18 years. CREATININE (test code = CREAT) 0.9 MG/DL 0.6-1.0 N CALCIUM (test code = CA) 9.7 MG/DL 8.5-10.1 N HEPATIC FUNCTION [id number] 14:31:00* Test Item Value Reference Range Interpretation Comme nts TOTAL PROTEIN (test code = PROT) 8.1 G/DL 6.4-8.2 N ALBUMIN (test code = ALB) 4.2 G/DL 3.4-5.0 N BILIRUBIN TOTAL (test code = BILT) 0.60 MG/DL 0.2-1.2 N BILIRUBIN DIRECT (test code = BILD) < 0.10 MG/DL 0.00-0.30 N BILIRUBIN INDIRECT (test cod e = BILIND) 0.50 MG/DL 0.2-1.2 N SGOT/AST (test code = AST) 27 Unit/L 15-37 N SGPT/ALT (test code = ALT) 24 Unit/L 12-78 N ALKALINE PHOSPHATASE TOTAL ( test code = ALKP) 73 Unit/L 45-117 N [id number] 14:31:00* Test Item Value Reference Range Interpretation Comme nts LIPASE (test code = LIP) 113 Unit/L 114-286 L POCT GLUCOSE (AUTOMATED)2023-01-31 12:42:23* Test Item Value Reference Range Interpretation Comme nts POCT GLU (test code = 8756092222) 98 mg/dL 70-110 Lab Interpretation (test cod e = 36443-1) Normal [facility] GLUCOSE (AUTOMATED)2023-01-31 01:18:04* Test Item Value Reference Range Interpretation Comme nts POCT GLU (test code = 4599150505) 70 mg/dL 70-110 Lab Interpretation (test cod e = 26878-2) Normal [facility] GLUCOSE (AUTOMATED)2023-01-30 21:31:56* Test Item Value Reference Range Interpretation Comme nts POCT GLU (test code = 4200518862) 71 mg/dL 70-110 Lab Interpretation (test cod e = 64250-7) Normal [facility] GLUCOSE (AUTOMATED)2023-01-30 16:28:46* Test Item Value Reference Range Interpretation Comme nts POCT GLU (test code = 8558797358) 118 mg/dL 70-110 H Lab Interpretation (test cod e = 20427-1) Abnormal [facility] GLUCOSE (AUTOMATED)2023-01-30 13:07:43* Test Item Value Reference Range Interpretation Comme [facility] POCT GLU (test code = 2880532794) 118 mg/dL 70-110 H Lab Interpretation (test cod e = 34211-4) Abnormal [facility] THRMPLAS [id number] 16:18:32* Test Item Value Reference Range Interpretation Comme [facility] APTT Patient (test code = 3173-2) 26 See_Comment [Automated message] The system which generated this result transmitted reference range: 23 - 38 Seconds. The reference range was not used to interpret this result as normal/abnormal. MUNA (test code = MUNA) The [facility] patient population mean normal value for aPTT is 30 seconds. Lab Interpretation (test code = 82741-1) Normal [facility]landPROTHROMBIN TIME / [id number] 16:16:30* Test Item Value Reference Range Interpretation Comme [facility] PROTIME PATIENT (test code = 5964-2) 12.0 See_Comment [Automated messa ge] The system which generated this result transmitted reference range: 12.0 - 14.7 Seconds. The reference range was not used to interpret this result as normal/abnormal. INR (test code = 6301-6) 0.9 Normal INR <1.1; Warfarin Therapeutic range 2.0 to 3.0 or 2.5 to 3.5, depending upon the indications. Lab Interpretation (test code = 90918-8) Normal [facility]land[facility]IN [id number] 16:12:10* Test Item Value Reference Range Interpretation Comme [facility] TROPONIN I (test code = 1430294628) 0.000 ng/mL <=0.034 MUNA (test code = MUNA) Reference (Normal) [...] patient's use of biotin. Lab Interpretation (test code = 52476-5) Normal [facility]landN-TERMINAL [id number] 16:09:08* Test Item Value Reference Range Interpretation Comme nts NT-proBNP (test code = 1321060641) 57 pg/mL <=125 MUNA (test code = MUNA) Biotin has been reported to cause a negative bias, interpret results relative to patient's use of biotin. Lab Interpretation (test code = 46432-2) Normal [facility]landCOMP. METABOLIC PANEL (17163)2023-01-29 16:00:25* Test Item Value Reference Range Interpretation Comme nts NA (test code = 4954263257) 140 mmol/L 135-145 K (test code = 6914347574) 4.4 mmol/L 3.5-5.0 CL (test code = 7072166551) 107 mmol/L 98-108 CO2 TOTAL (test code = 0128417499) 22 mmol/L 23-31 L AGAP (test code = 8030366214) 11 2-16 BUN (test code = 9147847635) 12 mg/dL 7-23 GLUCOSE (test code = 6251745089) 108 mg/dL 70-110 CREATININE (test code = 1786019489) 0.67 mg/dL 0.50-1.04 TOTAL BILI (test code = 8769148640) 0.7 mg/dL 0.1-1.1 CALCIUM (test code = 9605250124) 10.0 mg/dL 8.6-10.6 T PROTEIN (test code = 6289171257) 7.7 g/dL 6.3-8.2 ALBUMIN (test code = 1125322427) 4.7 g/dL 3.5-5.0 ALK PHOS (test code = 5135359360) 70 U/L 34-122 ALTv (test code = 1742-6) 25 U/L 5-35 AST(SGOT) (test code = 1704036568) 26 U/L 13-40 eGFR (test code = 2117138083) 93.5 mL/min/1.73m2 MUNA (test code = MUNA) Association of [...] or abnormalities in imaging tests). Lab Interpretation (test code = 84688-9) Abnormal [facility]land[facility]IPASE2023-06-13 15:59:49* Test Item Value Reference Range Interpretation Comme nts LIPASE (test code = 7416793362) 111 U/L 0-220 Lab Interpretation (test cod e = 75093-2) Normal [facility]landCB WITH [id number] 15:52:23* Test Item Value Reference Range Interpretation Comme nts WBC (test code = 6690-2) 10.59 See_Comment [Automated Digital Message Display] The system which generated this result transmitted reference range: 4.30 - 11.10 10*3/?L. The reference range was not used to interpret this result as normal/abnormal. RBC (test code = 789-8) 4.95 See_Comment [Automated messa ge] The system which generated this result transmitted reference range: 3.93 - 5.25 10*6/?L. The reference range was not used to interpret this result as normal/abnormal. HGB (test code = 718-7) 14.8 g/dL 11.6-15.0 HCT (test code = 4544-3) 43.8 % 35.7-45.2 MCV (test code = 787-2) 88.5 fL 80.6-95.5 MCH (test code = 785-6) 29.9 pg 25.9-32.8 MCHC (test code = 786-4) 33.8 g/dL 31.6-35.1 RDW-SD (test code = 73691-6) 39.2 fL 39.0-49.9 RDW-CV (test code = 788-0) 12.2 % 12.0-15.5 PLT (test code = 777-3) 328 See_Comment [Automated messa ge] The system which generated this result transmitted reference range: 166 - 358 10*3/?L. The reference range was not used to interpret this result as normal/abnormal. MPV (test code = 74841-1) 10.8 fL 9.5-12.9 NRBC/100 WBC (test code = 0932671980) 0.0 See_Comment [Automated [employer] ssage] The system which generated this result transmitted reference range: 0.0 - 10.0 /100 WBCs. The reference range was not used to interpret this result as normal/abnormal. NRBC x10^3 (test code = 8871597608) See_Comment [Automated messa ge] The system which generated this result transmitted reference range: 10*3/?L. The reference range was not used to interpret this result as normal/abnormal. GRAN MAT (NEUT) % (test code = 770-8) 68.9 % IMM GRAN % (test code = 6657090482) 0.30 % LYMPH % (test code = 736-9) 21.2 % MONO % (test code = 5905-5) 8.3 % EOS % (test code = 713-8) 0.8 % BASO % (test code = 706-2) 0.5 % GRAN MAT x10^3(ANC) (test code = 3943169215) 7.29 10*3/uL 1.88-7.09 H IMM GRAN x10^3 (test code = 1234814213) 0.03 10*3/uL 0.00-0.06 LYMPH x10^3 (test code = 731-0) 2.25 10*3/uL 1.32-3.29 MONO x10^3 (test code = 742-7) 0.88 10*3/uL 0.33-0.92 EOS x10^3 (test code = 711-2) 0.09 10*3/uL 0.03-0.39 BASO x10^3 (test code = 704-7) 0.05 10*3/uL 0.01-0.07 Lab Interpretation (test code = 81751-2) Abnormal [facility]- XR FOOT 3 + V [id number] 14:18:00 [facility] 1975 Sex: F FAX: Matthew Ford MD [place]: [address]: REG Name: GRACEMEGHAN [facility] : 1975 Age/S: 47/F [address] [facility] [address] Unit #: [id number] Loc: E.ERS2 [place], [place]: [place] [address] Acct: [id number] Dis Date: Status: REG ER PHONE #: [phone] Exam Date: 12/29/2022 1354 FAX #: [phone] Reason: foot injury EXAMS: CPT CODE: [id number] XR FOOT 3 + [place] [address] EXAM: - XR FOOT 3 + V LT INDICATION: foot injury Technique: 3 views Location: T18 FINDINGS: No acute fracture or dislocation seen. Soft tissues appear grossly unremarkable. IMPRESSION: No acute fracture seen. at 1418 Reported and signed by: Derek Robert M.D. CC: Matthew Ford MD Technologist: Mary Lou Machado Date/Time/By: 12/29/2022 (1808) : By: [email or web address] PAGE 1 Signed Report FAX: Matthew Ford MD [place]: St: REG Name: MEGHAN EDWARDS [facility] : 1975 Age/S: 47/F [address] Unit #: [id number] Loc: E.ERS2 [place], [place]: [place] [address] Acct: [id number] Dis Date: Status: REG ER PHONE #: [phone] Exam Date: 12/29/2022 1354 FAX #: [phone] Reason: foot injury EXAMS: CPT CODE: [id number] XR FOOT 3 + [place] [address] (Continued) Orig Print D/T: S: 12/29/2022 (1421) PAGE 2 Signed ReportXR ABDOMEN ACUTE [id number] 17:05:48HISTORY: Gastric ulcer. Rule out perforation. FINDINGS: Abdomen, 2 views-4 films: Comparison has been made with 10/06/2015 studies. AP supine and upright views of the abdomen showed unremarkable intestinalgas pattern. Upright view shows no free air. Cholecystectomy clips as wellas gastric surgical sutures are visualized in the upper abdomen. Nocalcified kidney stones detected. Numerous calcified ph leboliths arepresent in the pelvis. No aggressive bone lesions. Chest, one view: Lungs are clear. Cardiomediastinal contour appears normal.No pneumothorax or pleural effusion. CONCLUSIONS: No acute findings. [facility], Radiant Results Inft User - 10/12/2020 11:06 AM CSTHISTORY: Gastric ulcer. Rule out pe rforation.FINDINGS:Abdomen, 2 views-4 films: Comparison has been made [...] normal.No pneumothorax or pleural effusion.CONCLUSIONS: No acute findings.[facility]landURINALYSIS2021-02-24 16:27:00* Test Item Value Reference Range Interpretation Comme nts APPEARANCE (test code = 9043522041) Hazy Clear A COLOR (test code = 2535161159) Yellow Yellow PH (test code = 2426965827) 4.8-8.0 SP GRAVITY (test code = 5807189866) 1.003-1.030 GLU U QUAL (test code = 8344886682) Normal Normal BLOOD (test code = 3466057275) Negative Negative KETONES (test code = 2656978305) Negative Negative PROTEIN (test code = 2887-8) Negative Negative UROBILIN (test code = 1505852310) 2.0 mg/dL Normal A BILIRUBIN (test code = 8797899754) Negative Negative NITRITE (test code = 5101482806) Negative Negative LEUK ALEXUS (test code = 1811358223) 75/uL Negative A RBC/HPF (test code = 1260736509) See_Comment [Automated messa ge] The system which generated this result transmitted reference range: 0 - 3 HPF. The reference range was not used to interpret this result as normal/abnormal. WBC/HPF (test code = 4994805896) See_Comment [Automated messa ge] The system which generated this result transmitted reference range: 0 - 5 HPF. The reference range was not used to interpret this result as normal/abnormal. BACTERIA (test code = 6463535314) Negative Negative MUCOUS (test code = 8733189311) Slight Negative LPF A SQ EPITH (test code = 3055393960) HPF CA OXALATE (test code = 1032668390) See_Comment H [Automated messa ge] The system which generated this result transmitted reference range: <=1 HPF. The reference range was not used to interpret this result as normal/abnormal. Lab Interpretation (test code = 84472-4) Abnormal [facility]. METABOLIC PANEL (17060)2020-10-12 16:10:00* Test Item Value Reference Range Interpretation Comme nts NA (test code = 0188177079) 141 mmol/L 135-145 K (test code = 9530989338) 3.4 mmol/L 3.5-5 L CL (test code = 6203646546) 103 mmol/L 98-108 CO2 TOTAL (test code = 2422499810) 29 mmol/L 23-31 AGAP (test code = 0448835553) 2-16 BUN (test code = 7445972590) 12 mg/dL 7-23 GLUCOSE (test code = 4907412972) 106 mg/dL 70-110 CREATININE (test code = 4216982991) 0.85 mg/dL 0.5-1.04 TOTAL BILI (test code = 1118991143) 0.7 mg/dL 0.1-1.1 CALCIUM (test code = 6850638288) 9.1 mg/dL 8.6-10.6 T PROTEIN (test code = 0603760715) 7.4 g/dL 6.3-8.2 ALBUMIN (test code = 6716705551) 4.4 g/dL 3.5-5 ALK PHOS (test code = 7800141088) 57 U/L 34-122 ALTv (test code = 1742-6) 33 U/L 5-35 AST(SGOT) (test code = 2524847843) 46 U/L 13-40 H eGFR Calculation (Non-) (test code = 0872120548) mL/min/1.73m2 eGFR Calculation () (test code = 7044750148) mL/min/1.73m2 MUNA (test code = MUNA) Association of [...] or abnormalities in imaging tests). Lab Interpretation (test code = 13085-7) [facility] 16[facility]10:00* Test Item Value Reference Range Interpretation Comme nts LIPASE (test code = 2414760160) 65 U/L 0-220 Lab Interpretation (test cod e = 57246-2) Normal [facility] (34500)(TOTAL CHOLESTEROL, TRIGLYCERIDES, HDL)2020-10-12 16:10:00* Test Item Value Reference Range Interpretation Comme nts CHOL (test code = 0066745164) 139 mg/dL 120-200 HDL (test code = 1293241992) 34 mg/dL >50 L HDLC RATIO (test code = 5917252313) See_Comment [Automated YEVVOa ge] The system which generated this result transmitted reference range: <=4.5. The reference range was not used to interpret this result as normal/abnormal. TRIG (test code = 0504021785) 78 mg/dL 30-170 LDL CHOL (test code = 61928-6) 89 mg/dL See_Comment [Automated YEVVOa ge] The system which generated this result transmitted reference range: <=160. The reference range was not used to interpret this result as normal/abnormal. VLDL (test code = 1312800161) 16 mg/dL 5-60 Lab Interpretation (test code = 80809-9) Abnormal [facility] BNZQ2372-69-29 16:05:00* Test Item Value Reference Range Interpretation Comme nts POCT PREG (test code = 1605) negative On board controls acceptable with C Line (test code = 3574) present POCT PREG LOT # (test code = 3575) [id number] POCT PREG TEST DATE ( test code = 3576) 04/18/2022 Lab Interpretation (test cod e = 86319-1) Normal [facility] WITH LSXB0403-61-00 15:53:00* Test Item Value Reference Range Interpretation Comme nts WBC (test code = 6690-2) See_Comment [Automated YEVVOa ge] The system which generated this result transmitted reference range: 4.30 - 11.10 10*3/?L. The reference range was not used to interpret this result as normal/abnormal. RBC (test code = 789-8) See_Comment [Automated YEVVOa ge] The system which generated this result transmitted reference range: 3.93 - 5.25 10*6/?L. The reference range was not used to interpret this result as normal/abnormal. HGB (test code = 718-7) 14.4 g/dL 11.6-15 HCT (test code = 4544-3) 42.6 % 35.7-45.2 MCV (test code = 787-2) 89.7 fL 80.6-95.5 MCH (test code = 785-6) 30.3 pg 25.9-32.8 MCHC (test code = 786-4) 33.8 g/dL 31.6-35.1 RDW-SD (test code = 21222-3) 38.8 fL 39-49.9 L RDW-CV (test code = 788-0) 11.9 % 12-15.5 L PLT (test code = 777-3) See_Comment [Automated messa ge] The system which generated this result transmitted reference range: 166 - 358 10*3/?L. The reference range was not used to interpret this result as normal/abnormal. MPV (test code = 68052-1) 10.1 fL 9.5-12.9 NRBC/100 WBC (test code = 9841615378) See_Comment [Automated [employer] ssage] The system which generated this result transmitted reference range: 0.0 - 10.0 /100 WBCs. The reference range was not used to interpret this result as normal/abnormal. NRBC x10^3 (test code = 5789588435) <0.01 See_Comment [Automated YEVVOa ge] The system which generated this result transmitted reference range: 10*3/?L. The reference range was not used to interpret this result as normal/abnormal. GRAN MAT (NEUT) % (test code = 770-8) 57.3 % IMM GRAN % (test code = 3515283342) 0.20 % LYMPH % (test code = 736-9) 28.7 % MONO % (test code = 5905-5) 10.9 % EOS % (test code = 713-8) 2.3 % BASO % (test code = 706-2) 0.6 % GRAN MAT x10^3(ANC) (test code = 5184391001) 3.06 10*3/uL 1.88-7.09 IMM GRAN x10^3 (test code = 3576645951) <0.03 0-0.06 LYMPH x10^3 (test code = 731-0) 1.53 10*3/uL 1.32-3.29 MONO x10^3 (test code = 742-7) 0.58 10*3/uL 0.33-0.92 EOS x10^3 (test code = 711-2) 0.12 10*3/uL 0.03-0.39 BASO x10^3 (test code = 704-7) 0.03 10*3/uL 0.01-0.07 Lab Interpretation (test code = 93448-2) Abnormal [facility] Notes Date/Time Note Provider Source 2023-03-13 07:55:00 [id number]+[id number] dONL6QZAy9mN2Tde/RY69yAo6aalA sEhjTHEfUAnxMhdq9Lz5FdUCAbe1053-28-95H98:55:55650 6-[address] [place] [address] PATIENT NAME: MEGHAN EDWARDS ADMIT DATE: 03/13/23ACCOUNT NO: [id number] ROOM NO: AGE: 47 REPORT TYPE: ENDOSCOPY REPORT SEX: F ADMITTING PHYSICIAN: ATTENDING PHYSICIAN:Macarena Pretty MD Gastroenterology Pat ient Name: Meghan Edwards Procedure Date: 03/13/2023 7:55 AMMRN: [id number] of : 1975 Procedure: Upper GI endoscopyIndications: Epigastric abdominal painProviders: YOSVANY Martinezeferring MD: YOSVANY Martinezequesting Provider: Medicines: Monitored Anesthesia CareProcedure: Pre-Anesthesia Assessment: - See the other procedure note for documentation of the pre-procedure assessment. After obtaining informed consent, the endoscope was passed under direct vision. Throughout the [...] less than 5 mm, not extending between tops of 2 mucosal folds) esophagitis with no bleeding was found at the gastroesophageal junction. A small hiatal hernia was present. Localized mildly erythematous mucosa without bleeding was found in the gastric antrum. This was biopsied with a cold forceps for histology. Evidence of a sleeve gastrectomy was found in the gastric body. Patchy mildly erythematous mucosa without active bleeding and with no stigmata of bleeding was found in the duodenal bulb. The second portion of the duodenum was normal. Complications: No immediate complications. Estim ated Blood Loss: Estimated blood loss: none.Impression: [...] Await pathology results. Procedure Code(s): --- Professional --- 61828, Esophagogastroduodenoscopy, flexible, transoral; with biopsy, single or multipleDiagnosis Code(s): --- Professional --- K21.00, Gastro-esophageal reflux disease with esophagitis, without bleeding K44.9, Diaphragmatic hernia without obstruction or gangrene K31.89, Other diseases of stomach and duodenum Z98.84, Bariatric surgery status R10.13, Epigastric pain CPT copyright 2020 [employer]. All rights reserved. The codes documented in this report are preliminary and upon electronic equipment maint tech review may be revised to meet current compliance requirements. Macarena Pretty MD03/13/2023 8:20:34 AMNumber of Addenda: 0 Note Initiated On: 03/13/2023 7:55 AMProvation {[id number]}.pdf ProVation FT PDF at 0820 PATIENT NAME: MEGHAN EDWADRS jzbaptw7537-96-47F52:20:00G.[id number] ilable for patient njvrPETFYKRLEVXKZE2174-00-98V23:21:11 [facility] 2023-03-13 07:54:00 [id number]+TPGCch T6rPKVMmCiHrgGXU6zCCQZ7P5Ld1/ lIKrcytaspGiU7nTIdItEJuuC1P3163-84-64M64:54:51723 6-[address] [place] [address] PATIENT NAME: MEGHAN EDWARDS ADMIT DATE: 03/13/23ACCOUNT NO: [id number] ROOM NO: AGE: 47 REPORT TYPE: ENDOSCOPY REPORT SEX: F ADMITTING PHYSICIAN: ATTENDING PHYSICIAN:Macarena Pretty MD Gastroenterology Pat ient Name: Meghan Ewdards Procedure Date: 03/13/2023 7:54 AMMRN: [id number] of : 1975 Procedure: ColonoscopyIndications: Chronic idiopathic constipationProviders: Hetal Martinez MD: Nic Martinez Provider: Medicines: Monitored Anesthesia CareProcedure: Pre-Anesthesia Assessment: - Prior to the procedure, a History and Physical was performed, and patient medications, allergies and sensitivities were reviewed. The patient's tolerance of previous anesthesia was reviewed. - The risks and benefits of the procedure and the sedation options and risks were discussed with the patient. All questions were answered and informed consent was obtained. - Patient identification and proposed procedure were verified prior to the procedure by the physician, the nurse, the paint grinder stone mill and the photovoltaic fabrication technician. The procedure was verified in the procedure room. - Pre-procedure physical examination revealed no contraindications to sedation. - ASA Grade Assessment: III - A patient with severe systemic disease. - After reviewing the risks and benefits, the patient was deemed in satisfactory condition to undergo the procedure. - Monitored anesthesia care under the supervision of a CHILDREN'S AUTHOR was determined to be medically necessary for this procedure based on review of the patient's [...] hemorrhoids were medium-sized. Complications: No immediate complications. Estim ated Blood Loss: Estimated blood loss: none.Impression: - The entire examined colon is normal. - Mild colonic spasm consistent with irritable bowel syndrome. - Non-bleeding internal hemorrhoids. - No specimens collected.Recommendation: - Repeat colonoscopy in 5-10 years for surveillance. - Return to GI office in 2 weeks. Procedure Code(s): --- Professional --- 13906, Colonoscopy, flexible; diagnostic, including collection of specimen(s) by brushing or washing, when performed (separate procedure)Diagnosis Code(s): --- Professional --- K64.8, Other hemorrhoids K58.9, Irritable bowel syndrome without diarrhea K59.04, Chronic idiopathic constipation CPT copyright 2020 [employer]. All rights reserved. The codes documented in this report are preliminary and upon electronic equipment maint tech review may be revised to meet current compliance requirements. Macarena Pretty MD03/13/2023 8:18:01 AMNumber of Addenda: 0 Note Initiated On: 03/13/2023 7:54 AMProvation {[id number]}.pdf ProVation FT PDF at 0818 PATIENT NAME: MEGHAN EDWARDS fzntcvq8366-93-49G89:18:00G.QMO97173437-6609UXKty ilable for patient zfavQTTWPXZSXGKSED2123-81-52D81:18:20 [facility] 2023-03-12 10:35:00 [id number]+M rdpX4rLogpRXgZk/M5eRkrVST0omN B7Sdeuv9WM6awgu4sS6agVavlNX1019-87-38G44:35:00902 5-0086 [place] [id number] PATIENT NAME: MEGHAN EDWARDS ADMIT DATE: ACCOUNT NO: [id number] ROOM NO: AGE: 47 REPORT TYPE: eELECTROCARDIOGRAM REPORT SEX: F ADMITTING PHYSICIAN: ATTENDING PHYSICIAN:Macarena Pretty MD Order:[id number] Reason : PREOP Test Date/Time Stamp:SatMar 12 [...] MD at 1509 PATIENT NAME: MEGHAN EDWARDS .[id number] AVAvailable for patient cxdvETMIQTQPMXDWNI1167-76-46M20:10:04 [facility] 2023-02-09 15:21:00 [id number] wXSnebgv/IvXF20FNAacHn8QSFhMr xZiHpT904k8TJ7cr2zy23Ofryc03111-50-57F89:21:80818 0-[address] [address] PATIENT NAME: MEGHAN EDWARDS ADMIT DATE: 02/09/23ACCOUNT NO: [id number] ROOM NO: AGE: 47 REPORT TYPE: eELECTROCARDIOGRAM SEX: F ADMITTING PHYSICIAN: ATTENDING PHYSICIAN: Order:[id number] Reason : GI Test Date/Time Stamp:SatFeb 09 2023 15:21:52Blood Pressure : / mmHGVent. Rate : 048 BPM Atrial Rate : 048 BPM P-R Int : 154 ms QRS Dur : 088 ms QT Int : 502 ms P-R-T Axes : 046 006 016 degrees QTc Int : [address] abnormalityAbnormal ECGNo previous ECGs availableConfirmed by CLYDE COPELAND ([id number]) on 02/25/2023 6:11:36 AM Referred By: Self Referred Confirmed by:CLYDE COPELAND at 0611 PATIENT NAME: MEGHAN EDWARSD .[id number] AVAvailable for patient wwxqWNLCSCTBYBMZRJ4911-95-96E88:12:02 [facility] 2023-02-09 13:55:00 [id number] x6ZiJVhP/7fAb4HY+VmvNDiOyyCBi fVKiZ0GXyNvCLDy/PcFTpKo4zIm0418-62-10H12:55:00 [facility] CampusEMERGENCY PROVIDER REPORTREPORT#:[id number] REPORT STATUS: SignedDATE:02/09/23 TIME:135 PATIENT: MEGHAN EDWARDS UNIT #: [id number]#: [id number] ROOM/BED:: 73 AGE: 47 SEX: F PCP PHYS: Jabari Leyva AUTHOR: Eileen Vidales DENTAL MECHANIC * ALL edits or amendments must be made on the electronic/computer document * Eileen Vidales 02/09/23 1355:HPI-Abd Pain F 40 and Over Free Text HPI NotesFree Text HPI Gmdnu07-piwk-bzj female presents to the emergency department with complaints of abdominal pain. Patient states that she was admitted at [facility] January 29 to . Patient states she has been unable to have a bowel movement since that admissiontoday. States she is using multiple laxatives and stool softeners and [...] as marked. Basic Review of SystemsBasic ROS EYES: No redness, HEM: No bleeding/bruising, NEURO: No [...] 02/09 1308 Review of Vital Signs Reviewed Focused PEAbdomen/GI Abdomen/GI Atraumatic, Soft, No distention Tenderness/Guarding/Rebound Tender LUQ, Tender LLQ. Free Text PE NotesFree Text PE Notes General/Const: Awake, Alert, No acute distress, Well appearing, Well hydrated,MS Head: Atraumatic, NormocephalicEyes Atraumatic: EOMI, No nystagmus, No periorbital swelling, No scleral icterusEars/Nose/Throat: Atraumatic, Airway patent, Mucous membranes moist, [...] motor deficits, Cerebellar NL, Memory NL, Gait NL Psychiatric: Affect NL, Mood NL, Cognitive function NL, Judgment/insight NL, Thought content NL Interpretation Diagnostics Lab Results InterpretationConsiderations Independ [...] 34.2 pg) 29.3 MCHC (31.5 - 34.0 G/DL) 32.0 RDW (11.5 - 14.5 SD) 12.2 Plt Count (150 - 450 K/mm3) 271 MPV (7.0 - 10.5 fL) 9.60 Neut % (Auto) (40 - 76 %) 54.9 Lymph % (Auto) (20.5 - 51.1 %) 32.3 Will % (Auto) (1.7 - 9.3 %) 9.7 H Eos % (Auto) (0.0 - 6.0 %) 2.2 Baso % (Auto) (0.0 - 2.0 %) 0.7 Neut # (Auto) (1.8 - 7.6 K/mm3) 3.3 Lymph # (Auto) (0.6 - 3.2 K/mm3) 1.9 Will # (Auto) (0.3 - 1.1 K/mm3) 0.6 [...] (21 - 32 mmol/L) 27 Anion Gap (4.0 - 15.0 GAP calc) 3.0 L BUN (7 - 18 MG/DL) 13 Creatinine (0.6 - 1.0 MG/DL) 0.9 Glomerular Filtr Rate (>60 estGFR) >=60 max estimate Glucose [...] Urines Urine Color (YEL/STRAW discript) STRAW Urine Appearance (CLEAR discript) CLEAR Urine pH (5.0 - 7.0 pH UNITS) 7.5 H Ur Specific [place] (1.005 - 1.030 SG) 1.010 Urine Protein (NEG mg/dL) NEGATIVE Urine Glucose (UA) (NEG mg/dL) NEGATIVE Urine Ketones (NEG mg/dL) NEGATIVE Urine Blood (NEG mg/DL) NEGATIVE Urine Nitrite (NEG SCREEN) NEGATIVE Urine Bilirubin (NEG mg/dL) NEGATIVE Urine Urobilinogen (<2.0 mg/dL) 0.2 Ur Leukocyte Esterase (NEGATIVE Leuk/mcL) NEGATIVE Recent Impressions:CAT SCAN - CT ABD PELVIS W/CONT 02/09 1445 Report Impression - Status: SIGNED Entered: 02/09/2023 1525 IMPRESSION: 1. Suggestion of a mild enterocolitis.2. Mild hepatic steatosis.Impression By: Clif Gabriel M.D. Lab Imaging StatementLaboratory radiographic studies reviewed and considered in the medical decision-making. ECG #1 InterpretationDate 02/09/23Time 1521Interpreted by ED physicianNL ECG Interpretation Normal sinus rhythm, No STEMIRate 48Rhythm Bradycardia Re-Evaluation MDM [...] major gastrointestinal bleeding, severe diverticulitis, abdominal aortic aneurysm, mesenteric ischemia, volvulus, sepsis, or other significant [...] Admin Morphine Sulfate 4 MG X1ED STA 02/09 1329 DC 02/09 IV 02/09 1330 1329 Diagnostic Agents Sig/Mery Start time Last Medication Dose Route Stop Time Status Admin Iopamidol 0 .STK-MED ONE 02/09 1355 DC 02/09 IV 1510 Electrolytic, Caloric, And Erika Sig/Mery Start time Last Medication Dose Route Stop Time Status Admin Sodium Chloride 50 ML .STK-MED ONE 02/09 1515 DC 02/09 IV 02/09 1516 1515 Sodium Chloride 1,000 ML X1ED STA 02/09 1329 DC 02/09 IV 02/09 1429 1329 Gastrointestinal Drugs Sig/Mery Start time Last Medication Dose Route Stop Time Status Admin Ondansetron HCl 4 MG X1ED PRN PRN 02/09 1330 DC 02/09 IV 02/10 1329 1430 Rx Drug Regimen New Rx givenSafety Concerns Patient is safe Differential Diagnosis)( Differential Diagnosis Acute coronary symndrome, Bowel obstruction, Diarrhea,Diverticular disease, Urinary tract [...] 57 02/09 1308 Resp 17 02/09 1308 All vital signs available at the time of this entry have been reviewed. Clinical ImpressionClinical ImpressionPrimary Impression: Colitis Disposition DecisionDischarge )( Discharged to Home Yes )( Time 1612 )( Date 02/09/23 Discharge/Care PlanCounseled Regarding Diagnosis, Lab results, Imaging studies, Prescriptions, Needfor follow-up, When to return to ED(Auto) PrescriptionsCurrent Visit ScriptsCIPROFLOXACIN (CIPRO) 500 MG PO BID 5 Days #10 TABS metroNIDAZOLE (FLAGYL) 500 MG PO [...] of the patient's diagnosis, condition and treatment plan as can beexpected at this point. The [...] these instructions in written format and have expressed an understanding of the discharge instructions. The patient and/or caregivers are aware that any significant change in condition or worsening of symptoms should prompt an immediate return to this or the closest emergency department or a call to 911. Chris Olivas 02/10/23 2017:Patient Discharge Departure Discharge/Care PlanReferralsProvider Referral: River Puri MD Address: [address] [place] [address] [address] [address] Supervising Physician Note MidLv Saw Pt AloneI have reviewed the PA/DENTAL MECHANIC's note and plan of care. I was available for consultation as needed at all times during the patient's visit in the emergency department. I agree with the clinical impression, plan and disposition. at 1 at 2017 RPT #: [id number] OF REPORTEDEmergency department tccjzo8637-60-91U87:55:00L.LWDP76429584-2439FYTnv ilable for patient pvhlMJHOUGJNLTASMS0252-75-17T47:51:50 [facility] 2022-12-29 14:53:00 [id number] HFAhZtgDlmMFVjx2GPmH4DaJZdLAK XuQHEx7bykOq6p2Weakg8d25GvN0152-18-48A00:53:00 [facility]EM[facility] PROVIDER REPORTREPORT#:[id number] REPORT STATUS: SignedDATE:12/29/22 TIME: 1452 PATIENT: MEGHAN EDWARDS UNIT #: [id number]#: [id number] ROOM/BED:AGE: 47 SEX: F PCP PHYS: No Primary or Family PhysicianSERVICE AUTHOR: Dexter Tompkins APRNNP * ALL edits or amendments must be made on the electronic/computer document * Dexter Tompkins 12/29/221452:HPI-Foot Prob/Inj GeneralInitial Greet Date/Time 12/29/221335 PresentationChief Complaint Toe pain LHx Obtained From Patient Free Text HPI NotesFree Text HPI Kyaxh13-vfij-kws female arrives today from work stating she [...] Medical History - AdultStated Complaint L LEG TOE INJAllergiesCoded Allergies:No Known Allergies (12/29/22) Review of Nursing Notes Triage notes reviewedSmoking status for patients 13 years old or older: Never SmokerAmbulatory Status Independent Physical Exam Vital SignsVital SignsFirst Documented: Result Date Time Pulse Ox 99 12/29 1337 B/P 171/97 12/29 1337 B/P Mean 121 12/29 1337 O2 Delivery Room air 12/29 1337 Temp 36.8 12/29 1337 Pulse 71 12/29 1337 Resp 12/29 1337 Last Documented: Result Date Time Pulse Ox 99 12/29 1502 B/P 160/74 12/29 1502 B/P Mean 102 12/29 1502 Temp 36.8 12/29 1502 Pulse 72 12/29 1502 Resp 19 12/29 1502 O2 Delivery Room air 12/29 1337 Review of Vital Signs Reviewed Free Text PE NotesFree Text PE NotesGeneral: Awake, alert, no acute distress, nontoxic appearingENT: Airway patentRespiratory: No signs of respiratory distress, BBS CTACardiovascular: Heart sounds NL,GI: soft, non-tender, no rebound, guarding, or distentionMusculoskeletal: unremarkableSkin: 1 cm superficial scratch nonbleeding no need for closureNeurologic: Spontaneously awake and alert, speech NL, no motor deficits noted Interpretation Diagnostics Lab Results InterpretationConsiderations Independ review imagingResultsRecent Impressions:RADIOLOGY - XR FOOT 3 + V LT 12/29 1354 Report Impression - Status: SIGNED Entered: 12/29/2022 1421 IMPRESSION: No acute fracture seen.Impression By: Bill Roebrt M.D. Imaging StatementRadiographic studies reviewed and considered in the medical decision-making. Re-Evaluation MDM Free Text MDM NotesAdditional TextChief complaint of: Toe pain and scratch from dropping clippers Differential diagnosis including, but not limited to: Laceration, open fracture,fracture, contusion Imaging personally reviewed: No obvious evidence of fracture or dislocation Patient wound is nonbleeding and does not give clinical evidence for need for [...] it is necessary to seek emergent medical interventions. Re-Evaluation/ProgressRe-Evaluation/Progress Time of Re-Eval 1457 Plan Post [...] 1337 Pulse 71 12/29 1337 Resp 19 12/297 Last Documented: Result Date Time Pulse Ox 99 12/29 1502 B/P 160/74 12/29 1502 B/P Mean 102 12/29 1502 Temp 36.8 12/29 1502 Pulse 72 12/29 1502 Resp 19 12/29 1502 O2 Delivery Room air 12/29 1337 All vital signs available at the time of this entry have been reviewed. Condition Stable Clinical ImpressionClinical ImpressionPrimary Impression: Toe injury Disposition DecisionDischarge )( Discharged to Home Yes )( Time 1457 )( Date 12/29/22 Discharge/Care PlanCounseled Regarding Diagnosis, Imaging studies, Need for follow-up, When to return to ED, Wound carePatient Instructions ED Finger or Toe Contusion, ED RICE, ED Wound CareAdditional InstructionsToday: Imaging is no obvious evidence for fracture (break) or dislocations. However there is a small percentage of fractures when x-ray the same day that do not show up on imaging. Follow-up with primary care for need of further assessments. Read the instructions provided on wound care. Utilize dcdt-vcy-yunglqg medications and RICE technique to assist with pain. 1. The examination and treatment that you have received has been on an emergencybasis only and is not intended as an effort to provide complete medical care. Itis impossible to recognize and treat all elements of an illness or injury in a single ER visit.2. Thank you for allowing us to provide emergent medical care to you or your family member. We consider it a privilege to have served you during your illness or injury.3. If you have received a prescription, please fill it TODAY and follow the instructions carefully.4. Return to the ER for worsening symptoms.5. Follow up with your family doctor -You may follow-up on [email or web address] for complete copy of today's testing. Departure FormsFREE OR [facility] PCP LIST Discharge NoteI have spoken with the patient and/or caregivers. I have explained the patient'scondition, diagnoses and treatment plan based on the information available to meat this time. I have answered the patient's and/or caregiver's questions and addressed any concerns. The patient and/or caregivers have as good an understanding of the patient's diagnosis, condition and treatment plan as can beexpected at this point. The [...] these instructions in written format and have expressed an understanding of the discharge instructions. The patient and/or caregivers are aware that any significant change in condition or worsening of symptoms should prompt an immediate return to this or the closest emergency department or a call to 911. Extremity Inj Discharge NoteThe patient is discharged home with supportive care, a plan for pain control, and follow-up instructions that detail what to expect over the next 48 hours andwhat symptoms [...] closest emergency department or call 911. Matthew Fodr 12/31/22 1909:Patient Discharge Departure Discharge/Care PlanReferralsProvider Referral: Nakul Conner DPM Follow-Up: As Needed Address: [address] [address] Provider Referral: Jo Weller Follow-Up: 2-3 Days Address: [address] [place] [address] [place] [address] Supervising Physician Note MidLv Saw Pt AloneI have reviewed the PA/DENTAL MECHANIC's note and plan of care. I was available for consultation as needed at all times during the patient's visit in the emergency department. I agree with the clinical impression, plan and disposition. at 2009 at 1910RPT #:[id number] OF REPORTEDEmergency department upswlj6608-33-81K84:53:00E.XMHB91148740-8611PUOla ilable for patient wvttGAXTSWHFEBNNYQ5996-73-86X28:09:19 HCAMN"
[2023-12-18] MEDS ORDERED: MORPHINE 4 MG/ML SYR ONE ×2 (01:34→02:21)
[2023-12-18] MEDS ORDERED: FAMOTIDINE 20 MG/2 ML VIAL IV ONE (01:34)
[2023-12-18] MEDS ORDERED: ONDANSETRON 4 MG/2 ML VIAL ONE (01:34)
[2023-12-18] MEDS ORDERED: KETOROLAC 30 MG/ML INJ ONE (01:34)
[2023-12-18] MEDS ORDERED: NA CHLORIDE 0.9% 1,000 ML ONE (01:35)
[2023-12-18 01:49] LABS: Absolute Basophils 0.1 K/uL (0-0.5); Absolute Eosinophils 0.2 K/uL (0-0.5); Absolute Lymphocytes (CBC) 2.4 K/uL (0.7-4.9); Absolute Monocytes 0.8 K/uL (0.1-1.3); Absolute Neutrophil 4.3 K/uL (1.8-8.0); Basophils % 1.1 % (0-1.3); Eosinophils % 2.5 % (0-4.4); Hematocrit 36.5 % (36.0-45.0); Hemoglobin 12.4 g/dL (12.0-15.0); Lymphocytes % 30.8 % (15.3-44.8); MCH 29.4 pg (27.0-35.0); MCV 86.4 fL (80-100); MPV 7.9 fL (7.6-11.3); Monocytes % 10.4 % (3.3-12.3); Neutrophils % 55.2 % (41.7-73.7); Nucleated Red Blood Cells % 0.5 % (0-0); Platelets 275 thou/uL (152-406); RBC Red Blood Cell Count 4.22 M/uL (3.86-4.86); Red Cell Distribution Width 12.8 % (12.1-15.2)
[2023-12-18 01:56] LABS: Albumin 3.5 g/dL (3.4-5.0); Anion Gap 4.5 mEq/L (5.0-15.0); Bilirubin Total 0.3 mg/dL (0.2-1.0); Globulin 3.4 g/dL (2.3-3.5); Potassium 3.5 mEq/L (3.5-5.1); Protein, Total 6.9 g/dL (6.4-8.2)
[2023-12-18 02:06] LABS: Renal Epithelial <5 /HPF (None Seen); Specific Gravity 1.019 (1.005-1.030); Sqamous Epithelial <5 /HPF (None Seen); Urine Bacteria None Seen /HPF (<20); Urine Bilirubin NEGATIVE (Negative); Urine Blood Negative (Negative); Urine Clarity Turbid (Clear); Urine Color Light-Yellow (Yellow); Urine Culture Reflex Order REFLEXED; Urine Glucose NEGATIVE (Negative); Urine Ketones NEGATIVE (Negative); Urine Microscopic Reflex YN ORDER UMIC; Urine Nitrite NEGATIVE (Negative); Urine Protein NEGATIVE (Negative); Urine RBC <5 /HPF (None Seen); Urine Urobilinogen Normal (Normal)
[2023-12-18] MEDS ORDERED: HALOPERIDOL LACT 5 MG/ML INJ ONE (02:29)
[2023-12-18] MEDS ORDERED: FENTANYL CITR 100 MCG/2 ML ONE (02:32)
--- NOTE | 2023-12-18 04:56 | ER ---
Nurse's Notes [facility] Name: Meghan Zuluaga Age: 48 yrs Sex: Female : 1975 Arrival Date: 12/18/2023 Time: 00:43 Bed 6 Private MD: Diagnosis: Abdominal pain, Generalized;Lower abdominal pain, unspecified;Right flank pain Presentation: 12/17 00:58 Chief complaint: Patient states: bilateral flank pain of 8, worse on to the left flank pf1 that radiates to abdominal region with dysuria, nausea and diarrhea, onset 2 days. Patient stated did a virtual visit with her DrJulio Cesar and was prescribed medication for UTI and took her medication tonight at 1800. Coronavirus screen: Client denies travel out of the [place] in the last 14 days. At this time, the client does not indicate any symptoms associated with coronavirus-19. Ebola Screen: Patient negative for fever greater than or equal to 101.5 degrees Fahrenheit, and additional compatible Ebola Virus Disease symptoms. Initial Sepsis Screen: Does the patient meet any 2 criteria? No. Patient's initial sepsis screen is negative. Does the patient have a suspected source of infection? No. Patient's initial sepsis screen is negative. Risk Assessment: Do you want to hurt yourself or someone else? Patient reports no desire to harm self or others. Onset of symptoms was December 16, 2023. 00:58 Method Of Arrival: Ambulatory pf1 00:58 Acuity: LALI 3 pf1 Historical: - Allergies: 01:08 Codeine; pf1 01:08 hydrocodone; pf1 - PMHx: 01:08 Anxiety; Diabetes - NIDDM; Hypertension; pf1 01:10 kidney stones; pf1 - PSHx: 01:08 Gastric Sleeve-2019; Cholecystectomy; pf1 - Immunization history:: Adult Immunizations not up to date, Client reports receiving the 2nd dose of the Covid vaccine, Pfizer Last tetanus immunization: < 5 years ago Flu vaccine is not up to date. - Infectious Disease History:: Denies. - Family history:: not pertinent. - Social history:: Smoking status: Patient denies any tobacco usage or history of. Patient/guardian denies using alcohol, street drugs. Screenin:41 [facility] ED Fall Risk Assessment (Adult) History of falling in the last 3 months, rv including since admission No falls in past 3 months (0 pts) Score/Fall Risk Level 0 - 2 = Low Risk Oriented to surroundings, Maintained a safe environment, Educated pt \T\ family on fall prevention, incl call for assistance when getting out of bed, Assessed \T\ reinforced patient's understanding of fall precautions. Abuse screen: Denies threats or abuse. Denies injuries from another. Nutritional screening: No deficits noted. Tuberculosis screening: No symptoms or risk factors identified. Assessment: 01:42 General: Appears uncomfortable, Behavior is calm, cooperative. Pain: Complains of pain rv in abdomen. Neuro: Level of Consciousness is awake, alert, obeys commands, Oriented to person, place, time, situation. Cardiovascular: Capillary refill < 3 seconds Patient's skin is warm and dry. Respiratory: Airway is patent Respiratory effort is even, unlabored. GI: No signs and/or symptoms were reported involving the gastrointestinal system. : No signs and/or symptoms were reported regarding the genitourinary system. 02:35 Reassessment: No changes from previously documented assessment. rv Vital Signs: 00:58 BP 177 / 91; Pulse 76; Resp 20; Temp 97.6; Pulse Ox 100% on R/A; Weight 83.01 kg; pf1 Height 5 ft. 7 in. ; Pain 8/10; 02:00 BP 144 / 86; Pulse 52; Resp 20; Pulse Ox 98% ; vc1 02:52 BP 147 / 78; Pulse 67; Resp 16; Pulse Ox 100% ; vc1 04:00 BP 110 / 68; Pulse 73; Resp 18; Pulse Ox 99% ; vc1 05:11 BP 112 / 66; Pulse 71; Resp 17; Temp 98; Pulse Ox 99% ; rv 00:58 Body Mass Index 28.66 (83.01 kg, 170.18 cm) pf1 00:58 Pain Scale: Adult pf1 Apurva Coma Score: 01:05 Eye Response: spontaneous(4). Motor Response: obeys commands(6). Verbal Response: sp4 oriented(5). Total: 15. 05:11 Eye Response: spontaneous(4). Motor Response: obeys commands(6). Verbal Response: rv oriented(5). Total: 15. ED Course: 00:45 Patient arrived in ED. jj6 00:51 Francois Cabrera MD is Attending Physician. sp4 01:08 Triage completed. pf1 01:11 Arm band placed on left wrist. pf1 01:26 Abdias Monzon, JUAN is Primary Nurse. rv 01:26 CBC with Diff Sent. rv 01:26 CMP Sent. rv 01:26 Lipase Sent. rv 01:26 Urinalysis w/ reflexes Sent. rv 01:41 Patient has correct armband on for positive identification. Client placed on continuous rv cardiac and pulse oximetry monitoring. NIBP monitoring applied. 01:41 CBC with Diff Sent. rv 01:41 CMP Sent. rv 01:41 Lipase Sent. rv 01:41 Urinalysis w/ reflexes Sent. rv 01:41 No provider procedures requiring assistance completed. Initial lab(s) drawn, by me, rv sent to lab. Inserted saline lock: 20 gauge in right antecubital area, using aseptic technique. Blood collected. 03:19 CT Abd/Pelvis - Without Contrast In Process Unspecified. EDMS 05:12 IV discontinued, intact, bleeding controlled, No redness/swelling at site. Pressure rv dressing applied. Administered Medications: 01:40 Drug: Ketorolac IVP 30 mg IVP once Route: IVP; Site: right antecubital; rv 02:34 Follow up: Response: No adverse reaction; No change in condition rv 01:40 Drug: NS 0.9% IV 1000 ml IV at 1 bolus Per protocol; 1000 mL bolus Route: IV; Rate: 1 rv bolus; Site: right antecubital; 02:34 Follow up: IV Status: Completed infusion; IV Intake: 1000ml rv 01:40 Drug: Ondansetron IVP 4 mg IVP once; over 2 minutes Route: IVP; Site: right antecubital;rv 02:34 Follow up: Response: No adverse reaction rv 01:40 Drug: Famotidine IVP 20 mg IVP once; dilute with 10 mL 0.9% NaCl; give over 2 minutes rv Route: IVP; Site: right antecubital; 02:34 Follow up: Response: No adverse reaction rv 01:41 Drug: morphine IVP or IV 8 mg IVP once over 4 mins Route: IVP; Infused Over: 4 mins; rv Site: right antecubital; 02:22 Drug: morphine IVP or IV 8 mg IVP once over 4 mins Route: IVP; Infused Over: 4 mins; rv Site: right antecubital; 02:35 Follow up: Response: No adverse reaction; No change in condition rv 05:12 Follow up: Response: No adverse reaction; Marked relief of symptoms rv 02:30 Drug: Haloperidol IVP 2.5 mg IVP once Route: IVP; Site: right antecubital; rv 05:12 Follow up: Response: No adverse reaction; Marked relief of symptoms rv 02:33 Drug: fentaNYL (PF) IVP 100 mcg IVP once Route: IVP; Site: right antecubital; rv 05:12 Follow up: Response: No adverse reaction; Marked relief of symptoms rv Medication: 01:41 VIS not applicable for this client. rv Intake: 02:34 IV: 1000ml; Total: 1000ml. rv Outcome: 04:56 Discharge ordered by sp4 05:11 Discharged to home ambulatory, with family, rv 05:11 Condition: good 05:11 Discharge instructions given to patient, Instructed on discharge instructions, follow up and referral plans. medication usage, Demonstrated understanding of instructions, follow-up care, medications, Prescriptions given X 1, 05:13 Patient left the ED. rv Signatures: Dispatcher [employer] EDMS Abdias Monzon RN RN rv Karla Kim jj6 Ivis Escalera RN RN vc1 Finley, Pamala, RN RN pfFrancois Montoya MD MD sp4 Corrections: (The following items were deleted from the chart) 01:11 01:08 PMHx: kidney stones (Hypertension); pf1 pf1 01:11 01:08 PSHx: Appendectomy; pf1 pf1 02:50 01:55 Reassessment: 1 gayla
--- NOTE | 2023-12-18 04:56 | EDPHYS ---
Physician Documentation [facility] Name: Meghan Zuluaga Age: 48 yrs Sex: Female : 1975 Arrival Date: 12/18/2023 Time: 00:43 Bed 6 Private MD: ED Physician Francois Cabrera HPI: 12/17 00:51 This 48 yrs old Female presents to ER via Unassigned with complaints of sp4 Pelvic Pain, Low Back Pain. 01:05 48-year-old female presents with acute pelvic pain and left flank pain associated with sp4 nausea and diarrhea for the past 2 days. Patient reports watery diarrhea and nausea left flank pelvic lower abdominal pain. . Historical: - Allergies: 01:08 Codeine; pf1 01:08 hydrocodone; pf1 - PMHx: 01:08 Anxiety; Diabetes - NIDDM; Hypertension; pf1 01:10 kidney stones; pf1 - PSHx: 01:08 Gastric Sleeve-2019; Cholecystectomy; pf1 - Immunization history:: Adult Immunizations not up to date, Client reports receiving the 2nd dose of the Covid vaccine, [employer] Last tetanus immunization: < 5 years ago Flu vaccine is not up to date. - Infectious Disease History:: Denies. - Family history:: not pertinent. - Social history:: Smoking status: Patient denies any tobacco usage or history of. Patient/guardian denies using alcohol, street drugs. ROS: 01:05 Constitutional: Negative for fever, chills, and weight loss, sp4 01:05 All other systems are negative, Exam: 01:05 Constitutional: This is a well developed, well nourished patient who is awake, alert, sp4 and in no acute distress. Head/Face: Normocephalic, atraumatic. Eyes: Pupils equal round and reactive to light, extra-ocular motions intact. Lids and lashes normal. Conjunctiva and sclera are not injected. Cornea within normal limits. Periorbital areas with no swelling, redness, or edema. ENT: Nares patent. No nasal discharge, no septal abnormalities noted. Tympanic membranes are normal and external auditory canals are clear. Oropharynx with no redness, swelling, or masses, exudates, or evidence of obstruction, uvula midline. Mucous membranes moist. Neck: Trachea midline, no thyromegaly or masses palpated, and no cervical lymphadenopathy. Supple, full range of motion without nuchal rigidity, or vertebral point tenderness. Chest/axilla: Normal chest wall appearance and motion. Nontender with no deformity. No lesions are appreciated. Cardiovascular: Regular rate and rhythm with a normal S1 and S2. No gallops, murmurs, or rubs. Normal PMI, no JVD. No pulse deficits. Respiratory: Lungs have equal breath sounds bilaterally, clear to auscultation and percussion. No rales, rhonchi or wheezes noted. No increased work of breathing, no retractions or nasal flaring. Abdomen/GI: Soft, with normal bowel sounds. No distension or tympany. No guarding or rebound. No evidence of tenderness throughout. Back: No spinal tenderness. No costovertebral tenderness. Skin: Warm, dry with normal turgor. Normal color with no rashes, no lesions, and no evidence of cellulitis. MS/ Extremity: Pulses equal, no cyanosis. Neurovascular intact. Full, normal range of motion. Neuro: Awake and alert, GCS 15, oriented to person, place, time, and situation. Cranial nerves II-XII grossly intact. Motor strength 5/5 in all extremities. Sensory grossly intact. Psych: Awake, alert, with orientation to person, place and time. Behavior, mood, and affect are within normal limits Vital Signs: 00:58 BP 177 / 91; Pulse 76; Resp 20; Temp 97.6; Pulse Ox 100% on R/A; Weight 83.01 kg; pf1 Height 5 ft. 7 in. ; Pain 8/10; 02:00 BP 144 / 86; Pulse 52; Resp 20; Pulse Ox 98% ; vc1 02:52 BP 147 / 78; Pulse 67; Resp 16; Pulse Ox 100% ; vc1 04:00 BP 110 / 68; Pulse 73; Resp 18; Pulse Ox 99% ; vc1 05:11 BP 112 / 66; Pulse 71; Resp 17; Temp 98; Pulse Ox 99% ; rv 00:58 Body Mass Index 28.66 (83.01 kg, 170.18 cm) pf1 00:58 Pain Scale: Adult pf1 Derry Coma Score: 01:05 Eye Response: spontaneous(4). Motor Response: obeys commands(6). Verbal Response: sp4 oriented(5). Total: 15. 05:11 Eye Response: spontaneous(4). Motor Response: obeys commands(6). Verbal Response: rv oriented(5). Total: 15. MDM: 00:52 Patient medically screened. sp4 04:53 ED course: EXAM: CTAbdomen and Pelvis Without Intravenous Contrast CLINICAL HISTORY: sp4 The patient is 48 years old and is Female; FLANK PAIN TECHNIQUE: Axial computed tomography images of the abdomen and pelvis without intravenous contrast. Sagittal and coronal reformatted images were created and reviewed. This CT exam was performed using one or more of the following dose reduction techniques: automated exposure control, adjustment of the mA and/or kV according to patient size, and/or use of iterative reconstruction technique. COMPARISON: No relevant prior studies available. FINDINGS: Lung bases: Unremarkable. No mass. No consolidation. Mediastinum: Small hiatal hernia. ABDOMEN: Liver: Unremarkable. Gallbladder and bile ducts: Gallbladder is surgically absent. No ductal dilation. Pancreas: Unremarkable. No ductal dilation. Spleen: Unremarkable. No splenomegaly. Adrenals: Unremarkable. No mass. Kidneys and ureters: Unremarkable. No obstructing stones. No hydronephrosis. Stomach and bowel: Postsurgical changes in the stomach. No obstruction. No mucosal thickening. PELVIS: Appendix: Suggestion of prior appendectomy. Bladder: Unremarkable. Reproductive: See below. ABDOMEN and PELVIS: Intraperitoneal space: Unremarkable. No free air. No significant fluid collection. Bones/joints: No acute fracture. No dislocation. Soft tissues: Unremarkable. Vasculature: Phleboliths in the right ovarian vein. Uterus is not seen. No abdominal aortic aneurysm. Lymph nodes: Unremarkable. No enlarged lymph nodes. IMPRESSION: No acute finding in the abdomen/pelvis. Electronically signed by: Shahzad Sanchez MD 12/18/2023 04:40 AM CDT. 06:37 Differential diagnosis: arthritis, strain, fracture, sciatica, contusion, Herniated sp4 disc. Data reviewed: vital signs, nurses notes, old medical records, lab test result(s), radiologic studies, CT scan. Consideration of Admission/Observation Escalation of care including admission/observation considered. ED course: Patient's pain has improved patient is feeling much better. CT unremarkable. We suspect patient has passed a kidney stone. Patient is stable for discharge home at this time with as needed tramadol and Phenergan. 12/17 00:52 Order name: CBC with Diff; Complete Time: 04:48 sp4 12/17 00:52 Order name: CMP; Complete Time: 04:48 sp4 12/17 00:52 Order name: Lipase; Complete Time: 04:48 sp4 12/17 00:52 Order name: Urinalysis w/ reflexes; Complete Time: 04:48 sp4 12/17 02:13 Order name: Urine Culture EDNM 12/17 02:53 Order name: CT Abd/Pelvis - Without Contrast sp4 12/17 00:52 Order name: IV Saline Lock; Complete Time: 01:26 sp4 12/17 00:52 Order name: Labs collected and sent; Complete Time: 01: sp4 Administered Medications: 01:40 Drug: Ketorolac IVP 30 mg IVP once Route: IVP; Site: right antecubital; rv 02:34 Follow up: Response: No adverse reaction; No change in condition rv 01:40 Drug: NS 0.9% IV 1000 ml IV at 1 bolus Per protocol; 1000 mL bolus Route: IV; Rate: 1 rv bolus; Site: right antecubital; 02:34 Follow up: IV Status: Completed infusion; IV Intake: 1000ml rv 01:40 Drug: Ondansetron IVP 4 mg IVP once; over 2 minutes Route: IVP; Site: right antecubital;rv 02:34 Follow up: Response: No adverse reaction rv 01:40 Drug: Famotidine IVP 20 mg IVP once; dilute with 10 mL 0.9% NaCl; give over 2 minutes rv Route: IVP; Site: right antecubital; 02:34 Follow up: Response: No adverse reaction rv 01:41 Drug: morphine IVP or IV 8 mg IVP once over 4 mins Route: IVP; Infused Over: 4 mins; rv Site: right antecubital; 02:22 Drug: morphine IVP or IV 8 mg IVP once over 4 mins Route: IVP; Infused Over: 4 mins; rv Site: right antecubital; 02:35 Follow up: Response: No adverse reaction; No change in condition rv 05:12 Follow up: Response: No adverse reaction; Marked relief of symptoms rv 02:30 Drug: Haloperidol IVP 2.5 mg IVP once Route: IVP; Site: right antecubital; rv 05:12 Follow up: Response: No adverse reaction; Marked relief of symptoms rv 02:33 Drug: fentaNYL (PF) IVP 100 mcg IVP once Route: IVP; Site: right antecubital; rv 05:12 Follow up: Response: No adverse reaction; Marked relief of symptoms rv Disposition Summary: 12/18/23 04:56 Discharge Ordered Notes: Location: Home sp4 Problem: new sp4 Symptoms: have improved sp4 Condition: Stable sp4 Diagnosis - Abdominal pain, Generalized sp4 - Lower abdominal pain, unspecified sp4 - Right flank pain sp4 Followup: sp4 - With: Private Physician - When: 7 - 10 days - Reason: Recheck today's complaints Discharge Instructions: - Discharge Summary Sheet sp4 - Abdominal Pain, Adult, [id number] sp4 Forms: - Patient Portal Instructions sp4 Prescriptions: - Tramadol 50 mg Oral tablet - take 1 tablet ORAL route every 8 hours as needed; 20 tablet; Refills: 0, sp4 Product Selection Permitted - promethazine 25 mg Oral Tablet - take 1 tablet ORAL route every 6 hours As needed; 20 tablet; Refills: 0, sp4 Product Selection Permitted Signatures: Dispatcher [employer] Abdias Hinton RN RN Marlen Tang RN RN pf1 Francois Cabrera MD MD sp4 Corrections: (The following items were deleted from the chart) 00:53 00:53 CBC+H.LAB.BRZ ordered. EDMS EDMS 00:53 00:53 COMPREHENSIVE METABOLIC PANEL+C.LAB.BRZ ordered. EDMS EDMS 00:53 00:53 LIPASE+C.LAB.BRZ ordered. EDMS EDMS 00:53 00:53 Urinalysis+U.LAB.BRZ ordered. EDMS EDMS 01:11 01:08 PMHx: kidney stones (Hypertension); pf1 pf1 01:11 01:08 PSHx: Appendectomy; pf1 pf1
[2023-12-18 05:30] VITALS: BP 112/66; TEMP 98; O2SAT 99
--- NOTE | 2023-12-18 12:32 | RAD REPORT ---
EXAM DESCRIPTION: CT - Abdomen Pelvis Wo Contrast - 12/18/2023 6:48 am CLINICAL HISTORY: The patient is 48 years old and is Female; FLANK PAIN TECHNIQUE: Axial computed tomography images of the abdomen and pelvis without intravenous contrast. Sagittal and coronal reformatted images were created and reviewed. This CT exam was performed usi ng one or more of the following dose reduction techniques: automated exposure control, adjustment o f the mA and/or kV according to patient size, and/or use of iterative reconstruction technique. COMPARISON: No relevant prior studies available. FINDINGS: Lung bases: Unremarkable. No mass. No consolidation. Mediastinum: Small hiatal hernia. ABDOMEN: Liver: Unremarkable. Gallbladder and bile ducts: Gallbladder is surgically absent. No ductal dilation. Pancreas: Unremarkable. No ductal dilation. Spleen: Unremarkable. No splenomegaly. Adrenals: Unremarkable. No mass. Kidneys and ureters: Unremarkable. No obstructing stones. No hydronephrosis. Stomach and bowel: Postsurgical changes in the stomach. No obstruction. No mucosal thickening. PELVIS: Appendix: Suggestion of prior appendectomy. Bladder: Unremarkable. Reproductive: See below. ABDOMEN and PELVIS: Intraperitoneal space: Unremarkable. No free air. No significant fluid collection. Bones/joints: No acute fracture. No dislocation. Soft tissues: Unremarkable. Vasculature: Phleboliths in the right ovarian vein. Uterus is not seen. No abdominal aortic aneurysm. Lymph nodes: Unremarkable. No enlarged lymph nodes. IMPRESSION: No acute finding in the abdomen/pelvis. Electronically signed by: Shahzad Sanchez MD 12/18/2023 04:40 AM CDT Due to temporary technical issues with the PACS/Fluency reporting system, reports are being signed by the in house radiologist without review as a courtesy to ensure prompt reporting. The interpreting r adiologist is fully responsible for the content of the report.
== END 2023-12-18 05:13 | disposition home or self-care (01) ==
LOC: ER 00:43
DX: R10.84 Generalized abdominal pain (principal); R10.31 Right lower quadrant pain; Z98.84 Bariatric surgery status; Z88.5 Allergy status to narcotic agent
CPT/HCPCS: 87088; 85025; 81001; 87086; 36415; 83690; 80053; 74176; J1630; J3010; J2405; J7030; 96361; 96374; 96375; 99284